=== PATIENT | female | born 1940 | race Caucasian/White ===

== ENCOUNTER 2022-03-30 08:31 | Emergency (ER) | payer MEDICARE, SELFPAY ==
[2022-03-30 08:41] VITALS: BP 170/90; PULSE 96; O2SAT 97
--- NOTE | 2022-03-30 08:46 | ED.GENADULT ---
HPI - General Adult General Chief complaint: Back Pain/Injury Stated complaint: Back Pain Time Seen by Provider: 03/30/22 08:35 Source: patient, family (daughter) and EMS Mode of arrival: EMS Limitations: no limitations History of Present Illness HPI narrative: Patient is an 81 year old female presenting to the emergency department today with generalized body pain. Patient states that she woke up this morning and just hurts everywhere. Patient states that she has a history of back pain and her back is bothering her today but that isn't all that hurts. Patient states that she lives in an assisted living facility. Patient denies any dizziness, lightheadedness, abdominal pain, nausea, vomiting, fever, chills, blurry vision, double vision, loss of vision, chest pain, difficulty breathing, shortness of breath, night sweats, pain with urination, increased urinary frequency, increased urinary urgency, blood in her urine or stool, syncope or a near syncopal episode, recent trauma or falls, bowel incontinence, bladder incontinence, bowel retention, bladder retention, or any other complaints at this time. Onset (ago): hour(s) Severity: mild Severity scale (1-10): 3 Quality: aching and dull Pain Consistency: constant Relieving factors: none Exacerbating factors: none Associated symptoms: denies other symptoms Treatments prior to arrival: none Related Data Home Medications Medication Instructions Recorded Confirmed aspirin 81 mg tablet,delayed 81 mg PO DAILY 05/25/20 09/12/21 release (Adult Aspirin Regimen) lactobacillus combination no.8 3 3,000 mmu cells PO DAILY 05/25/20 09/12/21 billion cell capsule (Adult Probiotic) Previous Rx's Medication Instructions Recorded mirtazapine 15 mg tablet 15 mg PO BEDTIME #90 tabs 02/18/22 oxycodone 5 mg tablet 0.25 mg PO Q4-6H PRN pain #14 tabs 03/30/22 Allergies Allergy/AdvReac Type Severity Reaction Status Date / Time No Known Allergies Allergy Verified 03/06/22 10:46 Review of Systems Constitutional: Constitutional: Reports no additional constitutional complaints, Reports body ache(s), Denies chills, Denies fever(s) and Denies night sweats Eyes: Eyes: Reports no additional eye complaints, Denies blurry vision, Denies change in vision, Denies diplopia, Denies eye discharge, Denies loss of vision and Denies eye pain ENT: Denies dizziness Cardiovascular: Cardiovascular: Reports no additional cardiovascular complaints, Denies chest pain, Denies lightheadedness, Denies Loss of Consciousness and Denies dyspnea Respiratory: Respiratory: Reports no additional respiratory complaints and Denies dyspnea Gastrointestinal: Gastrointestinal: Reports no additional gastrointestinal complaints, Denies abdominal pain, Denies melena, Denies hematochezia, Denies change in bowel habits and Denies change in stool character Genitourinary: Genitourinary: Denies hematuria, Denies urinary frequency, Denies dysuria, Denies urinary incontinence, Denies urinary hesitancy and Denies urinary urgency Musculoskeletal: Musculoskeletal: Reports no additional musculoskeletal complaints, Reports back pain, Reports myalgias, Denies numbness and Denies tingling Neurologic: Denies dizziness, Denies loss of vision, Denies numbness and Denies tingling Psychiatric: Psychiatric: Reports no additional psychiatric complaints Endocrine: Endocrine: Reports no additional endocrine complaints Hematologic/Lymphatic: Hematologic/Lymphatic: Reports no additional hematologic/lymphatic complaints Allergic/Immunologic: Allergic/Immunologic: Reports no additional allergic/immunologic complaints [facility] Past Medical History Attestation statement: The following information was validated with the patient. (patient's information was validated with the patient's daughter) Source: old records reviewed and obtained from family (patient's daughter) Medical History CVA (cerebral vascular accident) Depression GERD (gastroesophageal reflux disease) History of esophageal ulcer Hypercholesterolemia Osteoporosis Peripheral vascular disease Reflux esophagitis Spinal stenosis Thoracic compression fracture Thrombocytopenia Vertebral artery stenosis Surgical History History of appendectomy History of tonsillectomy History of tubal ligation Family History Family History Father No problems noted. Mother No problems noted. Sister Leukemia Social History Social History Alcohol intake: never Patient Tobacco Use Status: Never used Tobacco Tobacco use type: Cigarette Smoked in Last 30 Days: No Use of substances other than those prescribed or required for medical reasons: No Advance Directives: Yes Advance Directives Information Provided: No Advance Directives on File: No Physical Exam ED Vital Signs: Vital Signs - 24 hr 03/30/22 08:50 Temperature 97.9 F Pulse Rate 80 Respiratory Rate 24 H Blood Pressure 170/101 H Pulse Oximetry 96 Oxygen Delivery Method Room Air BMI result Body Mass Index 20.1 Const General: cooperative, no acute distress, alert and awake Nutritional Appearance: well nourished Orientation/consciousness: patient oriented x3 Limitations: no limitations HENMT Head: Yes normal to inspection and Yes atraumatic Ears: hearing grossly normal bilaterally and external ears normal General nose exam: Normal external nose present, no nasal discharge noted and no epistaxis Face and sinus: Yes normal facial exam, No abrasion and No laceration Mouth: Normal oral and palatal mucosa present, no drooling and no muffled voice Eyes General: appearance normal, both eyes and all related structures Periorbital: periorbital findings normal Eyelids: Yes eyelids normal Conjunctivae: conjunctivae normal Pupils: Equal, round and reactive pupils present EOM: EOMs intact bilaterally Neck Neck: Yes normal visual inspection, Yes full ROM and Yes no lymphadenopathy Chest Chest palpation & inspection: normal inspection of the chest Resp Effort & Inspection: normal respiratory effort and able to speak in complete sentences Auscultation: clear to auscultation bilaterally Cardio Rate: regular rate Rhythm: regular rhythm GI Inspection: Yes normal to inspection General: Yes no CVA tenderness Back/Spine/Pelvis Back: no CVA tenderness Cervical Spine: normal cervical lordosis and cervical ROM normal Thoracic/Lumbar Spine: thoracic and lumbar spine normal to inspection and thoraco-lumbar ROM normal Pelvis: no pain with anterior-posterior compression Neuro General: patient oriented x3 and moves all extremities Cranial nerves: Yes Equal, round and reactive pupils present Cognition (Neuro): normal cognition Motor exam (neuro): 5/5 motor strength present throughout Sensory Exam: Normal double simultaneous stimulation for sensation Coordination: [id number] test normal Extrem General: Yes normal to inspection, Yes full ROM and Yes capillary refill normal Psych Appearance: grossly normal Mental Status: mental status grossly normal Affect: normal affect Attitude: cooperative Thought process: Normal thought process present Thought content: Normal thought content present Insight: Good insight present (Psych) Medical Decision Making MDM Narrative Medical decision making narrative: Patient is an 81 year old female presenting to the emergency department today with pain all over. Patient's physical exam was unremarkable. Patient's blood work was unremarkable however, patient refused a repeat troponin be drawn. Patient's EKG was unremarkable. Patient's chest x-ray showed no acute process. Patient adamantly refused a CT scan of her lumbar spine. Patient was ambulated by myself and staff without issue, using her walker. I explained my physical exam findings as well as all test results to the patient and the patient's daughter. I answered all questions asked by the patient and the patient's daughter. Patient received 2.5mg of Oxycodone which she stated helped her pain significantly. I stressed the importance of the patient taking her medication as prescribed. I stressed the importance of the patient following up with her primary care provider and a pain specialist. I stressed the importance of the patient returning to the emergency department immediately if her symptoms were to worsen or if she were to develop any dizziness, shortness of breath, difficulty breathing, chest pain, blurry vision, loss of vision, nausea, vomiting, abdominal pain, fever, chills, or any other complaints. Patient [and the patient's] verbalized agreement and understanding with this treatment plan and discharge. Medical Records Medical records reviewed: Yes I reviewed the patient's medical records. Lab Data Lab results reviewed: Yes I reviewed the patient's lab results. Result diagrams: 03/30/22 09:13 03/30/22 09:13 Labs: Lab Results 03/30/22 03/30/22 03/30/22 Range/Units 09:13 09:13 09:13 WBC 6.8 (4.8-10.8) X10*3/uL RBC 4.24 (4.20-5.50) X10*6/uL Hgb 13.6 (12.0-16.0) g/dl Hct 38.2 (37.0-47.0) % MCV 90.1 (80.0-98.0) fL MCH 32.1 (27.0-33.0) pg MCHC 35.6 H (31.0-35.0) g/dl RDW 12.0 (11.0-16.0) % Plt Count 141 L (160-400) X10*3/uL MPV 9.3 L (9.4-12.3) fL Immature Gran % (Auto) 0.3 (0.0-0.4) % Neut % (Auto) 51.4 (45-73) % Lymph % (Auto) 38.4 (20-40) % [place] % (Auto) 7.7 (2-11) % Eos % (Auto) 0.0 (0-4) % Baso % (Auto) 2.2 H (0-2) % Lymph # (Auto) 2.6 (1.2-4.9) X10*3/uL [place] # (Auto) 0.5 (0.1-1.2) X10*3/uL Eos # (Auto) 0.0 (0.0-0.4) X10*3/uL Baso # (Auto) 0.2 (0.0-0.2) X10*3/uL Abs Immat Gran (auto) 0.02 (0.00-0.03) X10*3/uL Absolute Neuts (auto) 3.5 (2.0-8.3) x10*3/uL Absolute Nucleated RBC 0.000 (0.0-0.012) X10*3/uL Nucleated RBC % (auto) 0.0 (0.0-0.2) /100WBC Sodium 136 (135-145) mmol/L Potassium 3.9 (3.3-5.1) mmol/L Chloride 100 (96-108) mmol/L Carbon Dioxide 26 (22-29) mmol/L Anion Gap 14 (12-20) BUN 8 L (9-16) mg/dL Creatinine 0.64 (0.5-1.4) mg/dL Estim Creat Clear Calc 53.4 Estimated GFR > 60 Random Glucose 119 H (60-115) mg/dL Calcium 9.2 (8.4-10.2) mg/dL Total Bilirubin 0.9 (0.0-1.0) mg/dL AST 17 (5-31) U/L ALT 8 (0-31) U/L Alkaline Phosphatase 79 (39-117) U/L Total Creatine Kinase 75 (26-140) U/L Troponin I High Sens 9.1 (<3.5-17.0) ng/L Total Protein 6.8 (6.5-8.0) g/dL Albumin 4.5 (3.5-5.0) g/dL Influenza Type A (PCR) (Negative) Influenza Type B (PCR) (Negative) RSV RNA Qual (PCR) (Negative) SARS-CoV-2 RNA (RT-PCR) (Negative) 03/30/22 Range/Units 09:13 WBC (4.8-10.8) X10*3/uL RBC (4.20-5.50) X10*6/uL Hgb (12.0-16.0) g/dl Hct (37.0-47.0) % MCV (80.0-98.0) fL MCH (27.0-33.0) pg MCHC (31.0-35.0) g/dl RDW (11.0-16.0) % Plt Count (160-400) X10*3/uL MPV (9.4-12.3) fL Immature Gran % (Auto) (0.0-0.4) % Neut % (Auto) (45-73) % Lymph % (Auto) (20-40) % [place] % (Auto) (2-11) % Eos % (Auto) (0-4) % Baso % (Auto) (0-2) % Lymph # (Auto) (1.2-4.9) X10*3/uL [place] # (Auto) (0.1-1.2) X10*3/uL Eos # (Auto) (0.0-0.4) X10*3/uL Baso # (Auto) (0.0-0.2) X10*3/uL Abs Immat Gran (auto) (0.00-0.03) X10*3/uL Absolute Neuts (auto) (2.0-8.3) x10*3/uL Absolute Nucleated RBC (0.0-0.012) X10*3/uL Nucleated RBC % (auto) (0.0-0.2) /100WBC Sodium (135-145) mmol/L Potassium (3.3-5.1) mmol/L Chloride (96-108) mmol/L Carbon Dioxide (22-29) mmol/L Anion Gap (12-20) BUN (9-16) mg/dL Creatinine (0.5-1.4) mg/dL Estim Creat Clear Calc Estimated GFR Random Glucose (60-115) mg/dL Calcium (8.4-10.2) mg/dL Total Bilirubin (0.0-1.0) mg/dL AST (5-31) U/L ALT (0-31) U/L Alkaline Phosphatase (39-117) U/L Total Creatine Kinase (26-140) U/L Troponin I High Sens (<3.5-17.0) ng/L Total Protein (6.5-8.0) g/dL Albumin (3.5-5.0) g/dL Influenza Type A (PCR) NEGATIVE (Negative) Influenza Type B (PCR) NEGATIVE (Negative) RSV RNA Qual (PCR) NEGATIVE (Negative) SARS-CoV-2 RNA (RT-PCR) NEGATIVE (Negative) Imaging Data Chest x-ray: Attestation: I personally reviewed and interpreted this imaging study as follows: My impression: No acute process. Radiologist's impression: EXAMINATION: XR CHEST CLINICAL INFORMATION: Weakness. COMPARISON: Most recent chest radiograph dated 06/13/2019. TECHNIQUE: 2 views of the chest were obtained. FINDINGS: No focal airspace consolidation. No pleural effusion or pneumothorax. Stable cardiomediastinal silhouette. Redemonstration of multiple kyphoplasty. XR/XR chest 2V IMPRESSION: No acute cardiopulmonary findings. Dictated By: Scott Mart MD Signed By: Electronically signed by Scott Mart MD 03/30/22 0908 ECG Data Attestation: I personally reviewed and interpreted this ECG as follows: Prior ECG tracings: available for review Interpretation: Vent. Rate: 078 BPM ? ? Atrial Rate: 078 BPM P-R Int: 180 ms? QRS Dur: 080 ms QT Int: 384 ms ? ? ? P-R-T Axes: 030 -27 027 degrees QTc Int: 437 ms ? Normal sinus rhythm Low voltage QRS Borderline ECG When compared with ECG of 13-JUN-2019 19:39, No significant change was found DD/ [id number] Discharge Plan Discharge Clinical Impression: Back pain Patient Disposition: Home, Self-Care Instructions: Back Pain (ED) Additional Instructions: Follow up with your primary care provider and a pain specialist. Return to the emergency department immediately if your symptoms worsen or if you develop any dizziness, shortness of breath, difficulty breathing, chest pain, blurry vision, loss of vision, nausea, vomiting, abdominal pain, fever, chills, or any other complaints. Prescriptions: New oxycodone 5 mg tablet 0.25 mg PO Q4-6H PRN (Reason: pain) Qty: 14 0RF Rx Instructions: Partial Fill upon patient request. No Action mirtazapine 15 mg tablet 15 mg PO BEDTIME Qty: 90 1RF aspirin [Adult Aspirin Regimen] 81 mg tablet,delayed release (DR/EC) 81 mg PO DAILY Adult Probiotic 3 billion cell capsule 3,000 mmu cells PO DAILY Rx Instructions: administer with a meal Referrals: Clinton Grullon MD [Physician] - (Call to establish and follow up with a pain specialist. ) Francis,Trish Castro MD [Primary Care Provider] - Interventions: ED Discharge Assessment Last Done: 03/30/22 11:16 Discharge Date/Time: 03/30/22 11:16 Print Language: Togolese
[2022-03-30 08:50] VITALS: BP 170/101; PULSE 80; RESP 24; TEMP 36.6; O2SAT 96; BMI 20.1
--- NOTE | 2022-03-30 08:50 | ECG_ITS ---
Test Reason : KNEE PAIN Blood Pressure : / mmHG Vent. Rate : 078 BPM Atrial Rate : 078 BPM P-R Int : 180 ms QRS Dur : 080 ms QT Int : 384 ms P-R-T Axes : 030 -27 027 degrees QTc Int : 437 ms Normal sinus rhythm Low voltage QRS delay Left axis deviation Borderline ECG When compared with ECG of 13-JUN-2019 19:39, No significant change was found
[2022-03-30 09:17] LABS: MANUAL DIFF FLAG NO
[2022-03-30 09:21] LABS: Basophils Absolute Auto 0.2 X10*3/uL (0.0-0.2); Basophils Percent Auto 2.2 % (0-2); Hematocrit 38.2 % (37.0-47.0); Hemoglobin 13.6 g/dl (12.0-16.0); Imm Gran Abs Auto 0.02 X10*3/uL (0.00-0.03); Imm Gran Pct Auto 0.3 % (0.0-0.4); Lymphocytes Absolute Auto 2.6 X10*3/uL (1.2-4.9); Lymphocytes Percent Auto 38.4 % (20-40); Mean Corpuscular HGB Conc 35.6 g/dl (31.0-35.0); Mean Corpuscular Hemoglobin 32.1 pg (27.0-33.0); Mean Corpuscular Volume 90.1 fL (80.0-98.0); Mean Platelet Volume 9.3 fL (9.4-12.3); Monocytes Absolute Auto 0.5 X10*3/uL (0.1-1.2); Monocytes Percent Auto 7.7 % (2-11); Neutrophils Absolute Auto 3.5 x10*3/uL (2.0-8.3); Neutrophils Percent Auto 51.4 % (45-73); Platelet Count 141 X10*3/uL (160-400); Red Blood Count 4.24 X10*6/uL (4.20-5.50); White Blood Count 6.8 X10*3/uL (4.8-10.8)
[2022-03-30 09:40] LABS: Troponin-I High Sensitivity 9.1 ng/L (<3.5-17.0)
[2022-03-30 09:44] LABS: Alanine Aminotransferase 8 U/L (0-31); Albumin Level 4.5 g/dL (3.5-5.0); Alkaline Phosphatase 79 U/L (39-117); Anion Gap 14 (12-20); Aspartate Amino Transferase 17 U/L (5-31); Bilirubin Total 0.9 mg/dL (0.0-1.0); Blood Urea Nitrogen 8 mg/dL (9-16); Calcium 9.2 mg/dL (8.4-10.2); Carbon Dioxide 26 mmol/L (22-29); Chloride 100 mmol/L (96-108); Creatinine Clr Calc Pharmacy 53.4; Estimated Glomerular Filt Rate > 60; Glucose Random 119 mg/dL (60-115); Potassium 3.9 mmol/L (3.3-5.1); Sodium 136 mmol/L (135-145); Total Protein 6.8 g/dL (6.5-8.0)
[2022-03-30 10:01] LABS: Influenza A PCR NEGATIVE (Negative); Influenza B PCR NEGATIVE (Negative); Resp Syncy Virus RNA Qual PCR NEGATIVE (Negative); SARS COV2 PCR INHOUSE NEGATIVE (Negative)
[2022-03-30] MEDS: oxyCODONE HCl ER 10 MG TAB.ER.12H 2.5 MG PO (11:13)
== END 2022-03-30 11:16 | disposition home or self-care (01) ==
PROVIDERS: Physician Assistant Medical; Emergency Provider Emergency Medicine; PCP Internal Medicine
DX: M54.9 Dorsalgia, unspecified (principal); M79.10 Myalgia, unspecified site; Z20.822 Contact with and (suspected) exposure to COVID-19
CPT/HCPCS: 0241U; 71046; 80053; 82550; 84484; 85025; 93005; 99283; 99284

== ENCOUNTER 2024-05-14 12:01 | Outpatient (REF) | payer MEDICARE, SELFPAY ==
[2024-05-14 12:16] LABS: Appearance Urine Turbid; Color Urine Dark Yellow; Glucose Urine UA Negative (Negative); Leukocyte Esterase Urine Negative (Negative); Nitrite Urine Negative (Negative); PH 5.5 (5.0-9.0); Specific Gravity - Urine >= 1.030 (1.005-1.025); Urine Blood Negative (Negative); Urine Ketones Trace mg/dL (Negative); Urine Protein Trace mg/dL (Neg-Trace)
== END 2024-05-14 12:02 | disposition home or self-care (01) ==
LOC: HO.LNP 12:01
PROVIDERS: Visit Provider Internal Medicine
DX: R30.0 Dysuria (principal)
CPT/HCPCS: 81003

== ENCOUNTER 2024-07-18 10:51 | Emergency (ER) | payer MEDICARE, SELFPAY ==
--- NOTE | ~2024-07-18 | XR_ITS ---
CLINICAL HISTORY: fall, pain bilat hips L>R 5 view, pelvis and bilateral hips Comparison: CR/MI/SR - HIPS BOTH WITH PELVIS [id number] - 11/04/18 17:56 EDT Findings: No acute fracture. No dislocation. There is osteopenia. Mild arthritic change. There are extensive vascular calcifications. IMPRESSION: No acute findings. This document has been electronically signed by: Radha Leon MD on 07/18/2024 13:24:15
--- NOTE | ~2024-07-18 | CT_ITS ---
CLINICAL HISTORY: fall from standing CT cervical spine without contrast Comparison: None Findings: Trace anterolisthesis of C4 on C5 and C7 on T1. Multilevel degenerative disc disease, most pronounced at C5-C6 and C6-C7. No central canal stenosis. There is a mild chronic appearing osteoporotic type fracture of the T3 vertebral body. There is no cervical spine fracture. Visualized intracranial contents are unremarkable. Soft tissues of the neck are normal. There is mild bilateral apical scarring. IMPRESSION: No acute findings. This document has been electronically signed by: Radha Leon MD on 07/18/2024 13:30:43
--- NOTE | ~2024-07-18 | XR_ITS ---
CLINICAL HISTORY: pain, fall, prior fxs 3 views lumbar spine Comparison: CR/SR - LUMBAR SPINE 2TO 3 [id number] - 11/04/18 17:59 EDT Findings: Appropriate alignment. Focal kyphosis at the level of the lower thoracic spine. Mild s shaped curvature of the thoracolumbar spine. Evaluation for vertebral body fracture is limited by osteopenia and technique. No gross evidence of acute lumbar spine fracture. Prior vertebroplasty at T8, T9 and T10. Mild compression fracture at T11, moderate compression fracture at T12 and mild osteoporotic type fractures at L2 and L3 without significant change. Multilevel degenerative disc disease and facet osteoarthritis grossly similar to the prior study. IMPRESSION: Mildly limited evaluation. Multiple chronic fractures. No acute lumbar spine fracture. This document has been electronically signed by: Radha Leon MD on 07/18/2024 13:06:08
--- NOTE | ~2024-07-18 | CT_ITS ---
CLINICAL HISTORY: fall, persistent pain, no FX on XR CT pelvis without contrast Comparison: 07/18/2024 Possible nondisplaced avulsion type fracture of the left greater trochanter. No dislocation. There is osteopenia. No soft tissue hematoma. Mild arthritic changes of the hips. There is [id number] central canal stenosis at L4-L5 secondary to a broad-based disc bulge, ligamentum flavum hypertrophy and facet osteoarthritis. There is colonic diverticulosis without diverticulitis at visualized levels. No hemoperitoneum or extraperitoneal hematoma. Impression: 1. Possible nondisplaced avulsion fracture of the left greater trochanter best visualized on coronal reconstructions. This document has been electronically signed by: Radha Leon MD on 07/18/2024 15:06:37
--- NOTE | ~2024-07-18 | CT_ITS ---
CLINICAL HISTORY: fall from standing CT head without contrast Comparison: MR - MRI BRAIN WITHOUT CONT [id number] - 10/28/19 11:[address]/REG/SR - BRAIN WO IV CONTRAST [id number] - 04/06/19 13:04 EDT Findings: No intra-axial mass, midline shift, hydrocephalus, or acute hemorrhage. Involutional change brain parenchyma, compatible with age. Chronic lacunar infarcts within the bilateral basal ganglia without change. Moderately severe white matter disease without change. There is opacification of a right-sided ethmoid air cells. Paranasal sinuses are otherwise well-aerated. The orbits are within normal limits. No skull fracture. IMPRESSION: 1. No acute intracranial findings. This document has been electronically signed by: Radha Leon MD on 07/18/2024 13:27:58
--- NOTE | 2024-07-18 11:16 | ED.FALL ---
HPI - Fall General Chief Complaint: Fall Stated Complaint: FALL LAST NOC,LLE PAIN,-THINN,-LOC PER EMS Time Seen by Provider: 07/18/24 11:08 Source: patient and EMS Mode of arrival: EMS Limitations: no limitations History of Present Illness ED Provider: clayton garza NP HPI Narrative: Patient is an 83-year-old female who presents emergency department via EMS coming from [facility] in [place]. Daughter is present at bedside at the time of my evaluation. Patient appears somewhat anxious was not able to tell me exactly what happened, she states ?it was a long story?. She states that she was yelling and screaming for 1 hour before anyone came to help her. Daughter states that patient was reportedly found sitting on the ground. Daughter believes that with the way the walker appeared that perhaps when she was walking with a walker bumped into the door frame resulting in her losing her balance and falling. But again the exact etiology is unclear. Upon awakening this morning, she was endorsing pain to the left lower extremity/hip while attempting to ambulate. Denies any headache, neck pain, back pain. Patient denied any loss of consciousness. Is on a low-dose aspirin no additional anticoagulants. Related Data Home Medications ?Medication ?Instructions ?Recorded ?Confirmed aspirin 81 mg tablet,delayed 81 mg PO DAILY 05/25/20 09/12/21 release (Adult Aspirin Regimen) lactobacillus combination no.8 3 3,000 mmu cells PO DAILY 05/25/20 09/12/21 billion cell capsule (Adult Probiotic) Previous Rx's ?Medication ?Instructions ?Recorded mirtazapine 15 mg tablet 15 mg PO BEDTIME #90 tabs 02/01/24 Allergies Allergy/AdvReac Type Severity Reaction Status Date / Time No Known Allergies Allergy Verified 07/18/24 11:29 Review of Systems Review of Systems: Yes all other systems are reviewed and are negative PMFSH Past Medical History Attestation statement: The following information was validated with the patient. Source: old records reviewed Medical History Vertebral artery stenosis GERD (gastroesophageal reflux disease) Hypercholesterolemia CVA (cerebral vascular accident) Thrombocytopenia Peripheral vascular disease History of esophageal ulcer Spinal stenosis Reflux esophagitis Thoracic compression fracture Osteoporosis Depression Surgical History History of tubal ligation History of tonsillectomy History of appendectomy Family History Family History (Updated 12/04/22 @ 09:59 by Lucie Teran [employer]) Father No problems noted. Mother No problems noted. Sister Leukemia Social History Social History Housing: House Alcohol intake: never Patient Tobacco Use Status: Never used Tobacco Tobacco use type: Cigarette Smoked in Last 30 Days: No e-Cigarette/Vaping Use: Never Used Second Hand Smoke Exposure: No Use of substances other than those prescribed or required for medical reasons: No Advance Directives: Yes Advance Directives on File: Yes Advance Directives Date on File: 04/02/22 Do you have a plan to hurt others: No Plan Current occupational status: retired Cognitive needs: Yes Hearing needs: No Vision needs: No Physical Exam Vital Signs: Vital Signs: Last Vital Signs Temp 98.0 F 07/18/24 11:18 Pulse 94 07/18/24 11:18 Resp 18 07/18/24 11:18 BP 184/82 H 07/18/24 11:18 Pulse Ox 95 07/18/24 11:18 O2 Del Method Room Air 07/18/24 11:18 BMI result Body Mass Index 20.2 Appearance: Alert.?Oriented to person, place and time. No acute distress.?Normal affect. Head: Normocephalic, atraumatic Eyes: Pupils equal, round and reactive to light.? EOMI. No palpable periorbital deformities or ecchymosis ENT: Pharynx normal.??TM normal bilaterally. No rhinorrhea. No septal hematoma. TM normal bilaterally Neck: Normal inspection.? Neck supple.??No midline cervical spine tenderness, step-offs, deformities. Back: No midline thoracic or lumbar spine tenderness, step-offs, deformities. CVS: Heart sounds normal. Normal heart rate and rhythm.? Pulses normal.?? Respiratory: No respiratory distress.? Lung sounds clear to auscultation bilaterally?? Abdomen: Soft and non-tender. Normoactive bowel sounds Skin: Skin warm and dry.? Normal skin color.? Extremities: No lower extremity edema.? No calf ttp. Decreased AROM to the left hip without shortening or rotation. 2+ DP/PT pulse, 2+ radial pulse bilaterally. Neuro: Moves all extremities spontaneously. Sensation intact bilaterally. CN II-XII intact. No focal neuro deficits. Course Reevaluation(s) Reevaluation #1: Had an at length discussion with daughter about CT imaging of the hip. She initially had requested CT imaging without XR being obtained. I did discuss with her the XR is the preferred initial imaging modality of choice to evaluate for acute fracture dislocation. CT imaging may be used in circumstances of a negative x-ray if there is continued concern for occult fracture such as in the circumstances where she continues to not be able to move the leg or bear any weight. After receiving a small dose of lorazepam due to her anxiety as well as acetaminophen she is noted to be moving the leg in the bed without difficulty. She was able to get up with staff assistance in a wheeled walker and ambulate in the room. She does have a bit of a shuffling gait noted to her right lower extremity which for daughter is baseline. She denies any pain in that extremity. She does continue to endorse 5/10 L hip pain but is able to weightbear. Daughter feels strongly about CT imaging being obtained I feel is reasonable given her persistent pain in her osteoporosis, she may have subtle fracture not seen on XR Reevaluation #2: CT imaging revealing a possible nondisplaced avulsion fracture of the left greater trochanter, I did visualize imaging results and I do agree does not appear to be through and through intertrochanteric fracture. Discussed these results with mary ann MULLINS who agrees. Recommends nonweightbearing on the left lower extremity and outpatient follow-up. I discussed these findings with patient and daughter. She currently resides in an independent living facility uses a walker at baseline. She will be placed in physician observation at this time so that PT/case management evaluation can ensue for safe disposition planning she will require short-term rehab for the time being Time: 15:15 Medications Administered Discontinued Medications Generic Name Dose Route Start Last Admin Trade Name Freq PRN Reason Stop Dose Admin Acetaminophen 975 mg 07/18/24 11:50 07/18/24 12:11 Acetaminophen 325 Mg Tablet PO 07/18/24 11:51 975 mg ONCE ONE Administration Lorazepam 0.5 mg 07/18/24 12:11 07/18/24 12:41 Lorazepam 0.5 Mg Tablet PO 07/18/24 12:12 0.5 mg ONCE ONE Administration Medical Decision Making Medical Decision Making [facility] Narrative: Patient is an 83-year-old female with past medical history of vertebral artery stenosis, CVA, GERD, PVD, thrombocytopenia, hypercholesterolemia, spinal stenosis, thoracic spine compression fractures T7-T12 with prior kyphoplasties, osteoporosis who presents emergency department via EMS for evaluation after a fall having occurred last night. The exact etiology of the fall is unclear, daughter believes this to have been mechanical in nature, patient is not able to discern specifically whether she was having any preceding symptoms or exactly why she fell. Your primary physical complaint is pain to her left hip/leg that was exacerbated with the attempt to ambulate today. Given the fall was unwitnessed on exact etiology unclear, Will obtain CBC to evaluate for leukocytosis/ anemia, CMP and lipase to evaluate for abnormal electrolytes /abnormal renal function/ abnormal hepatic/biliary function, EKG and troponin to evaluate for ischemia/ACS, and Urinalysis. Given mechanism of injury and age obtain a CT of the head, cervical spine, XR of the hip/pelvis; Differential diagnosis including ICH, SDH, fracture, subluxation, dislocation, sprain, contusion Differential Diagnosis Differential Diagnoses: The differential diagnosis associated with the presentation includes (See narrative above) Admission/Observation Consideration of admission/observation: Escalation of care including admission/observation considered Lab Data MDM Lab Attestation statement: I reviewed the patient's lab results. CBC is without leukocytosis or anemia, has a mild thrombocytopenia. No electrolyte derangement. No MATTHEW. LFTs within normal range. High sensitive troponin within normal range. CK of 54 not consistent with rhabdo. 07/18/24 12:48 07/18/24 12:48 Labs: Lab Results 07/18/24 Range/Units 12:48 WBC 8.6 (4.8-10.8) X10*3/uL RBC 4.20 (4.20-5.50) X10*6/uL Hgb 13.8 (12.0-16.0) g/dl Hct 38.5 (37.0-47.0) % MCV 91.7 (80.0-98.0) fL MCH 32.9 (27.0-33.0) pg MCHC 35.8 H (31.0-35.0) g/dl RDW 12.0 (11.0-16.0) % Plt Count 143 L (160-400) X10*3/uL MPV 9.4 (9.4-12.3) fL Immature Gran % (Auto) 0.5 H (0.0-0.4) % Neut % (Auto) 57.7 (45-73) % Lymph % (Auto) 33.2 (20-40) % Mcpherson % (Auto) 6.6 (2-11) % Eos % (Auto) 0.1 (0-4) % Baso % (Auto) 1.9 (0-2) % Lymph # (Auto) 2.9 (1.2-4.9) X10*3/uL Mcpherson # (Auto) 0.6 (0.1-1.2) X10*3/uL Eos # (Auto) 0.0 (0.0-0.4) X10*3/uL Baso # (Auto) 0.2 (0.0-0.2) X10*3/uL Abs Immat Gran (auto) 0.04 H (0.00-0.03) X10*3/uL Absolute Neuts (auto) 5.0 (2.0-8.3) x10*3/uL Absolute Nucleated RBC 0.000 (0.0-0.012) X10*3/uL Nucleated RBC % (auto) 0.0 (0.0-0.2) /100WBC PT 13.1 H (10.9-12.4) SEC INR 1.1 (0.9-1.1) Sodium 136 (135-145) mmol/L Potassium 4.0 (3.3-5.1) mmol/L Chloride 103 (96-108) mmol/L Carbon Dioxide 23 (22-29) mmol/L Anion Gap 14 (12-20) BUN 9 (9-16) mg/dL Creatinine 0.60 (0.5-1.4) mg/dL Estim Creat Clear Calc 47.6 Estimated GFR > 60 Random Glucose 108 (60-115) mg/dL Calcium 9.3 (8.4-10.2) mg/dL Magnesium 1.8 (1.6-2.6) mg/dL Total Bilirubin 0.9 (0.0-1.0) mg/dL AST 22 (5-31) U/L ALT 8 (0-31) U/L Alkaline Phosphatase 76 (39-117) U/L Total Creatine Kinase 54 (26-140) U/L Troponin I High Sens 10.4 (<3.5-17.0) ng/L Total Protein 7.1 (6.5-8.0) g/dL Albumin 4.0 (3.5-5.0) g/dL Independent Interpretation I performed an independent interpretation of an: EKG (Normal sinus rhythm with ventricular rate of 89, QTC 435, no ST elevation, no ST depression), Plain X-Ray (No acute fracture of the hip/pelvis) and CT Scan (No ICH or skull fracture) Radiology Impression Discussion of test interpretation with radiology: I have reviewed the radiologist's reading. Radiologist Impression: 3 views lumbar spine IMPRESSION: Mildly limited evaluation. Multiple chronic fractures. No acute lumbar spine fracture. 5 view, pelvis and bilateral hips IMPRESSION: No acute findings. CT head without contrast IMPRESSION: 1. No acute intracranial findings. CT cervical spine without contrast IMPRESSION: No acute findings. CT pelvis without contrast Impression: 1. Possible nondisplaced avulsion fracture of the left greater trochanter best visualized on coronal reconstructions. Independent Historian Clinical information obtained from an independent historian. History obtained from or confirmed by: EMS and Other (Daughter) External Record Review External record reviewed: Outpatient record Discharge Plan Discharge Clinical Impression: Closed trochanteric fracture of hip, Fall Patient Disposition: Still a Patient Prescriptions: No Action mirtazapine 15 mg tablet 15 mg PO BEDTIME Qty: 90 2RF aspirin [Adult Aspirin Regimen] 81 mg tablet,delayed release (DR/EC) 81 mg PO DAILY Adult Probiotic 3 billion cell capsule 3,000 mmu cells PO DAILY Rx Instructions: administer with a meal Print Language: Swazi
[2024-07-18 11:18] VITALS: BP 140/90; BP 184/82; PULSE 90; PULSE 94; RESP 18; TEMP 36.7; O2SAT 94; O2SAT 95; BMI 20.2
--- NOTE | 2024-07-18 11:34 | ECG_ITS ---
Test Reason : FALL Blood Pressure : */* mmHG Vent. Rate : 89 BPM Atrial Rate : 89 BPM P-R Int : 190 ms QRS Dur : 76 ms QT Int : 358 ms P-R-T Axes : 57 -29 56 degrees QTcB Int : 435 ms Normal sinus rhythm Normal ECG When compared with ECG of 30-Mar-2022 10:28, No significant change was found Referred By: Loreta Apodaca Electronically Signed By: NAVJOT WILLIAMSON
[2024-07-18] MEDS: Acetaminophen 325 MG TABLET 975 MG PO (12:11)
[2024-07-18] MEDS: LORazepam 0.5 MG TABLET PO (12:41)
[2024-07-18 13:01] LABS: MANUAL DIFF FLAG NO
[2024-07-18 13:13] LABS: Basophils Absolute Auto 0.2 X10*3/uL (0.0-0.2); Basophils Percent Auto 1.9 % (0-2); Eosinophils Percent Auto 0.1 % (0-4); Hematocrit 38.5 % (37.0-47.0); Hemoglobin 13.8 g/dl (12.0-16.0); Imm Gran Abs Auto 0.04 X10*3/uL (0.00-0.03); Imm Gran Pct Auto 0.5 % (0.0-0.4); Lymphocytes Absolute Auto 2.9 X10*3/uL (1.2-4.9); Lymphocytes Percent Auto 33.2 % (20-40); Mean Corpuscular HGB Conc 35.8 g/dl (31.0-35.0); Mean Corpuscular Hemoglobin 32.9 pg (27.0-33.0); Mean Corpuscular Volume 91.7 fL (80.0-98.0); Mean Platelet Volume 9.4 fL (9.4-12.3); Monocytes Absolute Auto 0.6 X10*3/uL (0.1-1.2); Monocytes Percent Auto 6.6 % (2-11); Neutrophils Percent Auto 57.7 % (45-73); Platelet Count 143 X10*3/uL (160-400); White Blood Count 8.6 X10*3/uL (4.8-10.8)
[2024-07-18 13:16] LABS: INTERNATIONAL NORM RATIO 1.1 (0.9-1.1); Prothrombin Time 13.1 SEC (10.9-12.4)
[2024-07-18 13:28] LABS: Alanine Aminotransferase 8 U/L (0-31); Anion Gap 14 (12-20); Aspartate Amino Transferase 22 U/L (5-31); Bilirubin Total 0.9 mg/dL (0.0-1.0); Blood Urea Nitrogen 9 mg/dL (9-16); Calcium 9.3 mg/dL (8.4-10.2); Carbon Dioxide 23 mmol/L (22-29); Chloride 103 mmol/L (96-108); Creatinine Clr Calc Pharmacy 47.6; Estimated Glomerular Filt Rate > 60; Glucose Random 108 mg/dL (60-115); Magnesium 1.8 mg/dL (1.6-2.6); Sodium 136 mmol/L (135-145); Total Protein 7.1 g/dL (6.5-8.0)
[2024-07-18 13:32] LABS: Troponin-I High Sensitivity 10.4 ng/L (<3.5-17.0)
[2024-07-18 13:35] LABS: Alkaline Phosphatase 76 U/L (39-117)
[2024-07-18 16:31] VITALS: BP 166/117; PULSE 99; RESP 16; TEMP 36; O2SAT 97
[2024-07-18 18:20] VITALS: BP 143/87; PULSE 100; RESP 16; TEMP 36.6; O2SAT 94
[2024-07-18 20:01] VITALS: BP 155/91; PULSE 84; RESP 16; TEMP 36.8; O2SAT 93
[2024-07-18 22:10] VITALS: BP 165/90; PULSE 99; RESP 16; TEMP 36.6; O2SAT 94
[2024-07-19 11:14] LABS: COVID-19 Test Negative (Negative); IDNOW Serial# 08D9AD1C
--- NOTE | 2024-07-19 11:24 | MHC.CM.ED ---
Addendum entered by Jojo Myers 07/19/24 12:51: [facility] is able to offer a bed. Patient can leave at 4pm. Annabel GRAY booked. [facility] with chart. Patient, daughter, Tamika, Nichol RN and Chrystal GOEL aware. Original Note: Received case management consult overnight. Patient came to the ER after a fall. Found to have LLE fx and needs to be NWB. Physical therapy eval completed. Rehab is recommended. Attempted to meet with patient in regards to discharge planning. Patient is currently sleeping. Spoke with patient's daughter, Tamika, via telephone at [phone]. Patient has resided at [facility] in [place] for 3 years now. Patient has not been inpatient in any facility in the past 30 days. Tamika agreeable to referral to all 3 acute rehab facilities. Choices: 1) [facility] 2)[facility] 3) [facility]. Continue to monitor for d/c needs.
[2024-07-19 16:17] VITALS: BP 173/107; PULSE 100; RESP 14; TEMP 36.7; O2SAT 92
[2024-07-19] MEDS: Ondansetron ODT 4 MG TAB.RAPDIS TRANSLINGU (16:56)
== END 2024-07-19 17:17 ==
PROVIDERS: Nurse Practitioner Family; Registered Nurse Emergency; Emergency Provider Emergency Medicine; PCP Internal Medicine
DX: S72.002A Fracture of unspecified part of neck of left femur, initial encounter for closed fracture (principal); M54.50 Low back pain, unspecified; F41.9 Anxiety disorder, unspecified; R51.9 Headache, unspecified; M54.2 Cervicalgia; R26.2 Difficulty in walking, not elsewhere classified; R10.2 Pelvic and perineal pain; W18.30XA Fall on same level, unspecified, initial encounter; Y93.9 Activity, unspecified; Y92.9 Unspecified place or not applicable; Y99.8 Other external cause status; Z11.52 Encounter for screening for COVID-19; Z79.899 Other long term (current) drug therapy
CPT/HCPCS: 36415; 70450; 72100; 72125; 72192; 73521; 80053; 82550; 83735; 84484; 85025; 85610; 87635; 93005; 97162; 97163; 99285

== ENCOUNTER → 2024-07-18 11:32 | Outpatient (BNV) | payer MEDICARE, SELFPAY | PROVIDERS: Emergency Provider Emergency Medicine; PCP Internal Medicine; Visit Provider Radiology Diagnostic Radiology | DX: M25.552 Pain in left hip (principal); S09.90XA Unspecified injury of head, initial encounter; M81.0 Age-related osteoporosis without current pathological fracture; W19.XXXA Unspecified fall, initial encounter | CPT/HCPCS: 70450; 72100; 72125; 72192; 73521 ==

== ENCOUNTER → 2024-07-18 11:34 | Outpatient (BNV) | payer MEDICARE, SELFPAY | PROVIDERS: Emergency Provider Emergency Medicine; PCP Internal Medicine; Visit Provider Internal Medicine | DX: Z13.6 Encounter for screening for cardiovascular disorders (principal) | CPT/HCPCS: 93010 ==

== ENCOUNTER 2024-07-27 07:46 | Outpatient (REF) | payer MEDICARE, SELFPAY ==
--- NOTE | ~2024-07-27 | XR_ITS ---
CLINICAL HISTORY: M25.559 - Pain in unspecified hip 3 view, pelvis and left hip Comparison: CT/SR - CT PELVIS WO IV CON - 07/18/24 13:57 EST Findings: No displaced fracture. The fracture of the greater trochanter appreciated on CT is not appreciated radiographically. The pelvic rings appear intact. Bones are osteopenic. Moderate to severe degenerative change. IMPRESSION: The greater trochanter avulsion fracture is not well appreciated radiographically. No displaced fracture. Osteoarthropathy. This document has been electronically signed by: Yeimi Burgos MD on 07/28/2024 06:26:40
--- OUTSIDE RECORDS SUMMARY | 2024-07-27 07:48 | XMS_ITS | Clinical Summary ---
Author Organization [facility] Address [address] [place] [address] Phone Care Team Providers Care Wood Block Artist Name Role Phone Physician, No Pcp Primary Care Provider Unavaila ble Encounters Date Type Department Care Team Description 07/26/2024 Lab Requisition [facility] Lab [address] [place] [phone] Alisha Davison MD Encounter for other general examination 07/23/2024 Lab Requisition [facility] Lab [address] [place] [phone] Alisha Davison MD Encounter for other general examination 07/22/2024 Lab Requisition [facility] Lab [address] [place] [phone] Alisha Davison MD Encounter for other general examination 07/20/2024 Lab Requisition [facility] Lab [address] [place] [phone] Alisha Davison MD Encounter for other general examination from Last 3 Months Social History Tobacco Use Types Packs/Day Years Used Date Smoking Tobacco: Never Assessed Sex and Gender Information Value Date Recorded Sex Assigned at Not on file Gender Identity Not on file Sexual Orientation Not on file Job Start Date Occupation Industry Not on file Not on file Not on file Plan of Treatment Health Maintenance Due Date Last Done Comments DTaP,Tdap,and Td Vaccines (1 - Tdap) 11/25/1958 Zoster Vaccines (1 of 2) 11/25/1989 Pneumococcal Vaccine: 65+ Ye ars (1 of 1 - PCV) 11/25/2004 RSV Immunization Patients 60 + Years Old (1 - 1-dose 75+ series) 11/25/2014 COVID-19 Vaccine ( - 2023-2 5 season) 2024 Influenza Vaccine (#1) 2024 Depression Screening 07/19/2024 Falls Risk Assessment 07/19/2024 Medicare Annual Wellness Visit 07/19/2024 Osteoporosis Screening (Bone Density Screening) 07/19/2024 Social Influencers of Health Screening 07/19/2024 HIB Vaccines Aged Out No longer eligi ble based on patient's age to complete this topic HPV Vaccines Aged Out No longer eligi ble based on patient's age to complete this topic Hepatitis A Vaccines Aged Out No long er eligible based on patient's age to complete this topic Hepatitis B Vaccines Aged Out No long er eligible based on patient's age to complete this topic IPV Vaccines Aged Out No longer eligi ble based on patient's age to complete this topic MMR Vaccines Aged Out No longer eligi ble based on patient's age to complete this topic Meningococcal ACWY Vaccine Aged Out N o longer eligible based on patient's age to complete this topic RSV Immunization Patients Un fabricio 20 months Aged Out No longer eligible b ased on patient's age to complete this topic Varicella Vaccines Aged Out No longer eligible based on patient's age to complete this topic Procedures Procedure Name Priority Date/Time Associated Diagnosis Comments MAGNESIUM Routine 07/26/2024 5:24 AM EST Encounter for other general examination COMPLETE BLOOD COUNT Routine 07/26/2024 5:24 AM EST Encounter for other general examination COMPREHENSIVE METABOLIC PANEL Routine 07/26/2024 5:24 AM EST Encounter for other general examination SODIUM, URINE, RANDOM Routine 07/23/2024 11:30 AM EST Encounter for other general examination OSMOLALITY, URINE Routine 07/23/2024 11: 30 AM EST Encounter for other general examination COMPLETE BLOOD COUNT Routine 07/22/2024 2:25 PM EST Encounter for other general examination COMPREHENSIVE METABOLIC PANEL Routine 07/22/2024 2:25 PM EST Encounter for other general examination MANUAL DIFFERENTIAL - SYSMEX WAM Routine 07/20/2024 5:24 AM EST Encounter for other general examination CBC WITH AUTO DIFFERENTIAL Routine 07/20/2024 5:24 AM EST Encounter for other general examination MAGNESIUM Routine 07/20/2024 5:24 AM EST Encounter for other general examination CBC AND DIFFERENTIAL Routine 07/20/2024 5:24 AM EST Encounter for other general examination COMPREHENSIVE METABOLIC PANEL Routine 07/20/2024 5:24 AM EST Encounter for other general examination from Last 3 Months Results * (ABNORMAL) Complete blood count (07/26/2024 5:24 AM EST) Only the most recent of2 resultswithin the time period is included. WBC 9.4 4.8 - 10.8 K/mcL LAB HEMETOLOGY METHOD 07/26/2024 10:23 AM [facility] RBC 3.70(L) 3.80 - 4.80 M/mcL LAB HEMETOLOGY METHOD 07/26/2024 10:23 AM [facility] LAB Hemoglobin 11.9 11.5 - 16.0 g/dL LAB HEMETOLOGY METHOD 07/26/2024 10:23 AM [facility] LAB Hematocrit 34.1(L) 35.0 - 47.0 % LAB HEMETOLOGY METHOD 07/26/2024 10:23 AM [facility] LAB MCV 93.2 79.0 - 98.0 FL LAB HEMETOLOGY METHOD 07/26/2024 10:23 AM [facility] LAB MCH 32.5(H) 27.0 - 32.0 pcg LAB HEMETOLOGY METHOD 07/26/2024 10:23 AM [facility] LAB MCHC 34.9 32.0 - 37.0 g/dL LAB HEMETOLOGY METHOD 07/26/2024 10:[address] [facility] RDW 12.5 11.0 - 15.0 % LAB HEMETOLOGY METHOD 07/26/2024 10:23 AM [facility] LAB Platelets 194 130 - 400 K/mcL LAB HEMETOLOGY METHOD 07/26/2024 10:[address] [facility] MPV 9.8 7.0 - 11.0 FL LAB HEMETOLOGY METHOD 07/26/2024 10:[address] [facility] NRBC 0.0 <1.0 % LAB HEMETOLOGY METHOD 07/26/2024 10:[address] [facility] NRBC Absolute 0.00 <0.10 K/mcL LAB HEMETOLOGY METHOD 07/26/2024 10:[address] [facility] Blood Venous blood specimen / Unknown Venipuncture / Unknown 07/26/2024 5:24 AM EST 07/26/2024 8:31 AM EST Alisha Davison MD LAB BLOOD ORDERABLES [facility] [address] [place] [address], * Magnesium (07/26/2024 5:24 AM EST) Only the most recent of2 resultswithin the time period is included. Magnesium 1.9 1.9 - 2.6 mg/dL LAB CHEMISTRY METHOD 07/26/2024 10:[address] [facility] Blood Venous blood specimen / Unknown Venipuncture / Unknown 07/26/2024 5:24 AM EST 07/26/2024 8:31 AM EST Alisha Davison MD LAB BLOOD ORDERABLES [facility] [address] [place] [address], * (ABNORMAL) Comprehensive metabolic panel (07/26/2024 5:24 AM EST) Only the most recent of3 resultswithin the time period is included. Sodium 131(L) 133 - 145 mmol/L LAB CHEMISTRY METHOD 07/26/2024 11:22 AM [facility] Potassium 3.9 3.5 - 5.5 mmol/L LAB CHEMISTRY METHOD 07/26/2024 11:22 AM [facility] Chloride 97 96 - 110 mmol/L LAB CHEMISTRY METHOD 07/26/2024 11:22 AM [facility] CO2 30 21 - 32 mmol/L LAB CHEMISTRY METHOD 07/26/2024 11:22 AM [facility] Anion Gap 4 3 - 11 LAB CHEMISTRY METHOD 07/26/2024 11:22 AM [facility] Glucose 96 70 - 100 mg/dL LAB CHEMISTRY METHOD 07/26/2024 11:22 AM [facility] BUN 19 5 - 25 mg/dL LAB CHEMISTRY METHOD 07/26/2024 11:22 AM [facility] Creatinine 0.48(L) 0.50 - 1.10 mg/dL LAB CHEMISTRY METHOD 07/26/2024 11:22 AM [facility] LAB eGFR 94 >=60 mL/min/1. 73m2 LAB CHEMISTRY METHOD 07/26/2024 11:22 AM [facility] LAB Comment:Calculation based on the??Chronic Kidney Disease Epidemiology Collaboration (CKD-EPI) equation refit??without adjustment for race. BUN/Creatinine Ratio 39.6 LAB CHEMISTRY METHOD 07/26/2024 11:22 AM [facility] Calcium 9.1 8.5 - 10.5 mg/dL LAB CHEMISTRY METHOD 07/26/2024 11:22 AM [facility] LAB AST (SGOT) 34 10 - 42 unit/L LAB CHEMISTRY METHOD 07/26/2024 11:22 AM [facility] LAB Comment:Results verified by repeat testing ALT (SGPT) 32 10 - 60 unit/L LAB CHEMISTRY METHOD 07/26/2024 11:22 AM [facility] LAB Comment:Results verified by repeat testing Alkaline Phosphatase 75 42 - 121 unit/L LAB CHEMISTRY METHOD 07/26/2024 11:22 AM [facility] LAB Total Protein 5.8(L) 6.0 - 8.0 g/dL LAB CHEMISTRY METHOD 07/26/2024 11:22 AM [facility] Albumin 3.2 3.2 - 5.0 g/dL LAB CHEMISTRY METHOD 07/26/2024 11:22 AM [facility] Total Bilirubin 0.5 0.0 - 1.4 mg/dL LAB CHEMISTRY METHOD 07/26/2024 11:22 AM [facility] Blood Venous blood specimen / Unknown Venipuncture / Unknown 07/26/2024 5:24 AM EST 07/26/2024 8:31 AM EST Alisha Davison MD LAB BLOOD ORDERABLES [facility] [address] [place] [address], * Sodium, urine, random (07/23/2024 11:30 AM EST) Sodium, Ur 8 mmol/L LAB CHEMISTRY METHOD 07/23/2024 12:[address] [facility] Urine Urine specimen obtained by clean catch procedure / Unknown Non-blood Collection / Unknown 07/23/2024 11:30 AM EST 07/23/2024 12:29 PM EST Alisha Davison MD LAB URINE ORDERABLES [facility] [address] [place] [address], [place] [phone] * Osmolality, urine (07/23/2024 11:30 AM EST) [facility] Osmolality, Urine 579 300 - 1,300 mOsm/kg LAB CHEMISTRY METHOD 07/23/2024 1:45 PM [facility] Urine Urine specimen obtained by clean catch procedure / Unknown Non-blood Collection / Unknown 07/23/2024 11:30 AM EST 07/23/2024 12:29 PM EST Alisha Davison MD LAB URINE ORDERABLES [facility] [address] [place] [address], [place] [phone] * (ABNORMAL) Manual differential (07/20/2024 5:24 AM EST) [facility] Neutrophils % 43.0 % LAB HEMETOLOGY METHOD 07/20/2024 11:53 AM [facility] Lymphocytes % 40.0 % LAB HEMETOLOGY METHOD 07/20/2024 11:53 AM [facility] Reactive Lymphocyte 10.00 % LAB HEMETOLOGY METHOD 07/20/2024 11:53 AM [facility] Monocytes % 7.0 % LAB HEMETOLOGY METHOD 07/20/2024 11:53 AM [facility] Eosinophils % 0.0 % LAB HEMETOLOGY METHOD 07/20/2024 11:53 AM [facility] Basophils % 1.0 % LAB HEMETOLOGY METHOD 07/20/2024 11:53 AM [facility] Neutrophils Absolute Manual 3.61 1.50 - 7.00 K/mcL LAB HEMETOLOGY METHOD 07/20/2024 11:53 AM [facility] Lymphocytes Absolute 3.36 1.00 - 5.00 K/mcL LAB HEMETOLOGY METHOD 07/20/2024 11:[address] [facility] Reactive Lymph Abs Manual 0.84(H) 0.00 - 0.00 lym LAB HEMETOLOGY METHOD 07/20/2024 11:[address] [facility] Monocytes Absolute Manual 0.59 0.20 - 1.00 K/mcL LAB HEMETOLOGY METHOD 07/20/2024 11:53 AM [facility] Eosinophils Absolute Manual 0.00 0.00 - 0.50 K/mcL LAB HEMETOLOGY METHOD 07/20/2024 11:53 AM [facility] Basophils Absolute Manual 0.08 0.00 - 0.20 K/[facility] LAB HEMETOLOGY METHOD 07/20/2024 11:53 AM [facility] Rbc Morphology Consistent with indices Consistent with indices, Normal for Randall LAB HEMETOLOGY METHOD 07/20/2024 11:53 AM [facility] LAB Platelet Morphology - WAM See Note(A) Normal LAB HEMETOLOGY METHOD 07/20/2024 11:53 AM [facility] LAB Comment:PLT: Normal Blood Venous blood specimen / Unknown Venipuncture / Unknown 07/20/2024 5:24 AM EST 07/20/2024 9:35 AM EST Alisha Davison MD LAB BLOOD ORDERABLES [facility] [address] [place] [address], * (ABNORMAL) CBC auto differential (07/20/2024 5:24 AM EST) WBC 8.4 4.8 - 10.8 K/mcL LAB HEMETOLOGY METHOD 07/20/2024 11:53 AM [facility] RBC 3.90 3.80 - 4.80 M/mcL LAB HEMETOLOGY METHOD 07/20/2024 11:[address] [facility] Hemoglobin 12.9 11.5 - 16.0 g/dL LAB HEMETOLOGY METHOD 07/20/2024 11:53 AM [facility] LAB Hematocrit 37.0 35.0 - 47.0 % LAB HEMETOLOGY METHOD 07/20/2024 11:53 AM [facility] LAB MCV 95.1 79.0 - 98.0 FL LAB HEMETOLOGY METHOD 07/20/2024 11:53 AM [facility] LAB MCH 33.2(H) 27.0 - 32.0 pcg LAB HEMETOLOGY METHOD 07/20/2024 11:53 AM [facility] LAB MCHC 34.9 32.0 - 37.0 g/dL LAB HEMETOLOGY METHOD 07/20/2024 11:53 AM [facility] LAB RDW 12.3 11.0 - 15.0 % LAB HEMETOLOGY METHOD 07/20/2024 11:53 AM [facility] LAB Platelets 150 130 - 400 K/mcL LAB HEMETOLOGY METHOD 07/20/2024 11:53 AM [facility] LAB MPV 10.0 7.0 - 11.0 FL LAB HEMETOLOGY METHOD 07/20/2024 11:53 AM [facility] LAB NRBC 0.0 <1.0 % LAB HEMETOLOGY METHOD 07/20/2024 11:53 AM [facility] NRBC Absolute 0.00 <0.10 K/mcL LAB HEMETOLOGY METHOD 07/20/2024 11:53 AM [facility] Blood Venous blood specimen / Unknown Venipuncture / Unknown 07/20/2024 5:24 AM EST 07/20/2024 9:35 AM EST Alisha Davison MD LAB BLOOD ORDERABLES [facility] [address] [place] [address], [place] [phone] from Last 3 Months Advance Directives Documents on File Type Date Recorded Patient Traffic Enumerator Expl anation Health Care Decision (hx) 03/15/2020 AD ALYSSA DIRECTIVE Care Teams Wood Block Artist Relationship Specialty Start Date End Date Physician, No Pcp PCP - General 07/19/24
--- OUTSIDE RECORDS SUMMARY | 2024-07-27 07:48 | XMS_ITS | Encounter Summary ---
Author Organization [facility] Address [address] [place] [address] Care Team Providers Care Master Rigger Name Role Phone Physician, No Pcp Primary Care Provider Unavaila ble Encounter Details Date Type Department Care Team (Late st Contact Info) Description 07/23/2024 Lab Requisition [facility] Lab [address] [facility] [place] [address] Alisha Davison MD [address] [place] [address] Encounter for other general examination Social History Tobacco Use Types Packs/Day Years Used Date Smoking Tobacco: Never Assessed Sex and Gender Information Value Date Recorded Sex Assigned at Not on file Gender Identity Not on file Sexual Orientation Not on file Job Start Date Occupation Industry Not on file Not on file Not on file documented as of this encounter Plan of Treatment Not on file documented as of this encounter Procedures Procedure Name Priority Date/Time Associated Diagnosis Comments SODIUM, URINE, RANDOM Routine 07/23/2024 11:30 AM EST Encounter for other general examination OSMOLALITY, URINE Routine 07/23/2024 11: 30 AM EST Encounter for other general examination documented in this encounter Results * Sodium, urine, random (07/23/2024 11:30 AM EST) Sodium, Ur 8 mmol/L LAB CHEMISTRY METHOD 07/23/2024 12:57 PM EST [facility] Urine Urine specimen obtained by clean catch procedure / Unknown Non-blood Collection / Unknown 07/23/2024 11:30 AM EST 07/23/2024 12:29 PM EST Alisha Davison MD LAB URINE ORDERABLES Performing Organization Address City/[facility]/ZIP Co de Phone Number [facility] [address] [place] [address], [place] [phone] * Osmolality, urine (07/23/2024 11:30 AM EST) Osmolality, Urine 579 300 - 1,300 mOsm/kg LAB CHEMISTRY METHOD 07/23/2024 1:45 PM EST [facility] Urine Urine specimen obtained by clean catch procedure / Unknown Non-blood Collection / Unknown 07/23/2024 11:30 AM EST 07/23/2024 12:29 PM EST Alisha Davison MD LAB URINE ORDERABLES Performing Organization Address City/[facility]/ZIP Co de Phone Number [facility] [address] [place] [address], [place] [phone] documented in this encounter Visit Diagnoses Diagnosis Encounter for other general examination documented in this encounter Care Teams Master Rigger Relationship Specialty Start Date End Date Physician, No Pcp PCP - General 07/19/24 documented as of this encounter
--- OUTSIDE RECORDS SUMMARY | 2024-07-27 07:48 | XMS_ITS | Encounter Summary ---
Author Organization [facility] Address [address] [place] [address] Care Team Providers Care Policy Director Name Role Phone Physician, No Pcp Primary Care Provider Unavaila ble Encounter Details Date Type Department Care Team (Late st Contact Info) Description 07/22/2024 Lab Requisition [facility] Lab [address] [facility] [place] [address] Alisha Davison MD [address] [place] [id number] Encounter for other general examination Social History [...] Procedure Name Priority Date/Time Associated Diagnosis Comments COMPLETE BLOOD COUNT Routine 07/22/2024 2:25 PM EST Encounter for other general examination COMPREHENSIVE METABOLIC PANEL Routine 07/22/2024 2:25 PM EST Encounter for other general examination documented in this encounter Results * (ABNORMAL) Complete blood count (07/22/2024 2:25 PM EST) [facility] Signature WBC 9.0 4.8 - 10.8 K/[facility] LAB HEMETOLOGY METHOD 07/22/2024 4:48 PM EST [facility] RBC 3.80 3.80 - 4.80 /[facility] LAB HEMETOLOGY METHOD 07/22/2024 4:48 PM EST [facility] LAB Hemoglobin 12.4 11.5 - 16.0 g/dL LAB HEMETOLOGY METHOD 07/22/2024 4:48 PM [facility] LAB Hematocrit 34.2(L) 35.0 - 47.0 % LAB HEMETOLOGY METHOD 07/22/2024 4:48 PM [facility] LAB MCV 91.0 79.0 - 98.0 FL LAB HEMETOLOGY METHOD 07/22/2024 4:48 PM [facility] LAB MCH 33.0(H) 27.0 - 32.0 pcg LAB HEMETOLOGY METHOD 07/22/2024 4:48 PM [facility] LAB MCHC 36.3 32.0 - 37.0 g/dL LAB HEMETOLOGY METHOD 07/22/2024 4:48 PM [facility] LAB RDW 12.1 11.0 - 15.0 % LAB HEMETOLOGY METHOD 07/22/2024 4:48 PM [facility] LAB Platelets 163 130 - 400 K/mcL LAB HEMETOLOGY METHOD 07/22/2024 4:48 PM [facility] LAB MPV 9.9 7.0 - 11.0 FL LAB HEMETOLOGY METHOD 07/22/2024 4:48 PM [facility] LAB NRBC 0.0 <1.0 % LAB HEMETOLOGY METHOD 07/22/2024 4:48 PM [facility] LAB NRBC Absolute 0.00 <0.10 K/mcL LAB HEMETOLOGY METHOD 07/22/2024 4:48 PM [facility] Blood Venous blood specimen / Unknown Venipuncture / Unknown 07/22/2024 2:25 PM EST 07/22/2024 2:51 PM EST Alisha Davison MD LAB BLOOD ORDERABLES [facility] [address] [place] [address], * (ABNORMAL) Comprehensive metabolic panel (07/22/2024 2:25 PM EST) Sodium 130(L) 133 - 145 mmol/L LAB CHEMISTRY METHOD 07/22/2024 4:09 PM EST [facility] Potassium 4.0 3.5 - 5.5 mmol/L LAB CHEMISTRY METHOD 07/22/2024 4:09 PM [facility] Chloride 96 96 - 110 mmol/L LAB CHEMISTRY METHOD 07/22/2024 4:09 PM [facility] CO2 27 21 - 32 mmol/L LAB CHEMISTRY METHOD 07/22/2024 4:09 PM [facility] Anion Gap 7 3 - 11 LAB CHEMISTRY METHOD 07/22/2024 4:09 PM [facility] Glucose 108(H) 70 - 100 mg/dL LAB CHEMISTRY METHOD 07/22/2024 4:09 PM [facility] BUN 21 5 - 25 mg/dL LAB CHEMISTRY METHOD 07/22/2024 4:09 PM [facility] LAB Creatinine 0.51 0.50 - 1.10 mg/dL LAB CHEMISTRY METHOD 07/22/2024 4:09 PM [facility] LAB eGFR 92 >=60 mL/min/1. 73m2 LAB CHEMISTRY METHOD 07/22/2024 4:09 PM [facility] LAB Comment:Calculation based on the??Chronic Kidney Disease Epidemiology Collaboration (CKD-EPI) equation refit??without adjustment for race. BUN/Creatinine Ratio 41.2 LAB CHEMISTRY METHOD 07/22/2024 4:09 PM [facility] Calcium 8.8 8.5 - 10.5 mg/dL LAB CHEMISTRY METHOD 07/22/2024 4:09 PM [facility] AST (SGOT) 19 10 - 42 unit/L LAB CHEMISTRY METHOD 07/22/2024 4:09 PM [facility] ALT (SGPT) 13 10 - 60 unit/L LAB CHEMISTRY METHOD 07/22/2024 4:09 PM [facility] Alkaline Phosphatase 67 42 - 121 unit/L LAB CHEMISTRY METHOD 07/22/2024 4:09 PM [facility] Total Protein 6.0 6.0 - 8.0 g/dL LAB CHEMISTRY METHOD 07/22/2024 4:09 PM [facility] Albumin 3.3 3.2 - 5.0 g/dL LAB CHEMISTRY METHOD 07/22/2024 4:09 PM [facility] Total Bilirubin 0.5 0.0 - 1.4 mg/dL LAB CHEMISTRY METHOD 07/22/2024 4:09 PM [facility] Blood Venous blood specimen / Unknown Venipuncture / Unknown 07/22/2024 2:25 PM EST 07/22/2024 2:51 PM EST Alisha Davison MD LAB BLOOD ORDERABLES [facility] [address] [place] [address], documented in this encounter Visit Diagnoses Diagnosis Encounter for other general examination documented in this encounter Care Teams Policy Director Relationship Specialty Start Date End Date Physician, No Pcp PCP - General 07/19/24 documented as of this encounter
--- OUTSIDE RECORDS SUMMARY | 2024-07-27 07:48 | XMS_ITS | Encounter Summary ---
Author Organization [facility] Address [address] [place] [address] Care Team Providers Care Cad Design Engineer Name Role Phone Physician, No Pcp Primary Care Provider Unavaila ble Encounter Details Date Type Department Care Team (Late st Contact Info) Description 07/20/[address] [facility] - Main Lab [address] [facility] [place] [address] Alisha Davison MD [address] [place] [id number] Encounter for other general examination Social History [...] Procedure Name Priority Date/Time Associated Diagnosis Comments MANUAL DIFFERENTIAL - SYSMEX WAM Routine 07/20/2024 [...] documented in this encounter Results * (ABNORMAL) Manual differential (07/20/2024 5:24 AM EST) Neutrophils % 43.0 % LAB HEMETOLOGY METHOD 07/20/2024 11:53 AM [facility] Lymphocytes % 40.0 % LAB HEMETOLOGY METHOD 07/20/2024 11:53 AM [facility] Reactive Lymphocyte 10.00 % LAB HEMETOLOGY METHOD 07/20/2024 11:53 AM [facility] Monocytes % 7.0 % LAB HEMETOLOGY METHOD 07/20/2024 11:53 AM [facility] Eosinophils % 0.0 % LAB HEMETOLOGY METHOD 07/20/2024 11:53 AM [facility] Basophils % 1.0 % LAB HEMETOLOGY METHOD 07/20/2024 11:53 AM [facility] Neutrophils Absolute Manual 3.61 1.50 - 7.00 K/mcL LAB HEMETOLOGY METHOD 07/20/2024 11:53 AM [facility] Lymphocytes Absolute 3.36 1.00 - 5.00 K/mcL LAB HEMETOLOGY METHOD 07/20/2024 11:53 AM [facility] Reactive Lymph Abs Manual 0.84(H) 0.00 - 0.00 lym LAB HEMETOLOGY METHOD 07/20/2024 11:53 AM [facility] Monocytes Absolute Manual 0.59 0.20 - 1.00 K/mcL LAB HEMETOLOGY METHOD 07/20/2024 11:53 AM [facility] Eosinophils Absolute Manual 0.00 0.00 - 0.50 K/mcL LAB HEMETOLOGY METHOD 07/20/2024 11:53 AM [facility] Basophils Absolute Manual 0.08 0.00 - 0.20 K/mcL LAB HEMETOLOGY METHOD 07/20/2024 11:53 AM [facility] Rbc Morphology Consistent with indices Consistent with indices, Normal for [place] LAB HEMETOLOGY METHOD 07/20/2024 11:53 AM [facility] Platelet Morphology - WAM See Note(A) Normal LAB HEMETOLOGY METHOD 07/20/2024 11:53 AM EST [facility] LAB Comment:PLT: Normal Blood Venous blood specimen / Unknown Venipuncture / Unknown 07/20/2024 5:24 AM EST 07/20/2024 9:35 AM EST Alisha Davison MD LAB BLOOD ORDERABLES [facility] [address] [place] [address], * (ABNORMAL) CBC auto differential (07/20/2024 5:24 AM EST) WBC 8.4 4.8 - 10.8 K/mcL LAB HEMETOLOGY METHOD 07/20/2024 11:53 AM [facility] RBC 3.90 3.80 - 4.80 M/[facility] LAB HEMETOLOGY METHOD 07/20/2024 11:53 AM [facility] Hemoglobin 12.9 11.5 - 16.0 g/dL LAB HEMETOLOGY METHOD 07/20/2024 11:53 AM [facility] Hematocrit 37.0 35.0 - 47.0 % LAB HEMETOLOGY METHOD 07/20/2024 11:53 AM [facility] MCV 95.1 79.0 - 98.0 FL LAB HEMETOLOGY METHOD 07/20/2024 11:53 AM [facility] MCH 33.2(H) 27.0 - 32.0 pcg LAB HEMETOLOGY METHOD 07/20/2024 11:53 AM [facility] MCHC 34.9 32.0 - 37.0 g/dL LAB HEMETOLOGY METHOD 07/20/2024 11:53 AM EST [facility] RDW 12.3 11.0 - 15.0 % LAB HEMETOLOGY METHOD 07/20/2024 11:53 AM [facility] Platelets 150 130 - 400 K/mcL LAB HEMETOLOGY METHOD 07/20/2024 11:53 AM [facility] MPV 10.0 7.0 - 11.0 FL LAB HEMETOLOGY METHOD 07/20/2024 11:53 AM EST [facility] NRBC 0.0 <1.0 % LAB HEMETOLOGY METHOD 07/20/2024 11:53 AM [facility] NRBC Absolute 0.00 <0.10 K/mcL LAB HEMETOLOGY METHOD 07/20/2024 11:53 AM [facility] Blood Venous blood specimen / Unknown Venipuncture / Unknown 07/20/2024 5:24 AM EST 07/20/2024 9:35 AM EST Alisha Davison MD LAB BLOOD ORDERABLES [facility] [address] [place] [address], [place] [phone] * (ABNORMAL) Magnesium (07/20/2024 5:24 AM EST) Magnesium 1.8(L) 1.9 - 2.6 mg/dL LAB CHEMISTRY METHOD 07/20/2024 11:00 AM EST [facility] Blood Venous blood specimen / Unknown Venipuncture / Unknown 07/20/2024 5:24 AM EST 07/20/2024 9:35 AM EST Alisha Davison MD LAB BLOOD ORDERABLES [facility] [address] [place] [address], [place] [phone] * (ABNORMAL) Comprehensive metabolic panel (07/20/2024 5:24 AM EST) Sodium 132(L) 133 - 145 mmol/L LAB CHEMISTRY METHOD 07/20/2024 11:00 AM [facility] Potassium 3.6 3.5 - 5.5 mmol/L LAB CHEMISTRY METHOD 07/20/2024 11:00 AM [facility] Chloride 98 96 - 110 mmol/L LAB CHEMISTRY METHOD 07/20/2024 11:00 AM [facility] CO2 27 21 - 32 mmol/L LAB CHEMISTRY METHOD 07/20/2024 11:00 AM [facility] Anion Gap 7 3 - 11 LAB CHEMISTRY METHOD 07/20/2024 11:00 AM [facility] Glucose 96 70 - 100 mg/dL LAB CHEMISTRY METHOD 07/20/2024 11:00 AM [facility] BUN 14 5 - 25 mg/dL LAB CHEMISTRY METHOD 07/20/2024 11:00 AM [facility] Creatinine 0.48(L) 0.50 - 1.10 mg/dL LAB CHEMISTRY METHOD 07/20/2024 11:00 AM [facility] eGFR 94 >=60 mL/min/1. 73m2 LAB CHEMISTRY METHOD 07/20/2024 11:00 AM [facility] Comment:Calculation based on the??Chronic Kidney Disease Epidemiology Collaboration (CKD-EPI) equation refit??without adjustment for race. BUN/Creatinine Ratio 29.2 LAB CHEMISTRY METHOD 07/20/2024 11:00 AM [facility] Calcium 8.8 8.5 - 10.5 mg/dL LAB CHEMISTRY METHOD 07/20/2024 11:00 AM [facility] AST (SGOT) 15 10 - 42 unit/L LAB CHEMISTRY METHOD 07/20/2024 11:00 AM [facility] ALT (SGPT) 13 10 - 60 unit/L LAB CHEMISTRY METHOD 07/20/2024 11:00 AM EST [facility] Alkaline Phosphatase 72 42 - 121 unit/L LAB CHEMISTRY METHOD 07/20/2024 11:00 AM EST [facility] Total Protein 5.9(L) 6.0 - 8.0 g/dL LAB CHEMISTRY METHOD 07/20/2024 11:00 AM EST [facility] Albumin 3.3 3.2 - 5.0 g/dL LAB CHEMISTRY METHOD 07/20/2024 11:00 AM [facility] Total Bilirubin 0.9 0.0 - 1.4 mg/dL LAB CHEMISTRY METHOD 07/20/2024 11:00 AM [facility] Blood Venous blood specimen / Unknown Venipuncture / Unknown 07/20/2024 5:24 AM EST 07/20/2024 9:35 AM EST Alisha Davison MD LAB BLOOD ORDERABLES [facility] [address] [place] [address], documented in this encounter Visit Diagnoses Diagnosis Encounter for other general examination documented in this encounter Care Teams Cad Design Engineer Relationship Specialty Start Date End Date Physician, No Pcp PCP - General 07/19/24 documented as of this encounter
--- OUTSIDE RECORDS SUMMARY | 2024-07-27 07:48 | XMS_ITS | Encounter Summary ---
Author Organization [facility] Address [address] [place] [address] Care Team Providers Care Life Science Technical Officer Name Role Phone Physician, No Pcp Primary Care Provider Unavaila ble Encounter Details Date Type Department Care Team (Late st Contact Info) Description 07/26/2024 Lab Requisition [facility] - Main Lab [address] [facility] [place] [address] Alisha Davison MD [address] [place] [id number] Encounter for other general examination Social History [...] Associated Diagnosis Comments COMPLETE BLOOD COUNT Routine 07/26/2024 5:24 AM EST Encounter for other general examination MAGNESIUM Routine 07/26/2024 5:24 AM EST Encounter for other general examination COMPREHENSIVE METABOLIC PANEL Routine 07/26/2024 5:24 AM EST Encounter for other general examination documented in this encounter Results * Magnesium (07/26/2024 5:24 AM EST) Magnesium 1.9 1.9 - 2.6 mg/dL LAB CHEMISTRY METHOD 07/26/2024 10:44 AM EST [facility] Blood Venous blood specimen / Unknown Venipuncture / Unknown 07/26/2024 5:24 AM EST 07/26/2024 8:31 AM EST Alisha Davison MD LAB BLOOD ORDERABLES [facility] [address] [place] [address], * (ABNORMAL) Complete blood count (07/26/2024 5:24 AM EST) [facility] WBC 9.4 4.8 - 10.8 K/mcL LAB HEMETOLOGY METHOD 07/26/2024 10:23 AM [facility] RBC 3.70(L) 3.80 - 4.80 M/mcL LAB HEMETOLOGY METHOD 07/26/2024 10:23 AM [facility] Hemoglobin 11.9 11.5 - 16.0 g/dL LAB HEMETOLOGY METHOD 07/26/2024 10:23 AM [facility] Hematocrit 34.1(L) 35.0 - 47.0 % LAB HEMETOLOGY METHOD 07/26/2024 10:23 AM [facility] MCV 93.2 79.0 - 98.0 FL LAB HEMETOLOGY METHOD 07/26/2024 10:23 AM [facility] MCH 32.5(H) 27.0 - 32.0 pcg LAB HEMETOLOGY METHOD 07/26/2024 10:23 AM [facility] MCHC 34.9 32.0 - 37.0 g/dL LAB HEMETOLOGY METHOD 07/26/2024 10:23 AM [facility] RDW 12.5 11.0 - 15.0 % LAB HEMETOLOGY METHOD 07/26/2024 10:23 AM [facility] Platelets 194 130 - 400 K/mcL LAB HEMETOLOGY METHOD 07/26/2024 10:23 AM EST [facility] MPV 9.8 7.0 - 11.0 FL LAB HEMETOLOGY METHOD 07/26/2024 10:23 AM EST [facility] NRBC 0.0 <1.0 % LAB HEMETOLOGY METHOD 07/26/2024 10:23 AM [facility] NRBC Absolute 0.00 <0.10 K/mcL LAB HEMETOLOGY METHOD 07/26/2024 10:23 AM [facility] Blood Venous blood specimen / Unknown Venipuncture / Unknown 07/26/2024 5:24 AM EST 07/26/2024 8:31 AM EST Alisha Davison MD LAB BLOOD ORDERABLES [facility] [address] [place] [address], * (ABNORMAL) Comprehensive metabolic panel (07/26/2024 5:24 AM EST) Sodium 131(L) 133 - 145 mmol/L LAB CHEMISTRY METHOD 07/26/2024 11:22 AM [facility] Potassium 3.9 3.5 - 5.5 mmol/L LAB CHEMISTRY METHOD 07/26/2024 11:22 AM [facility] Chloride 97 96 - 110 mmol/L LAB CHEMISTRY METHOD 07/26/2024 11:22 AM [facility] CO2 30 21 - 32 mmol/L LAB CHEMISTRY METHOD 07/26/2024 11:22 AM [facility] Anion Gap 4 3 - 11 LAB CHEMISTRY METHOD 07/26/2024 11:22 AM [facility] Glucose 96 70 - 100 mg/dL LAB CHEMISTRY METHOD 07/26/2024 11:22 AM [facility] BUN 19 5 - 25 mg/dL LAB CHEMISTRY METHOD 07/26/2024 11:22 AM [facility] Creatinine 0.48(L) 0.50 - 1.10 mg/dL LAB CHEMISTRY METHOD 07/26/2024 11:22 AM [facility] eGFR 94 >=60 mL/min/1. 73m2 LAB CHEMISTRY METHOD 07/26/2024 11:22 AM [facility] Comment:Calculation based on the??Chronic Kidney Disease Epidemiology Collaboration (CKD-EPI) equation refit??without adjustment for race. BUN/Creatinine Ratio 39.6 LAB CHEMISTRY METHOD 07/26/2024 11:22 AM [facility] Calcium 9.1 8.5 - 10.5 mg/dL LAB CHEMISTRY METHOD 07/26/2024 11:22 AM [facility] AST (SGOT) 34 10 - 42 unit/L LAB CHEMISTRY METHOD 07/26/2024 11:22 AM [facility] Comment:Results verified by repeat testing ALT (SGPT) 32 10 - 60 unit/L LAB CHEMISTRY METHOD 07/26/2024 11:22 AM [facility] Comment:Results verified by repeat testing Alkaline Phosphatase 75 42 - 121 unit/L LAB CHEMISTRY METHOD 07/26/2024 11:22 AM [facility] Total Protein 5.8(L) 6.0 - 8.0 g/dL LAB CHEMISTRY METHOD 07/26/2024 11:22 AM [facility] Albumin 3.2 3.2 - 5.0 g/dL LAB CHEMISTRY METHOD 07/26/2024 11:22 AM [facility] Total Bilirubin 0.5 0.0 - 1.4 mg/dL LAB CHEMISTRY METHOD 07/26/2024 11:22 AM [facility] Blood Venous blood specimen / Unknown Venipuncture / Unknown 07/26/2024 5:24 AM EST 07/26/2024 8:31 AM EST Alisha Davison MD LAB BLOOD ORDERABLES [facility] [address] [place] [address], documented in this encounter Visit Diagnoses Diagnosis Encounter for other general examination documented in this encounter Care Teams Life Science Technical Officer Relationship Specialty Start Date End Date Physician, No Pcp PCP - General 07/19/24 documented as of this encounter
== END 2024-07-27 07:47 | disposition home or self-care (01) ==
LOC: HO.HOSX 07:46
PROVIDERS: Visit Provider Physician Assistant
DX: S72.102A Unspecified trochanteric fracture of left femur, initial encounter for closed fracture (principal)
CPT/HCPCS: 73502; 99202

== ENCOUNTER 2024-07-27 10:48 | Outpatient (AMB) | payer MEDICARE, SELFPAY ==
--- NOTE | 2024-07-27 10:51 | MHC.OFFVIS ---
Intake Visit Reasons: FC- left hip fx, DOI 07/18/24 Intake Note: Annmarie is a 83 year old female who presents today with her daughter and son for a evaluation of her left hip injury, DOI 07/17/24. Patient's daughter stated that the patient lost her balance when she hit the door frame and she feel on her buttock. She states that she is in a lot of pain. Allergies No Known Allergies Allergy (Verified 07/27/24 11:26) HPI HPI FC- left hip fx, DOI 07/18/24: Details: Patient presents to the office today accompanied by her daughter and son for evaluation of a left hip intertrochanteric avulsion fracture. Patient is lying on the stretcher used to transport her for the appointment. She is nonverbal during this appointment. Her daughter reports that prior to this recent injury she was walking with the use of a walker. While in the office today x-rays of the left hip were obtained and the patient was alerting to excruciating pain. According to the daughter, her pain control has been poorly managed by the rehab facility. She reports that the patient was initially receiving tramadol which was not helping with her pain and therefore the rehab had bumped her to 2.5 mg p.o. oxycodone. There is no medications scheduled, only p.r.n. [facility] Medical History Vertebral artery stenosis GERD (gastroesophageal reflux disease) Hypercholesterolemia CVA (cerebral vascular accident) Thrombocytopenia Peripheral vascular disease History of esophageal ulcer Spinal stenosis Reflux esophagitis Thoracic compression fracture Osteoporosis Depression Surgical History History of tubal ligation History of tonsillectomy History of appendectomy Family History (Updated 12/04/22 @ 09:59 by Lucie Teran CMA) Father No problems noted. Mother No problems noted. Sister Leukemia Social History Housing: House Alcohol intake: never Patient Tobacco Use Status: Never used Tobacco Tobacco use type: Cigarette e-Cigarette/Vaping Use: Never Used Second Hand Smoke Exposure: No Advance Directives Date on File: 04/02/22 Current occupational status: retired Cognitive needs: Yes Hearing needs: No Vision needs: No Review of Systems Const All systems reviewed & are unremarkable except as noted in HPI and below Physical Exam Const General: no acute distress, lethargic and tired appearing Nutritional Appearance: cachectic Orientation/consciousness: lethargic Resp Effort & Inspection: normal respiratory effort Cardio Rate: regular rate Peripheral pulses: Peripheral pulses 2+ throughout GI Palpation (GI): Soft to palpation Extrem Other: Patient unable to follow commands for physical exam. With any attempt of motion patient cries out in pain. Assessment & Plan Assessment & Plan (1) Closed trochanteric fracture of hip: Code(s): S72.109A - Unspecified trochanteric fracture of unspecified femur, initial encounter for closed fracture Category: Medical Qualifiers: Encounter type: initial encounter Laterality: left Qualified Code(s): S72.102A - Unspecified trochanteric fracture of left femur, initial encounter for closed fracture Plan Patient presents to the office today accompanied by her daughter and son for evaluation of a left hip intertrochanteric avulsion fracture. Patient is lying on the stretcher used to transport her for the appointment. She is nonverbal during this appointment. Her daughter reports that prior to this recent injury she was walking with the use of a walker. While in the office today x-rays of the left hip were obtained and the patient was alerting to excruciating pain. According to the daughter, her pain control has been poorly managed by the rehab facility. She reports that the patient was initially receiving tramadol which was not helping with her pain and therefore the rehab had bumped her to 2.5 mg p.o. oxycodone. There is no medications scheduled, only p.r.n. While in the office today I discussed with the family that the patient may weightbear as tolerated but should avoid abduction. She should ambulate with the use of a walker. I have made this recommendation for physical therapy at her facility. I have also recommended that adequate pain control must be obtained prior to working with physical therapy. My recommendations would be 5 mg of oxycodone p.o. q.4-6 hours as well as Tylenol 650 mg p.o. q.6 hours. I would like for her to follow up with me in 6 weeks with repeat x-rays, sooner if needed. X-rays of the left hip which were obtained while in the office today and were reviewed by me, Tequila Hi PA-C, revealed routine healing avulsion fracture off the tip of the greater trochanter. Orders: Orders XR hip LT min 2V Today M25.559 - Pain in unspecified hip Coding Level of Care Code New Pt Level 4 (87676) Diagnoses Closed trochanteric fracture of hip S72.102A Encounter type: initial encounter Laterality: left
--- OUTSIDE RECORDS SUMMARY | 2024-07-27 11:43 | XMS_ITS | Encounter Summary ---
Author Organization [facility] Address [address] [place] [address] Care Team Providers Care Machine Spring Former Name Role Phone Physician, No Pcp Primary Care Provider Unavaila ble Encounter Details Date Type Department Care Team (Late st Contact Info) Description 07/23/[address] [facility] - Main Lab [address] [facility] [address] Alisha Davison MD [address] [place] [id number] Encounter for other general examination Social History [...] LAB CHEMISTRY METHOD 07/23/2024 12:[address] [facility] Urine Urine specimen obtained by clean catch procedure / Unknown Non-blood Collection / Unknown 07/23/2024 11:30 AM EST 07/23/2024 12:29 PM EST Alisha Davison MD LAB URINE ORDERABLES Performing Organization Address City/[facility]/ZIP Co de Phone Number [facility] [address] [place] [address], [place] [phone] * Osmolality, urine (07/23/2024 11:30 AM EST) Osmolality, Urine 579 300 - 1,300 mOsm/kg LAB CHEMISTRY METHOD 07/23/2024 1:45 PM EST [facility] Urine Urine specimen obtained by clean catch procedure / Unknown Non-blood Collection / Unknown 07/23/2024 11:30 AM EST 07/23/2024 12:29 PM EST Alisha Davison MD LAB URINE ORDERABLES Performing Organization Address City/[facility]/ZIP Co de Phone Number [facility] [address] [place] [address], [place] [phone] documented in this encounter Visit Diagnoses Diagnosis Encounter for other general examination documented in this encounter Care Teams Machine Spring Former Relationship Specialty Start Date End Date Physician, No Pcp PCP - General 07/19/24 documented as of this encounter
--- OUTSIDE RECORDS SUMMARY | 2024-07-27 11:43 | XMS_ITS | Encounter Summary ---
Author Organization [facility] Address [address] [place] [address] Care Team Providers Care Sheet Rock Taper Helper Name Role Phone Physician, No Pcp Primary Care Provider Unavaila ble Encounter Details Date Type Department Care Team (Late st Contact Info) Description 07/26/2024 Lab Requisition [facility] - Main Lab [address] [facility] [place] [address] Alisha Davison MD [address] [place] [id number] Encounter for other general examination Social History [...] LAB CHEMISTRY METHOD 07/26/2024 10:44 AM EST [facility] Blood Venous blood specimen / Unknown Venipuncture / Unknown 07/26/2024 5:24 AM EST 07/26/2024 8:31 AM EST Alisha Davison MD LAB BLOOD ORDERABLES [facility] [address] [place] [address], * (ABNORMAL) Complete blood count (07/26/2024 5:24 AM EST) [facility] WBC 9.4 4.8 - 10.8 K/mcL LAB HEMETOLOGY METHOD 07/26/2024 10:23 AM [facility] LAB RBC 3.70(L) 3.80 - 4.80 M/mcL LAB HEMETOLOGY METHOD 07/26/2024 10:23 AM [facility] Hemoglobin 11.9 11.5 - 16.0 g/dL LAB HEMETOLOGY METHOD 07/26/2024 10:23 AM [facility] LAB Hematocrit 34.1(L) 35.0 - 47.0 % LAB HEMETOLOGY METHOD 07/26/2024 10:23 AM [facility] LAB MCV 93.2 79.0 - 98.0 FL LAB HEMETOLOGY METHOD 07/26/2024 10:23 AM [facility] LAB MCH 32.5(H) 27.0 - 32.0 pcg LAB HEMETOLOGY METHOD 07/26/2024 10:23 AM [facility] MCHC 34.9 32.0 - 37.0 g/dL LAB HEMETOLOGY METHOD 07/26/2024 10:23 AM [facility] RDW 12.5 11.0 - 15.0 % LAB HEMETOLOGY METHOD 07/26/2024 10:23 AM [facility] LAB Platelets 194 130 - 400 K/mcL LAB HEMETOLOGY METHOD 07/26/2024 10:23 AM EST [facility] MPV 9.8 7.0 - 11.0 FL LAB HEMETOLOGY METHOD 07/26/2024 10:23 AM EST [facility] NRBC 0.0 <1.0 % LAB HEMETOLOGY METHOD 07/26/2024 10:23 AM [facility] NRBC Absolute 0.00 <0.10 K/mcL LAB HEMETOLOGY METHOD 07/26/2024 10:23 AM [facility] Blood Venous blood specimen / Unknown Venipuncture / Unknown 07/26/2024 5:24 AM EST 07/26/2024 8:31 AM EST Alisha Davison MD LAB BLOOD ORDERABLES [facility] [address] [place] [address], * (ABNORMAL) Comprehensive metabolic panel (07/26/2024 5:24 AM EST) Sodium 131(L) 133 - 145 mmol/L LAB CHEMISTRY METHOD 07/26/2024 11:22 AM [facility] Potassium 3.9 3.5 - 5.5 mmol/L LAB CHEMISTRY METHOD 07/26/2024 11:22 AM [facility] Chloride 97 96 - 110 mmol/L LAB CHEMISTRY METHOD 07/26/2024 11:22 AM [facility] CO2 30 21 - 32 mmol/L LAB CHEMISTRY METHOD 07/26/2024 11:22 AM [facility] Anion Gap 4 3 - 11 LAB CHEMISTRY METHOD 07/26/2024 11:22 AM [facility] Glucose 96 70 - 100 mg/dL LAB CHEMISTRY METHOD 07/26/2024 11:22 AM [facility] BUN 19 5 - 25 mg/dL LAB CHEMISTRY METHOD 07/26/2024 11:22 AM [facility] Creatinine 0.48(L) 0.50 - 1.10 mg/dL LAB CHEMISTRY METHOD 07/26/2024 11:22 AM [facility] LAB eGFR 94 >=60 mL/min/1. 73m2 LAB CHEMISTRY METHOD 07/26/2024 11:22 AM [facility] LAB Comment:Calculation based on the??Chronic Kidney Disease Epidemiology Collaboration (CKD-EPI) equation refit??without adjustment for race. BUN/Creatinine Ratio 39.6 LAB CHEMISTRY METHOD 07/26/2024 11:22 AM [facility] Calcium 9.1 8.5 - 10.5 mg/dL LAB CHEMISTRY METHOD 07/26/2024 11:22 AM [facility] AST (SGOT) 34 10 - 42 unit/L LAB CHEMISTRY METHOD 07/26/2024 11:22 AM [facility] LAB Comment:Results verified by repeat testing ALT (SGPT) 32 10 - 60 unit/L LAB CHEMISTRY METHOD 07/26/2024 11:22 AM [facility] LAB Comment:Results verified by repeat testing Alkaline Phosphatase 75 42 - 121 unit/L LAB CHEMISTRY METHOD 07/26/2024 11:22 AM [facility] Total Protein 5.8(L) 6.0 - 8.0 g/dL LAB CHEMISTRY METHOD 07/26/2024 11:22 AM [facility] Albumin 3.2 3.2 - 5.0 g/dL LAB CHEMISTRY METHOD 07/26/2024 11:22 AM [facility] Total Bilirubin 0.5 0.0 - 1.4 mg/dL LAB CHEMISTRY METHOD 07/26/2024 11:22 AM [facility] Blood Venous blood specimen / Unknown Venipuncture / Unknown 07/26/2024 5:24 AM EST 07/26/2024 8:31 AM EST Alisha Davison MD LAB BLOOD ORDERABLES [facility] [address] [place] [address], documented in this encounter Visit Diagnoses Diagnosis Encounter for other general examination documented in this encounter Care Teams Sheet Rock Taper Helper Relationship Specialty Start Date End Date Physician, No Pcp PCP - General 07/19/24 documented as of this encounter
--- OUTSIDE RECORDS SUMMARY | 2024-07-27 11:43 | XMS_ITS | Encounter Summary ---
Author Organization [facility] Address [address] [place] [address] Care Team Providers Care Graphics Edit Technician Name Role Phone Physician, No Pcp Primary Care Provider Unavaila ble Encounter Details Date Type Department Care Team (Late st Contact Info) Description 07/20/2024 Lab Requisition [facility] - Main Lab [address] [facility] [place] [address] Alisha Davison MD [address] [place] [address] Encounter for other general examination Social History [...] % LAB HEMETOLOGY METHOD 07/20/2024 11:53 AM [facility] Lymphocytes % 40.0 % LAB HEMETOLOGY METHOD 07/20/2024 11:53 AM [facility] Reactive Lymphocyte 10.00 % LAB HEMETOLOGY METHOD 07/20/2024 11:53 AM [facility] Monocytes % 7.0 % LAB HEMETOLOGY METHOD 07/20/2024 11:53 AM [facility] Eosinophils % 0.0 % LAB HEMETOLOGY METHOD 07/20/2024 11:53 AM [facility] Basophils % 1.0 % LAB HEMETOLOGY METHOD 07/20/2024 11:53 AM [facility] Neutrophils Absolute Manual 3.61 1.50 - 7.00 K/mcL LAB HEMETOLOGY METHOD 07/20/2024 11:53 AM [facility] Lymphocytes Absolute 3.36 1.00 - 5.00 K/mcL LAB HEMETOLOGY METHOD 07/20/2024 11:53 AM [facility] LAB Reactive Lymph Abs Manual 0.84(H) 0.00 - 0.00 lym LAB HEMETOLOGY METHOD 07/20/2024 11:53 AM [facility] Monocytes Absolute Manual 0.59 0.20 - 1.00 K/mcL LAB HEMETOLOGY METHOD 07/20/2024 11:53 AM [facility] Eosinophils Absolute Manual 0.00 0.00 - 0.50 K/mcL LAB HEMETOLOGY METHOD 07/20/2024 11:53 AM [facility] Basophils Absolute Manual 0.08 0.00 - 0.20 K/mcL LAB HEMETOLOGY METHOD 07/20/2024 11:53 AM [facility] Rbc Morphology Consistent with indices Consistent with indices, Normal for [place] LAB HEMETOLOGY METHOD 07/20/2024 11:53 AM [facility] LAB Platelet Morphology - WAM See Note(A) Normal LAB HEMETOLOGY METHOD 07/20/2024 11:53 AM EST [facility] LAB Comment:PLT: Normal Blood Venous blood specimen / Unknown Venipuncture / Unknown 07/20/2024 5:24 AM EST 07/20/2024 9:35 AM EST Alisha Davison MD LAB BLOOD ORDERABLES [facility] [address] [place] [address], * (ABNORMAL) CBC auto differential (07/20/2024 5:24 AM EST) WBC 8.4 4.8 - 10.8 K/mcL LAB HEMETOLOGY METHOD 07/20/2024 11:53 AM [facility] RBC 3.90 3.80 - 4.80 M/[facility] LAB HEMETOLOGY METHOD 07/20/2024 11:53 AM [facility] Hemoglobin 12.9 11.5 - 16.0 g/dL LAB HEMETOLOGY METHOD 07/20/2024 11:53 AM [facility] Hematocrit 37.0 35.0 - 47.0 % LAB HEMETOLOGY METHOD 07/20/2024 11:53 AM [facility] MCV 95.1 79.0 - 98.0 FL LAB HEMETOLOGY METHOD 07/20/2024 11:53 AM [facility] MCH 33.2(H) 27.0 - 32.0 pcg LAB HEMETOLOGY METHOD 07/20/2024 11:53 AM [facility] MCHC 34.9 32.0 - 37.0 g/dL LAB HEMETOLOGY METHOD 07/20/2024 11:53 AM EST [facility] RDW 12.3 11.0 - 15.0 % LAB HEMETOLOGY METHOD 07/20/2024 11:53 AM [facility] Platelets 150 130 - 400 K/mcL LAB HEMETOLOGY METHOD 07/20/2024 11:53 AM [facility] MPV 10.0 7.0 - 11.0 FL LAB HEMETOLOGY METHOD 07/20/2024 11:53 AM EST [facility] NRBC 0.0 <1.0 % LAB HEMETOLOGY METHOD 07/20/2024 11:53 AM [facility] NRBC Absolute 0.00 <0.10 K/mcL LAB HEMETOLOGY METHOD 07/20/2024 11:53 AM [facility] Blood Venous blood specimen / Unknown Venipuncture / Unknown 07/20/2024 5:24 AM EST 07/20/2024 9:35 AM EST Alsiha Davison MD LAB BLOOD ORDERABLES [facility] [address] [place] [address], [place] [phone] * (ABNORMAL) Magnesium (07/20/2024 5:24 AM EST) Magnesium 1.8(L) 1.9 - 2.6 mg/dL LAB CHEMISTRY METHOD 07/20/2024 11:00 AM EST [facility] Blood Venous blood specimen / Unknown Venipuncture / Unknown 07/20/2024 5:24 AM EST 07/20/2024 9:35 AM EST Alisha Davison MD LAB BLOOD ORDERABLES [facility] [address] [place] [address], [place] [phone] * (ABNORMAL) Comprehensive metabolic panel (07/20/2024 5:24 AM EST) Sodium 132(L) 133 - 145 mmol/L LAB CHEMISTRY METHOD 07/20/2024 11:00 AM [facility] Potassium 3.6 3.5 - 5.5 mmol/L LAB CHEMISTRY METHOD 07/20/2024 11:00 AM [facility] Chloride 98 96 - 110 mmol/L LAB CHEMISTRY METHOD 07/20/2024 11:00 AM [facility] CO2 27 21 - 32 mmol/L LAB CHEMISTRY METHOD 07/20/2024 11:00 AM [facility] Anion Gap 7 3 - 11 LAB CHEMISTRY METHOD 07/20/2024 11:00 AM [facility] Glucose 96 70 - 100 mg/dL LAB CHEMISTRY METHOD 07/20/2024 11:00 AM [facility] BUN 14 5 - 25 mg/dL LAB CHEMISTRY METHOD 07/20/2024 11:00 AM [facility] Creatinine 0.48(L) 0.50 - 1.10 mg/dL LAB CHEMISTRY METHOD 07/20/2024 11:00 AM [facility] eGFR 94 >=60 mL/min/1. 73m2 LAB CHEMISTRY METHOD 07/20/2024 11:00 AM [facility] Comment:Calculation based on the??Chronic Kidney Disease Epidemiology Collaboration (CKD-EPI) equation refit??without adjustment for race. BUN/Creatinine Ratio 29.2 LAB CHEMISTRY METHOD 07/20/2024 11:00 AM [facility] Calcium 8.8 8.5 - 10.5 mg/dL LAB CHEMISTRY METHOD 07/20/2024 11:00 AM [facility] AST (SGOT) 15 10 - 42 unit/L LAB CHEMISTRY METHOD 07/20/2024 11:00 AM [facility] ALT (SGPT) 13 10 - 60 unit/L LAB CHEMISTRY METHOD 07/20/2024 11:00 AM EST [facility] Alkaline Phosphatase 72 42 - 121 unit/L LAB CHEMISTRY METHOD 07/20/2024 11:00 AM EST [facility] Total Protein 5.9(L) 6.0 - 8.0 g/dL LAB CHEMISTRY METHOD 07/20/2024 11:00 AM EST [facility] Albumin 3.3 3.2 - 5.0 g/dL LAB CHEMISTRY METHOD 07/20/2024 11:00 AM [facility] Total Bilirubin 0.9 0.0 - 1.4 mg/dL LAB CHEMISTRY METHOD 07/20/2024 11:00 AM [facility] Blood Venous blood specimen / Unknown Venipuncture / Unknown 07/20/2024 5:24 AM EST 07/20/2024 9:35 AM EST Alsiha Davison MD LAB BLOOD ORDERABLES [facility] [address] [place] [address], documented in this encounter Visit Diagnoses Diagnosis Encounter for other general examination documented in this encounter Care Teams Graphics Edit Technician Relationship Specialty Start Date End Date Physician, No Pcp PCP - General 07/19/24 documented as of this encounter
--- OUTSIDE RECORDS SUMMARY | 2024-07-27 11:43 | XMS_ITS | Encounter Summary ---
[facility] Organization [facility] Address [address] [place] [address] Care Team Providers Care Regulatory Technician Name Role Phone Physician, No Pcp Primary Care Provider Unavaila ble Encounter Details Date Type Department Care Team (Late st Contact Info) Description 07/22/2024 Lab Requisition [facility] - Main Lab [address] [facility] [place] [address] Alisha Davison MD [address] [place] [address] Encounter for other general examination Social History [...] Complete blood count (07/22/2024 2:25 PM EST) [facility] Signature WBC 9.0 4.8 - 10.8 K/[facility] LAB HEMETOLOGY METHOD 07/22/2024 4:48 PM EST [facility] RBC 3.80 3.80 - 4.80 /[facility] LAB HEMETOLOGY METHOD 07/22/2024 4:48 PM EST [facility] Hemoglobin 12.4 11.5 - 16.0 g/dL LAB HEMETOLOGY METHOD 07/22/2024 4:[address] [facility] Hematocrit 34.2(L) 35.0 - 47.0 % LAB HEMETOLOGY METHOD 07/22/2024 4:[address] [facility] MCV 91.0 79.0 - 98.0 FL LAB HEMETOLOGY METHOD 07/22/2024 4:[address] [facility] MCH 33.0(H) 27.0 - 32.0 pcg LAB HEMETOLOGY METHOD 07/22/2024 4:[address] [facility] MCHC 36.3 32.0 - 37.0 g/dL LAB HEMETOLOGY METHOD 07/22/2024 4:[address] [facility] RDW 12.1 11.0 - 15.0 % LAB HEMETOLOGY METHOD 07/22/2024 4:[address] [facility] Platelets 163 130 - 400 K/mcL LAB HEMETOLOGY METHOD 07/22/2024 4:[address] [facility] MPV 9.9 7.0 - 11.0 FL LAB HEMETOLOGY METHOD 07/22/2024 4:[address] [facility] NRBC 0.0 <1.0 % LAB HEMETOLOGY METHOD 07/22/2024 4:[address] [facility] NRBC Absolute 0.00 <0.10 K/mcL LAB HEMETOLOGY METHOD 07/22/2024 4:[address] [facility] Blood Venous blood specimen / Unknown Venipuncture / Unknown 07/22/2024 2:25 PM EST 07/22/2024 2:51 PM EST Alisha Davison MD LAB BLOOD ORDERABLES [facility] [address] [place] [address], * (ABNORMAL) Comprehensive metabolic panel (07/22/2024 2:25 PM EST) Sodium 130(L) 133 - 145 mmol/L LAB CHEMISTRY METHOD 07/22/2024 4:09 PM EST [facility] Potassium 4.0 3.5 - 5.5 mmol/L LAB CHEMISTRY METHOD 07/22/2024 4:[address] [facility] Chloride 96 96 - 110 mmol/L LAB CHEMISTRY METHOD 07/22/2024 4:[address] [facility] CO2 27 21 - 32 mmol/L LAB CHEMISTRY METHOD 07/22/2024 4:[address] [facility] Anion Gap 7 3 - 11 LAB CHEMISTRY METHOD 07/22/2024 4:[address] [facility] Glucose 108(H) 70 - 100 mg/dL LAB CHEMISTRY METHOD 07/22/2024 4:[address] [facility] BUN 21 5 - 25 mg/dL LAB CHEMISTRY METHOD 07/22/2024 4:[address] [facility] Creatinine 0.51 0.50 - 1.10 mg/dL LAB CHEMISTRY METHOD 07/22/2024 4:[address] [facility] eGFR 92 >=60 mL/min/1. 73m2 LAB CHEMISTRY METHOD 07/22/2024 4:[address] [facility] Comment:Calculation based on the??Chronic Kidney Disease Epidemiology Collaboration (CKD-EPI) equation refit??without adjustment for race. BUN/Creatinine Ratio 41.2 LAB CHEMISTRY METHOD 07/22/2024 4:[address] [facility] Calcium 8.8 8.5 - 10.5 mg/dL LAB CHEMISTRY METHOD 07/22/2024 4:[address] [facility] AST (SGOT) 19 10 - 42 unit/L LAB CHEMISTRY METHOD 07/22/2024 4:[address] [facility] ALT (SGPT) 13 10 - 60 unit/L LAB CHEMISTRY METHOD 07/22/2024 4:[address] [facility] Alkaline Phosphatase 67 42 - 121 unit/L LAB CHEMISTRY METHOD 07/22/2024 4:[address] [facility] Total Protein 6.0 6.0 - 8.0 g/dL LAB CHEMISTRY METHOD 07/22/2024 4:[address] [facility] Albumin 3.3 3.2 - 5.0 g/dL LAB CHEMISTRY METHOD 07/22/2024 4:[address] [facility] Total Bilirubin 0.5 0.0 - 1.4 mg/dL LAB CHEMISTRY METHOD 07/22/2024 4:[address] [facility] Blood Venous blood specimen / Unknown Venipuncture / Unknown 07/22/2024 2:25 PM EST 07/22/2024 2:51 PM EST Alisha Davison MD LAB BLOOD ORDERABLES [facility] [address] [place] [address], documented in this encounter Visit Diagnoses Diagnosis Encounter for other general examination documented in this encounter Care Teams Regulatory Technician Relationship Specialty Start Date End Date Physician, No Pcp PCP - General 07/19/24 documented as of this encounter
--- OUTSIDE RECORDS SUMMARY | 2024-07-27 11:43 | XMS_ITS | Clinical Summary ---
Author Organization [facility] Address [address] [place] [address] Phone Care Team Providers Care Transfer Driver Name Role Phone Physician, No Pcp Primary Care Provider Unavaila ble Encounters Date Type Department Care Team Description 07/26/2024 Lab Requisition [facility] Lab [address] [place] [phone] Alisha Davison MD Encounter for other general examination 07/23/2024 Lab Requisition [facility] Lab [address] [place] [phone] Alisha Davison MD Encounter for other general examination 07/22/2024 Lab Requisition [facility] Lab [address] [place] [phone] Alisha Davison MD Encounter for other general examination 07/20/2024 Lab Requisition [facility] Lab [address] [place] [phone] Alisha Davison MD Encounter for other general [...] LAB HEMETOLOGY METHOD 07/26/2024 10:23 AM EST [facility] LAB RDW 12.5 11.0 - 15.0 % LAB HEMETOLOGY METHOD 07/26/2024 10:23 AM [facility] LAB Platelets 194 130 - 400 K/mcL LAB HEMETOLOGY METHOD 07/26/2024 10:23 AM EST [facility] LAB MPV 9.8 7.0 - 11.0 FL LAB HEMETOLOGY METHOD 07/26/2024 10:23 AM EST [facility] NRBC 0.0 <1.0 % LAB HEMETOLOGY METHOD 07/26/2024 10:23 AM EST [facility] NRBC Absolute 0.00 <0.10 K/mcL LAB HEMETOLOGY METHOD 07/26/2024 10:23 AM EST [facility] Blood Venous blood specimen / Unknown Venipuncture / Unknown 07/26/2024 5:24 AM EST 07/26/2024 8:31 AM EST Alisha Davison MD LAB BLOOD ORDERABLES [facility] [address] [place] [address], * Magnesium (07/26/2024 5:24 AM EST) Only the most recent of2 resultswithin the time period is included. Magnesium 1.9 1.9 - 2.6 mg/dL LAB CHEMISTRY METHOD 07/26/2024 10:44 AM EST [facility] Blood Venous blood specimen / Unknown Venipuncture / Unknown 07/26/2024 5:24 AM EST 07/26/2024 8:31 AM EST Alisha Davison MD LAB BLOOD ORDERABLES [facility] [address] [place] [address], * (ABNORMAL) Comprehensive metabolic panel (07/26/2024 5:24 [...] EST Alisha Davison MD LAB BLOOD ORDERABLES [facility] [address] [place] [address], * Sodium, urine, random (07/23/2024 11:30 AM EST) Sodium, Ur 8 mmol/L LAB CHEMISTRY METHOD 07/23/2024 12:57 PM EST [facility] Urine Urine specimen obtained by clean catch procedure / Unknown Non-blood Collection / Unknown 07/23/2024 11:30 AM EST 07/23/2024 12:29 PM EST Alisha Davison MD LAB URINE ORDERABLES [facility] [address] [place] [address], [place] [phone] * Osmolality, urine (07/23/2024 11:30 AM EST) [facility] Osmolality, Urine 579 300 - 1,300 mOsm/kg LAB CHEMISTRY METHOD 07/23/2024 1:45 PM [facility] Urine Urine specimen obtained by clean catch procedure / Unknown Non-blood Collection / Unknown 07/23/2024 11:30 AM EST 07/23/2024 12:29 PM EST Alisha Davison MD LAB URINE ORDERABLES [facility] [address] [place] [address], [place] [phone] * (ABNORMAL) Manual differential (07/20/2024 5:24 AM EST) [facility] Neutrophils % 43.0 % LAB HEMETOLOGY METHOD 07/20/2024 11:53 AM [facility] Lymphocytes % 40.0 % LAB HEMETOLOGY METHOD 07/20/2024 11:53 AM [facility] Reactive Lymphocyte 10.00 % LAB HEMETOLOGY METHOD 07/20/2024 11:53 AM [facility] Monocytes % 7.0 % LAB HEMETOLOGY METHOD 07/20/2024 11:53 AM [facility] Eosinophils % 0.0 % LAB HEMETOLOGY METHOD 07/20/2024 11:53 AM [facility] Basophils % 1.0 % LAB HEMETOLOGY METHOD 07/20/2024 11:53 AM [facility] Neutrophils Absolute Manual 3.61 1.50 - 7.00 K/mcL LAB HEMETOLOGY METHOD 07/20/2024 11:53 AM [facility] Lymphocytes Absolute 3.36 1.00 - 5.00 K/mcL LAB HEMETOLOGY METHOD 07/20/2024 11:53 AM EST [facility] Reactive Lymph Abs Manual 0.84(H) 0.00 - 0.00 lym LAB HEMETOLOGY METHOD 07/20/2024 11:53 AM EST [facility] Monocytes Absolute Manual 0.59 0.20 - 1.00 K/mcL LAB HEMETOLOGY METHOD 07/20/2024 11:53 AM [facility] Eosinophils Absolute Manual 0.00 0.00 - 0.50 K/mcL LAB HEMETOLOGY METHOD 07/20/2024 11:53 AM [facility] Basophils Absolute Manual 0.08 0.00 - 0.20 K/[facility] LAB HEMETOLOGY METHOD 07/20/2024 11:53 AM [facility] Rbc Morphology Consistent with indices Consistent with indices, Normal for [place] LAB HEMETOLOGY METHOD 07/20/2024 11:53 AM [facility] Platelet Morphology - WAM See Note(A) Normal LAB HEMETOLOGY METHOD 07/20/2024 11:53 AM [facility] Comment:PLT: Normal Blood Venous blood specimen / Unknown Venipuncture / Unknown 07/20/2024 5:24 AM EST 07/20/2024 9:35 AM EST Alisha Davsion MD LAB BLOOD ORDERABLES [facility] [address] [place] [address], * (ABNORMAL) CBC auto differential (07/20/2024 5:24 AM EST) WBC 8.4 4.8 - 10.8 K/mcL LAB HEMETOLOGY METHOD 07/20/2024 11:53 AM [facility] RBC 3.90 3.80 - 4.80 M/mcL LAB HEMETOLOGY METHOD 07/20/2024 11:53 AM EST [facility] Hemoglobin 12.9 11.5 - 16.0 g/dL LAB HEMETOLOGY METHOD 07/20/2024 11:53 AM [facility] Hematocrit 37.0 35.0 - 47.0 % LAB HEMETOLOGY METHOD 07/20/2024 11:53 AM [facility] MCV 95.1 79.0 - 98.0 FL LAB HEMETOLOGY METHOD 07/20/2024 11:53 AM [facility] MCH 33.2(H) 27.0 - 32.0 pcg LAB HEMETOLOGY METHOD 07/20/2024 11:53 AM [facility] MCHC 34.9 32.0 - 37.0 g/dL LAB HEMETOLOGY METHOD 07/20/2024 11:53 AM [facility] RDW 12.3 11.0 - 15.0 % LAB HEMETOLOGY METHOD 07/20/2024 11:53 AM [facility] Platelets 150 130 - 400 K/mcL LAB HEMETOLOGY METHOD 07/20/2024 11:53 AM [facility] MPV 10.0 7.0 - 11.0 FL LAB HEMETOLOGY METHOD 07/20/2024 11:53 AM [facility] NRBC 0.0 <1.0 % LAB HEMETOLOGY METHOD 07/20/2024 11:53 AM [facility] NRBC Absolute 0.00 <0.10 K/mcL LAB HEMETOLOGY METHOD 07/20/2024 11:53 AM [facility] Blood Venous blood specimen / Unknown Venipuncture / Unknown 07/20/2024 5:24 AM EST 07/20/2024 9:35 AM EST Alisha Davison MD LAB BLOOD ORDERABLES [facility] [place] [facility] [address] [place] [address], [place] [phone] from Last 3 Months Advance Directives Documents on File Type Date Recorded Patient Client Care Specialist Expl anation Health Care Decision (hx) 03/15/2020 AD ALYSSA DIRECTIVE Care Teams Transfer Driver Relationship Specialty Start Date End Date Physician, No Pcp PCP - General 07/19/24
== END 2024-07-27 11:46 | disposition home or self-care (01) ==
PROVIDERS: PCP Internal Medicine; Visit Provider Physician Assistant
DX: S72.102A Unspecified trochanteric fracture of left femur, initial encounter for closed fracture (principal)
CPT/HCPCS: 99204

== ENCOUNTER → 2024-07-27 10:52 | Outpatient (BNV) | payer MEDICARE, SELFPAY | PROVIDERS: Visit Provider Radiology Diagnostic Radiology | DX: M25.552 Pain in left hip (principal) | CPT/HCPCS: 73502 ==

== ENCOUNTER 2024-08-13 14:16 | Outpatient (AMB) | payer MEDICARE, SELFPAY ==
--- OUTSIDE RECORDS SUMMARY | 2024-08-13 14:36 | XMS_ITS ---
Author Organization [facility] Address [address] [place] [phone] Care Team Providers Care Aircraft Stress Analyst Name Role Phone Trish Blanco Primary Care Provider Unavailabl e Black, Kinza Unavailable [phone] Donna Tanner Unavailable [phone] REASON FOR VISIT SD cx 05/04 Encounters Encounter Location Date Provider Diagnosis [address] [phone] 05/04/2024 Donna Tanner Plan Of Treatment Next Appt Details Provider Name:Donna glasgow, 10/01/2024 10:00:00 AM, [address] [place] [address], [phone], Progress Notes * ROLYXuanAnnmarie FDOB:[birth year] (83 yo F)Acc No.[id number]:05/04/2024 Patient:?Annmarie ESCALERA :1940???Age:83 Y???Sex:Female Address:[address] [place] [address], [address] * true * Date:? Generated for Howardi raffaele/Barb/eTransmitting on:?08/13/2024 02:36 PM EST
--- OUTSIDE RECORDS SUMMARY | 2024-08-13 14:36 | XMS_ITS | Encounter Summary ---
Author Organization [facility] Address [address] [place] [address] Care Team Providers Care Correctional Counselor/Case Manager Name Role Phone Physician, No Pcp Primary Care Provider Unavaila ble Encounter Details Date Type Department Care Team (Late st Contact Info) Description 07/30/2024 Lab Requisition [facility] - Main Lab 299 [facility] [place] [address] Alisha Davison MD [address] [place] [id number] Encounter for other general examination Social History Tobacco Use Types Packs/Day Years Used Date Smoking Tobacco: Never Assessed Comments Unknown Sex and Gender Information Value Date Recorded Sex Assigned at Not on file Legal Sex Female 7:01 PM EST Gender Identity Not on file Sexual Orientation Not on file documented as of this encounter Plan of Treatment Not on file documented as of this encounter Procedures Procedure Name Priority Date/Time Associated Diagnosis Comments COMPLETE BLOOD COUNT Routine 07/30/2024 5:06 AM EST Encounter for other general examination COMPREHENSIVE METABOLIC PANEL Routine 07/30/2024 5:06 AM EST Encounter for other general examination documented in this encounter Results * (ABNORMAL) Complete blood count (07/30/2024 5:06 AM EST) WBC 6.7 4.8 - 10.8 [facility] LAB HEMETOLOGY METHOD 07/30/2024 11:28 AM EST [facility] LAB RBC 3.70(L) 3.80 - 4.80 M/[facility] LAB HEMETOLOGY METHOD 07/30/2024 11:28 AM [facility] LAB Hemoglobin 12.2 11.5 - 16.0 g/dL LAB HEMETOLOGY METHOD 07/30/2024 11:28 AM [facility] LAB Hematocrit 35.5 35.0 - 47.0 % LAB HEMETOLOGY METHOD 07/30/2024 11:28 AM [facility] LAB MCV 94.9 79.0 - 98.0 FL LAB HEMETOLOGY METHOD 07/30/2024 11:28 AM [facility] LAB MCH 32.6(H) 27.0 - 32.0 pcg LAB HEMETOLOGY METHOD 07/30/2024 11:28 AM [facility] LAB MCHC 34.4 32.0 - 37.0 g/dL LAB HEMETOLOGY METHOD 07/30/2024 11:28 AM [facility] LAB RDW 12.6 11.0 - 15.0 % LAB HEMETOLOGY METHOD 07/30/2024 11:28 AM [facility] LAB Platelets 218 130 - 400 K/mcL LAB HEMETOLOGY METHOD 07/30/2024 11:28 AM [facility] LAB MPV 9.5 7.0 - 11.0 FL LAB HEMETOLOGY METHOD 07/30/2024 11:28 AM [facility] LAB NRBC 0.0 <1.0 % LAB HEMETOLOGY METHOD 07/30/2024 11:28 AM [facility] LAB NRBC Absolute 0.00 <0.10 K/mcL LAB HEMETOLOGY METHOD 07/30/2024 11:28 AM [facility] LAB Blood Venous blood specimen / Unknown Venipuncture / Unknown 07/30/2024 5:06 AM EST 07/30/2024 10:42 AM EST us Alisha Davison MD LAB BLOOD ORDERABLES Final Res ult [facility] LAB [address] [place] [address], * (ABNORMAL) Comprehensive metabolic panel (07/30/2024 5:06 AM EST) Sodium 134 133 - 145 mmol/L LAB CHEMISTRY METHOD 07/30/2024 11:55 AM [facility] LAB Potassium 3.6 3.5 - 5.5 mmol/L LAB CHEMISTRY METHOD 07/30/2024 11:55 AM [facility] LAB Chloride 97 96 - 110 mmol/L LAB CHEMISTRY METHOD 07/30/2024 11:55 AM [facility] LAB CO2 30 21 - 32 mmol/L LAB CHEMISTRY METHOD 07/30/2024 11:55 AM [facility] LAB Anion Gap 7 3 - 11 LAB CHEMISTRY METHOD 07/30/2024 11:55 AM [facility] LAB Glucose 89 70 - 100 mg/dL LAB CHEMISTRY METHOD 07/30/2024 11:55 AM [facility] LAB BUN 12 5 - 25 mg/dL LAB CHEMISTRY METHOD 07/30/2024 11:55 AM [facility] LAB Creatinine 0.50 0.50 - 1.10 mg/dL LAB CHEMISTRY METHOD 07/30/2024 11:55 AM [facility] LAB eGFR 93 >=60 mL/min/1. 73m2 LAB CHEMISTRY METHOD 07/30/2024 11:55 AM [facility] LAB Comment:Calculation based on the??Chronic Kidney Disease Epidemiology Collaboration (CKD-EPI) equation refit??without adjustment for race. BUN/Creatinine Ratio 24.0 LAB CHEMISTRY METHOD 07/30/2024 11:55 AM [facility] LAB Calcium 9.0 8.5 - 10.5 mg/dL LAB CHEMISTRY METHOD 07/30/2024 11:55 AM [facility] LAB AST (SGOT) 46(H) 10 - 42 unit/L LAB CHEMISTRY METHOD 07/30/2024 11:55 AM [facility] LAB ALT (SGPT) 39 10 - 60 unit/L LAB CHEMISTRY METHOD 07/30/2024 11:55 AM [facility] LAB Alkaline Phosphatase 114 42 - 121 unit/L LAB CHEMISTRY METHOD 07/30/2024 11:55 AM [facility] LAB Total Protein 6.0 6.0 - 8.0 g/dL LAB CHEMISTRY METHOD 07/30/2024 11:55 AM EST [facility] LAB Albumin 3.3 3.2 - 5.0 g/dL LAB CHEMISTRY METHOD 07/30/2024 11:55 AM [facility] LAB Total Bilirubin 0.5 0.0 - 1.4 mg/dL LAB CHEMISTRY METHOD 07/30/2024 11:55 AM [facility] LAB Blood Venous blood specimen / Unknown Venipuncture / Unknown 07/30/2024 5:06 AM EST 07/30/2024 10:42 AM EST us Alisha Davison MD LAB BLOOD ORDERABLES Final Res ult [facility] [address] [place] [address], documented in this encounter Visit Diagnoses Diagnosis Encounter for other general examination documented in this encounter Care Teams Correctional Counselor/Case Manager Relationship Specialty Start Date End Date Physician, No Pcp PCP - General 07/19/24 documented as of this encounter
--- OUTSIDE RECORDS SUMMARY | 2024-08-13 14:36 | XMS_ITS | Encounter Summary ---
Author Organization [facility] Address [address] [place] [address] Care Team Providers Care Trim Machine Operator Name Role Phone Physician, No Pcp Primary Care Provider Unavaila ble Encounter Details Date Type Department Care Team (Late st Contact Info) Description 07/26/2024 Lab Requisition [facility] - Main Lab 299 [facility] [place] [address] Alisha Davison MD [address] [place] [address] Encounter for other general examination Social History [...] LAB CHEMISTRY METHOD 07/26/2024 10:44 AM EST [facility] Blood Venous blood specimen / Unknown Venipuncture / Unknown 07/26/2024 5:24 AM EST 07/26/2024 8:31 AM EST us Alisha Davison MD LAB BLOOD ORDERABLES Final Res ult [facility] LAB [address] [place] [address], * (ABNORMAL) Complete blood count (07/26/2024 5:24 AM EST) WBC 9.4 4.8 - 10.8 K/mcL LAB HEMETOLOGY METHOD 07/26/2024 10:23 AM [facility] LAB RBC 3.70(L) 3.80 - 4.80 M/mcL LAB HEMETOLOGY METHOD 07/26/2024 10:23 AM [facility] LAB Hemoglobin 11.9 11.5 - 16.0 g/dL LAB HEMETOLOGY METHOD 07/26/2024 10:23 AM [facility] LAB Hematocrit 34.1(L) 35.0 - 47.0 % LAB HEMETOLOGY METHOD 07/26/2024 10:23 AM [facility] LAB MCV 93.2 79.0 - 98.0 FL LAB HEMETOLOGY METHOD 07/26/2024 10:23 AM [facility] LAB MCH 32.5(H) 27.0 - 32.0 pcg LAB HEMETOLOGY METHOD 07/26/2024 10:23 AM [facility] LAB MCHC 34.9 32.0 - 37.0 g/dL LAB HEMETOLOGY METHOD 07/26/2024 10:23 AM [facility] LAB RDW 12.5 11.0 - 15.0 % LAB HEMETOLOGY METHOD 07/26/2024 10:23 AM [facility] LAB Platelets 194 130 - 400 K/mcL LAB HEMETOLOGY METHOD 07/26/2024 10:23 AM EST [facility] LAB MPV 9.8 7.0 - 11.0 FL LAB HEMETOLOGY METHOD 07/26/2024 10:23 AM EST [facility] LAB NRBC 0.0 <1.0 % LAB HEMETOLOGY METHOD 07/26/2024 10:23 AM EST [facility] LAB NRBC Absolute 0.00 <0.10 K/mcL LAB HEMETOLOGY METHOD 07/26/2024 10:23 AM EST [facility] LAB Blood Venous blood specimen / Unknown Venipuncture / Unknown 07/26/2024 5:24 AM EST 07/26/2024 8:31 AM EST us Alisha Davison MD LAB BLOOD ORDERABLES Final Res ult [facility] LAB [address] [place] [address], * (ABNORMAL) Comprehensive metabolic panel (07/26/2024 5:24 AM EST) Sodium 131(L) 133 - 145 mmol/L LAB CHEMISTRY METHOD 07/26/2024 11:22 AM [facility] LAB Potassium 3.9 3.5 - 5.5 mmol/L LAB CHEMISTRY METHOD 07/26/2024 11:22 AM [facility] LAB Chloride 97 96 - 110 mmol/L LAB CHEMISTRY METHOD 07/26/2024 11:22 AM [facility] LAB CO2 30 21 - 32 mmol/L LAB CHEMISTRY METHOD 07/26/2024 11:22 AM [facility] LAB Anion Gap 4 3 - 11 LAB CHEMISTRY METHOD 07/26/2024 11:22 AM [facility] LAB Glucose 96 70 - 100 mg/dL LAB CHEMISTRY METHOD 07/26/2024 11:22 AM [facility] LAB BUN 19 5 - 25 mg/dL LAB CHEMISTRY METHOD 07/26/2024 11:22 AM [facility] LAB Creatinine 0.48(L) 0.50 - 1.10 mg/dL LAB CHEMISTRY METHOD 07/26/2024 11:22 AM [facility] LAB eGFR 94 >=60 mL/min/1. 73m2 LAB CHEMISTRY METHOD 07/26/2024 11:22 AM [facility] LAB Comment:Calculation based on the??Chronic Kidney Disease Epidemiology Collaboration (CKD-EPI) equation refit??without adjustment for race. BUN/Creatinine Ratio 39.6 LAB CHEMISTRY METHOD 07/26/2024 11:22 AM [facility] LAB Calcium 9.1 8.5 - 10.5 mg/dL LAB CHEMISTRY METHOD 07/26/2024 11:22 AM [facility] LAB AST (SGOT) 34 10 - 42 unit/L LAB CHEMISTRY METHOD 07/26/2024 11:22 AM [facility] LAB Comment:Results verified by repeat testing ALT (SGPT) 32 10 - 60 unit/L LAB CHEMISTRY METHOD 07/26/2024 11:22 AM [facility] LAB Comment:Results verified by repeat testing Alkaline Phosphatase 75 42 - 121 unit/L LAB CHEMISTRY METHOD 07/26/2024 11:22 AM [facility] LAB Total Protein 5.8(L) 6.0 - 8.0 g/dL LAB CHEMISTRY METHOD 07/26/2024 11:22 AM [facility] LAB Albumin 3.2 3.2 - 5.0 g/dL LAB CHEMISTRY METHOD 07/26/2024 11:22 AM [facility] LAB Total Bilirubin 0.5 0.0 - 1.4 mg/dL LAB CHEMISTRY METHOD 07/26/2024 11:22 AM [facility] LAB Blood Venous blood specimen / Unknown Venipuncture / Unknown 07/26/2024 5:24 AM EST 07/26/2024 8:31 AM EST us Alisha Davison MD LAB BLOOD ORDERABLES Final Res ult [facility] [address] [place] [address], documented in this encounter Visit Diagnoses Diagnosis Encounter for other general examination documented in this encounter Care Teams Trim Machine Operator Relationship Specialty Start Date End Date Physician, No Pcp PCP - General 07/19/24 documented as of this encounter
--- OUTSIDE RECORDS SUMMARY | 2024-08-13 14:36 | XMS_ITS | Patient Health Record ---
Author Organization [facility] Address [address] [place] [address] Care Team Providers Care Form Grader Name Role Phone Trish Blanco Primary Care Provider Unavailbriseida coffey Kinza Dodson Unavailable [phone] RachelDonna glasgow Unavailable [phone] Allergies No Known Allergies Reason For Referral No Information Medications Medication SIG (Take, Route, Frequency, Duration) Notes Start Date End Date Status Aspirin Adult Low Dose 81 MG Orally Active Mirtazapine 15 MG TAKE 1 TABLET BY HILDA TH AT BEDTIME Oral for 90 Days Active Ciclopirox Olamine 0.77 % 1 application Externally Twice a day to skin of feet including between the toes for 30 days Active Remeron 50 mg Not-Ta cedrick Probiotic as directed Orally N ot-Taking Kerasal 5-10 % 1 application Telephone Assembler ally Once a day 10/23/2022 Not-Taking Compression Stockings 20-30mm Hg as directed 11/14/2016 Not-Taking Immunizations Vaccine Route Administration Date Status Comme nts Influenza Unknown 04/20/2018 Refused Social History Tobacco Use: Social History Observation Description Date Details (start date - stop date) Never Smoker NA - NA Alcohol Screen Question Answer Notes Did you have a drink containing alcohol in the p ast year? No Points 0 Interpretation Negative Tobacco use other than smoking: Question Answer Notes Are you an other tobacco user? 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 Vital Signs Blood pressure diastolic 80 mm Hg 07/02/2024 Height 5 ft in 07/02/2024 Blood pressure systolic 134 mm Hg 07/02/2024 Weight 98 lbs 07/02/2024 BMI 19.14 kg/m2 07/02/2024 Encounters Encounter Location Date Provider Diagnosis [address] [address] 11/05/2023 Donna Tanner Unspecified atherosclerosis of [place] arteries of extremities, bilateral legs I70.203 ; Tinea unguium B35.1 ; Pain in right toe(s) M79.674 ; Pain in left toe(s) M79.675 ; Other viral warts B07.8 and Pain in left foot M79.[address] [address] 02/03/2024 Donna Tanner Unspecified atherosclerosis of [place] arteries of extremities, bilateral legs I70.203 ; Tinea unguium B35.1 ; Pain in right toe(s) M79.674 ; Pain in left toe(s) M79.675 ; Other viral warts B07.8 and Pain in left foot M79.[address] [address] 07/02/2024 Donna Tanner Unspecified atherosclerosis of [place] arteries of extremities, bilateral legs I70.203 ; Tinea pedis of both feet B35.3 ; Tinea unguium B35.1 ; Pain in right toe(s) M79.674 ; Pain in left toe(s) M79.675 ; Other viral warts B07.8 and Pain in left foot M79.[address] [address] 09/18/2023 [facility] [address] [address] 05/04/2024 Donna Tanner Assessments Encounter Date Diagnosis (ICD Code) Assessment Notes Treatment Notes Treatment Clinical Notes Section Notes 11/05/2023 Tinea unguium (ICD-10 - B35.1) 11/05/2023 Unspecified atherosclerosis of [place] arteries of extremities, bilateral legs (ICD-10 - I70.203) 02/03/2024 Unspecified atherosclerosis of [place] arteries of extremities, bilateral legs (ICD-10 - I70.203) 07/02/2024 Unspecified atherosclerosis of [place] arteries of extremities, bilateral legs (ICD-10 - I70.203) 07/02/2024 Tinea pedis of both feet (ICD-10 - B35.3) 02/03/2024 Tinea unguium (ICD-10 - B35.1) 07/02/2024 Tinea unguium (ICD-10 - B35.1) 11/05/2023 Pain in right toe(s) (ICD-10 - M79.674) 11/05/2023 Pain in left toe(s) (ICD-10 - M79.675) 07/02/2024 Pain in right toe(s) (ICD-10 - M79.674) 02/03/2024 Pain in right toe(s) (ICD-10 - M79.674) 02/03/2024 Pain in left toe(s) (ICD-10 - M79.675) 07/02/2024 Pain in left toe(s) (ICD-10 - M79.675) 11/05/2023 Other viral warts (ICD-10 - B07.8) 02/03/2024 Other viral warts (ICD-10 - B07.8) 11/05/2023 Pain in left foot (ICD-10 - M79.672) 07/02/2024 Other viral warts (ICD-10 - B07.8) 07/02/2024 Pain in left foot (ICD-10 - M79.672) 02/03/2024 Pain in left foot (ICD-10 - M79.672) Plan Of Treatment Pending Test Test Name Order Date 12541-DAUMPFL NAIL, 6 OR MORE 11/30/2012 27838-YDTSGPS NAIL, 6 OR MORE 03/25/2013 37463-MSUDJLD NAIL, 6 OR MORE 07/22/2013 18579-ZZXRNLO NAIL, 6 OR MORE 01/03/2014 68838-RIBUTUK NAIL, 6 OR MORE 05/09/2014 36445-ZJBQBUJ NAIL, 6 OR MORE 09/05/2014 43603-UXDDVYE NAIL, 6 OR MORE 01/18/2015 35060-TUUOSPU NAIL, 6 OR MORE 04/24/2015 28620-KVGODGI NAIL, 6 OR MORE 08/21/2015 10700-VFEBPML NAIL, 6 OR MORE 11/27/2015 46366-QLYREVI NAIL, 6 OR MORE 08/08/2016 53199-UXLWWDG NAIL, 6 OR MORE 05/21/2016 24965-YTWLUEN NAIL, 6 OR MORE 11/14/2016 45322-EECAIYZ NAIL, 6 OR MORE 01/27/2017 70326-TIIOJCE NAIL, 6 OR MORE 05/19/2017 31809-DNXGWRR NAIL, 6 OR MORE 02/09/2018 55794-BHWHKCG NAIL, 6 OR MORE 04/20/2018 41169-ZQBMXVS NAIL, 6 OR MORE 07/20/2018 20745-KASYVGC NAIL, 6 OR MORE 11/09/2018 19407-DJQIEDG NAIL, 6 OR MORE 01/25/2019 29809-NCESPNA NAIL, 6 OR MORE 07/14/2019 63610-IDZZMNT NAIL, 6 OR MORE 11/19/2019 61337-UJADGAY NAIL, 6 OR MORE 02/09/2020 07603-EIESFVW NAIL, 6 OR MORE 04/19/2020 94458-PUJLJOS NAIL, 6 OR MORE 07/04/2020 70151-JRHIECS NAIL, 6 OR MORE 10/26/2020 94871-WPYSDJB NAIL, 6 OR MORE 01/08/2021 77823-GSCXCTI NAIL, 6 OR MORE 04/16/2021 18525-TOAREHP NAIL, 6 OR MORE 09/03/2021 80158-HGKMXFV NAIL, 6 OR MORE 04/22/2022 51943-UJYNRVL NAIL, 6 OR MORE 07/25/2022 26241-PLUVUXX NAIL, 6 OR MORE 10/23/2022 88044-MPOGFME NAIL, 6 OR MORE 02/13/2023 13220-Nnvo Destruction, 1-14 10/23/2022 75585-Fmql Destruction, -14 02/13/2023 29415-Vpzm Destruction, 1-14 01/27/2017 09427-Tfdz Destruction, 1-14 05/19/2017 07669-Hnlt Destruction, -14 05/21/2016 22880-Uplw Destruction, -14 11/14/2016 07660-Qqge Destruction, 1-14 08/08/2016 96700-Mchu Destruction, 1-14 11/27/2015 95825-Uwaf Destruction, 1-14 08/21/2015 15783-Wmbj Destruction, 1-14 04/24/2015 13290-Lune Destruction, 1-14 01/18/2015 70993-Wshxvpbk Plate 01/27/2017 72093-Wuottbeu Plate 04/20/2018 73042-Dfesjcve Plate 01/08/2021 68479-Rjznkwij Plate 07/04/2020 87098-Paonmohb Plate 02/09/2018 24391-Atokhdnl Plate 11/19/2019 11301-Jcwtzjex Plate 04/16/2021 98432-Tiwchswp Plate 09/03/2021 27753-Hoztpdoe Plate Each Additional 48847- Debride <25 sq cm 01/25/2019 82128- Debride <25 sq cm 07/14/2019 39740- Debride <25 sq cm 11/09/2018 51379- Debride <25 sq cm 09/05/2014 70726 I&D ABSCESS- SIMPLE,SINGLE 017 87325-TVLR SKIN LESIONS, OVER 4 04/19/20 20 87111-ZDND SKIN LESIONS, OVER 4 10/27/19 21 85108-PCPC SKIN LESIONS, OVER 4 07/04/19 21 21163-KBNL SKIN LESIONS, OVER 4 01/09/20 21 07312-UUFT SKIN LESIONS, OVER 4 04/16/20 21 35879-ATJF SKIN LESIONS, OVER 4 09/04/19 22 59763-MRUO SKIN LESIONS, OVER 4 07/25/19 23 83010-ATRG SKIN LESIONS, OVER 4 04/22/20 22 06742-BIVQ SKIN LESIONS, OVER 4 02/14/20 23 72825-MXBN SKIN LESIONS, OVER 4 10/24/19 52535-ELJD SKIN LESIONS, 2 TO 4 02/09/20 81000-SDAV SKIN LESIONS, 2 TO 4 11/19/19 60619-MOOU SKIN LESIONS, 2 TO 4 01/26/20 93640-LCJA SKIN LESIONS, 2 TO 4 11/10/19 23025-NGHO SKIN LESIONS, 2 TO 4 07/14/19 43671-YCEO SKIN LESIONS, 2 TO 4 01/28/20 19 01489-KFUB SKIN LESIONS, 2 TO 4 04/20/20 18 34683-FZRW SKIN LESIONS, 2 TO 4 02/10/20 18 96192-VZSD SKIN LESIONS, 2 TO 4 05/19/20 17 03267-WPSL SKIN LESIONS, 2 TO 4 08/08/19 17 83157-KFDJ SKIN LESIONS, 2 TO 4 11/15/19 17 Next Appt Details Provider Name:Donna glasgow, 10/01/2024 10:00:00 AM, [address] [place], [address], Insurance Providers Payer Name Payer Address Payer Phone Subscriber Number Group Number Insured Name Patient Relationship to Insured Coverage Start Date Coverage End Date Medicare National Govt [employer] [address] [place] [address] [id number] Annmarie Escalera Self - patient is the insured 5 [employer] [address] [place] [address] [phone] [id number] Annmarie Escalera Self - patient is the insured Medical (General) History Medical History History ICD Code back, hip, knee pain broken bones reflux chicken pox Stroke Surgical History Surgery Date(Month/Year) tonsillectomy appendectomy vein surgery teeth extraction 05/2015 kyphoplasty 03/2016 Hospitalization History Reason Date(Month/Year) [facility] [place] 02/2020 [facility] [place] [place] - pt fell 11/04/2018 [facility] [place] [place] Dept visit- Loss Appetite, Nausea 11/2017 [facility] - Kyphoplasty 03/2016 [facility] for 4 day stay compression fracture. 01/2015 [facility] for 4 day stay for C-Diff 01/2013
--- OUTSIDE RECORDS SUMMARY | 2024-08-13 14:36 | XMS_ITS ---
Author Organization [facility] Address [address] [place] [address] Care Team Providers Care State Archivist Name Role Phone Trish Blanco Primary Care Provider Unavailabl e [place], [place] Unavailable [phone] RachelDonna glasgow Unavailable [phone] Allergies No Known Allergies REASON FOR VISIT At Risk Footcare, Painful Nail(s) aggrevated by shoes and causing difficulty standing/walking., Wart(s), Skin Problem Medications Medication SIG (Take, Route, Frequency, Duration) Notes Start Date End Date Status Ciclopirox Olamine 0.77 % 1 application Externally Twice a day to skin of feet including between the toes for 30 days Active Remeron 50 mg Not-Ta cedrick Probiotic as directed Orally N ot-Taking Kerasal 5-10 % 1 application Section [employer] W[employer] ally Once a day 10/23/2022 Not-Taking Compression Stockings 20-30mm Hg as directed 11/14/2016 Not-Taking Aspirin Adult Low Dose 81 MG Orally Active Mirtazapine 15 MG TAKE 1 TABLET BY HILDA TH AT BEDTIME Oral for 90 Days Active Social History Tobacco Use: Social History Observation Description Date Details (start date - stop date) Never Smoker NA - NA Tobacco use other than smoking: Question Answer Notes Are you an other tobacco user? No Tobacco Control (Standard) Question Answer Notes Tobacco use: Nonsmoker Vital Signs Height 5 ft in 07/02/2024 Weight 98 lbs 07/02/2024 BMI 19.14 kg/m2 07/02/2024 Blood pressure systolic 134 mm Hg 07/02/19 25 Blood pressure diastolic 80 mm Hg 025 Encounters Encounter Location Date Provider Diagnosis [facility] [address] [place] [address] 07/02/2024 Donna Tanner Unspecified atherosclerosis of [place] arteries of extremities, bilateral legs I70.203 ; Tinea pedis of both feet B35.3 ; Tinea unguium B35.1 ; Pain in right toe(s) M79.674 ; Pain in left toe(s) M79.675 ; Other viral warts B07.8 and Pain in left foot M79.672 Assessments Encounter Date Diagnosis (ICD Code) Assessment Notes Treatment Notes Treatment Clinical Notes Section Notes 07/02/2024 Unspecified atherosclerosis of [place] arteries of extremities, bilateral legs (ICD-10 - I70.203) 07/02/2024 Tinea pedis of both feet (ICD-10 - B35.3) 07/02/2024 Tinea unguium (ICD-10 - B35.1) 07/02/2024 Pain in right toe(s) (ICD-10 - M79.674) 07/02/2024 Pain in left toe(s) (ICD-10 - M79.675) 07/02/2024 Other viral warts (ICD-10 - B07.8) 07/02/2024 Pain in left foot (ICD-10 - M79.672) Plan Of Treatment Medication Medication Name Sig Start Date Stop Date Notes Ciclopirox Olamine 0.77 % 1 application Externally Twice a day to skin of feet including between the toes for 30 days Next Appt Details Follow Up: 3 Months, Reason: Provider Name:Donna glasgow, 10/01/2024 10:00:00 AM, [address] [place] [address], [id number], Procedure Notes * Category Sub-Category Detail Notes Wart Treatment Procedure Verrucae(s) were debrided to pin-point bleeding margins with sterile surgical blade, silver nitrate chemocautery applied, recomm. immune-boosting meds such as zinc, recomm. follow up with topical chemosurgical agents, Pt defers any other forms of tx (16527) Debride Nail 6-10 Nail debridement Due to the cl inical pathology outlined in the exam findings, performance of this nail treatment is medically necessary as its management by an unskilled/untrained nonprofessional would put this patients foot and overall health at risk. Therefore, debridement to affected nail(s), as described in exam (TA, T1, T2, T3, T4, T5, T6, T7, T8, T9, ), was performed exclusively by the physician of record to reduce/remove overall nail length, girth, thickness, subungual debris, and necrotic tissue, by manual and/or electrical means through the use of a nail nipper and/or dremel-type mash grinder, to a more viable healthy nail plate or bed tissue 6-10 nails in total. Silver nitrate was used for any petechial bleeding as necessary. Definitive antifungal treatment options, both pharmaceutical and surgical, have been reviewed and discussed with the patient. The patient solely prefers the use of intermittent/as needed professional debridement services for their nail condition and understands the need for additional periodic treatments to maintain effectiveness in symptomatic relief - 70775 Keratoma Treatment Parring or Cutting o f Benign Hyperkeratotic Lesion(s) (-57) More than 4 Lesions - Due to the at risk nature of the patients medical condition as documented in the exam findings, performance of this keratoderma treatment is medically necessary as its management by an unskilled/untrained nonprofessional would put this patients foot and overall health at risk. Therefore, the benign hyperkeratotic lesions, ( 6 ) in total, locations as stated and described in the exam ( SUB MTH (s), 2,B/L, Medial plantar, TA, T5, B/L , Heel(s) ,B/L, ), were pared, and/or cut utilizing a sterile 15 blade, tissue nippers, and/or power dremel instrumentation by the physician of record - 34570 Progress Notes * Vivienne ESCALERAyn FDOB:[birth year] (83 yo F)Acc No.[id number]:07/02/2024 Progress Note Patient:?Annmarie ESCALERA Provider:?Donna Tanner DPM :1940???Age:83 Y???Sex:Female D ate:07/02/2024 Address:[address] [place], [place] [id number] Pcp:Trish Blanco Subjective: * Chief Complaints: * ???At Risk FootcarePainful N ail(s) aggrevated by shoes and causing difficulty standing/walking.Wart(s)Skin Problem * HPI: ???At Risk footcare:?Pt States Last PCP Visit:?Date?12/05/2023 ???Wart:?Pt States Last PCP Visit:?Date:?12/05/2023 ???Skin problems:?Nature:?scaling , redness.?Location:?B/L .?Duration:?several days.?Course:?worse.? * ROS:?General/Constitutional:?Nausea?denies, denies, denies.?Vomiting?denies, denies, denies.?Hunger Thirst?denies, denies, denies.?Loss appetite?denies, denies, denies.?Chills?denies, denies, denies.?Fatigue?denies, denies, denies.?Fever?denies, denies, denies.?Night Sweats?denies, denies, denies.?Unexplained weight loss?denies, denies, denies.?Unexplained weight gain?denies, denies, denies.?HEENTM:?Dentures?denies, denies, denies.?Dizziness?denies, denies, denies.?Glasses/contacts?denies, denies, denies.?Retinopathy?denies, denies, denies.?Blurred/double vision?denies, denies, denies.?TMJ?denies, denies, denies.?Discharge/drainage?denies, denies, denies.?Implants?denies, denies, denies.?Sore throat?denies, denies, denies.?Dental implants?denies, denies, denies.?Hard of hearing ?denies, denies, denies.?Difficulty chewing/swallowing/speaking denies, denies, denies.?Nose bleeds?denies, denies, denies.?Sore mouth?denies, denies, denies.?Respiratory:?On Oxygen?denies, denies, denies.?Pneumonia/pleurisy?denies, denies, denies.?Bronchitis?denies, denies, denies.?Emphysema?denies, denies, denies.?Coughing?denies, denies, denies.?Cough blood?denies, denies, denies.?Shortness of breath?denies, denies, denies.?Wheezing?denies, denies, denies.?Cardiovascular:?Pacemaker?denies, denies, denies.?MVP?denies, denies, denies.?WPW?denies, denies, denies.?CHF?denies, denies, denies.?Heart attack?denies, denies, denies.?Septal defect?denies, denies, denies.?Rapid beat denies, denies, denies.?Chest pain ?denies, denies, denies.?Atrial Fib.?denies, denies, denies.?Murmur/Palpitations?denies, denies, denies.?Gastrointestinal:?Hemorrhoids?denies, denies, denies.?Stomach/Abdominal pain?denies, denies, denies.?Dark blood stool?denies, denies, denies.?Irritable bowel ?denies, denies, denies.?Constipation?denies, denies, denies.?Diarrhea?denies, denies, denies.?Hematology:?Swelling?denies, denies, denies.?Clots?denies, denies, denies.?Varicose Veins?denies, denies, denies.?Bruising?denies, denies, denies.?Bleeding problem?denies, denies, denies.?Genitourinary:?Blood urine?denies, denies, denies.?Frequent/Painfu/urination/bladder control?denies, denies, denies.?Kidney stones?denies, denies, denies.?Infection (UTI)?denies, denies, denies.?Nephropathy?denies, denies, denies. sex trans dis (STD)?denies, denies, denies.?Prostate?denies, denies, denies.?Musculoskeletal:?Hammertoes?denies, denies, denies.?Bunions?denies, denies, denies.?Back Pain?denies, denies, denies.?Muscle Cramps/ Resting?denies, denies, denies.?Muscle cramps / walking?denies, denies, denies.?Generalized aches and pains?denies, denies, denies.?Weakness?denies, denies, denies.?Integ.:?Branch?denies, denies, denies.?Scars?denies, denies, denies.?Corns/calluses?admits, admits, admits.?Ingrown nails?denies, denies, denies.?Painful nails?denies, denies, denies.?Open Sores?denies, denies, denies.?Rashes?denies, denies, denies.?Neurologic:?Difficulty sleeping?denies, denies, denies.?Brain disorder?denies, denies, denies.?Numbness?denies, denies, denies.?Balance trouble?denies, denies, denies.?Confusion?denies, denies, denies.?Fainting/blackouts?denies, denies, denies.?Tingling?denies, denies, denies.?Tremors?denies, denies, denies.? * Medical History:? * Surgical History:?tonsillect krystle appendectomy vein surgery teeth extraction 05/2015kyphoplasty 03/2016 * Hospitalization/Major Diagno stic Procedure:[facility]2016[facility] Dept visit- Loss Appetite, Nausea 11/2017[facility] - pt fell 11/04/2018[facility] observation 02/2020 * Family History:?Mother: dece ased.?Father: .?Daughter(s): alive.?Son(s): alive.?Spouse: alive.?3 son(s) , 1 daughter(s) . .? denies family Hx. * Social History:?Tobacco Use:?Tobacco use other than smoking?Are you an other tobacco user??No ?Tobacco Control (Standard)?Tobacco use:?Nonsmoker ???Miscellaneous:?Caffeine: yes, frequency:, 1-2 cups per day. ?Children: yes, 4. ?Exercise: yes, walking. ?Marital status: . 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 * Medications:?TakingAspirin A dult Low Dose 81 MG Tablet Delayed Release Orally Mirtazapine 15 MG Tablet TAKE 1 TABLET BY MOUTH AT BEDTIME Oral Taking Aspirin Adult Low Dose 81 MG Tablet Delayed Release Orally Taking Mirtazapine 15 MG Tablet TAKE 1 TABLET BY MOUTH AT BEDTIME Oral Not-Taking/PRNRemeron 50 mg Probiotic Capsule as directed Orally Kerasal 5-10 % Ointment 1 application Externally Once a day Compression Stockings 20-30mm Hg closed toe- knee high as directed Medication List reviewed and reconciled with the patientNot-Taking/PRN Remeron 50 mg Not- Taking/PRN Probiotic Capsule as directed Orally Not-Taking/PRN Kerasal 5-10 % Ointment 1 application Externally Once a day Not-Taking/PRN Compression Stockings 20-30mm Hg closed toe- knee high as directed Medication List reviewed and reconciled with the patient * Allergies:?N.K.D.A.yes[Aller gies Verified] Objective: * Vitals:?Ht: 5 ft, Wt: 98, BM I: 19.14, Shoe size: 7.5-8, BP: 134/80 mm Hg, Ht-cm: 152.4 cm, Wt-k.45 kg. * Examination: ???Neurological: ?SENSORY:?Neurological exam reveals intact sensorium, pain sensation normal, vibration sensation intact, pinprick sensation is normal in the lower extremities, , Pt relates, anesthesia.?Vascular: ?DP PULSES (B):?0/4, B/L.?PT PULSES (B):?1/4, B/L.?CAPILLARY FILL TIME:? delayed, all digits, B/L.?TROPHIC CONDITION-TEXTURE/ELASTICITY/TURGOR/HAIR GROWTH (B):? decreased, B/L.?TEMPERTURE GRADIENT (C):?cool to cold, B/L.?PIGMENTATION:?pale, B/L.?EDEMA (C):?absent, B/L.?Dermatologic: ?SKIN FINDINGS:?Skin exam reveals keratotic lesion(s) located at, SUB MTH (s), 2,B/L, Medial plantar, TA, T5, ?Heel(s) ,B/L, , Skin shows sign(s) of, erythema, scaling, in a moccasin fashion, no fissure(s) present, B/L.?VERRUCA:?single , round, raised, flat-topped, petechial bleeding papulae(s), with cauliflower appearance and interrruption of skin lines, with pain to both direct and lateral compression, and size estimated at 4mm , LEFT.?Nails: ?NAILS are:?Elongated, overgrown, dystrophic, lytic, greater than 3mm thick, discolored and friable with crumbly malodorous subungual debris, with pain on palpation, TA, T1, T2, T3, T4, T5, T6, T7, T8, T9.?General Examination: ?GENERAL APPEARANCE:?Reveals a pleasant, alert, well nourished, well- developed, well hydrated individual, who demonstrates proper attention to hygiene/body habitus, and is in no acute distress, Pt serves as own historian for office visit today.?ORIENTED:?person, place, and time.?FOOT EXAM:?Footwear Evaluation?Orthopedic: ?MUSCLE STRENGTH:?5/5 all groups in a symmetrical fashion, B/L.?DIGITAL DEFORMITIES:?Digital contracture, PIPJ, 2-5 B/L, incompl-reducible with WB, or to push-up test, no over, nor underlapping.?FOOTWEAR:?fair condition.? Assessment: * Assessment: 1.?Unspecified atheroscleros is of [place] arteries of extremities, bilateral legs - I70.203???2.?Tinea pedis of both feet - B35.3 (Primary)???Specify :Acute problem, Uncomplicated (3),Rx drug management (4)???3.?Tinea unguium - B35.1???4.?Pain in right toe(s) - M79.674???5.?Pain in left toe(s) - M79.675???6.?Other viral warts - B07.8???7.?Pain in left foot - M79.672??? Plan: * Treatment: * Procedures:?Debride Nail 6-10:?Nail debridement?Due to the clinical pathology outlined in the exam findings, performance of this nail treatment is medically necessary as its management by an unskilled/untrained nonprofessional would put this patients foot and overall health at risk. Therefore, debridement to affected nail(s), as described in exam (TA, T1, T2, T3, T4, T5, T6, T7, T8, T9, ), was performed exclusively by the physician of record to reduce/remove overall nail length, girth, thickness, subungual debris, and necrotic tissue, by manual and/or electrical means through the use of a nail nipper and/or dremel-type mash grinder, to a more viable healthy nail plate or bed tissue 6- 10 nails in total. Silver nitrate was used for any petechial bleeding as necessary. Definitive antifungal treatment options, both pharmaceutical and surgical, have been reviewed and discussed with the patient. The patient solely prefers the use of intermittent/as needed professional debridement services for their nail condition and understands the need for additional periodic treatments to maintain effectiveness in symptomatic relief - 95015.?Keratoma Treatment:?Parring or Cutting of Benign Hyperkeratotic Lesion(s)?(-57) More than 4 Lesions - Due to the at risk nature of the patients medical condition as documented in the exam findings, performance of this keratoderma treatment is medically necessary as its management by an unskilled/untrained nonprofessional would put this patients foot and overall health at risk. Therefore, the benign hyperkeratotic lesions, ( 6 ) in total, locations as stated and described in the exam (?SUB MTH (s),?2,B/L,?Medial plantar,?TA,?T5,?B/L?,?Heel(s)?,B/L,?), were pared, and/or cut utilizing a sterile 15 blade, tissue nippers, and/or power dremel instrumentation by the physician of record - 01078.?Wart Treatment:?Procedure?Verrucae(s) were debrided to pin-point bleeding margins with sterile surgical blade, silver nitrate chemocautery applied, recomm. immune-boosting meds such as zinc, recomm. follow up with topical chemosurgical agents, Pt defers any other forms of tx (64500).? * Procedure Codes:?85739 DEBRI DE NAIL, 6 OR MORE, Modifiers: XS 29302 Wart Destruction, 1-14, Modifiers: XS 45469 TRIM SKIN LESIONS, OVER 4, Modifiers: XS , Q8 * Preventive Medicine:? ??Counseling:?Discussion:?-13: Office or other outpatient visit for the evaluation and management of an established patient, which required a medically appropriate history and/or examination and LOW level of DECISION MAKING for: 1 STABLE ACUTE UNCOMPLICATED PROBLEM, 2 OR MORE MINOR PROBLEMS, OR 1 STABLE CHRONIC PROBLEM, THAT POSE(S) A LOW RISK FOR MORBIDITY/MORTALITY. The visit on the day of the encounter encompassed interpreting the data and educating the patient as to the nature of their condition, treatment options available according to their individual PMH, meds, allergies, and overall health/living conditions, as well as any potential risks or complications that may occur from a failure to adhere to, and participate in, the recommended course of therapy. The discussion included a complete verbal, and/or written explanation of the examination results, any x-rays taken, the proposed diagnosis, and outline of the treatment plan. A schedule for future care needs was also explained. The patient verbalized an understanding of the instructions at this time and agreed to be an active participant in their treatment. If the patient should think of any questions or concerns after the visit, I have encouraged the patient to call the office.?Tinea Pedis:?The patient was counseled on the diagnosis, potential etiologies, and treatment options for their skin condition. We discussed the risks and benefits of each option from performing no treatment, to utilizing OTC topical skin creams, prescription topical creams, customized compounded topical medications, and, if necessary, to utilize oral antifungal therapy. We discussed the advantages and disadvantages of each possible treatment and importance for adherence to all the recommended therapies for optimum success and avoid potential complications such as open sore/infection/possible hospitalization. We discussed the potential effectiveness of each topical preparation as well as each ones possible side effects and/or patient medication interactions if oral therapy is selected. Patient questions re: the advantages and disadvantages of each treatment choice, medication use/dosage, successful outcomes, and application consistency were reviewed and the patient verbalized that all answers were clearly understood. The patient was told they can help alleviate symptoms by utilizing moisture absorbant innersoles with activated charcoal and baking soda, applying antifungal sprays daily, aerating toe web spaces at night by putting cotton or lambs wool between the toes, alternating shoe gear daily if possible so they can dry out, changing socks at least once during the day, wearing well-ventilated shoes or sandals. The patient has decided to apply antifungal skin creams to their feet as directed. Rx was sent to their pharmacy at the time of visit.? ??Screening/Special Tests:?Fall Risk?Assessment:?Performed ?Screening:?No falls in the past year ?FALLS: Screening for Future Fall Risk?Have you had two or more falls in the past year??No ?Have you had any falls with injury in the past year??No * Follow Up:?3 Months * Images: * Sign off status: Completed true * Provider:?Donna Tanner DPM Date:?03/2025 Generated for Oren castorena/Barb/Danielle on:?08/13/2024 02:36 PM EST History and Physical Notes * HPI (History of Present Illness) Category Sub-Category Detail Notes Category Not es Wart Pt States Last PCP Visit: Date:: 12/05/2023 Skin problems Nature: scaling , redness Location: B/L Duration: several days Course: worse At Risk footcare Pt States Last PCP Visit: Date: Examination Category Sub-Category Detail Notes Category Not es Neurological SENSORY: Neurological exa m reveals intact sensorium, pain sensation normal, vibration sensation intact, pinprick sensation is normal in the lower extremities, , Pt relates, anesthesia Dermatologic SKIN FINDINGS: Skin exam reveal s keratotic lesion(s) located at, SUB MTH (s), 2,B/L, Medial plantar, TA, T5, Heel(s) ,B/L, , Skin shows sign(s) of, erythema, scaling, in a moccasin fashion, no fissure(s) present, B/L VERRUCA: single , round, rais ed, flat-topped, petechial bleeding papulae(s), with cauliflower appearance and interrruption of skin lines, with pain to both direct and lateral compression, and size estimated at 4mm , LEFT Orthopedic FOOTWEAR: fair condition DIGITAL DEFORMITIES: Digital contracture , PIPJ, 2-5 B/L, incompl-reducible with WB, or to push-up test, no over, nor underlapping MUSCLE STRENGTH: 5/5 all groups in a symmetrical fashion, B/L General Examination GENERAL APPEARANCE: Reveals a pleasant, alert, well nourished, well-developed, well hydrated individual, who demonstrates proper attention to hygiene/body habitus, and is in no acute distress, Pt serves as own historian for office visit today FOOT EXAM: Lower Extremity Neurological Exa m performed:: Yes Visual exam of foot performed:: Yes Date: 07/02/2024 ORIENTED: person, place, and t diane Footwear Evaluation Footwear Evaluation performe d:: Yes Vascular DP PULSES (B): 0/4, B/L PT PULSES (B): 1/4, B/L CAPILLARY FILL TIME: delayed, all digits , B/L TEMPERTURE GRADIENT (C): cool to cold, B /L TROPHIC CONDITION-TEXTURE/ELASTICITY/TUR GOR/HAIR GROWTH (B): decreased, B/L EDEMA (C): absent, B/L PIGMENTATION: pale, B/L Nails NAILS are: Elongated, overg rown, dystrophic, lytic, greater than 3mm thick, discolored and friable with crumbly malodorous subungual debris, with pain on palpation, TA, T1, T2, T3, T4, T5, T6, T7, T8, T9
--- OUTSIDE RECORDS SUMMARY | 2024-08-13 14:37 | XMS_ITS | Encounter Summary ---
[facility] [address] Address [address] [place] [address] Care Team Providers Care Director Of Software Engineering Name Role Phone Physician, No Pcp Primary Care Provider Unavaila ble Encounter Details Date Type Department Care Team (Late st Contact Info) Description 07/23/2024 Lab Requisition [facility] [address] [facility] Physician [place] [employer] [place] [address] Alisha Davison MD [address] [place] [id number] Encounter for other general examination Social History [...] LAB CHEMISTRY METHOD 07/23/2024 12:57 PM EST [facility] Urine Urine specimen obtained by clean catch procedure / Unknown Non-blood Collection / Unknown 07/23/2024 11:30 AM EST 07/23/2024 12:29 PM EST us Alisha Davison MD LAB URINE ORDERABLES Final Res ult Performing Organization Address [facility] Co de Phone Number [facility] [address] [place] [address], [place] [phone] * Osmolality, urine (07/23/2024 11:30 AM EST) Osmolality, Urine 579 300 - 1,300 mOsm/kg LAB CHEMISTRY METHOD 07/23/2024 1:45 PM EST [facility] Urine Urine specimen obtained by clean catch procedure / Unknown Non-blood Collection / Unknown 07/23/2024 11:30 AM EST 07/23/2024 12:29 PM EST Alisha Davison MD LAB URINE ORDERABLES Final Res ult Performing Organization Address [facility] Co de Phone Number [facility] [address] [place] [address], [place] [phone] documented in this encounter Visit Diagnoses Diagnosis Encounter for other general examination documented in this encounter Care Teams Director Of Software Engineering Relationship Specialty Start Date End Date Physician, No Pcp PCP - General 07/19/24 documented as of this encounter
--- OUTSIDE RECORDS SUMMARY | 2024-08-13 14:37 | XMS_ITS | Encounter Summary ---
Author Organization [facility] Address [address] [place] [address] Care Team Providers Care Coating Line Worker Name Role Phone Physician, No Pcp Primary Care Provider Unavaila ble Encounter Details Date Type Department Care Team (Late st Contact Info) Description 08/03/2024 Lab Requisition [facility] - Main Lab [address] [facility] [address] [place] [address] Alisha Davison MD [address] [place] [id number] Encounter for other general examination Social History [...] Procedure Name Priority Date/Time Associated Diagnosis Comments URINALYSIS WITH REFLEX MICROSCOPIC AND CULTURE Routine 08/03/2024 4:30 AM EST Encounter for other general examination RAO URINE CULTURE TUBE Routine 08/03/2024 4:30 AM EST Encounter for other general examination URINALYSIS WITH REFLEX MICROSCOPIC AND CULTURE Routine 08/03/2024 4:30 AM EST Encounter for other general examination CULTURE URINE Routine 08/03/2024 4:30 AM EST Encounter for other general examination documented in this encounter Results * (ABNORMAL) Culture urine (08/03/2024 4:30 AM EST) Culture, Urine >100,000 CFU/mL Escherichia coli(A) MIRELLA 08/07/2024 11:16 AM EST [facility] Comment: This is an edited result. Previous organism was Gram negative bacilli on 08/04/2024 at 0853 EST. Culture, Urine <10,000 CFU/mL Proteus mirabilis(A) MIRELLA 08/07/2024 11:16 AM EST [facility] Comment: Edited result: Previously reported as Proteus species on 08/06/2024 at 1407 EST. Culture, Urine 10,000-49,000 CFU/mL Pseudomonas aeruginosa(A) MIRELLA 08/07/2024 11:16 AM EST [facility] Comment: The organism value for this result has been updated. These results have been appended to the previously preliminary verified report. This is an edited result. Previous organism was Gram negative bacilli on 08/05/2024 at 1410 EST. Urine Urinary bladder structure / Unknown 08/03/2024 4:30 AM EST 08/03/2024 9:42 AM EST Narrative Organism Antibiotic Method Susceptibility Escherichia coli Amoxicillin/Clavulanate MIRLELA <=2 ug/ml: Susceptible Escherichia coli Ampicillin/Sulbactam MIRELLA <=2 ug/ml: Susceptible Escherichia coli Piperacillin/Tazobactam MIRELLA <=4 ug/ml: Susceptible Escherichia coli Cefazolin (Urine) MIRELLA <=1 ug/ml: Susceptible Escherichia coli Cefoxitin MIRELLA <=4 ug/ml: Susceptible Escherichia coli Ceftazidime MIRELLA <=0.5 ug/ml: Susceptible Escherichia coli Ceftriaxone MIRELLA <=0.25 ug/ml: Susceptible Escherichia coli Cefepime MIRELLA <=0.12 ug/ml: Susceptible Escherichia coli Meropenem MIRELLA <=0.25 ug/ml: Susceptible Escherichia coli Amikacin MIRELLA 2 ug/ml: Susceptible Escherichia coli Gentamicin MIRELLA <=1 ug/ml: Susceptible Escherichia coli Ciprofloxacin MIRELLA <=0.06 ug/ml: Susceptible Escherichia coli Levofloxacin MIRELLA <=0.12 ug/ml: Susceptible Escherichia coli Trimethoprim/Sulfame thoxazol e MIRELLA <=20 ug/ml: Susceptible Proteus mirabilis Amoxicillin/Clavulanate MIRELLA 4 ug/ml: Susceptible Proteus mirabilis Ampicillin/Sulbactam MIRELLA <=2 ug/ml: Susceptible Proteus mirabilis Piperacillin/Tazobactam MIRELLA <=4 ug/ml: Susceptible Proteus mirabilis Cefazolin (Urine) MIRELLA 4 ug/ml: Susceptible Proteus mirabilis Cefoxitin MIRELLA 8 ug/ml: Susceptible Proteus mirabilis Ceftazidime MIRELLA <=0.5 ug/ml: Susceptible Proteus mirabilis Ceftriaxone MIRELLA <=0.25 ug/ml: Susceptible Proteus mirabilis Cefepime MIRELLA <=0.12 ug/ml: Susceptible Proteus mirabilis Meropenem MIRELLA 1 ug/ml: Susceptible Proteus mirabilis Amikacin MIRELLA 4 ug/ml: Susceptible Proteus mirabilis Gentamicin MIRELLA <=1 ug/ml: Susceptible Proteus mirabilis Ciprofloxacin MIRELLA <=0.06 ug/ml: Susceptible Proteus mirabilis Levofloxacin MIRELLA <=0.12 ug/ml: Susceptible Proteus mirabilis Nitrofurantoin MIRELLA 128 ug/ml: Resistant Proteus mirabilis Trimethoprim/Sulfame thoxazol e MIRELLA <=20 ug/ml: Susceptible Pseudomonas aeruginosa Piperacillin/Tazobactam MIRELLA <=4 ug/ml: Susceptible Pseudomonas aeruginosa Ceftazidime MIRELLA 2 ug/ml: Susceptible Pseudomonas aeruginosa Cefepime MIRELLA 2 ug/ml: Susceptible Pseudomonas aeruginosa Meropenem MIRELLA <=0.25 ug/ml: Susceptible Pseudomonas aeruginosa Amikacin MIRELLA <=1 ug/ml: Susceptible Pseudomonas aeruginosa Ciprofloxacin MIRELLA 0.12 ug/ml: Susceptible Pseudomonas aeruginosa Levofloxacin MIRELLA 0.25 ug/ml: Susceptible us Alisha Davison MD LAB MICROBIOLOGY - GENERAL ORD ERABLES Final Result [facility] [address] [place] [address], * (ABNORMAL) Urinalysis with reflex microscopic and culture (08/03/2024 4:30 AM EST) Specific [place] Urine 1.023 1.003 - 1.030 LAB URINALYSIS - AUTOMATED METHOD 08/03/2024 9:42 AM EST [facility] pH, Urine 5.5 5.0 - 8.0 pH LAB URINALYSIS - AUTOMATED METHOD 08/03/2024 9:42 AM [facility] Leukocytes, Urine Moderate(A) Negative LAB URINALYSIS - AUTOMATED METHOD 08/03/2024 9:42 AM [facility] Nitrite, Urine Negative Negative LAB URINALYSIS - AUTOMATED METHOD 08/03/2024 9:42 AM [facility] Protein, Urine Trace <=Trace mg/dL LAB URINALYSIS - AUTOMATED METHOD 08/03/2024 9:42 AM [facility] Glucose, Urine Negative Negative mg/dL LAB URINALYSIS - AUTOMATED METHOD 08/03/2024 9:42 AM [facility] Ketones, Urine Negative Negative mg/dL LAB URINALYSIS - AUTOMATED METHOD 08/03/2024 9:42 AM [facility] Urobilinogen , Urine 0.2 0.2 - 1.0 mg/dL LAB URINALYSIS - AUTOMATED METHOD 08/03/2024 9:42 AM [facility] Bilirubin, Urine Negative Negative LAB URINALYSIS - AUTOMATED METHOD 08/03/2024 9:42 AM [facility] Blood, Urine Trace(A) Negative LAB URINALYSIS - AUTOMATED METHOD 08/03/2024 9:42 AM [facility] RBC, Urine 2.5 0 - 4 /HPF LAB URINALYSIS - AUTOMATED METHOD 08/03/2024 9:42 AM [facility] WBC, Urine 147.7(H) 0 - 4 /HPF LAB URINALYSIS - AUTOMATED METHOD 08/03/2024 9:42 AM [facility] Squamous Epithelial, Urine 9 0 - 60 /LPF LAB URINALYSIS - AUTOMATED METHOD 08/03/2024 9:42 AM [facility] Bacteria, Urine Many(A) Negative /HPF LAB URINALYSIS - AUTOMATED METHOD 08/03/2024 9:42 AM EST [facility] Hyaline Casts, Urine 13.9(H) 0 - 3 /LPF LAB URINALYSIS - AUTOMATED METHOD 08/03/2024 9:42 AM EST [facility] Urine Urinary bladder structure / Unknown 08/03/2024 4:30 AM EST 08/03/2024 9:04 AM EST us Alisha Davison MD LAB URINE ORDERABLES Final Res ult Performing Organization Address City/[facility]/ZIP Co de Phone Number [facility] [address] [place] [address], [place] [phone] * Rao urine culture tube (08/03/2024 4:30 AM EST) Extra Tube Hold for add-ons. 08/03/2024 11:01 AM [facility] Comment:Auto resulted. Urine Urinary bladder structure / Unknown 08/03/2024 4:30 AM EST 08/03/2024 9:04 AM EST us Alisha Davison MD LAB URINE ORDERABLES Final Res ult [facility] [address] [place] [address], [place] [phone] documented in this encounter Visit Diagnoses Diagnosis Encounter for other general examination documented in this encounter Care Teams Coating Line Worker Relationship Specialty Start Date End Date Physician, No Pcp PCP - General 07/19/24 documented as of this encounter
--- OUTSIDE RECORDS SUMMARY | 2024-08-13 14:37 | XMS_ITS | Encounter Summary ---
Author Organization [facility] Address [address] [place] [address] Care Team Providers Care Terminal Make Up Operator Name Role Phone Physician, No Pcp Primary Care Provider Unavaila ble Encounter Details Date Type Department Care Team (Late st Contact Info) Description 07/20/2024 Lab Requisition [facility] - Main Lab [address] [facility] [place] [address] Alisha Davison MD [address] [place] [phone] Encounter for other general examination Social History [...] with indices Consistent with indices, Normal for LAB HEMETOLOGY METHOD 07/20/2024 11:53 AM [facility] Platelet Morphology - WAM See Note(A) Normal LAB HEMETOLOGY METHOD 07/20/2024 11:53 AM [facility] Comment:PLT: Normal Blood Venous blood specimen / Unknown Venipuncture / Unknown 07/20/2024 5:24 AM EST 07/20/2024 9:35 AM EST us Alisha Davison MD LAB BLOOD ORDERABLES Final Res ult [facility] [address] [place] [address], [place] [phone] * (ABNORMAL) CBC auto differential (07/20/2024 5:24 AM EST) WBC 8.4 4.8 - 10.8 K/mcL LAB HEMETOLOGY METHOD 07/20/2024 11:53 AM [facility] RBC 3.90 3.80 - 4.80 M/mcL LAB HEMETOLOGY METHOD 07/20/2024 11:53 AM [facility] [...] LAB HEMETOLOGY METHOD 07/20/2024 11:53 AM EST [facility] RDW 12.3 11.0 - 15.0 % LAB HEMETOLOGY METHOD 07/20/2024 11:53 AM [facility] Platelets 150 130 - 400 K/mcL LAB HEMETOLOGY METHOD 07/20/2024 11:53 AM EST [facility] MPV 10.0 7.0 - 11.0 FL LAB HEMETOLOGY METHOD 07/20/2024 11:53 AM EST [facility] NRBC 0.0 <1.0 % LAB HEMETOLOGY METHOD 07/20/2024 11:53 AM [facility] NRBC Absolute 0.00 <0.10 K/mcL LAB HEMETOLOGY METHOD 07/20/2024 11:53 AM EST [facility] Blood Venous blood specimen / Unknown Venipuncture / Unknown 07/20/2024 5:24 AM EST 07/20/2024 9:35 AM EST us Alisha Davison MD LAB BLOOD ORDERABLES Final Res ult [facility] [address] [place] [address], * (ABNORMAL) Magnesium (07/20/2024 5:24 AM EST) Magnesium 1.8(L) 1.9 - 2.6 mg/dL LAB CHEMISTRY METHOD 07/20/2024 11:00 AM EST [facility] Blood Venous blood specimen / Unknown Venipuncture / Unknown 07/20/2024 5:24 AM EST 07/20/2024 9:35 AM EST us Alisha Davison MD LAB BLOOD ORDERABLES Final Res ult [facility] [address] [place] [address], [place] [phone] * (ABNORMAL) Comprehensive metabolic panel (07/20/2024 5:24 [...] 07/20/2024 11:00 AM [facility] Alkaline Phosphatase 72 42 - 121 unit/L LAB CHEMISTRY METHOD 07/20/2024 11:00 AM [facility] Total Protein 5.9(L) 6.0 - 8.0 g/dL LAB CHEMISTRY METHOD 07/20/2024 11:00 AM [facility] Albumin 3.3 3.2 - 5.0 g/dL LAB CHEMISTRY METHOD 07/20/2024 11:00 AM [facility] Total Bilirubin 0.9 0.0 - 1.4 mg/dL LAB CHEMISTRY METHOD 07/20/2024 11:00 AM [facility] Blood Venous blood specimen / Unknown Venipuncture / Unknown 07/20/2024 5:24 AM EST 07/20/2024 9:35 AM EST us Alisha Davison MD LAB BLOOD ORDERABLES Final Res ult [facility] [address] [place] [address], documented in this encounter Visit Diagnoses Diagnosis Encounter for other general examination documented in this encounter Care Teams Terminal Make Up Operator Relationship Specialty Start Date End Date Physician, No Pcp PCP - General 07/19/24 documented as of this encounter
--- OUTSIDE RECORDS SUMMARY | 2024-08-13 14:37 | XMS_ITS | Encounter Summary ---
Author Organization [facility] Address [address] [place] [address] Care Team Providers Care Plastic Fixture Builder Name Role Phone Physician, No Pcp Primary Care Provider Unavaila ble Encounter Details Date Type Department Care Team (Late st Contact Info) Description 08/03/2024 Lab Requisition [facility] - Main Lab 299 [facility] [place] [address] Alisha Davison MD [address] [place] [phone] Encounter for other general examination Social History [...] Procedure Name Priority Date/Time Associated Diagnosis Comments CBC WITH AUTO DIFFERENTIAL Routine 08/03/2024 6:30 AM EST Encounter for other general examination CBC AND DIFFERENTIAL Routine 08/03/2024 6:30 AM EST Encounter for other general examination BASIC METABOLIC PANEL Routine 08/03/2024 6:30 AM EST Encounter for other general examination documented in this encounter Results * (ABNORMAL) CBC auto differential (08/03/2024 6:30 AM EST) WBC 7.4 4.8 - 10.8 K/[facility] LAB HEMETOLOGY METHOD 08/03/2024 9:24 AM [facility] RBC 3.20(L) 3.80 - 4.80 M/mcL LAB HEMETOLOGY METHOD 08/03/2024 9:24 AM [facility] Hemoglobin 10.7(L) 11.5 - 16.0 g/dL LAB HEMETOLOGY METHOD 08/03/2024 9:24 AM [facility] Hematocrit 31.7(L) 35.0 - 47.0 % LAB HEMETOLOGY METHOD 08/03/2024 9:24 AM [facility] MCV 98.1(H) 79.0 - 98.0 FL LAB HEMETOLOGY METHOD 08/03/2024 9:24 AM [facility] MCH 33.1(H) 27.0 - 32.0 pcg LAB HEMETOLOGY METHOD 08/03/2024 9:24 AM [facility] MCHC 33.8 32.0 - 37.0 g/dL LAB HEMETOLOGY METHOD 08/03/2024 9:24 AM [facility] RDW 12.6 11.0 - 15.0 % LAB HEMETOLOGY METHOD 08/03/2024 9:24 AM [facility] Platelets 211 130 - 400 K/mcL LAB HEMETOLOGY METHOD 08/03/2024 9:24 AM [facility] MPV 9.5 7.0 - 11.0 FL LAB HEMETOLOGY METHOD 08/03/2024 9:24 AM [facility] NRBC 0.0 <1.0 % LAB HEMETOLOGY METHOD 08/03/2024 9:24 AM [facility] NRBC Absolute 0.00 <0.10 K/mcL LAB HEMETOLOGY METHOD 08/03/2024 9:24 AM [facility] Blood Venous blood specimen / Unknown Venipuncture / Unknown 08/03/2024 6:30 AM EST 08/03/2024 8:31 AM EST us Alisha Davison MD LAB BLOOD ORDERABLES Final Res ult [facility] [address] [place] [address], [place] [phone] * Basic metabolic panel (08/03/2024 6:30 AM EST) Sodium 138 133 - 145 mmol/L LAB CHEMISTRY METHOD 08/03/2024 9:57 AM [facility] Potassium 3.8 3.5 - 5.5 mmol/L LAB CHEMISTRY METHOD 08/03/2024 9:57 AM [facility] Chloride 102 96 - 110 mmol/L LAB CHEMISTRY METHOD 08/03/2024 9:57 AM [facility] CO2 30 21 - 32 mmol/L LAB CHEMISTRY METHOD 08/03/2024 9:57 AM [facility] Anion Gap 6 3 - 11 LAB CHEMISTRY METHOD 08/03/2024 9:57 AM [facility] Glucose 92 70 - 100 mg/dL LAB CHEMISTRY METHOD 08/03/2024 9:57 AM [facility] BUN 19 5 - 25 mg/dL LAB CHEMISTRY METHOD 08/03/2024 9:57 AM [facility] Creatinine 0.52 0.50 - 1.10 mg/dL LAB CHEMISTRY METHOD 08/03/2024 9:57 AM [facility] eGFR 92 >=60 mL/min/1. 73m2 LAB CHEMISTRY METHOD 08/03/2024 9:57 AM [facility] Comment:Calculation based on the??Chronic Kidney Disease Epidemiology Collaboration (CKD-EPI) equation refit??without adjustment for race. BUN/Creatinine Ratio 36.5 LAB CHEMISTRY METHOD 08/03/2024 9:57 AM [facility] Calcium 8.8 8.5 - 10.5 mg/dL LAB CHEMISTRY METHOD 08/03/2024 9:57 AM EST [facility] Blood Venous blood specimen / Unknown Venipuncture / Unknown 08/03/2024 6:30 AM EST 08/03/2024 8:31 AM EST us Alisha Davison MD LAB BLOOD ORDERABLES Final Res ult [facility] [address] [place] [address], documented in this encounter Visit Diagnoses Diagnosis Encounter for other general examination documented in this encounter Care Teams Plastic Fixture Builder Relationship Specialty Start Date End Date Physician, No Pcp PCP - General 07/19/24 documented as of this encounter
--- OUTSIDE RECORDS SUMMARY | 2024-08-13 14:37 | XMS_ITS ---
Author Organization [facility] Address [address] [place] [phone] Care Team Providers Care Chief Order Dispatcher Name Role Phone Trish Blanco Primary Care Provider Unavailbriseida e Kingsley Dodsonmie Unavailable [phone] Donna Tanner Unavailable [phone] Medications Medication SIG (Take, Route, Frequency, Duration) Notes Start Date End Date Status Compression Stockings 20-30mm Hg as directed 11/14/2016 Not-Taking Kerasal 5-10 % 1 application Optometrist/Practice Owner ally Once a day 10/23/2022 Not-Taking Aspirin Adult Low Dose 81 MG Orally Active Probiotic as directed Orally N ot-Taking Remeron 50 mg Active Encounters Encounter Location Date Provider Diagnosis [address] [address] 05/04/2024 Donna Tanner Plan Of Treatment Next Appt Details Provider Name:Donna glasgow, 10/01/2024 10:00:00 AM, [address] [place], [address], Progress Notes * Annmarie ESCALERA FDOB:[birth year] (83 yo F)Acc No.[id number]:05/04/2024 Progress Note Patient:?Annmarie ESCALERA Provider:?Donna Tanner DPM :1940???Age:83 Y???Sex:Female D ate:05/04/2024 Address:[address] [place] [address], [place] Pcp:Trish Blnaco Subjective: * Chief Complaints: * ??? * HPI: ???At Risk footcare:?Pt States Last PCP Visit:?Date?12/05/2023 * Medical History:? * Medications:?Taking Aspirin Adult Low Dose 81 MG Tablet Delayed Release Orally , Taking Remeron 50 mg , Not-Taking/PRN Probiotic Capsule as directed Orally , Not-Taking/PRN Kerasal 5-10 % Ointment 1 application Externally Once a day , Not-Taking/PRN Compression Stockings 20-30mm Hg closed toe- knee high as directed Objective: * Vitals:? Assessment: Plan: * Treatment: * Images: * The named appointment provid er may or may not be the originator of this progress note, and it is not deemed complete until electronically signed by the appointment provider. Sign off status: Pending * Provider:?Donna Tanner DPM Date:?05/2024 Generated for Oren castorena/Barb/Danielle on:?08/13/2024 02:37 PM EST History and Physical Notes * HPI (History of Present Illness) Category Sub-Category Detail Notes Category Not es At Risk footcare Pt States Last PCP Visit: Date: 4
--- OUTSIDE RECORDS SUMMARY | 2024-08-13 14:37 | XMS_ITS | Encounter Summary ---
Author Organization [facility] Address [address] [place] [address] Care Team Providers Care Research Staff Member Name Role Phone Physician, No Pcp Primary Care Provider Unavaila ble Encounter Details Date Type Department Care Team (Late st Contact Info) Description 07/22/2024 Lab Requisition [facility] - Main Lab 299 [facility] [place] [address] Alisha Davison MD [address] [place] [address] Encounter for other general examination Social History [...] Complete blood count (07/22/2024 2:25 PM EST) WBC 9.0 4.8 - 10.8 K/[facility] LAB HEMETOLOGY METHOD 07/22/2024 4:48 PM EST [facility] RBC 3.80 3.80 - 4.80 M/[facility] LAB HEMETOLOGY METHOD 07/22/2024 4:48 PM [facility] Hemoglobin 12.4 11.5 - 16.0 g/dL LAB HEMETOLOGY METHOD 07/22/2024 4:48 PM [facility] Hematocrit 34.2(L) 35.0 - 47.0 % LAB HEMETOLOGY METHOD 07/22/2024 4:48 PM [facility] MCV 91.0 79.0 - 98.0 FL LAB HEMETOLOGY METHOD 07/22/2024 4:48 PM [facility] MCH 33.0(H) 27.0 - 32.0 pcg LAB HEMETOLOGY METHOD 07/22/2024 4:48 PM [facility] MCHC 36.3 32.0 - 37.0 g/dL LAB HEMETOLOGY METHOD 07/22/2024 4:48 PM [facility] RDW 12.1 11.0 - 15.0 % LAB HEMETOLOGY METHOD 07/22/2024 4:48 PM [facility] Platelets 163 130 - 400 K/mcL LAB HEMETOLOGY METHOD 07/22/2024 4:48 PM [facility] MPV 9.9 7.0 - 11.0 FL LAB HEMETOLOGY METHOD 07/22/2024 4:48 PM [facility] NRBC 0.0 <1.0 % LAB HEMETOLOGY METHOD 07/22/2024 4:48 PM [facility] NRBC Absolute 0.00 <0.10 K/mcL LAB HEMETOLOGY METHOD 07/22/2024 4:48 PM [facility] Blood Venous blood specimen / Unknown Venipuncture / Unknown 07/22/2024 2:25 PM EST 07/22/2024 2:51 PM EST us Alisha Davison MD LAB BLOOD ORDERABLES Final Res ult [facility] [address] [place] [address], [place] [phone] * (ABNORMAL) Comprehensive metabolic panel (07/22/2024 2:25 PM EST) Sodium 130(L) 133 - 145 mmol/L LAB CHEMISTRY METHOD 07/22/2024 4:09 PM [facility] Potassium 4.0 3.5 - 5.5 mmol/L LAB CHEMISTRY METHOD 07/22/2024 4:09 PM [facility] Chloride 96 96 - 110 mmol/L LAB CHEMISTRY METHOD 07/22/2024 4:09 PM [facility] CO2 27 21 - 32 mmol/L LAB CHEMISTRY METHOD 07/22/2024 4:09 PM [facility] Anion Gap 7 3 - 11 LAB CHEMISTRY METHOD 07/22/2024 4:09 PM [facility] Glucose 108(H) 70 - 100 mg/dL LAB CHEMISTRY METHOD 07/22/2024 4:09 PM [facility] BUN 21 5 - 25 mg/dL LAB CHEMISTRY METHOD 07/22/2024 4:09 PM [facility] Creatinine 0.51 0.50 - 1.10 mg/dL LAB CHEMISTRY METHOD 07/22/2024 4:09 PM [facility] eGFR 92 >=60 mL/min/1. 73m2 LAB CHEMISTRY METHOD 07/22/2024 4:09 PM [facility] Comment:Calculation based on the??Chronic Kidney Disease Epidemiology Collaboration (CKD-EPI) equation refit??without adjustment for race. BUN/Creatinine Ratio 41.2 LAB CHEMISTRY METHOD 07/22/2024 4:09 PM [facility] Calcium 8.8 8.5 - 10.5 mg/dL LAB CHEMISTRY METHOD 07/22/2024 4:09 PM [facility] AST (SGOT) 19 10 - 42 unit/L LAB CHEMISTRY METHOD 07/22/2024 4:09 PM [facility] ALT (SGPT) 13 10 - 60 unit/L LAB CHEMISTRY METHOD 07/22/2024 4:09 PM [facility] Alkaline Phosphatase 67 42 - 121 unit/L LAB CHEMISTRY METHOD 07/22/2024 4:09 PM [facility] Total Protein 6.0 6.0 - 8.0 g/dL LAB CHEMISTRY METHOD 07/22/2024 4:09 PM [facility] Albumin 3.3 3.2 - 5.0 g/dL LAB CHEMISTRY METHOD 07/22/2024 4:09 PM [facility] Total Bilirubin 0.5 0.0 - 1.4 mg/dL LAB CHEMISTRY METHOD 07/22/2024 4:09 PM [facility] Blood Venous blood specimen / Unknown Venipuncture / Unknown 07/22/2024 2:25 PM EST 07/22/2024 2:51 PM EST us Alisha Davison MD LAB BLOOD ORDERABLES Final Res ult [facility] [address] [place] [address], documented in this encounter Visit Diagnoses Diagnosis Encounter for other general examination documented in this encounter Care Teams Research Staff Member Relationship Specialty Start Date End Date Physician, No Pcp PCP - General 07/19/24 documented as of this encounter
--- OUTSIDE RECORDS SUMMARY | 2024-08-13 14:37 | XMS_ITS | Clinical Summary ---
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 [address] [place] [address] Alisha Davison MD Encounter for other general examination 08/03/[address] [facility] [address] [place] [address] Alisha Davison MD Encounter for other general examination 07/30/[address] [facility] [address] [place] [address] Alisha Davison MD Encounter for other general examination 07/26/[address] [facility] [address] [place] [address] Alisha Davison MD Encounter for other general examination 07/23/[address] [facility] [address] [place] [address] Alisha Davison MD Encounter for other general examination 07/22/[address] [facility] [address] [place] [address] Alisha Davison MD Encounter for other general examination 07/20/[address] [facility] [address] [facility] [employer] [place] [address] Alisha Davison MD Encounter for other general examination from Last 3 Months Social History Tobacco Use Types Packs/Day Years Used Date Smoking Tobacco: Never Assessed Comments Unknown Sex and Gender Information Value Date Recorded Sex Assigned at Not on file Legal Sex Female 7:01 PM EST Gender Identity Not on file Sexual Orientation Not on file Plan of Treatment Health Maintenance Due Date Last Done Comments DTaP,Tdap,and Td Vaccines (1 - Tdap) 11/25/1958 Pneumococcal Vaccine: 50+ Ye ars (1 of 1 - PCV) 11/25/1989 Zoster Vaccines (1 of 2) 11/25/1989 RSV Immunization Patients 60 + Years Old [...] patient's age to complete this topic Meningococcal B Vacine Aged Out No lo nger eligible based on patient's age to complete [...] other general examination COMPLETE BLOOD COUNT Routine 07/30/2024 5:06 AM [...] from Last 3 Months Results * (ABNORMAL) CBC auto differential (08/03/2024 6:30 AM EST) Only the most recent of2 resultswithin the time period is included. WBC 7.4 4.8 - 10.8 K/mcL LAB HEMETOLOGY METHOD 08/03/2024 9:24 AM [facility] RBC 3.20(L) 3.80 - 4.80 M/mcL LAB HEMETOLOGY METHOD 08/03/2024 9:24 AM [facility] Hemoglobin 10.7(L) 11.5 - 16.0 g/dL LAB HEMETOLOGY METHOD 08/03/2024 9:24 AM [facility] Hematocrit 31.7(L) 35.0 - 47.0 % LAB HEMETOLOGY METHOD 08/03/2024 9:24 AM [facility] MCV 98.1(H) 79.0 - 98.0 FL LAB HEMETOLOGY METHOD 08/03/2024 9:24 AM [facility] MCH 33.1(H) 27.0 - 32.0 pcg LAB HEMETOLOGY METHOD 08/03/2024 9:24 AM [facility] MCHC 33.8 32.0 - 37.0 g/dL LAB HEMETOLOGY METHOD 08/03/2024 9:24 AM EST [facility] RDW 12.6 11.0 - 15.0 % LAB HEMETOLOGY METHOD 08/03/2024 9:24 AM EST [facility] Platelets 211 130 - 400 K/mcL LAB HEMETOLOGY METHOD 08/03/2024 9:24 AM EST [facility] MPV 9.5 7.0 - 11.0 FL LAB HEMETOLOGY METHOD 08/03/2024 9:24 AM EST [facility] NRBC 0.0 <1.0 % LAB HEMETOLOGY METHOD 08/03/2024 9:24 AM EST [facility] NRBC Absolute 0.00 <0.10 K/mcL LAB HEMETOLOGY METHOD 08/03/2024 9:24 AM [facility] Blood Venous blood specimen / Unknown Venipuncture / Unknown 08/03/2024 6:30 AM EST 08/03/2024 8:31 AM EST us Alisha Davison MD LAB BLOOD ORDERABLES Final Res ult [facility] [address] [place] [address], * Basic metabolic panel (08/03/2024 6:30 AM EST) Sodium 138 133 - 145 mmol/L LAB CHEMISTRY METHOD 08/03/2024 9:57 AM EST [facility] Potassium 3.8 3.5 - 5.5 mmol/L LAB CHEMISTRY METHOD 08/03/2024 9:57 AM EST [facility] Chloride 102 96 - 110 mmol/L LAB CHEMISTRY METHOD 08/03/2024 9:57 AM EST [facility] CO2 30 21 - 32 mmol/L LAB CHEMISTRY METHOD 08/03/2024 9:57 AM EST [facility] Anion Gap 6 3 - 11 LAB CHEMISTRY METHOD 08/03/2024 9:57 AM [facility] Glucose 92 70 - 100 mg/dL LAB CHEMISTRY METHOD 08/03/2024 9:57 AM [facility] BUN 19 5 - 25 mg/dL LAB CHEMISTRY METHOD 08/03/2024 9:57 AM [facility] Creatinine 0.52 0.50 - 1.10 mg/dL LAB CHEMISTRY METHOD 08/03/2024 9:57 AM [facility] eGFR 92 >=60 mL/min/1. 73m2 LAB CHEMISTRY METHOD 08/03/2024 9:57 AM [facility] Comment:Calculation based on the??Chronic Kidney Disease Epidemiology Collaboration (CKD-EPI) equation refit??without adjustment for race. BUN/Creatinine Ratio 36.5 LAB CHEMISTRY METHOD 08/03/2024 9:57 AM [facility] Calcium 8.8 8.5 - 10.5 mg/dL LAB CHEMISTRY METHOD 08/03/2024 9:57 AM [facility] Blood Venous blood specimen / Unknown Venipuncture / Unknown 08/03/2024 6:30 AM EST 08/03/2024 8:31 AM EST us Alisha Davison MD LAB BLOOD ORDERABLES Final Res ult [facility] [address] [place] [address], * (ABNORMAL) Urinalysis with reflex microscopic and culture (08/03/2024 4:30 AM EST) Specific Pope Urine 1.023 1.003 - 1.030 LAB URINALYSIS - AUTOMATED METHOD 08/03/2024 9:42 AM [facility] pH, Urine 5.5 5.0 - 8.0 pH LAB URINALYSIS - AUTOMATED METHOD 08/03/2024 9:42 AM [facility] Leukocytes, Urine Moderate(A) Negative LAB URINALYSIS - AUTOMATED METHOD 08/03/2024 9:42 AM [facility] Nitrite, Urine Negative Negative LAB URINALYSIS - AUTOMATED METHOD 08/03/2024 9:42 AM [facility] Protein, Urine Trace <=Trace mg/dL LAB URINALYSIS - AUTOMATED METHOD 08/03/2024 9:42 AM [facility] Glucose, Urine Negative Negative mg/dL LAB URINALYSIS - AUTOMATED METHOD 08/03/2024 9:42 AM [facility] Ketones, Urine Negative Negative mg/dL LAB URINALYSIS - AUTOMATED METHOD 08/03/2024 9:42 AM [facility] Urobilinogen , Urine 0.2 0.2 - 1.0 mg/dL LAB URINALYSIS - AUTOMATED METHOD 08/03/2024 9:42 AM [facility] Bilirubin, Urine Negative Negative LAB URINALYSIS - AUTOMATED METHOD 08/03/2024 9:42 AM [facility] Blood, Urine Trace(A) Negative LAB URINALYSIS - AUTOMATED METHOD 08/03/2024 9:42 AM [facility] RBC, Urine 2.5 0 - 4 /HPF LAB URINALYSIS - AUTOMATED METHOD 08/03/2024 9:42 AM [facility] WBC, Urine 147.7(H) 0 - 4 /HPF LAB URINALYSIS - AUTOMATED METHOD 08/03/2024 9:42 AM [facility] Squamous Epithelial, Urine 9 0 - 60 /LPF LAB URINALYSIS - AUTOMATED METHOD 08/03/2024 9:42 AM [facility] Bacteria, Urine Many(A) Negative /HPF LAB URINALYSIS - AUTOMATED METHOD 08/03/2024 9:42 AM [facility] Hyaline Casts, Urine 13.9(H) 0 - 3 /LPF LAB URINALYSIS - AUTOMATED METHOD 08/03/2024 9:42 AM EST [facility] Urine Urinary bladder structure / Unknown 08/03/2024 4:30 AM EST 08/03/2024 9:04 AM EST us Alisha Davison MD LAB URINE ORDERABLES Final Res ult Performing Organization Address City/[facility]/ZIP Co de Phone Number [facility] [address] [place] [address], [place] [phone] * Rao urine culture tube (08/03/2024 4:30 AM EST) Extra Tube Hold for add-ons. 08/03/2024 11:01 AM EST [facility] Comment:Auto resulted. Urine Urinary bladder structure / Unknown 08/03/2024 4:30 AM EST 08/03/2024 9:04 AM EST us Alisha Davison MD LAB URINE ORDERABLES Final Res ult Performing Organization Address City/[facility]/ZIP Co de Phone Number [facility] [address] [place] [address], [place] [phone] * (ABNORMAL) Culture urine (08/03/2024 4:30 AM EST) Culture, Urine >100,000 CFU/mL Escherichia coli(A) MIRELLA 08/07/2024 11:16 AM EST [facility] Comment: This is an edited result. Previous organism was Gram negative bacilli on 08/04/2024 at 0853 EST. Culture, Urine <10,000 CFU/mL Proteus mirabilis(A) MIRELLA 08/07/2024 11:16 AM EST [facility] Comment: Edited result: Previously reported as Proteus species on 08/06/2024 at 1407 EST. Culture, Urine 10,000-49,000 CFU/mL Pseudomonas aeruginosa(A) MIRELLA 08/07/2024 11:16 AM EST [facility] Comment: The organism value for this result has been updated. These results have been appended to the previously preliminary verified report. This is an edited result. Previous organism was Gram negative bacilli on 08/05/2024 at 1410 EST. Urine Urinary bladder structure / Unknown 08/03/2024 4:30 AM EST 08/03/2024 9:42 AM EST Narrative Organism Antibiotic Method Susceptibility Escherichia coli Amoxicillin/Clavulanate MIRELLA <=2 ug/ml: Susceptible Escherichia coli Ampicillin/Sulbactam MIRELLA [...] Pseudomonas aeruginosa Levofloxacin MIRELLA 0.25 ug/ml: Susceptible Alisha Davison MD LAB MICROBIOLOGY - GENERAL ORD ERABLES Final Result [facility] [address] [place] [address], [place] [phone] * (ABNORMAL) Complete blood count (07/30/2024 5:06 AM EST) Only the most recent of3 resultswithin the time period is included. WBC 6.7 4.8 - 10.8 K/mcL LAB HEMETOLOGY METHOD 07/30/2024 11:28 AM EST [facility] RBC 3.70(L) 3.80 - 4.80 M/mcL LAB HEMETOLOGY METHOD 07/30/2024 11:28 AM EST [facility] Hemoglobin 12.2 11.5 - 16.0 g/dL LAB HEMETOLOGY METHOD 07/30/2024 11:28 AM EST [facility] Hematocrit 35.5 35.0 - 47.0 % LAB HEMETOLOGY METHOD 07/30/2024 11:28 AM EST [facility] MCV 94.9 79.0 - 98.0 FL LAB HEMETOLOGY METHOD 07/30/2024 11:28 AM EST [facility] MCH 32.6(H) 27.0 - 32.0 pcg LAB HEMETOLOGY METHOD 07/30/2024 11:28 AM EST [facility] MCHC 34.4 32.0 - 37.0 g/dL LAB HEMETOLOGY METHOD 07/30/2024 11:28 AM EST [facility] RDW 12.6 11.0 - 15.0 % LAB HEMETOLOGY METHOD 07/30/2024 11:28 AM [facility] Platelets 218 130 - 400 K/mcL LAB HEMETOLOGY METHOD 07/30/2024 11:28 AM [facility] MPV 9.5 7.0 - 11.0 FL LAB HEMETOLOGY METHOD 07/30/2024 11:28 AM [facility] NRBC 0.0 <1.0 % LAB HEMETOLOGY METHOD 07/30/2024 11:28 AM EST [facility] NRBC Absolute 0.00 <0.10 K/mcL LAB HEMETOLOGY METHOD 07/30/2024 11:28 AM [facility] Blood Venous blood specimen / Unknown Venipuncture / Unknown 07/30/2024 5:06 AM EST 07/30/2024 10:42 AM EST us Alisha Davison MD LAB BLOOD ORDERABLES Final Res ult [facility] [address] [place] [address], * (ABNORMAL) Comprehensive metabolic panel (07/30/2024 5:06 AM EST) Only the most recent of4 resultswithin the time period is included. Sodium 134 133 - 145 mmol/L LAB CHEMISTRY METHOD 07/30/2024 11:55 AM EST [facility] Potassium 3.6 3.5 - 5.5 mmol/L LAB CHEMISTRY METHOD 07/30/2024 11:55 AM [facility] Chloride 97 96 - 110 mmol/L LAB CHEMISTRY METHOD 07/30/2024 11:55 AM [facility] CO2 30 21 - 32 mmol/L LAB CHEMISTRY METHOD 07/30/2024 11:55 AM [facility] Anion Gap 7 3 - 11 LAB CHEMISTRY METHOD 07/30/2024 11:55 AM [facility] Glucose 89 70 - 100 mg/dL LAB CHEMISTRY METHOD 07/30/2024 11:55 AM [facility] BUN 12 5 - 25 mg/dL LAB CHEMISTRY METHOD 07/30/2024 11:55 AM [facility] Creatinine 0.50 0.50 - 1.10 mg/dL LAB CHEMISTRY METHOD 07/30/2024 11:55 AM [facility] eGFR 93 >=60 mL/min/1. 73m2 LAB CHEMISTRY METHOD 07/30/2024 11:55 AM [facility] Comment:Calculation based on the??Chronic Kidney Disease Epidemiology Collaboration (CKD-EPI) equation refit??without adjustment for race. BUN/Creatinine Ratio 24.0 LAB CHEMISTRY METHOD 07/30/2024 11:55 AM [facility] Calcium 9.0 8.5 - 10.5 mg/dL LAB CHEMISTRY METHOD 07/30/2024 11:55 AM [facility] AST (SGOT) 46(H) 10 - 42 unit/L LAB CHEMISTRY METHOD 07/30/2024 11:55 AM [facility] ALT (SGPT) 39 10 - 60 unit/L LAB CHEMISTRY METHOD 07/30/2024 11:55 AM [facility] Alkaline Phosphatase 114 42 - 121 unit/L LAB CHEMISTRY METHOD 07/30/2024 11:55 AM [facility] Total Protein 6.0 6.0 - 8.0 g/dL LAB CHEMISTRY METHOD 07/30/2024 11:55 AM EST [facility] Albumin 3.3 3.2 - 5.0 g/dL LAB CHEMISTRY METHOD 07/30/2024 11:55 AM EST [facility] Total Bilirubin 0.5 0.0 - 1.4 mg/dL LAB CHEMISTRY METHOD 07/30/2024 11:55 AM EST [facility] Blood Venous blood specimen / Unknown Venipuncture / Unknown 07/30/2024 5:06 AM EST 07/30/2024 10:42 AM EST us Alisha Davison MD LAB BLOOD ORDERABLES Final Res ult Performing Organization Address [facility]/ZIP Co de Phone Number [facility] [address] [place] [address], [place] [phone] * Magnesium (07/26/2024 5:24 AM EST) Only the most recent of2 resultswithin the time period is included. Magnesium 1.9 1.9 - 2.6 mg/dL LAB CHEMISTRY METHOD 07/26/2024 10:44 AM EST [facility] Blood Venous blood specimen / Unknown Venipuncture / Unknown 07/26/2024 5:24 AM EST 07/26/2024 8:31 AM EST us Alisha Davison MD LAB BLOOD ORDERABLES Final Res ult [facility] [address] [place] [address], [place] [phone] * Sodium, urine, random (07/23/2024 11:30 AM EST) Sodium, Ur 8 mmol/L LAB CHEMISTRY METHOD 07/23/2024 12:57 PM EST [facility] Urine Urine specimen obtained by clean catch procedure / Unknown Non-blood Collection / Unknown 07/23/2024 11:30 AM EST 07/23/2024 12:29 PM EST Alisha Davison MD LAB URINE ORDERABLES Final Res ult Performing Organization Address [facility]/ZIP Co de Phone Number [facility] [address] [place] [address], [place] [phone] * Osmolality, urine (07/23/2024 11:30 AM EST) [facility] Osmolality, Urine 579 300 - 1,300 mOsm/kg LAB CHEMISTRY METHOD 07/23/2024 1:45 PM [facility] Urine Urine specimen obtained by clean catch procedure / Unknown Non-blood Collection / Unknown 07/23/2024 11:30 AM EST 07/23/2024 12:29 PM EST Alisha Davison MD LAB URINE ORDERABLES Final Res ult Performing Organization Address City/[facility]/ZIP Co de Phone Number [facility] [address] [place] [address], [place] [phone] * (ABNORMAL) Manual differential (07/20/2024 5:24 AM EST) [facility] Neutrophils % 43.0 % LAB HEMETOLOGY METHOD 07/20/2024 11:53 AM [facility] Lymphocytes % 40.0 % LAB HEMETOLOGY METHOD 07/20/2024 11:53 AM [facility] Reactive Lymphocyte 10.00 % LAB HEMETOLOGY METHOD 07/20/2024 11:53 AM [facility] Monocytes % 7.0 % LAB HEMETOLOGY METHOD 07/20/2024 11:53 AM [facility] Eosinophils % 0.0 % LAB HEMETOLOGY METHOD 07/20/2024 11:53 AM [facility] Basophils % 1.0 % LAB HEMETOLOGY METHOD 07/20/2024 11:53 AM [facility] Neutrophils Absolute Manual 3.61 1.50 - 7.00 K/mcL LAB HEMETOLOGY METHOD 07/20/2024 11:53 AM [facility] Lymphocytes Absolute 3.36 1.00 - 5.00 K/mcL LAB HEMETOLOGY METHOD 07/20/2024 11:53 AM [facility] Reactive Lymph Abs Manual 0.84(H) 0.00 - 0.00 lym LAB HEMETOLOGY METHOD 07/20/2024 11:53 AM [facility] Monocytes Absolute Manual 0.59 0.20 - 1.00 K/mcL LAB HEMETOLOGY METHOD 07/20/2024 11:53 AM [facility] Eosinophils Absolute Manual 0.00 0.00 - 0.50 K/mcL LAB HEMETOLOGY METHOD 07/20/2024 11:53 AM [facility] Basophils Absolute Manual 0.08 0.00 - 0.20 K/mcL LAB HEMETOLOGY METHOD 07/20/2024 11:53 AM [facility] Rbc Morphology Consistent with indices Consistent with indices, Normal for LAB HEMETOLOGY METHOD 07/20/2024 11:53 AM [facility] Platelet Morphology - WAM See Note(A) Normal LAB HEMETOLOGY METHOD 07/20/2024 11:53 AM EST [facility] Comment:PLT: Normal Blood Venous blood specimen / Unknown Venipuncture / Unknown 07/20/2024 5:24 AM EST 07/20/2024 9:35 AM EST us Alisha Davison MD LAB BLOOD ORDERABLES Final Res ult [facility]) [facility] [address] [place] [address], [place] [phone] from Last 3 Months Insurance MEDICARE [facility] Advance Directives Documents on File Type Date 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
--- NOTE | 2024-08-13 14:41 | MHC.PC.OV ---
Vital Signs 08/13/24 14:44 Height 4 ft 11 in Weight 93 lb BMI 18.8 BP 110/60 Blood Pressure Location Rt brachial Position Sitting Pulse 92 Pulse Source Pulse Oximeter Temp 98 F Temp Source Temporal Artery Scan Pulse Oximetry (%) 94 Oxygen Delivery Method Room Air Intake Visit Reasons: [facility] 08/05 Intake Note: Patient is here for hospital discharge follow up. Patient was discharged from [facility] on 08/05/24. Training Generalist Required: No Pitch Gatherer: Present Accompanied by: Daughter Allergies No Known Allergies Allergy (Verified 08/13/24 14:43) Tobacco use date assessed: 08/13/24 Fall risk assessment: 2 + Falls in past year Last assessed Fall Risk: 08/13/24 Dental Screening Dental Screen Date: 08/13/24 Did you have a dental visit in the last 12 months?: No Did you have a dental problem in the last 6 months where you did not have access to dental care?: No Was dental information given to patient?: No HPI [facility] 08/05 HPI Details 83-year-old female with past medical history of GERD, depression, hypercholesterolemia last seen 11/2022 coming in for hospital discharge follow up.? In review of the notes, patient was seen in [facility] after a fall with CT showing nondisplaced avulsion fracture of greater trochanter.?Ortho was consulted who recommended nonweightbearing to the left lower extremity and outpatient follow up and discharge to [facility].?Patient was discharge to 08/09/2024 from [facility] on antibiotics to treat urinary tract infection. They recommended avoiding tramadol as the family is against this medication advised to follow up with PT/OT and orthopedics. Presenting with a follow-up for a left femur fracture.The fracture resulted from a fall in June; orthopedic management recommended avoiding weight bearing along with rehabilitation. The patient currently undergoes home-based PT and OT services through [facility] for mobility improvement. She discontinued the use of analgesics prior to her discharge from [facility], indicating adequate pain control without medication. Mobility is supported with a walker, influenced by vision impairment which previously led to her fall. [facility] Medical History Vertebral artery stenosis GERD (gastroesophageal reflux disease) Hypercholesterolemia CVA (cerebral vascular accident) Thrombocytopenia Peripheral vascular disease History of esophageal ulcer Spinal stenosis Reflux esophagitis Thoracic compression fracture Osteoporosis Depression Surgical History History of tubal ligation History of tonsillectomy History of appendectomy Family History Father No problems noted. Mother No problems noted. Sister Leukemia Social History Housing: House Alcohol intake: never Patient Tobacco Use Status: Never used Tobacco Tobacco use type: Cigarette e-Cigarette/Vaping Use: Never Used Second Hand Smoke Exposure: No Advance Directives Date on File: 04/02/22 service: No Current occupational status: retired Cognitive needs: Yes (wheelchair) Hearing needs: No Vision needs: No Questionnaire PHQ-9 Over the last 2 weeks, how often have you been bothered by any of the following problems? 1. Little interest or pleasure in doing things: not at all 2. Feeling down, depressed, or hopeless: not at all 3. Trouble falling or staying asleep, or sleeping too much: not at all 4. Feeling tired or having little energy: not at all 5. Poor appetite or overeating: not at all 6. Feeling bad about yourself - or that you are a failure or have let yourself or your family down: not at all 7. Trouble concentrating on things, such as reading the newspaper or watching television: not at all 8. Moving or speaking so slowly that other people could have noticed. Or the opposite - being so fidgety or restless that you have been moving around a lot more than usual: not at all 9. Thoughts that you would be better off or of hurting yourself in some way: not at all Total score: 0 Depression Screening Interpretation: Negative Depression Screening Done: Yes Source: Developed by Drs. Bong Bird, Tammie Mijares, Yonathan Copeland and colleagues, with an educational fish from [employer]. Thrive Questionnaire Date Thrive assessed: 08/13/24 I am a: Patient What is your living situation today?: I have a steady place to live Within the past 12 months, did the food you bought not last and you didn't have the money to get more?: Never true Within the past 12 months, did you worry whether your food would run out before you got money to buy more?: Never true Do you have trouble paying for medicines?: No Do you have trouble getting transportation to medical appointments?: No Do you have trouble paying your heating and electricity bill?: No Do you have trouble taking care of your child, family member or friend?: No Do you have trouble with day-to-day activities such as bathing, preparing meals, shopping, managing finances, etc.?: No Are you currently unemployed and looking for a job?: No Are you interested in more education?: No Please select the resources that you would like help with: None Currently or been in a relationship where the following occur: No concerns reported THRIVE Score: 0 AUDIT C Alcohol Use Questionnaire (AUDIT-C) 1. How often do you have a drink containing alcohol?: Never 2. How many drinks containing alcohol do you have on a typical day when you are drinking?: 1 or 2 3. How often do you have six or more drinks on one occasion?: Never Total Score: 0 ASHLEY-7 AMB Questionnaire ASHLEY-7 Date ASHLEY - 7 assessed: 08/13/24 Feeling nervous, anxious, or on edge: 0 = Not at all Not being able to stop or control worryin = Not at all Worrying too much about different things: 0 = Not at all Trouble relaxin = Not at all Being so restless that it is hard to sit still: 0 = Not at all Becoming easily annoyed or irritable: 0 = Not at all Feeling afraid as if something awful might happen: 0 = Not at all Total ASHLEY-7 score (0-4 normal; 5-9 mild; 10-14 moderate; 15-21 severe): 0 Source: Developed by Drs. Bong Bird, Tammie Mijares, Yonathan Copeland and colleagues, with an educational fish from [employer]. Review of Systems Const Denies body aches, Denies chills, Denies fever(s), Denies headache(s) and Denies poor appetite Eyes Reports no additional complaints ENT Denies dizziness and Denies headache(s) Card Denies chest pain, Denies lightheadedness and Denies dyspnea Resp Denies cough and Denies dyspnea GI Denies abdominal pain, Denies constipation, Reports diarrhea (episode last week), Denies nausea and Denies vomiting Details: no pain with urination and no blood in the urine Musc Reports no additional complaints and Denies abnormal gait Skin/Breast Reports system reviewed and no additional complaints, except as documented Neuro Denies abnormal gait, Denies dizziness and Denies headache(s) Psych Reports no additional complaints Physical exam (Primary Care) Vital Signs: Last Vital Signs Temp 98 F 08/13/24 14:44 Pulse 92 08/13/24 14:44 BP 110/60 08/13/24 14:44 Pulse Ox 94 08/13/24 14:44 Oxygen Delivery Method Room Air 08/13/24 14:44 BMI result Body Mass Index 18.8 Tobacco/Smoking Status: Tobacco use Status Tobacco use date assessed 08/13/24 08/13/24 14:53 Patient Tobacco Use Status Never used Tobacco 08/13/24 14:53 Tobacco use type Cigarette 08/13/24 14:53 e-Cigarette/Vaping Use Never Used 08/13/24 14:53 PHQ-9: PHQ-9 Score PHQ-9: Total score 0 08/13/24 14:53 Depression Screening Interpretation: Negative Thrive Assessment: Date of Thrive Assessment Date Thrive assessed 08/13/24 08/13/24 14:53 Currently or been in a relationship where the following occur: No concerns reported Const General: cooperative, healthy appearing, comfortable and no acute distress Orientation/consciousness: patient oriented x3 HENMT Head: Yes normocephalic Ears: hearing grossly normal bilaterally General nose exam: Normal external nose present Eyes General: appearance normal, both eyes and all related structures Conjunctivae: conjunctivae normal Neck Neck: Yes full ROM and Yes no lymphadenopathy Resp Effort & Inspection: normal respiratory effort Auscultation: clear to auscultation bilaterally, no crackles, no rales, no rhonchi and no wheezes Cardio Rate: regular rate Rhythm: regular rhythm Skin General skin exam: no rashes or lesions noted Neuro General: patient oriented x3 Gait exam (Neuro): Normal gait present Extrem General: Yes normal to inspection, Yes full ROM and No edema Psych Affect: normal affect Attitude: cooperative Insight: Good insight present (Psych) Judgement: Good judgement present (Psych) Coding Level of Care Code Est Pt Level 3 (54289) Diagnoses Gastroesophageal reflux disease without esophagitis K21.9 Esophagitis presence: without esophagitis Weakness R53.1 Closed trochanteric fracture of hip S72.102A Encounter type: initial encounter Laterality: left Urinary tract infection N39.0 Assessment & Plan Assessment & Plan (1) GERD (gastroesophageal reflux disease): Code(s): K21.9 - Gastro-esophageal reflux disease without esophagitis Category: Medical Qualifiers: Esophagitis presence: without esophagitis Qualified Code(s): K21.9 - Gastro-esophageal reflux disease without esophagitis Plan: Avoid trigger foods such as citrus, tomato products, soda, caffeine, spicy foods and other foods that may be irritating to your stomach. Avoid laying flat 3-4 hours after eating and elevate the head of the bed 30 degrees to prevent acid from moving into the esophagus. (2) Weakness: Code(s): R53.1 - Weakness Category: Medical Plan: Currently working with PT/OT the [facility]. Ambulating with a walker at this time (3) Closed trochanteric fracture of hip: Code(s): S72.109A - Unspecified trochanteric fracture of unspecified femur, initial encounter for closed fracture Category: Medical Qualifiers: Encounter type: initial encounter Laterality: left Qualified Code(s): S72.102A - Unspecified trochanteric fracture of left femur, initial encounter for closed fracture Plan: Management includes continuation of PT and OT at home under [facility] care. Patient to maintain non-weight bearing status as directed by orthopedics, with follow-up in August. (4) Urinary tract infection: Code(s): N39.0 - Urinary tract infection, site not specified Category: Medical Plan: Patient being treated for urinary tract infection by [facility]. Discussed importance of hygiene and regular change things of under pads to avoid further infections. Plan Patient was informed and verbally consented to the use of an ambient scribe for clinic note documentation during this visit. This note was constructed using voice recognition software. While every effort has been made to ensure accuracy and sole polisher, still areas may have been included sometimes these areas may affect the content or meeting of the given symptoms. Total time spent caring for the patient today was 30 minutes. This includes time spent before the visit reviewing the chart, time spent during the visit, and time spent after the visit and documentation.
[2024-08-13 14:44] VITALS: BP 110/60; PULSE 92; TEMP 36.6; O2SAT 94; BMI 18.8
== END 2024-08-13 15:28 | disposition home or self-care (01) ==
DX: K21.9 Gastro-esophageal reflux disease without esophagitis (principal); R53.1 Weakness; S72.102A Unspecified trochanteric fracture of left femur, initial encounter for closed fracture; N39.0 Urinary tract infection, site not specified

== ENCOUNTER → 2024-08-13 14:16 | Outpatient (BNVA) | payer MEDICARE, SELFPAY | DX: K21.9 Gastro-esophageal reflux disease without esophagitis (principal); R53.1 Weakness; N39.0 Urinary tract infection, site not specified; S72.102D Unspecified trochanteric fracture of left femur, subsequent encounter for closed fracture with routine healing | CPT/HCPCS: 99212 ==

== ENCOUNTER 2024-08-27 08:10 | Outpatient (REF) | payer MEDICARE, SELFPAY ==
--- OUTSIDE RECORDS SUMMARY | 2024-08-27 08:54 | XMS_ITS ---
Author Organization [facility] Address [address] [place] [id number] Care Team Providers Care Mold Presser Name Role Phone Trish Blanco Primary Care Provider Unavailabl e Black, Kinza Unavailable [phone] Donna Tanner Unavailable [phone] REASON FOR VISIT SD cx 05/04 Encounters Encounter Location Date Provider Diagnosis [address] [address] 05/04/2024 Donna Tanner Plan Of Treatment Next Appt Details Provider Name:Donna glasgow, 10/01/2024 10:00:00 AM, [address] [place] [address], [phone], Provider Name:Donna glasgow, 10/27/2024 10:00:00 AM, [address] [place] [address], [phone], Progress Notes * ROLYXuan HEBERThryn FDOB:[birth year] (83 yo F)Acc No.[id number]:05/04/2024 Patient:?Annmarie ESCALERA :1940???Age:83 Y???Sex:Female Address:[address] [place] [address], [id number] * true * Date:? Generated for Printi ng/Fajoleeng/eTransmitting on:?08/27/2024 08:54 AM EST
--- OUTSIDE RECORDS SUMMARY | 2024-08-27 08:55 | XMS_ITS ---
Author Organization [facility] Address [address] [place] [address] Care Team Providers Care Rubber Stamp Assembler Name Role Phone Trish Blanco Primary Care Provider Unavailabl e West, Kinza Unavailable [phone] RachelDonna glasgow Unavailable [phone] Allergies No Known Allergies REASON FOR VISIT [...] N ot-Taking Kerasal 5-10 % 1 application Brokerage Branch Manager ally Once a day 10/23/2022 Not-Taking Compression [...] 025 Encounters Encounter Location Date Provider Diagnosis [facility] [address] [address] 07/02/2024 Donna Tanner Unspecified atherosclerosis of [place] arteries of extremities, bilateral legs I70.203 ; Tinea pedis of both feet B35.3 ; Tinea unguium B35.1 ; Pain in right toe(s) M79.674 ; Pain in left toe(s) M79.675 ; Other viral warts B07.8 and Pain in left foot M79.672 Assessments Encounter Date Diagnosis (ICD Code) Assessment Notes Treatment Notes Treatment Clinical Notes Section Notes 07/02/2024 Unspecified atherosclerosis of [place] arteries of extremities, bilateral legs (ICD-10 - [...] Reason: Provider Name:Donna glasgow, 10/01/2024 10:00:00 AM, [address] [place] [address], [phone], Provider Name:Donna glasgow, 10/27/2024 10:00:00 AM, [address] [place] [address], [phone], Procedure Notes * Category Sub-Category Detail Notes Wart Treatment Procedure Verrucae(s) were debrided to pin-point bleeding margins with sterile surgical blade, silver nitrate chemocautery applied, recomm. immune-boosting meds such as zinc, recomm. follow up with topical chemosurgical agents, Pt defers any other forms of tx (16724) Debride Nail 6-10 Nail debridement Due to [...] use of a nail nipper and/or dremel-type plate glass grinder, to a more viable healthy nail [...] to maintain effectiveness in symptomatic relief - 03316 Keratoma Treatment Parring or Cutting o f [...] instrumentation by the physician of record - 05078 Progress Notes * ROLYAnnmarie FDOB:[birth year] (83 yo F)Acc No.[id number]:07/02/2024 Progress Note Patient:?Annmarie ESCALERA Provider:?Donna Tanner DPM :1940???Age:83 Y???Sex:Female D ate:07/02/2024 Address:[address], [place], [place] Pcp:Trish Blanco Subjective: * Chief Complaints: * [...] extraction 05/2015kyphoplasty 03/2016 * Hospitalization/Major Diagno stic Procedure:?[facility] day [facility]2015[facility] - Kyphoplasty 03/2016[facility]- Loss Appetite, Nausea 11/2017[facility] - pt fell 11/04/2018[facility] 02/2020 * Family History:?Mother: dece ased.?Father: [...] and reconciled with the patient * Allergies:?N.K.D.A.yes[Aller gireyna Verified] Objective: * Vitals:?Ht: 5 ft, Wt: [...] for office visit today.?ORIENTED:?person, place, and time.?FOOT EXAM:?Lower Extremity Neurological Exam performed:?Yes ?Visual exam of foot performed:?Yes ?Date?07/02/2024 ?Footwear Evaluation?Footwear Evaluation performed:?Yes?Orthopedic: ?MUSCLE STRENGTH:?5/5 all groups in a symmetrical fashion, B/L.?DIGITAL DEFORMITIES:?Digital contracture, PIPJ, 2-5 B/L, incompl-reducible with WB, or to push-up test, no over, nor underlapping.?FOOTWEAR:?fair condition.? Assessment: * Assessment: 1.?Unspecified atheroscleros is of [place] arteries of extremities, bilateral legs - I70.203???2.?Tinea [...] use of a nail nipper and/or dremel-type plate glass grinder, to a more viable healthy nail [...] to maintain effectiveness in symptomatic relief - 18390.?Keratoma Treatment:?Parring or Cutting of Benign Hyperkeratotic Lesion(s)?(-57) [...] instrumentation by the physician of record - 25319.?Wart Treatment:?Procedure?Verrucae(s) were debrided to pin-point bleeding margins with sterile surgical blade, silver nitrate chemocautery applied, recomm. immune-boosting meds such as zinc, recomm. follow up with topical chemosurgical agents, Pt defers any other forms of tx (29826).? * Procedure Codes:?63497 DEBRI DE NAIL, 6 OR MORE, Modifiers: XS 19750 Wart Destruction, 1-14, Modifiers: XS 30822 TRIM SKIN LESIONS, OVER 4, Modifiers: XS [...] Provider:?Donna Tanner DPM Date:?03/2025 Generated for Oren castornea/Barb/Danielle on:?08/27/2024 08:55 AM EST History and Physical Notes * HPI [...]
--- OUTSIDE RECORDS SUMMARY | 2024-08-27 08:55 | XMS_ITS | Clinical Summary ---
Author Organization Unknown Care Team Providers Care Beating Machine Operator Name Role Phone ARABELLA CANTRELL, ISABELLA Unavailable Unavailable ANÍBAL RUSH, JUICE Unavailable Unavailbriesida CÁRDENAS RN, BRODY Unavailable Unavailable YANI PT, NIYA Unavailable Unavailable SHAHLA COOK LPN, GARO Unavailable Yogeshi labasia Payers Payer Name Policy Type Policy Number Effective Date Expira tion Date MEDICARE - NGS OR/ME - PD [id number] [facility] ADV [id number] Problems Condition Name Condition Details Condition Category Status Onset Date Resolution Date Last Treatment Date Treating Clinician Comments NONDISP FX OF GREATER TROCHANTER OF LEFT FEMUR, INIT Active 2-17 00:00: 00 URINARY TRACT INFECTION, SITE NOT SPECIFIED Active 06-23 00:00: 00 PERIPHERAL VASCULAR DISEASE, UNSPECIFIED Active 06-23 00:00: 00 ANXIETY DISORDER, UNSPECIFIED Active 06-23 00:00: 00 DEPRESSION, UNSPECIFIED Active 06-23 00:00: 00 AGE-REL OSTEOPOR W CRNT PATH FX, L FEMR, 7THD Active 06-23 00:00: 00 SPINAL STENOSIS, SITE UNSPECIFIED Active 06-23 00:00: 00 HYPERLIPIDEM IA, UNSPECIFIED Active 06-23 00:00: 00 CONSTIPATION , UNSPECIFIED Active 06-23 00:00: 00 HYPO-OSMOLAL ITY AND HYPONATREMIA Active 06-23 00:00: 00 HYPOMAGNESEM IA Active 06-23 00:00: 00 UNSP OPEN WOUND OF LEFT CHEEK AND TMJ AREA, SUBS Active 06-23 00:00: 00 PRSNL HX OF TIA (TIA), AND CEREB INFRC W/O RESID DEFICITS Active 06-23 00:00: 00 HISTORY OF FALLING Active 06-23 00:00: 00 ALF (CURRENT) USE OF ASPIRIN Active 1- 00:00: 00 Allergies, Adverse Reactions, Alerts Allergy Name Allergy Type Status Severity Reaction(s) Onset Date Inactive Date Treating Clinician Comments NKA Propensity to adverse reactions Active 2024-07 09:48:0 0 Medications Ordered Medication Name Filled Medication Name Start Date Stop Date Current Medication? Ordering Clinician Indication Dosage Frequency Signature (SIG) Comments Components mirtazapine 15 mg tablet 2-06 00:00: 00 Yes [id number] 1 tablet BEDTIME 1 tablet BEDTIME (route: oral) Med Classific ation: Central Nervous System Agents Aspirin Childrens 81 mg chewable tablet - 00:00: 00 Yes [id number] 1 tablet DAILY 1 tablet DAILY (route: oral) Med Classific ation: Hematolog ical Agents Flomax 0.4 mg capsule - 00:00: 00 Yes [id number] 1 capsule BEDTIME 1 capsule BEDTIME (route: oral) Med Classific ation: Genitouri nary Therapy hydroxyzine HCl 10 mg tablet 08-06 00:00: 00 Yes [id number] 1 tablet NEEDED 1 tablet NEEDED (route: oral) Med Classific ation: Central Nervous System Agents Multivitami n 50 Plus tablet 08-06 00:00: 00 Yes [id number] 1 tablet DAILY 1 tablet DAILY (route: oral) Med Classific ation: Electroly te Balance-N utritiona l Products nitrofurant oin 100 mg tablet - 00:00: 00 Yes [id number] 100 mg 2 TIMES DAILY 100 mg 2 TIMES DAILY (route: oral) Med Classific ation: Genitouri nary Therapy oxycodone 5 mg capsule -14 00:00: 00 Yes [id number] 1 capsule NEEDED 1 capsule NEEDED (route: oral) Med Classific ation: Analgesic , Anti-infl ammatory or Antipyret ic polyethylen e glycol 3350 17 gram oral powder packet 2-14 00:00: 00 Yes [id number] 1 packet NEEDED 1 packet NEEDED (route: oral) Med Classific ation: Gastroint estinal Therapy Agents Senna Lax 8.6 mg tablet 08-06 00:00: 00 Yes [id number] 1 tablet 2 TIMES DAILY 1 tablet 2 TIMES DAILY (route: oral) Med Classific ation: Gastroint estinal Therapy Agents Tylenol 325 mg tablet 08-06 00:00: 00 Yes [id number] 2 tablet NEEDED 2 tablet NEEDED (route: oral) Med Classific ation: Analgesic , Anti-infl ammatory or Antipyret ic Immunizations Ordered Immunization Name Filled Immunization Name Date Status Comments Refusal Reason COVID-19, COVID-19 2024-08-06 00:00:00 Vital Signs Vital Name Observation Time Observation Value Commen ts Temperature 2024-08-26 09:36:00.000 97 [degF] Temperature 2024-08-18 09:43:00.000 97.2 [degF] Temperature 2024-08-17 11:00:00.000 97 [degF] Temperature 2024-08-12 13:15:00.000 97.3 [degF] Temperature 2024-08-11 12:03:00.000 97.6 [degF] Temperature 2024-08-06 09:35:00.000 97.8 [degF] BMI (%) 2024-08-06 09:35:00.000 18 kg/m2 Height 2024-08-06 09:35:00.000 64 [in_us] Pulse 2024-08-26 09:36:00.000 78 /min Pulse 2024-08-23 10:31:00.000 78 /min Pulse 2024-08-18 09:43:00.000 82 /min Pulse 2024-08-17 11:00:00.000 86 /min Pulse 2024-08-16 10:32:00.000 78 /min Pulse 2024-08-12 13:15:00.000 95 /min Pulse 2024-08-11 12:03:00.000 90 /min Pulse 2024-08-09 10:31:00.000 96 /min Pulse 2024-08-06 09:35:00.000 88 /min O2 Saturation (%) 2024-08-26 09:36:00.000 100 % O2 Saturation (%) 2024-08-23 10:31:00.000 99 % O2 Saturation (%) 2024-08-18 09:43:00.000 97 % O2 Saturation (%) 2024-08-17 11:00:00.000 97 % O2 Saturation (%) 2024-08-16 10:32:00.000 97 % O2 Saturation (%) 2024-08-12 13:15:00.000 97 % O2 Saturation (%) 2024-08-11 12:03:00.000 97 % O2 Saturation (%) 2024-08-09 10:31:00.000 97 % O2 Saturation (%) 2024-08-06 09:35:00.000 95 % Respirations 2024-08-26 09:36:00.000 20 /min Respirations 2024-08-18 09:43:00.000 18 /min Respirations 2024-08-17 11:00:00.000 18 /min Respirations 2024-08-12 13:15:00.000 18 /min Respirations 2024-08-11 12:03:00.000 18 /min Respirations 2024-08-06 09:35:00.000 18 /min Weight (lbs) 2024-08-06 09:35:00.000 110 [lb_av] Systolic Blood Pressure 2024-08-26 09:36:00.000 128 mm [Hg] Systolic Blood Pressure 2024-08-23 10:31:00.000 122 mm [Hg] Systolic Blood Pressure 2024-08-18 09:43:00.000 110 mm [Hg] Systolic Blood Pressure 2024-08-17 11:00:00.000 122 mm [Hg] Systolic Blood Pressure 2024-08-16 10:33:00.000 112 mm [Hg] Systolic Blood Pressure 2024-08-12 13:15:00.000 112 mm [Hg] Systolic Blood Pressure 2024-08-11 12:03:00.000 100 mm [Hg] Systolic Blood Pressure 2024-08-09 10:31:00.000 112 mm [Hg] Systolic Blood Pressure 2024-08-06 09:35:00.000 118 mm [Hg] Diastolic Blood Pressure 2024-08-26 09:36:00.000 74 mm [Hg] Diastolic Blood Pressure 2024-08-23 10:31:00.000 76 mm [Hg] Diastolic Blood Pressure 2024-08-18 09:43:00.000 62 mm [Hg] Diastolic Blood Pressure 2024-08-17 11:00:00.000 76 mm [Hg] Diastolic Blood Pressure 2024-08-16 10:33:00.000 72 mm [Hg] Diastolic Blood Pressure 2024-08-12 13:15:00.000 70 mm [Hg] Diastolic Blood Pressure 2024-08-11 12:03:00.000 62 mm [Hg] Diastolic Blood Pressure 2024-08-09 10:31:00.000 72 mm [Hg] Diastolic Blood Pressure 2024-08-06 09:35:00.000 68 mm [Hg] Plan of Treatment Planned Activity Planned Date Details Comments Future Scheduled Test SKILLED NU RSE TO EVALUATE PATIENT, IDENTIFY PRIMARY AND CO-MORBID CONDITIONS CODED PER CODING GUIDELINES, AND DEVELOP PATIENT SPECIFIC PLAN OF CARE THAT INCLUDES PATIENT GOAL FOR HOME HEALTH. [code = SKILLED NURSE TO EVALUATE PATIENT, IDENTIFY PRIMARY AND CO-MORBID CONDITIONS CODED PER CODING GUIDELINES, AND DEVELOP PATIENT SPECIFIC PLAN OF CARE THAT INCLUDES PATIENT GOAL FOR HOME HEALTH.] Future Scheduled Test SKILLED NU RSE TO REVIEW PATIENT MEDICATIONS. INSTRUCT PATIENT/CAREGIVER ON MONITORING OF EFFECTIVENESS, ADVERSE DRUG REACTIONS, SIDE EFFECTS OF ALL MEDICATIONS (PRESCRIPTION/-OTC), AND HOW AND WHEN TO REPORT PROBLEMS. [code = SKILLED NURSE TO REVIEW PATIENT MEDICATIONS. INSTRUCT PATIENT/CAREGIVER ON MONITORING OF EFFECTIVENESS, ADVERSE DRUG REACTIONS, SIDE EFFECTS OF ALL MEDICATIONS (PRESCRIPTION/-OTC), AND HOW AND WHEN TO REPORT PROBLEMS.] Future Scheduled Test SKILLED NU RSE TO ASSESS ANXIETY AND PROVIDE ASSISTANCE TO PATIENT FOR UNDERSTANDING AND MANAGEMENT OF FEELINGS. [code = SKILLED NURSE TO ASSESS ANXIETY AND PROVIDE ASSISTANCE TO PATIENT FOR UNDERSTANDING AND MANAGEMENT OF FEELINGS.] Future Scheduled Test SKILLED NU RSE MAY COLLECT URINE SAMPLE FOR URINE REAGENT STRIP TESTING AND/OR URINALYSIS WITH CS 1-3 PRN IF INDICATED FOR SIGNS AND SYMPTOMS OF UTI. IF REAGENT STRIP TEST IS POSITIVE FOR UTI, SKILLED NURSE TO TAKE URINE SAMPLE TO LAB FOR URINE CS AND REPORT RESULTS TO PHYSICIAN. [code = SKILLED NURSE MAY COLLECT URINE SAMPLE FOR URINE REAGENT STRIP TESTING AND/OR URINALYSIS WITH CS 1-3 PRN IF INDICATED FOR SIGNS AND SYMPTOMS OF UTI. IF REAGENT STRIP TEST IS POSITIVE FOR UTI, SKILLED NURSE TO TAKE URINE SAMPLE TO LAB FOR URINE CS AND REPORT RESULTS TO PHYSICIAN.] Future Scheduled Test SKILLED NU RSE FOR INSTRUCTION/ REINFORCEMENT OF NEEDS RELATED TO NUTRITION/HYDRATION. [code = SKILLED NURSE FOR INSTRUCTION/ REINFORCEMENT OF NEEDS RELATED TO NUTRITION/HYDRATION. ] Future Scheduled Test SKILLED NU RSE FOR O/A, TEACHING, AND MANAGEMENT OF HLD, ARTERY STENOSIS. [code = SKILLED NURSE FOR O/A, TEACHING, AND MANAGEMENT OF HLD, ARTERY STENOSIS.] Future Scheduled Test SKILLED NU RSE FOR O/A, TEACHING RELATED TO GERD, ESOPHAGEAL ULCER FOR EARLY IDENTIFICATION OF EXACERBATION OF DISEASE PROCESS. [code = SKILLED NURSE FOR O/A, TEACHING RELATED TO GERD, ESOPHAGEAL ULCER FOR EARLY IDENTIFICATION OF EXACERBATION OF DISEASE PROCESS.] Future Scheduled Test SKILLED NU RSE FOR O/A, TEACHING AND MANAGEMENT OF UTI FOR EARLY IDENTIFICATION OF EXACERBATION OF DISEASE PROCESS [code = SKILLED NURSE FOR O/A, TEACHING AND MANAGEMENT OF UTI FOR EARLY IDENTIFICATION OF EXACERBATION OF DISEASE PROCESS] Future Scheduled Test OCCUPATION AL THERAPIST TO EVALUATE PATIENT FOR SAFETY [code = OCCUPATIONAL THERAPIST TO EVALUATE PATIENT FOR SAFETY] Future Scheduled Test NEED FOR S KILLED TEACHING AND INTERVENTION RELATED L CHEEK, CL WITH NS, APPLY ALGINATE COVERED BY DRY DRESSING. CHG 2 X WK. COMPLICATIONS. SKILLED NURSE TO OBTAIN WOUND CULTURE PRN S/S OF INFECTION. WOUND CARE WILL BE PERFORMED BY TRAINED CAREGIVER ON DAYS WHEN SKILLED NURSE IS NOT SCHEDULED FOR A VISIT. DISCONTINUE WOUND CARE/SUPPLIES ONCE WOUND IS HEALED. [code = NEED FOR SKILLED TEACHING AND INTERVENTION RELATED L CHEEK, CL WITH NS, APPLY ALGINATE COVERED BY DRY DRESSING. CHG 2 X WK. COMPLICATIONS. SKILLED NURSE TO OBTAIN WOUND CULTURE PRN S/S OF INFECTION. WOUND CARE WILL BE PERFORMED BY TRAINED CAREGIVER ON DAYS WHEN SKILLED NURSE IS NOT SCHEDULED FOR A VISIT. DISCONTINUE WOUND CARE/SUPPLIES ONCE WOUND IS HEALED.] Future Scheduled Test SKILLED NU RSE FOR O/A AND SKILLED TEACHING IN MANAGEMENT OF PVD DISEASE. [code = SKILLED NURSE FOR O/A AND SKILLED TEACHING IN MANAGEMENT OF PVD DISEASE.] Future Scheduled Test PHYSICAL T HERAPIST TO EVALUATE PATIENT FOR EXERCISE [code = PHYSICAL THERAPIST TO EVALUATE PATIENT FOR EXERCISE] Future Scheduled Test SKILLED NU RSE FOR O/A AND SKILLED TEACHING RELATED TO ALTERED SKIN INTEGRITY [code = SKILLED NURSE FOR O/A AND SKILLED TEACHING RELATED TO ALTERED SKIN INTEGRITY ] Future Scheduled Test SKILLED NU RSE TO INSTRUCT PATIENT/CAREGIVER ON WARNING SIGNS OF CVA, RISK FACTORS, AND METHODS TO MANAGE TRENCH DIGGING MACHINE OPERATOR EFFECTS OF CVA. [code = SKILLED NURSE TO INSTRUCT PATIENT/CAREGIVER ON WARNING SIGNS OF CVA, RISK FACTORS, AND METHODS TO MANAGE TRENCH DIGGING MACHINE OPERATOR EFFECTS OF CVA.] Future Scheduled Test SKILLED NU RSE FOR O/A AND SKILLED TEACHING RELATED TO SIGNS AND SYMPTOMS AND MANAGEMENT OF OSTEOPOROSI, SPINAL STENOSIS, THORACIC COMPRESSION FX. [code = SKILLED NURSE FOR O/A AND SKILLED TEACHING RELATED TO SIGNS AND SYMPTOMS AND MANAGEMENT OF OSTEOPOROSI, SPINAL STENOSIS, THORACIC COMPRESSION FX.] Future Scheduled Test PATIENT ALLISON S A RISK OF HOSPITALIZATION AND ED USE. SKILLED NURSE TO ESTABLISH SUPPORT MEASURES TO MINIMIZE RISK OF HOSPITALIZATION AND ED USE, AND INSTRUCT PATIENT/CAREGIVER ON METHODS TO REDUCE AVOIDABLE HOSPITALIZATION AND ED USE. [code = PATIENT HAS A RISK OF HOSPITALIZATION AND ED USE. SKILLED NURSE TO ESTABLISH SUPPORT MEASURES TO MINIMIZE RISK OF HOSPITALIZATION AND ED USE, AND INSTRUCT PATIENT/CAREGIVER ON METHODS TO REDUCE AVOIDABLE HOSPITALIZATION AND ED USE.] Future Scheduled Test SKILLED NU RSE TO PROVIDE INSTRUCTION TO PATIENT/CAREGIVER RELATED TO DISCHARGE PLANNING. [code = SKILLED NURSE TO PROVIDE INSTRUCTION TO PATIENT/CAREGIVER RELATED TO DISCHARGE PLANNING.] Future Scheduled Test SKILLED NU RSE TO PERFORM ENVIRONMENTAL SAFETY RISK ASSESSMENT AND FALL RISK ASSESSMENT AND PROVIDE INSTRUCTION TO IMPLEMENT ENVIRONMENTAL SAFETY AND FALL PREVENTION STRATEGIES THROUGHOUT THE CERTIFICATION PERIOD. SKILLED NURSE WILL MAINTAIN SITUATIONAL AWARENESS AND WILL NOTIFY CLINICAL CONTRACT ASSOCIATE AND PHYSICIAN/PROVIDER WITH ANY CHANGE IN CONDITION. [code = SKILLED NURSE TO PERFORM ENVIRONMENTAL SAFETY RISK ASSESSMENT AND FALL RISK ASSESSMENT AND PROVIDE INSTRUCTION TO IMPLEMENT ENVIRONMENTAL SAFETY AND FALL PREVENTION STRATEGIES THROUGHOUT THE CERTIFICATION PERIOD. SKILLED NURSE WILL MAINTAIN SITUATIONAL AWARENESS AND WILL NOTIFY CLINICAL CONTRACT ASSOCIATE AND PHYSICIAN/PROVIDER WITH ANY CHANGE IN CONDITION.] Future Scheduled Test SKILLED NU RSE FOR OBSERVATION AND ASSESSMENT OF PATIENTS PAIN LEVEL AND EFFECTIVENESS OF PAIN MANAGEMENT REGIMEN. SKILLED NURSE TO INSTRUCT PATIENT/CAREGIVER REGARDING PHARMACOLOGIC AND NON-PHARMACOLOGIC PAIN CONTROL MEASURES. SKILLED NURSE TO REPORT TO PHYSICIAN IF PAIN IS UNCONTROLLED WITH CURRENT PAIN MANAGEMENT REGIMEN. [code = SKILLED NURSE FOR OBSERVATION AND ASSESSMENT OF PATIENTS PAIN LEVEL AND EFFECTIVENESS OF PAIN MANAGEMENT REGIMEN. SKILLED NURSE TO INSTRUCT PATIENT/CAREGIVER REGARDING PHARMACOLOGIC AND NON-PHARMACOLOGIC PAIN CONTROL MEASURES. SKILLED NURSE TO REPORT TO PHYSICIAN IF PAIN IS UNCONTROLLED WITH CURRENT PAIN MANAGEMENT REGIMEN.] Future Scheduled Test SKILLED NU RSE TO ASSESS PATIENT'S SKIN INTEGRITY AND INSTRUCT PATIENT/CAREGIVER ON MEASURES TO PREVENT PRESSURE ULCERS. [code = SKILLED NURSE TO ASSESS PATIENT'S SKIN INTEGRITY AND INSTRUCT PATIENT/CAREGIVER ON MEASURES TO PREVENT PRESSURE ULCERS.] Future Scheduled Test SKILLED NU RSE TO PROVIDE ASSESSMENT AND TEACHING/REINFORCEMENT OF MANAGEMENT OF DEPRESSION INCLUDING DISEASE PROCESS, MEDICATION MANAGEMENT, COPING SKILLS AND IDENTIFY CHANGES ASSOCIATED WITH DEPRESSIVE DISORDERS FOR EARLY INTERVENTION. [code = SKILLED NURSE TO PROVIDE ASSESSMENT AND TEACHING/REINFORCEMENT OF MANAGEMENT OF DEPRESSION INCLUDING DISEASE PROCESS, MEDICATION MANAGEMENT, COPING SKILLS AND IDENTIFY CHANGES ASSOCIATED WITH DEPRESSIVE DISORDERS FOR EARLY INTERVENTION. ] Future Scheduled Test OCCUPATION AL THERAPIST TO EVALUATE PATIENT SECONDARY TO FUNCTIONAL DEFICITS/SAFETY CONCERNS IDENTIFIED DURING EVALUATION OCCUPATIONAL THERAPY TO ESTABLISH /UPGRADE/DOWNGRADE THERAPEUTIC EXERCISE PROGRAM AND INSTRUCT PATIENT/CAREGIVER ON EXERCISE PRECAUTIONS WITH WRITTEN HOME PROGRAM. MAY INCLUDE PROM, AAROM, AROM, RROM APPROPRIATE TO IMPROVE FUNCTIONAL STRENGTH AND/OR RANGE OF MOTION. OCCUPATIONAL THERAPY TO INSTRUCT PATIENT/CAREGIVER ON SAFE TRANSFER TECHNIQUES USING PROPER BODY MECHANICS AND EQUIPMENT TO ENHANCE PARTICIPATION IN ADLS. OCCUPATIONAL THERAPY TO ASSESS AND RECOMMEND HOME SAFETY ADAPTATIONS AND EDUCATE PATIENT /CAREGIVER ON FALL PREVENTION STRATEGIES TO ENHANCE PARTICIPATION IN ADLS. SUMMARY OF THERAPY EVAL/ASSESSMENT FINDINGS AND REASON(S) SKILLS OF A THERAPIST ARE INDICATED: OT EVALUATION (08/09/24) PATIENT IS A 83-YEAR-OLD FEMALE REFERRED TO OCCUPATIONAL THERAPY SERVICES AFTER RECENT FALL IN HER APARTMENT AT [facility] ON 07/17/24, RESULTING IN A NONDISPLACED TROCHANTERIC FRACTURE NOT REQUIRING SURGICAL INTERVENTION. PATIENT WAS STABILIZED TRANSFERRED TO [facility] BEFORE DISCHARGING BACK TO HER [facility]. PAST MEDICAL HISTORY SIGNIFICANT FOR: VERTEBRAL ARTERY STENOSIS, GERD, CVA, PVD, SPINAL STENOSIS, ANXIETY. PRIOR LEVEL OF FUNCTION: PATIENT LIV[facility] ON FIRST 4 HOURS SHE AMBULATES WITH USE OF ROLLING WALKER. SHE REQUIRED SETUP FOR DRESSING AND SPONGE BATHING. SHE WAS INDEPENDENT WITH DRESSING FUNCTIONAL TRANSFERS. SHE RECEIVES MEALS IN HER ROOM SHE DID NOT LIKE TO GO OUT AND INTERACT WITH OTHER RESIDENTS. SHE ALSO DOES NOT LIKE TO TAKE SHOWERS/BATHS. HAS VERY SUPPORTIVE AND INVOLVED FAMILY. CURRENT LEVEL OF FUNCTION: PATIENT SEEN IN PRESENCE OF DAUGHTER FOR OT EVALUATION. PATIENT SITTING IN SOFA CHAIR UPON THERAPIST ARRIVAL. SHE WAS ABLE TO DEMONSTRATE TRANSFER OUT OF CHAIR AND AMBULATE WITH USE OF ROLLING WALKER TO THE BATHROOM CONTACT GUARD ASSIST. PATIENT WAS ABLE TO PERFORM TOILET TRANSFER WITH STANDBY ASSIST IN TOILETING TASK WITH SUPERVISION. PATIENT NOTED TO HAVE VISUAL IMPAIRMENTS AMBULATING THROUGH DOORWAYS AND SETTING HERSELF UP IN FRONT OF THE TOILET OR SOFA CHAIR UPON HER RETURN. PATIENT DOES HAVE A HISTORY OF CVA WHICH SHE IS DEMONSTRATING A NOTABLE NEGLECT TYPE BEHAVIOR. HER FALL HAPPENED DUE TO HER WALKING INTO THE DOOR JAMB IN GETTING KICKED BACK BECAUSE OF IT. SHE DEMONSTRATES ABILITY TO DON AND DOFF SOCKS TODAY WITHOUT DIFFICULTY OR PAIN IN HER HIP WITH BENDING. SHE CURRENTLY IS ONLY SPONGE BATHING WITH DAUGHTER'S ASSISTANCE AT TIMES. PATIENT ABSOLUTELY REFUSES SHOWER IT HAS FOR YEARS. SHE HAS MEALS BROUGHT TO HER FROM THE FACILITY AND DOES NOT ATTEND TO ANY ACTIVITIES THAT SHE LIKES TO STAY TO HERSELF. DAUGHTER ASSISTS WITH LAUNDRY AND SHOPPING WELL TRANSPORTATION TO DOCTOR'S APPOINTMENTS. FACILITY ASSIST WITH MEDICATION ADMINISTRATION. PATIENT DOES HAVE ROLLING WALKER TRANSPORT CHAIR WHEELCHAIR GRAB BARS OFF THE TOILET AND IN HER SHOWER STALL SHE HAS A SHOWER CHAIR WELL AND HANDHELD SHOWERHEAD. ASSESSMENT/POC: OCCUPATIONAL THERAPY EVALUATION COMPLETED WITH RECOMMENDATION FOR SKILLED OT 1 TIMES A WEEK X4 TO MEET GOALS. PATIENT WOULD BENEFIT FROM SAFETY EDUCATION TRANSFER TRAINING AND VISUAL ADAPTATIONS DUE TO PATIENT'S DECREASED VISION IMPACTING HER MOBILITY INCREASING HER FALL RISK. PATIENT AND DAUGHTER IN AGREEMENT WITH PLAN OF CARE. MD NOTIFIED OF OT PLAN OF CARE. PATIENT HAS FOLLOW UP APPOINTMENTS: EYES 08/11, DR PO 08/13, ORTHO 09/10 [code = OCCUPATIONAL THERAPIST TO EVALUATE PATIENT SECONDARY TO FUNCTIONAL DEFICITS/SAFETY CONCERNS IDENTIFIED DURING EVALUATION OCCUPATIONAL THERAPY TO ESTABLISH /UPGRADE/DOWNGRADE THERAPEUTIC EXERCISE PROGRAM AND INSTRUCT PATIENT/CAREGIVER ON EXERCISE PRECAUTIONS WITH WRITTEN HOME PROGRAM. MAY INCLUDE PROM, AAROM, AROM, RROM APPROPRIATE TO IMPROVE FUNCTIONAL STRENGTH AND/OR RANGE OF MOTION. OCCUPATIONAL THERAPY TO INSTRUCT PATIENT/CAREGIVER ON SAFE TRANSFER TECHNIQUES USING PROPER BODY MECHANICS AND EQUIPMENT TO ENHANCE PARTICIPATION IN ADLS. OCCUPATIONAL THERAPY TO ASSESS AND RECOMMEND HOME SAFETY ADAPTATIONS AND EDUCATE PATIENT /CAREGIVER ON FALL PREVENTION STRATEGIES TO ENHANCE PARTICIPATION IN ADLS. SUMMARY OF THERAPY EVAL/ASSESSMENT FINDINGS AND REASON(S) SKILLS OF A THERAPIST ARE INDICATED: OT EVALUATION (08/09/24) PATIENT IS A 83-YEAR-OLD FEMALE REFERRED TO OCCUPATIONAL THERAPY SERVICES AFTER RECENT FALL [facility], RESULTING IN A NONDISPLACED TROCHANTERIC FRACTURE NOT REQUIRING SURGICAL INTERVENTION. PATIENT WAS STABILIZED TRANSFERRED TO [facility] BEFORE DISCHARGING BACK TO HER ASSISTED LIVING FACILITY. PAST MEDICAL HISTORY SIGNIFICANT FOR: VERTEBRAL ARTERY STENOSIS, GERD, CVA, PVD, SPINAL STENOSIS, ANXIETY. PRIOR LEVEL OF FUNCTION: PATIENT LIVES IN [facility]ED [facility]IV[facility] FACILITY ON FIRST 4 HOURS SHE AMBULATES WITH USE OF ROLLING WALKER. SHE REQUIRED SETUP FOR DRESSING AND SPONGE BATHING. SHE WAS INDEPENDENT WITH DRESSING FUNCTIONAL TRANSFERS. SHE RECEIVES MEALS IN HER ROOM SHE DID NOT LIKE TO GO OUT AND INTERACT WITH OTHER RESIDENTS. SHE ALSO DOES NOT LIKE TO TAKE SHOWERS/BATHS. HAS VERY SUPPORTIVE AND INVOLVED FAMILY. CURRENT LEVEL OF FUNCTION: PATIENT SEEN IN PRESENCE OF DAUGHTER FOR OT EVALUATION. PATIENT SITTING IN SOFA CHAIR UPON THERAPIST ARRIVAL. SHE WAS ABLE TO DEMONSTRATE TRANSFER OUT OF CHAIR AND AMBULATE WITH USE OF ROLLING WALKER TO THE BATHROOM CONTACT GUARD ASSIST. PATIENT WAS ABLE TO PERFORM TOILET TRANSFER WITH STANDBY ASSIST IN TOILETING TASK WITH SUPERVISION. PATIENT NOTED TO HAVE VISUAL IMPAIRMENTS AMBULATING THROUGH DOORWAYS AND SETTING HERSELF UP IN FRONT OF THE TOILET OR SOFA CHAIR UPON HER RETURN. PATIENT DOES HAVE A HISTORY OF CVA WHICH SHE IS DEMONSTRATING A NOTABLE NEGLECT TYPE BEHAVIOR. HER FALL HAPPENED DUE TO HER WALKING INTO THE DOOR JAMB IN GETTING KICKED BACK BECAUSE OF IT. SHE DEMONSTRATES ABILITY TO DON AND DOFF SOCKS TODAY WITHOUT DIFFICULTY OR PAIN IN HER HIP WITH BENDING. SHE CURRENTLY IS ONLY SPONGE BATHING WITH DAUGHTER'S ASSISTANCE AT TIMES. PATIENT ABSOLUTELY REFUSES SHOWER IT HAS FOR YEARS. SHE HAS MEALS BROUGHT TO HER FROM THE FACILITY AND DOES NOT ATTEND TO ANY ACTIVITIES THAT SHE LIKES TO STAY TO HERSELF. DAUGHTER ASSISTS WITH LAUNDRY AND SHOPPING WELL TRANSPORTATION TO DOCTOR'S APPOINTMENTS. FACILITY ASSIST WITH MEDICATION ADMINISTRATION. PATIENT DOES HAVE ROLLING WALKER TRANSPORT CHAIR WHEELCHAIR GRAB BARS OFF THE TOILET AND IN HER SHOWER STALL SHE HAS A SHOWER CHAIR WELL AND HANDHELD SHOWERHEAD. ASSESSMENT/POC: OCCUPATIONAL THERAPY EVALUATION COMPLETED WITH RECOMMENDATION FOR SKILLED OT 1 TIMES A WEEK X4 TO MEET GOALS. PATIENT WOULD BENEFIT FROM SAFETY EDUCATION TRANSFER TRAINING AND VISUAL ADAPTATIONS DUE TO PATIENT'S DECREASED VISION IMPACTING HER MOBILITY INCREASING HER FALL RISK. PATIENT AND DAUGHTER IN AGREEMENT WITH PLAN OF CARE. MD NOTIFIED OF OT PLAN OF CARE. PATIENT HAS FOLLOW UP APPOINTMENTS: EYES 08/11, DR BELL 08/13, ORTHO 09/10] Future Scheduled Test PHYSICAL T HERAPIST TO EVALUATE PATIENT SECONDARY TO FUNCTIONAL DEFICITS/SAFETY CONCERNS. PHYSICAL THERAPIST TO ASSESS BEST PRACTICE INTERVENTIONS TO ASSIST PATIENTS TO IMPROVE OR STABILIZE MEDICAL STATUS AND PREVENT RE-HOSPITALIZATION. MEASURES INCLUDING REVIEW AND IDENTIFICATION OF CONCERNS FOR THE FOLLOWING AREAS: DEPRESSION, DRUG REGIMEN, ENVIRONMENTAL SAFETY ISSUES AND FALLS, PRESSURE ULCERS, PAIN, AND DISEASE MANAGEMENT. PHYSICAL THERAPY TO ESTABLISH /UPGRADE/DOWNGRADE THERAPEUTIC EXERCISE PROGRAM AND INSTRUCT PATIENT/CAREGIVER ON EXERCISE PRECAUTIONS WITH WRITTEN HOME PROGRAM. MAY INCLUDE PROM, AAROM, AROM, RROM APPROPRIATE TO IMPROVE FUNCTIONAL STRENGTH AND RANGE OF MOTION. PHYSICAL THERAPY TO INSTRUCT PATIENT/CAREGIVER ON SAFE TRANSFER TECHNIQUES USING PROPER BODY MECHANICS AND EQUIPMENT. PHYSICAL THERAPY TO INSTRUCT PATIENT/CAREGIVER ON GAIT TRAINING TECHNIQUES USING APPROPRIATE ASSISTIVE DEVICE, PROPER BODY MECHANICS TO IMPROVE MOBILITY, AND PREVENT INJURY OF PATIENT AND/OR CAREGIVER. PHYSICAL THERAPY TO ASSESS AND RECOMMEND HOME SAFETY ADAPTATIONS AND EDUCATE PATIENT /CAREGIVER ON FALL PREVENTION STRATEGIES. PHYSICAL THERAPY FOR OBSERVATION AND ASSESSMENT OF PAIN, EFFECTIVENESS OF PAIN MANAGEMENT REGIMEN AND SKILLED TEACHING RELATED TO PAIN MANAGEMENT. THERAPIST TO REPORT INCREASED PAIN LEVEL TO PHYSICIAN FOR PROMPT INTERVENTION. PHYSICAL THERAPY TO INSTRUCT PATIENT/CAREGIVER ON BALANCE AND BALANCE STRATEGIES TO IMPROVE SAFE MOBILITY AND REDUCE RISK FOR FALL AND INJURY INCLUDING PARTICIPATION IN [facility] BALANCE SPECIALTY PROGRAM SUMMARY OF THERAPY EVAL/ASSESSMENT FINDINGS AND REASON(S) SKILLS OF A THERAPIST ARE INDICATED: PHYSICAL THERAPY EVALUATION (08/12/24) PATIENT IS A [employer] 83 YO FEMALE WITH PHYSICAL THERAPY REFFERAL AFTER RECENT FALL ON 06/24/24 IN HER [facility] APARTMENT, RESULTING IN HOSPITALIZATION ([facility] 07/18-07/19/24), SNF STAY ([facility] 07/19-08/05/24), MD DX: LEFT LE NON- DISPLACED TROCHANTERIC FRACTURE NOT REQUIRING SURGICAL INTERVENTION, UTI. PATIENT WAS ORIGINALLY NWB LEFT LE, RECENT ORTHO MD VISIT ORDERED WBAT LEFT LE. PAST MEDICAL HISTORY SIGNIFICANT FOR: CVA, VERTEBRAL ARTERY STENOSIS, CHRONIC LUMBAR AND THORACIC COMPRESSION FX, OP, GERD, CVA, PVD, SPINAL STENOSIS, ANXIETY, DEPRESSION. 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 PATIENT HAS ORTHO MD FOLLOWUP: 09/10 SUSANNA ANAND WITH [facility]. PATIENT MISSED EYE MD APPT DUE TO ILLNESS, TO BE RESCHEDULED. FALL HISTORY: LAST FALL ON 07/17/24 DUE TO PATIENT WALKING INTO THE DOORFRAME AND IMPACTING, FALLING BACKWARDS. PLOF: SINCE LIVING IN [facility] FOR YEARS, PATIENT HAS BEEN RECEIVING MEALS IN HER ROOM, DID NOT LIKE TO GO OUT AND INTERACT WITH OTHER RESIDENTS. [facility] ASSISTS, DAUGHTER AND SON ASSIST WITH [facility]Y AND SHOPPING WELL TRANSPORTATION TO DOCTOR'S APPOINTMENTS. PATIENT ABLE TO TRANSFER AND AMB MOD I WITH FWW IN APARTMENT. CLOF: DME: FWW, TRANSPORT WHEELCHAIR, MANUAL WHEELCHAIR, GRAB BARS, SHOWER CHAIR, HANDHELD SHOWERHEAD. BILAT LE STRENGTH WFL, BILAT LE STRENGTH R: 4 TO 4+/5, L: 3+ TO 4-/5 TO INCREASE BILAT LE STRENGTH, PATIENT COMPLETED BILAT LE SUPINE THER EXER WITH VERBAL CUES AND TACTILE CUES FOR FORM: PLANTAR/DORSIFLEX, HEELSLIDE, HIP ADD, SLR. DISPENSED HEP SHEETS. PATIENT IN BED AT START OF VISIT. PATIENT ABLE TO COMPLETE SUPINE-->SIT INDEP. RECOMMENDED BED RAIL ACQUISITION TO MAX PATIENT SAFETY. PATIENT COMPLETED SIT --> STAND FROM EDGE OF BED WITH FWW AND CGA, VERBAL CUES FOR HAND PLACEMENT AND TO INCREASE COM OVER LALITHA. PATIENT ABLE TO TRANSFER ON AND OFF TOILET WITH FWW AND GRAB BAR WITH CGA. PATIENT AMB 20', 30' WITH CGA, DEMO FORWARD FLEXED POSTURE, DIMINISHED BILATERAL LE STEP LENGTHS WITH RIGHT MORE DIMINISHED THAN LEFT, BILAT ADEQUATE FEET CLEARANCE, REQUIRED VERBAL CUES TO SAFELY NEGOTIATE HALLWAY DEMO LEFT SIDED VISUAL DEFICIT AND VEERED TOWARDS LEFT SIDE OF DOORFRAME. TINETTI = 06/19, FALL RISK. PATIENT PRESENTS WITH THE FOLLOWING DEFICITS: BILAT LE WEAKNESS, ENDURANCE, RESULTING IN DIFFICULTY WITH TRANSFERS AND AMB. SKILLED [facility] FREQ 1X4WKS TO ADDRESS DEFICITS, MAX SAFETY AND FUNCTIONAL LEVEL IN HOME ENVIRONMENT WITH THER EXER, ESTABLISH HEP, TRANSFER AND GAIT TRAINING, BALANCE ACTIVITY. PATIENT AND CG INFORMED ABOUT PHYSICAL THERAPY POC INCLUDING FREQ, VERBALIZED ACCEPTANCE. MD NOTIFIED ABOUT PATINET STATUS AND POC. IF REQUIRED CONTINUE GOALS FROM CURRENT POC WITH EXPECTED DATE OF COMPLETION SPECIFIED ON ORDER FREQUENCY AND DURATION. [code = PHYSICAL THERAPIST TO EVALUATE PATIENT SECONDARY TO FUNCTIONAL DEFICITS/SAFETY CONCERNS. PHYSICAL THERAPIST TO ASSESS BEST PRACTICE INTERVENTIONS TO ASSIST PATIENTS TO IMPROVE OR STABILIZE MEDICAL STATUS AND PREVENT RE-HOSPITALIZATION. MEASURES INCLUDING REVIEW AND IDENTIFICATION OF CONCERNS FOR THE FOLLOWING AREAS: DEPRESSION, DRUG REGIMEN, ENVIRONMENTAL SAFETY ISSUES AND FALLS, PRESSURE ULCERS, PAIN, AND DISEASE MANAGEMENT. PHYSICAL THERAPY TO ESTABLISH /UPGRADE/DOWNGRADE THERAPEUTIC EXERCISE PROGRAM AND INSTRUCT PATIENT/CAREGIVER ON EXERCISE PRECAUTIONS WITH WRITTEN HOME PROGRAM. MAY INCLUDE PROM, AAROM, AROM, RROM APPROPRIATE TO IMPROVE FUNCTIONAL STRENGTH AND RANGE OF MOTION. PHYSICAL THERAPY TO INSTRUCT PATIENT/CAREGIVER ON SAFE TRANSFER TECHNIQUES USING PROPER BODY MECHANICS AND EQUIPMENT. PHYSICAL THERAPY TO INSTRUCT PATIENT/CAREGIVER ON GAIT TRAINING TECHNIQUES USING APPROPRIATE ASSISTIVE DEVICE, PROPER BODY MECHANICS TO IMPROVE MOBILITY, AND PREVENT INJURY OF PATIENT AND/OR CAREGIVER. PHYSICAL THERAPY TO ASSESS AND RECOMMEND HOME SAFETY ADAPTATIONS AND EDUCATE PATIENT /CAREGIVER ON FALL PREVENTION STRATEGIES. PHYSICAL THERAPY FOR OBSERVATION AND ASSESSMENT OF PAIN, EFFECTIVENESS OF PAIN MANAGEMENT REGIMEN AND SKILLED TEACHING RELATED TO PAIN MANAGEMENT. THERAPIST TO REPORT INCREASED PAIN LEVEL TO PHYSICIAN FOR PROMPT INTERVENTION. PHYSICAL THERAPY TO INSTRUCT PATIENT/CAREGIVER ON BALANCE AND BALANCE STRATEGIES TO IMPROVE SAFE MOBILITY AND REDUCE RISK FOR FALL AND INJURY INCLUDING PARTICIPATION IN [facility] BALANCE SPECIALTY PROGRAM SUMMARY OF THERAPY EVAL/ASSESSMENT FINDINGS AND REASON(S) SKILLS OF A THERAPIST ARE INDICATED: PHYSICAL THERAPY EVALUATION (08/12/24) PATIENT IS A KYPHOTIC 83 YO FEMALE WITH PHYSICAL THERAPY REFFERAL AFTER RECENT FALL ON 06/24/24 IN HER [facility] APARTMENT, RESULTING IN HOSPITALIZATION ([facility] 07/18-07/19/24), SNF STAY ([facility] 07/19-08/05/24), MD DX: LEFT LE NON- DISPLACED TROCHANTERIC FRACTURE NOT REQUIRING SURGICAL INTERVENTION, UTI. PATIENT WAS ORIGINALLY NWB LEFT LE, RECENT ORTHO MD VISIT ORDERED WBAT LEFT LE. PAST MEDICAL HISTORY SIGNIFICANT FOR: CVA, VERTEBRAL ARTERY STENOSIS, CHRONIC LUMBAR AND THORACIC COMPRESSION FX, OP, GERD, CVA, PVD, SPINAL STENOSIS, ANXIETY, DEPRESSION. 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 PATIENT HAS ORTHO MD FOLLOWUP: 09/10 SUSANNA ANAND WITH [facility]. PATIENT MISSED EYE MD APPT DUE TO ILLNESS, TO BE RESCHEDULED. FALL HISTORY: LAST FALL ON 07/17/24 DUE TO PATIENT WALKING INTO THE DOORFRAME AND IMPACTING, FALLING BACKWARDS. PLOF: SINCE LIVING IN [facility] FOR YEARS, PATIENT HAS BEEN RECEIVING MEALS IN HER ROOM, DID NOT LIKE TO GO OUT AND INTERACT WITH OTHER RESIDENTS. [facility] ASSISTS, DAUGHTER AND SON ASSIST WITH LAUNDRY AND SHOPPING WELL TRANSPORTATION TO DOCTOR'S APPOINTMENTS. PATIENT ABLE TO TRANSFER AND AMB MOD I WITH FWW IN APARTMENT. CLOF: DME: FWW, TRANSPORT WHEELCHAIR, MANUAL WHEELCHAIR, GRAB BARS, SHOWER CHAIR, HANDHELD SHOWERHEAD. BILAT LE STRENGTH WFL, BILAT LE STRENGTH R: 4 TO 4+/5, L: 3+ TO 4-/5 TO INCREASE BILAT LE STRENGTH, PATIENT COMPLETED BILAT LE SUPINE THER EXER WITH VERBAL CUES AND TACTILE CUES FOR FORM: PLANTAR/DORSIFLEX, HEELSLIDE, HIP ADD, SLR. DISPENSED HEP SHEETS. PATIENT IN BED AT START OF VISIT. PATIENT ABLE TO COMPLETE SUPINE-->SIT INDEP. RECOMMENDED BED RAIL ACQUISITION TO MAX PATIENT SAFETY. PATIENT COMPLETED SIT --> STAND FROM EDGE OF BED WITH FWW AND CGA, VERBAL CUES FOR HAND PLACEMENT AND TO INCREASE COM OVER LALITHA. PATIENT ABLE TO TRANSFER ON AND OFF TOILET WITH FWW AND GRAB BAR WITH CGA. PATIENT AMB 20', 30' WITH CGA, DEMO FORWARD FLEXED POSTURE, DIMINISHED BILATERAL LE STEP LENGTHS WITH RIGHT MORE DIMINISHED THAN LEFT, BILAT ADEQUATE FEET CLEARANCE, REQUIRED VERBAL CUES TO SAFELY NEGOTIATE HALLWAY DEMO LEFT SIDED VISUAL DEFICIT AND VEERED TOWARDS LEFT SIDE OF DOORFRAME. TINETTI = 06/19, FALL RISK. PATIENT PRESENTS WITH THE FOLLOWING DEFICITS: BILAT LE WEAKNESS, ENDURANCE, RESULTING IN DIFFICULTY WITH TRANSFERS AND AMB. SKILLED [facility] FREQ 1X4WKS TO ADDRESS DEFICITS, MAX SAFETY AND FUNCTIONAL LEVEL IN HOME ENVIRONMENT WITH THER EXER, ESTABLISH HEP, TRANSFER AND GAIT TRAINING, BALANCE ACTIVITY. PATIENT AND CG INFORMED ABOUT PHYSICAL THERAPY POC INCLUDING FREQ, VERBALIZED ACCEPTANCE. MD NOTIFIED ABOUT PATINET STATUS AND POC. IF REQUIRED CONTINUE GOALS FROM CURRENT POC WITH EXPECTED DATE OF COMPLETION SPECIFIED ON ORDER FREQUENCY AND DURATION.] Goal Patient Goal - T O STAY OUT OF THE HOSPITAL Goal Provider Goal - A PLAN OF CARE WILL BE ESTABLISHED THAT MEETS PATIENT'S LONGTERM NEEDS AND INCLUDES PATIENT GOAL FOR HOME HEALTH. Goal Provider Goal - PATIENT/CAREGIVER WILL VERBALIZE UNDERSTANDING OF EDUCATION PROVIDED ON MEDICATIONS BY THE END OF THE CERTIFICATION PERIOD. Goal Provider Goal - SYMPTOMS OF ANXIETY ARE IDENTIFIED AND INTERVENTIONS INITIATED TO ENABLE PATIENT TO UNDERSTAND AND MANAGE FEELINGS THROUGHOUT EPISODE. Goal Provider Goal - URINE SPECIMEN WILL BE OBTAINED PRN FOR SIGNS AND SYMPTOMS OF UTI AND RESULTS WILL BE REPORTED TO PHYSICIAN THROUGHOUT THE CERTIFICATION PERIOD. Goal Provider Goal - PATIENT/CAREGIVER WILL DEMONSTRATE ABILITY TO SELF MANAGE NEEDS RELATED TO NUTRITION/HYDRATION THROUGHOUT THE EPISODE. Goal Provider Goal - PATIENT/CAREGIVER WILL VERBALIZE/DEMONSTRATE MANAGEMENT OF CARDIAC DISEASE PROCESS AND EXACERBATIONS WILL BE IDENTIFIED AND PROMPTLY REPORTED THROUGHOUT THE CERTIFICATION PERIOD. Goal Provider Goal - EXACERBATIONS OF GASTROINTESTINAL DISEASE WILL BE PROMPTLY IDENTIFIED AND INTERVENTIONS IMPLEMENTED TO MINIMIZE RISKS TO PATIENT BY END OF EPISODE. Goal Provider Goal - PATIENT/CAREGIVER WILL VERBALIZE UNDERSTANDING OF GENITOURINARY DISEASE PROCESS, AND EXACERBATIONS OF GENITOURINARY DISEASE WILL BE PROMPTLY IDENTIFIED FOR EARLY INTERVENTION THROUGHOUT THE CERTIFICATION PERIOD. Goal Provider Goal - OCCUPATIONAL THERAPY EVALUATION TO BE COMPLETED WITH RECOMMENDATIONS AND WRITTEN PLAN OF TREATMENT ESTABLISHED FOR THE PHYSICIANS SIGNATURE. Goal Provider Goal - WOUND CARE WILL BE COMPLETED AND PATIENT WILL HAVE IMPROVED WOUND STATUS EVIDENCED BY NO SIGNS AND SYMPTOMS OF INFECTION, DECREASED WOUND SIZE, AND/OR NO COMPLICATIONS BY THE END OF THE CERTIFICATION PERIOD. Goal Provider Goal - PATIENT/CAREGIVER WILL VERBALIZE/DEMONSTRATE THE ABILITY TO MANAGE CIRCULATORY DISEASE PROCESS AND EXACERBATIONS WILL BE IDENTIFIED FOR EARLY INTERVENTION THROUGHOUT THE CERTIFICATION PERIOD. Goal Provider Goal - A PHYSICAL THERAPY EVALUATION TO BE COMPLETED WITH RECOMMENDATIONS AND/OR WRITTEN PLAN OF TREATMENT ESTABLISHED FOR PHYSICIANS SIGNATURE. Goal Provider Goal - PATIENT/CAREGIVER WILL VERBALIZE/DEMONSTRATE UNDERSTANDING OF TEACHING RELATED TO ALTERED SKIN INTEGRITY BY END OF CERTIFICATION PERIOD. Goal Provider Goal - PATIENT/CAREGIVER WILL DEMONSTRATE COMPLIANCE WITH TREATMENT REGIME AND VERBALIZE SIGNS AND SYMPTOMS TO REPORT WELL POSSIBLE COMPLICATIONS OF CVA BY END OF EPISODE. Goal Provider Goal - PATIENT/CAREGIVER WILL VERBALIZE UNDERSTANDING OF MUSCULOSKELETAL DISEASE INCLUDING SIGNS AND SYMPTOMS, MANAGEMENT, AND PRESCRIBED TREATMENT REGIMEN BY END OF EPISODE. Goal Provider Goal - PATIENT WILL HAVE SUPPORT MEASURES ESTABLISHED TO PREVENT HOSPITALIZATION AND ED USE AND PATIENT/CAREGIVER WILL VERBALIZE/DEMONSTRATE METHODS TO REDUCE AVOIDABLE HOSPITALIZATION AND ED USE BY END OF EPISODE. Goal Provider Goal - PATIENT/CAREGIVER WILL VERBALIZE UNDERSTANDING OF DISCHARGE PLANNING INSTRUCTIONS BY DATE OF DISCHARGE. Goal Provider Goal - PATIENT/CAREGIVER WILL VERBALIZE/DEMONSTRATE EFFECTIVE ENVIRONMENTAL SAFETY AND FALL PREVENTION STRATEGIES, WILL REMAIN SAFE IN THE COMMUNITY, AND WILL BE FREE OF DANGER TO SELF AND OTHERS THROUGHOUT THE CERTIFICATION PERIOD. Goal Provider Goal - PATIENT/CAREGIVER WILL DEMONSTRATE UNDERSTANDING OF PHARMACOLOGIC AND NONPHARMACOLOGIC PAIN CONTROL MEASURES AND PATIENT WILL HAVE IMPROVEMENT IN PAIN INTERFERING WITH ACTIVITY EVIDENCED BY PAIN CONTROLLED AT LEVEL OF 7 OR LESS BY END OF CERTIFICATION PERIOD. Goal Provider Goal - PATIENT/CAREGIVER WILL VERBALIZE UNDERSTANDING OF PRESSURE ULCER PREVENTION BY END OF THE EPISODE. Goal Provider Goal - PATIENT/CAREGIVER WILL VERBALIZE/DEMONSTRATE UNDERSTANDING OF THE MANAGEMENT OF DEPRESSION THROUGHOUT THE CERTIFICATION PERIOD AND SYMPTOMS ARE IDENTIFIED AND MANAGED TO MAINTAIN PATIENT SAFETY IN THE HOME. Goal Provider Goal - OCCUPATIONAL THERAPIST TO EVALUATE PATIENT SECONDARY TO FUNCTIONAL DEFICITS/SAFETY CONCERNS IDENTIFIED DURING EVALUATION. PATIENT/CAREGIVER WILL PERFORM THERAPEUTIC EXERCISE/S AND DEMONSTRATE PARTICIPATION IN A HOME PROGRAM. PATIENT/CAREGIVER WILL DEMONSTRATE SAFE TRANSFERS USING APPROPRIATE ASSISTIVE DEVICE, BODY MECHANICS AND EQUIPMENT. CAREGIVER/PATIENT WILL DEMONSTRATE/VERBALIZE UNDERSTANDING OF RECOMMENDATIONS TO INCREASE SAFETY IN THE HOME AND FALL PREVENTION. Goal Provider Goal - PHYSICAL THERAPY EVALUATION TO BE COMPLETED WITH RECOMMENDATIONS AND/OR WRITTEN TREATMENT PLAN OF CARE ESTABLISHED FOR THE PHYSICIANS SIGNATURE PATIENT/CAREGIVER VERBALIZES UNDERSTANDING OF THE INITIAL BEST PRACTICE RECOMMENDATIONS. PHYSICIAN TO BE NOTIFIED APPROPRIATE FOR ANY CHANGES OR COMPLICATIONS THROUGHOUT THE CERTIFICATION PERIOD. PATIENT/CAREGIVER WILL PERFORM THERAPEUTIC EXERCISE/S AND DEMONSTRATE PARTICIPATION IN A HOME PROGRAM. PATIENT/CAREGIVER WILL DEMONSTRATE SAFE TRANSFERS USING APPROPRIATE ASSISTIVE DEVICE, BODY MECHANICS AND EQUIPMENT. PATIENT/CAREGIVER WILL DEMONSTRATE IMPROVED GAIT TECHNIQUES TO MINIMIZE RISK OF INJURY. PATIENT/CAREGIVER WILL DEMONSTRATE/VERBALIZE UNDERSTANDING OF RECOMMENDATIONS TO INCREASE SAFETY IN THE HOME AND FALL PREVENTION. INCREASED PAIN OR INEFFECTIVE PAIN CONTROL MEASURES WILL BE IDENTIFIED AND PROMPTLY REPORTED TO THE PHYSICIAN. PATIENT/CAREGIVER WILL DEMONSTRATE EFFECTIVE PAIN MANAGEMENT. PATIENT/CAREGIVER WILL DEMONSTRATE IMPROVED BALANCE AND REDUCE THE RISK OF FALLS AND INJURY. PHYSICAL THERAPY REASSESSMENT WILL BE COMPLETED WITH ESTABLISHMENT OF CONTINUED POC. Progress Notes Progress Notes <paragraph>[Visit Date: 2024 by BRODY CÁRDENAS RN]:</paragraph><paragraph>SNV ABNORMAL VITALS: WNL FALLS:N PHYSICAL ASSESSMENT FINDINGS: PT AWAKE AND ALERT VSS AFEBRILE LUNGS CLEAR SPEAKING IN FULL SENTENCES. ORDER FROMO DR PO FOR [facility] ROLL MECHANIC. UNFORTUNATELY PT USED THE BR JUST BEFORE SNV PT DRANK JUICE COFFEE DURING VIST 20MIN PT ATTEMPTED UNABLE TO PRODUCES SAMPLE. PLAN FOR PRN VISIT TOMORROW FOR URINE. HAT WIPES LEFT FOR PT. WILL COLLECT IN THE AM REVIEW SAFETY FALL PREVENTION USE OF WALKER MEDICATION CHANGES: NONE HANDS ON CARE: ASSESSMENT TEACHING HOME SAFETY FALL PREVENTION TEACHING PROVIDED: INFECTION CONTROL PATIENT/CAREGIVER TEACH BACK:VERBALIZED UNDERSTANDING NEXT APPOINTMENT: UPCOMING NEW ORDERS: UA INSTRUCTED PATIENT AND CAREGIVER TO CALL [facility] WITH ANY QUESTIONS OR CHANGES IN CONDITION</paragraph> Encounters Start Date/Time End Date/Time Encounter Type Admission Type Attending Clinicians Care Facility Care Department Encounter ID Discharge Date Discharge Status Discharge Condition Discharge Reason Percent Goals Met 2024-08-06 00:00:00 2024-10-04 00:00:00 Outpatient NEW ADMISSION BRODY CÁRDENAS [facility] [id number] 30.77
--- OUTSIDE RECORDS SUMMARY | 2024-08-27 08:55 | XMS_ITS | Encounter Summary ---
Author Organization [facility] Address [address] [place] [address] Care Team Providers Care Air Conditioning Insulation Installer Name Role Phone Physician, No Pcp Primary Care Provider Unavaila ble Encounter Details Date Type Department Care Team (Late st Contact Info) Description 07/23/2024 Lab Requisition [facility] - Main Lab [address] [address] Alisha Davison MD [address] [place] [phone] Encounter for other general examination Social History [...] LAB CHEMISTRY METHOD 07/23/2024 12:57 PM EST [facility] Urine Urine specimen obtained by clean catch procedure / Unknown Non-blood Collection / Unknown 07/23/2024 11:30 AM EST 07/23/2024 12:29 PM EST us Alisha Davison MD LAB URINE ORDERABLES Final Res ult Performing Organization Address [facility] Co de Phone Number [facility] [address] [place] [address], [place] [phone] * Osmolality, urine (07/23/2024 11:30 AM EST) Osmolality, Urine 579 300 - 1,300 mOsm/kg LAB CHEMISTRY METHOD 07/23/2024 1:[address] [facility] Urine Urine specimen obtained by clean catch procedure / Unknown Non-blood Collection / Unknown 07/23/2024 11:30 AM EST 07/23/2024 12:29 PM EST Alisha Davison MD LAB URINE ORDERABLES Final Res ult Performing Organization Address [facility] Co de Phone Number [facility] [address] [place] [address], [place] [phone] documented in this encounter Visit Diagnoses Diagnosis Encounter for other general examination documented in this encounter Care Teams Air Conditioning Insulation Installer Relationship Specialty Start Date End Date Physician, No Pcp PCP - General 07/19/24 documented as of this encounter
--- OUTSIDE RECORDS SUMMARY | 2024-08-27 08:55 | XMS_ITS | Clinical Summary ---
Author Organization Unknown Care Team Providers Care Retail Tire Sales Manager Name Role Phone ARABELLA CANTRELL, ISABELLA Unavailable Unavailable ANÍBAL RUSH, JUICE Unavailable Unavailbriseida CÁRDENAS RN, BRODY Unavailable Unavailable YANI PT, NIYA Unavailable Unavailable SHAHLA COOK LPN, GARO Unavailable [facility] Payers Payer Name Policy Type Policy Number Effective Date Expira tion Date [place] [id number] [facility] ADV [id number] Problems Condition Name Condition Details Condition Category [...] HISTORY OF FALLING Active 06-23 00:00: 00 [facility] (CURRENT) USE OF ASPIRIN Active 1- 00:00: [...] 15 mg tablet 2-06 00:00: 00 Yes [id number] 1 tablet BEDTIME 1 tablet BEDTIME (route: oral) Med Classific ation: Central Nervous System Agents Aspirin Childrens 81 mg chewable tablet - 00:00: 00 Yes [id number] 1 tablet DAILY 1 tablet DAILY (route: oral) Med Classific ation: Hematolog ical Agents Flomax 0.4 mg capsule - 00:00: 00 Yes [id number] 1 capsule BEDTIME 1 capsule BEDTIME (route: oral) Med Classific ation: Genitouri nary Therapy hydroxyzine HCl 10 mg tablet 08-06 00:00: 00 Yes [id number] 1 tablet NEEDED 1 tablet NEEDED (route: oral) Med Classific ation: Central Nervous System Agents Multivitami n 50 Plus tablet 08-06 00:00: 00 Yes [id number] 1 tablet DAILY 1 tablet DAILY (route: oral) Med Classific ation: Electroly te Balance-N utritiona l Products nitrofurant oin 100 mg tablet - 00:00: 00 Yes [id number] 100 mg 2 TIMES DAILY 100 mg 2 TIMES DAILY (route: oral) Med Classific ation: Genitouri nary Therapy oxycodone 5 mg capsule -14 00:00: 00 Yes [id number] 1 capsule NEEDED 1 capsule NEEDED (route: oral) Med Classific ation: Analgesic , Anti-infl ammatory or Antipyret ic polyethylen e glycol 3350 17 gram oral powder packet 2-14 00:00: 00 Yes [id number] 1 packet NEEDED 1 packet NEEDED (route: oral) Med Classific ation: Gastroint estinal Therapy Agents Senna Lax 8.6 mg tablet 08-06 00:00: 00 Yes [id number] 1 tablet 2 TIMES DAILY 1 tablet 2 TIMES DAILY (route: oral) Med Classific ation: Gastroint estinal Therapy Agents Tylenol 325 mg tablet 08-06 00:00: 00 Yes [id number] 2 tablet NEEDED 2 tablet NEEDED (route: [...] CVA, RISK FACTORS, AND METHODS TO MANAGE AGRICULTURAL RESEARCH DIRECTOR EFFECTS OF CVA. [code = SKILLED NURSE TO INSTRUCT PATIENT/CAREGIVER ON WARNING SIGNS OF CVA, RISK FACTORS, AND METHODS TO MANAGE AGRICULTURAL RESEARCH DIRECTOR EFFECTS OF CVA.] Future Scheduled Test SKILLED [...] MAINTAIN SITUATIONAL AWARENESS AND WILL NOTIFY CLINICAL GLASS CUTTING MACHINE OPERATOR AND PHYSICIAN/PROVIDER WITH ANY CHANGE IN CONDITION. [code = SKILLED NURSE TO PERFORM ENVIRONMENTAL SAFETY RISK ASSESSMENT AND FALL RISK ASSESSMENT AND PROVIDE INSTRUCTION TO IMPLEMENT ENVIRONMENTAL SAFETY AND FALL PREVENTION STRATEGIES THROUGHOUT THE CERTIFICATION PERIOD. SKILLED NURSE WILL MAINTAIN SITUATIONAL AWARENESS AND WILL NOTIFY CLINICAL GLASS CUTTING MACHINE OPERATOR AND PHYSICIAN/PROVIDER WITH ANY CHANGE IN CONDITION.] [...] AFTER RECENT FALL IN HER APARTMENT AT [facility] ON 07/17/24, RESULTING IN A NONDISPLACED TROCHANTERIC FRACTURE NOT REQUIRING SURGICAL INTERVENTION. PATIENT WAS STABILIZED TRANSFERRED TO [facility] BEFORE DISCHARGING BACK TO HER [...] SURGICAL INTERVENTION. PATIENT WAS STABILIZED TRANSFERRED TO [facility] BEFORE DISCHARGING BACK TO HER [...] FOR FALL AND INJURY INCLUDING PARTICIPATION IN [facility] BALANCE SPECIALTY PROGRAM SUMMARY OF THERAPY EVAL/ASSESSMENT FINDINGS AND REASON(S) SKILLS OF A THERAPIST ARE INDICATED: PHYSICAL THERAPY EVALUATION (08/12/24) PATIENT IS A KYPHOTIC 83 YO FEMALE WITH PHYSICAL THERAPY REFFERAL AFTER RECENT FALL ON 06/24/24 IN HER [facility] APARTMENT, RESULTING IN HOSPITALIZATION ([facility] 07/18-07/19/24), SNF STAY ([facility] 07/19-08/05/24), MD DX: LEFT LE NON- [...] PATIENT HAS ORTHO MD FOLLOWUP: 09/10 SUSANNA ANNAD WITH [facility]. PATIENT MISSED EYE MD APPT DUE TO ILLNESS, TO BE RESCHEDULED. FALL HISTORY: LAST FALL ON 07/17/24 DUE TO PATIENT WALKING INTO THE DOORFRAME AND IMPACTING, FALLING BACKWARDS. PLOF: SINCE LIVING IN [facility] FOR YEARS, PATIENT HAS BEEN RECEIVING MEALS IN HER ROOM, DID NOT LIKE TO GO OUT AND INTERACT WITH OTHER RESIDENTS. [facility] ASSISTS, DAUGHTER AND SON ASSIST WITH [...] FOR FALL AND INJURY INCLUDING PARTICIPATION IN [facility] BALANCE SPECIALTY PROGRAM SUMMARY OF THERAPY EVAL/ASSESSMENT FINDINGS AND REASON(S) SKILLS OF A THERAPIST ARE INDICATED: PHYSICAL THERAPY EVALUATION (08/12/24) PATIENT IS A KYPHOTIC 83 YO FEMALE WITH PHYSICAL THERAPY REFFERAL AFTER RECENT FALL ON 06/24/24 IN HER [facility] APARTMENT, RESULTING IN HOSPITALIZATION ([facility] 07/18-07/19/24), SNF STAY ([facility] 07/19-08/05/24), MD DX: LEFT LE NON- [...] ORTHO MD FOLLOWUP: 09/10 SUSANNA ANAND WITH [facility]. PATIENT MISSED EYE MD APPT DUE TO ILLNESS, TO BE RESCHEDULED. FALL HISTORY: LAST FALL ON 07/17/24 DUE TO PATIENT WALKING INTO THE DOORFRAME AND IMPACTING, FALLING BACKWARDS. PLOF: SINCE LIVING IN [facility] FOR YEARS, PATIENT HAS BEEN RECEIVING MEALS IN HER ROOM, DID NOT LIKE TO GO OUT AND INTERACT WITH OTHER RESIDENTS. [facility] ASSISTS, DAUGHTER AND SON ASSIST WITH [...] CARE WILL BE ESTABLISHED THAT MEETS PATIENT'S LONG TERM NEEDS AND INCLUDES PATIENT GOAL FOR HOME [...] SENTENCES. ORDER FROMO DR PO FOR [facility] NATIONAL COVERAGE SPECIALIST. UNFORTUNATELY PT USED THE BR JUST BEFORE [...] 2024-10-04 00:00:00 Outpatient NEW ADMISSION BRODY CÁRDENAS [facility] [id number] 30.77
--- OUTSIDE RECORDS SUMMARY | 2024-08-27 08:55 | XMS_ITS ---
Author Organization [facility] Address [address] [place] [phone] Care Team Providers Care Child Life Specialist Name Role Phone Trish Blanco Primary Care Provider UnavailKingsley Cohenmie Unavailable [phone] Donna Tanner Unavailable [phone] Medications Medication SIG (Take, Route, Frequency, Duration) Notes Start Date End Date Status Compression Stockings 20-30mm Hg as directed 11/14/2016 Not-Taking Kerasal 5-10 % 1 application Meter Calibrator ally Once a day 10/23/2022 Not-Taking Aspirin Adult Low Dose 81 MG Orally Active Probiotic as directed Orally N ot-Taking Remeron 50 mg Active Encounters Encounter Location Date Provider Diagnosis [address] [phone] 05/04/2024 Donna Tanner Plan Of Treatment Next Appt Details Provider Name:Donna glasgow, 10/01/2024 10:00:00 AM, [address] [place] [address], [phone], Provider Name:Donna glasgow, 10/27/2024 10:00:00 AM, [address] [place] [address], [phone], Progress Notes * ROLYAnnmarie HEBERT FDOB:[birth year] (83 yo F)Acc No.[id number]:05/04/2024 Progress Note Patient:?Annmarie ESCALERA Provider:?Donna Tanner DPM :1940???Age:83 Y???Sex:Female D ate:05/04/2024 Address:[address] [place] [address] [id number] Pcp:Trish Blanco Subjective: * Chief Complaints: * ??? * [...] Tanner DPM Date:?05/2024 Generated for Oren castorena/Barb/Danielle on:?08/27/2024 08:55 AM EST History and Physical Notes * HPI (History of Present Illness) Category Sub-Category Detail Notes Category Not es At Risk footcare Pt States Last PCP Visit: Date: 4
--- OUTSIDE RECORDS SUMMARY | 2024-08-27 08:55 | XMS_ITS | Encounter Summary ---
Author Organization [facility] Address [address] [place] [address] Care Team Providers Care Collection Support Specialist Name Role Phone Physician, No Pcp Primary Care Provider Unavaila ble Encounter Details Date Type Department Care Team (Late st Contact Info) Description 07/20/2024 Lab Requisition [facility] - Main Lab [address] [facility] [employer] [address] Alisha Davison MD [address] [place] [address] Encounter for other general examination Social History [...] % LAB HEMETOLOGY METHOD 07/20/2024 11:53 AM [facility] Lymphocytes % 40.0 % LAB HEMETOLOGY METHOD 07/20/2024 11:53 AM [facility] Reactive Lymphocyte 10.00 % LAB HEMETOLOGY METHOD 07/20/2024 11:53 AM [facility] Monocytes % 7.0 % LAB HEMETOLOGY METHOD 07/20/2024 11:53 AM [facility] Eosinophils % 0.0 % LAB HEMETOLOGY METHOD 07/20/2024 11:53 AM [facility] Basophils % 1.0 % LAB HEMETOLOGY METHOD 07/20/2024 11:53 AM [facility] Neutrophils Absolute Manual 3.61 1.50 - 7.00 K/mcL LAB HEMETOLOGY METHOD 07/20/2024 11:53 AM [facility] Lymphocytes Absolute 3.36 1.00 - 5.00 K/mcL LAB HEMETOLOGY METHOD 07/20/2024 11:53 AM [facility] Reactive Lymph Abs Manual 0.84(H) 0.00 - 0.00 lym LAB HEMETOLOGY METHOD 07/20/2024 11:53 AM [facility] Monocytes Absolute Manual 0.59 0.20 - 1.00 K/mcL LAB HEMETOLOGY METHOD 07/20/2024 11:53 AM [facility] Eosinophils Absolute Manual 0.00 0.00 - 0.50 K/mcL LAB HEMETOLOGY METHOD 07/20/2024 11:53 AM [facility] Basophils Absolute Manual 0.08 0.00 - 0.20 K/mcL LAB HEMETOLOGY METHOD 07/20/2024 11:53 AM [facility] Rbc Morphology Consistent with indices Consistent with indices, Normal for LAB HEMETOLOGY METHOD 07/20/2024 11:53 AM [facility] Platelet Morphology - WAM See Note(A) Normal LAB HEMETOLOGY METHOD 07/20/2024 11:53 AM [facility] Comment:PLT: Normal Blood Venous blood specimen / Unknown Venipuncture / Unknown 07/20/2024 5:24 AM EST 07/20/2024 9:35 AM EST us Alisha Davison MD LAB BLOOD ORDERABLES Final Res ult [facility] [address] [place] [address], [place] [phone] * (ABNORMAL) CBC auto differential (07/20/2024 5:24 AM EST) WBC 8.4 4.8 - 10.8 K/mcL LAB HEMETOLOGY METHOD 07/20/2024 11:53 AM [facility] RBC 3.90 3.80 - 4.80 M/mcL LAB HEMETOLOGY METHOD 07/20/2024 11:53 AM [facility] Hemoglobin 12.9 11.5 - 16.0 g/dL LAB HEMETOLOGY METHOD 07/20/2024 11:53 AM [facility] Hematocrit 37.0 35.0 - 47.0 % LAB HEMETOLOGY METHOD 07/20/2024 11:53 AM [facility] MCV 95.1 79.0 - 98.0 FL LAB HEMETOLOGY METHOD 07/20/2024 11:53 AM [facility] MCH 33.2(H) 27.0 - 32.0 pcg LAB HEMETOLOGY METHOD 07/20/2024 11:53 AM [facility] MCHC 34.9 32.0 - 37.0 g/dL LAB HEMETOLOGY METHOD 07/20/2024 11:53 AM EST [facility] RDW 12.3 11.0 - 15.0 % LAB HEMETOLOGY METHOD 07/20/2024 11:53 AM [facility] Platelets 150 130 - 400 K/mcL LAB HEMETOLOGY METHOD 07/20/2024 11:53 AM EST [facility] MPV 10.0 7.0 - 11.0 FL LAB HEMETOLOGY METHOD 07/20/2024 11:53 AM EST [facility] NRBC 0.0 <1.0 % LAB HEMETOLOGY METHOD 07/20/2024 11:53 AM [facility] NRBC Absolute 0.00 <0.10 K/mcL LAB HEMETOLOGY METHOD 07/20/2024 11:53 AM EST [facility] Blood Venous blood specimen / Unknown Venipuncture / Unknown 07/20/2024 5:24 AM EST 07/20/2024 9:35 AM EST us Alisha Davison MD LAB BLOOD ORDERABLES Final Res ult [facility] [address] [place] [address], * (ABNORMAL) Magnesium (07/20/2024 5:24 AM EST) Magnesium 1.8(L) 1.9 - 2.6 mg/dL LAB CHEMISTRY METHOD 07/20/2024 11:00 AM EST [facility] Blood Venous blood specimen / Unknown Venipuncture / Unknown 07/20/2024 5:24 AM EST 07/20/2024 9:35 AM EST us Alisha Davison MD LAB BLOOD ORDERABLES Final Res ult [facility] [address] [place] [address], [place] [phone] * (ABNORMAL) Comprehensive metabolic panel (07/20/2024 5:24 AM EST) Sodium 132(L) 133 - 145 mmol/L LAB CHEMISTRY METHOD 07/20/2024 11:00 AM [facility] Potassium 3.6 3.5 - 5.5 mmol/L LAB CHEMISTRY METHOD 07/20/2024 11:00 AM [facility] Chloride 98 96 - 110 mmol/L LAB CHEMISTRY METHOD 07/20/2024 11:00 AM [facility] CO2 27 21 - 32 mmol/L LAB CHEMISTRY METHOD 07/20/2024 11:00 AM [facility] Anion Gap 7 3 - 11 LAB CHEMISTRY METHOD 07/20/2024 11:00 AM [facility] Glucose 96 70 - 100 mg/dL LAB CHEMISTRY METHOD 07/20/2024 11:00 AM [facility] BUN 14 5 - 25 mg/dL LAB CHEMISTRY METHOD 07/20/2024 11:00 AM [facility] Creatinine 0.48(L) 0.50 - 1.10 mg/dL LAB CHEMISTRY METHOD 07/20/2024 11:00 AM [facility] eGFR 94 >=60 mL/min/1. 73m2 LAB CHEMISTRY METHOD 07/20/2024 11:00 AM [facility] Comment:Calculation based on the??Chronic Kidney Disease Epidemiology Collaboration (CKD-EPI) equation refit??without adjustment for race. BUN/Creatinine Ratio 29.2 LAB CHEMISTRY METHOD 07/20/2024 11:00 AM [facility] Calcium 8.8 8.5 - 10.5 mg/dL LAB CHEMISTRY METHOD 07/20/2024 11:00 AM [facility] AST (SGOT) 15 10 - 42 unit/L LAB CHEMISTRY METHOD 07/20/2024 11:00 AM [facility] ALT (SGPT) 13 10 - 60 unit/L LAB CHEMISTRY METHOD 07/20/2024 11:00 AM [facility] Alkaline Phosphatase 72 42 - 121 unit/L LAB CHEMISTRY METHOD 07/20/2024 11:00 AM [facility] Total Protein 5.9(L) 6.0 - 8.0 g/dL LAB CHEMISTRY METHOD 07/20/2024 11:00 AM [facility] Albumin 3.3 3.2 - 5.0 g/dL LAB CHEMISTRY METHOD 07/20/2024 11:00 AM [facility] Total Bilirubin 0.9 0.0 - 1.4 mg/dL LAB CHEMISTRY METHOD 07/20/2024 11:00 AM [facility] Blood Venous blood specimen / Unknown Venipuncture / Unknown 07/20/2024 5:24 AM EST 07/20/2024 9:35 AM EST us Alisha Davison MD LAB BLOOD ORDERABLES Final Res ult [facility] [address] [place] [address], documented in this encounter Visit Diagnoses Diagnosis Encounter for other general examination documented in this encounter Care Teams Collection Support Specialist Relationship Specialty Start Date End Date Physician, No Pcp PCP - General 07/19/24 documented as of this encounter
--- OUTSIDE RECORDS SUMMARY | 2024-08-27 08:55 | XMS_ITS | Encounter Summary ---
Author Organization [facility] Address [address] [place] [address] Care Team Providers Care Chemotherapist Name Role Phone Physician, No Pcp Primary Care Provider Unavaila ble Encounter Details Date Type Department Care Team (Late st Contact Info) Description 07/26/2024 Lab Requisition [facility] - Main Lab [address] [facility] [email or web address] [address] Alisha Davison MD [address] [place] [address] Encounter for other general examination Social History [...] LAB CHEMISTRY METHOD 07/26/2024 10:44 AM EST [facility] Blood Venous blood specimen / Unknown Venipuncture / Unknown 07/26/2024 5:24 AM EST 07/26/2024 8:31 AM EST us Alisha Davison MD LAB BLOOD ORDERABLES Final Res ult [facility] [address] [place] [address], * (ABNORMAL) Complete blood count (07/26/2024 5:24 AM EST) WBC 9.4 4.8 - 10.8 K/mcL LAB HEMETOLOGY METHOD 07/26/2024 10:23 AM [facility] RBC 3.70(L) 3.80 - 4.80 M/mcL LAB HEMETOLOGY METHOD 07/26/2024 10:23 AM [facility] Hemoglobin 11.9 11.5 - 16.0 g/dL LAB HEMETOLOGY METHOD 07/26/2024 10:23 AM [facility] Hematocrit 34.1(L) 35.0 - 47.0 % LAB HEMETOLOGY METHOD 07/26/2024 10:23 AM [facility] MCV 93.2 79.0 - 98.0 FL LAB HEMETOLOGY METHOD 07/26/2024 10:23 AM [facility] MCH 32.5(H) 27.0 - 32.0 pcg LAB HEMETOLOGY METHOD 07/26/2024 10:23 AM [facility] MCHC 34.9 32.0 - 37.0 g/dL LAB HEMETOLOGY METHOD 07/26/2024 10:23 AM [facility] RDW 12.5 11.0 - 15.0 % LAB HEMETOLOGY METHOD 07/26/2024 10:23 AM [facility] Platelets 194 130 - 400 K/mcL LAB HEMETOLOGY METHOD 07/26/2024 10:23 AM EST [facility] MPV 9.8 7.0 - 11.0 FL LAB HEMETOLOGY METHOD 07/26/2024 10:23 AM EST [facility] NRBC 0.0 <1.0 % LAB HEMETOLOGY METHOD 07/26/2024 10:23 AM EST [facility] NRBC Absolute 0.00 <0.10 K/mcL LAB HEMETOLOGY METHOD 07/26/2024 10:23 AM EST [facility] Blood Venous blood specimen / Unknown Venipuncture / Unknown 07/26/2024 5:24 AM EST 07/26/2024 8:31 AM EST us Alisha Davison MD LAB BLOOD ORDERABLES Final Res ult [facility] [address] [place] [address], * (ABNORMAL) Comprehensive metabolic panel (07/26/2024 5:24 AM EST) Sodium 131(L) 133 - 145 mmol/L LAB CHEMISTRY METHOD 07/26/2024 11:22 AM [facility] Potassium 3.9 3.5 - 5.5 mmol/L LAB CHEMISTRY METHOD 07/26/2024 11:22 AM [facility] Chloride 97 96 - 110 mmol/L LAB CHEMISTRY METHOD 07/26/2024 11:22 AM [facility] CO2 30 21 - 32 mmol/L LAB CHEMISTRY METHOD 07/26/2024 11:22 AM [facility] Anion Gap 4 3 - 11 LAB CHEMISTRY METHOD 07/26/2024 11:22 AM [facility] Glucose 96 70 - 100 mg/dL LAB CHEMISTRY METHOD 07/26/2024 11:22 AM [facility] BUN 19 5 - 25 mg/dL LAB CHEMISTRY METHOD 07/26/2024 11:22 AM [facility] Creatinine 0.48(L) 0.50 - 1.10 mg/dL LAB CHEMISTRY METHOD 07/26/2024 11:22 AM [facility] eGFR 94 >=60 mL/min/1. 73m2 LAB CHEMISTRY METHOD 07/26/2024 11:22 AM [facility] Comment:Calculation based on the??Chronic Kidney Disease Epidemiology Collaboration (CKD-EPI) equation refit??without adjustment for race. BUN/Creatinine Ratio 39.6 LAB CHEMISTRY METHOD 07/26/2024 11:22 AM [facility] Calcium 9.1 8.5 - 10.5 mg/dL LAB CHEMISTRY METHOD 07/26/2024 11:22 AM [facility] AST (SGOT) 34 10 - 42 unit/L LAB CHEMISTRY METHOD 07/26/2024 11:22 AM [facility] Comment:Results verified by repeat testing ALT (SGPT) 32 10 - 60 unit/L LAB CHEMISTRY METHOD 07/26/2024 11:22 AM [facility] Comment:Results verified by repeat testing Alkaline Phosphatase 75 42 - 121 unit/L LAB CHEMISTRY METHOD 07/26/2024 11:22 AM [facility] Total Protein 5.8(L) 6.0 - 8.0 g/dL LAB CHEMISTRY METHOD 07/26/2024 11:22 AM [facility] Albumin 3.2 3.2 - 5.0 g/dL LAB CHEMISTRY METHOD 07/26/2024 11:22 AM [facility] Total Bilirubin 0.5 0.0 - 1.4 mg/dL LAB CHEMISTRY METHOD 07/26/2024 11:22 AM [facility] Blood Venous blood specimen / Unknown Venipuncture / Unknown 07/26/2024 5:24 AM EST 07/26/2024 8:31 AM EST us Alisha Davison MD LAB BLOOD ORDERABLES Final Res ult [facility] [address] [place] [address], documented in this encounter Visit Diagnoses Diagnosis Encounter for other general examination documented in this encounter Care Teams Chemotherapist Relationship Specialty Start Date End Date Physician, No Pcp PCP - General 07/19/24 documented as of this encounter
--- OUTSIDE RECORDS SUMMARY | 2024-08-27 08:55 | XMS_ITS | Patient Health Record ---
Author Organization [facility] Address [address] [place] [address] Care Team Providers Care Industrial Mechanic Name Role Phone Trish Blanco Primary Care Provider Unavailbriseida coffey Kinza Dodson Unavailable [phone] RachelDonna glasgow Unavailable [phone] Allergies No Known Allergies Reason For Referral [...] N ot-Taking Kerasal 5-10 % 1 application Lead Neurodiagnostic Technologist ally Once a day 10/23/2022 Not-Taking Compression [...] W/U Status Risk Notes Problem Atherosclerosis of northway arteries of the extremities ([id number]) 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, 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 Vital Signs Blood pressure diastolic 80 mm Hg 07/02/2024 Height 5 ft in 07/02/2024 Blood pressure systolic 134 mm Hg 07/02/2024 Weight 98 lbs 07/02/2024 BMI 19.14 kg/m2 07/02/2024 Encounters Encounter Location Date Provider Diagnosis [address] [address] 11/05/2023 Donna Tanner 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, bilateral legs I70.203 ; Tinea unguium B35.1 ; Pain in right toe(s) M79.674 ; Pain in left toe(s) M79.675 ; Other viral warts B07.8 and Pain in left foot M79.[address] [address] 02/03/2024 Donna Tanner 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, bilateral legs I70.203 ; Tinea unguium B35.1 ; Pain in right toe(s) M79.674 ; Pain in left toe(s) M79.675 ; Other viral warts B07.8 and Pain in left foot M79.[address] [address] 07/02/2024 Donna Tanner 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, bilateral legs I70.203 ; Tinea pedis of both feet B35.3 ; Tinea unguium B35.1 ; Pain in right toe(s) M79.674 ; Pain in left toe(s) M79.675 ; Other viral warts B07.8 and Pain in left foot M79.[address] [address] 09/18/2023 [facility] [place] [address] [address] 05/04/2024 Donna Tanner Assessments Encounter Date Diagnosis (ICD Code) Assessment Notes Treatment Notes Treatment Clinical Notes Section Notes 11/05/2023 Tinea unguium (ICD-10 - B35.1) 11/05/2023 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, bilateral legs (ICD-10 - I70.203) 02/03/2024 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, bilateral legs (ICD-10 - I70.203) 07/02/2024 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, bilateral legs (ICD-10 - [...] Treatment Pending Test Test Name Order Date 62408-[id number] NAIL, 6 OR MORE 11/30/2012 16740-QVTEECX NAIL, 6 OR MORE 03/25/2013 57514-KQVXHEY NAIL, 6 OR MORE 07/22/2013 96871-FRCLQLX NAIL, 6 OR MORE 01/03/2014 65411-OWMENES NAIL, 6 OR MORE 05/09/2014 30393-SUGHSRI NAIL, 6 OR MORE 09/05/2014 16467-AUMFFHK NAIL, 6 OR MORE 01/18/2015 59167-BFCIAIU NAIL, 6 OR MORE 04/24/2015 82478-IEAOSQK NAIL, 6 OR MORE 08/21/2015 64197-PIGIFKD NAIL, 6 OR MORE 11/27/2015 32517-PJBKDRW NAIL, 6 OR MORE 08/08/2016 59751-TUNRSQP NAIL, 6 OR MORE 05/21/2016 27732-VLZWHQN NAIL, 6 OR MORE 11/14/2016 70472-IOCPJSF NAIL, 6 OR MORE 01/27/2017 31577-TYOJGGG NAIL, 6 OR MORE 05/19/2017 81568-ZHBJROR NAIL, 6 OR MORE 02/09/2018 68997-XXBPQPI NAIL, 6 OR MORE 04/20/2018 97767-BQIVBBP NAIL, 6 OR MORE 07/20/2018 40118-EERQCTR NAIL, 6 OR MORE 11/09/2018 09197-UDRYQLC NAIL, 6 OR MORE 01/25/2019 41372-ISHTSXU NAIL, 6 OR MORE 07/14/2019 34581-TYEVFCS NAIL, 6 OR MORE 11/19/2019 47968-IVLAKTC NAIL, 6 OR MORE 02/09/2020 03586-RGVFAKU NAIL, 6 OR MORE 04/19/2020 65251-IZOGKLW NAIL, 6 OR MORE 07/04/2020 21808-HMBIVNU NAIL, 6 OR MORE 10/26/2020 03046-AJJEWOG NAIL, 6 OR MORE 01/08/2021 77794-YUGBJCT NAIL, 6 OR MORE 04/16/2021 31383-GZGSPLA NAIL, 6 OR MORE 09/03/2021 72841-SPSTRPE NAIL, 6 OR MORE 04/22/2022 81805-ETYYVKI NAIL, 6 OR MORE 07/25/2022 61343-TXJAOWT NAIL, 6 OR MORE 10/23/2022 09357-ABPCJQB NAIL, 6 OR MORE 02/13/2023 46459-Pvsb Destruction, 1-14 10/23/2022 68740-Rkxz Destruction, -14 02/13/2023 27084-Okah Destruction, 1-14 01/27/2017 92691-Tpeg Destruction, 1-14 05/19/2017 54815-Mbbv Destruction, -14 05/21/2016 90833-Vumm Destruction, -14 11/14/2016 89280-Bpwn Destruction, 1-14 08/08/2016 21066-Dlzi Destruction, 1-14 11/27/2015 96012-Zysx Destruction, 1-14 08/21/2015 16508-Gmew Destruction, 1-14 04/24/2015 48104-Wejh Destruction, 1-14 01/18/2015 87193-Vriiicxa Plate 01/27/2017 85384-Vupybipu Plate 04/20/2018 36288-Fbownodi Plate 01/08/2021 24585-Gpleszgw Plate 07/04/2020 39578-Ewxmetfc Plate 02/09/2018 91081-Obxvpohg Plate 11/19/2019 47296-Fehcxesx Plate 04/16/2021 56316-Bggznaxj Plate 09/03/2021 50901-Pkuzxhhl Plate Each Additional 63956- Debride <25 sq cm 01/25/2019 41114- Debride <25 sq cm 07/14/2019 61190- Debride <25 sq cm 11/09/2018 62631- Debride <25 sq cm 09/05/2014 42236 I&D ABSCESS- SIMPLE,SINGLE 017 23995-YALH SKIN LESIONS, OVER 4 04/19/20 20 15650-JCIY SKIN LESIONS, OVER 4 10/27/19 21 25758-HPCY SKIN LESIONS, OVER 4 07/04/19 21 97311-DUVK SKIN LESIONS, OVER 4 01/09/20 21 63296-OQBE SKIN LESIONS, OVER 4 04/16/20 21 06808-FVJS SKIN LESIONS, OVER 4 09/04/19 22 73582-BNIV SKIN LESIONS, OVER 4 07/25/19 23 64551-KGYN SKIN LESIONS, OVER 4 04/22/20 22 25149-XKQD SKIN LESIONS, OVER 4 02/14/20 23 84455-FZUN SKIN LESIONS, OVER 4 10/24/19 86027-MPOX SKIN LESIONS, 2 TO 4 02/09/20 41109-FQFT SKIN LESIONS, 2 TO 4 11/19/19 28595-YOEU SKIN LESIONS, 2 TO 4 01/26/20 79515-JZKV SKIN LESIONS, 2 TO 4 11/10/19 10433-ZCHE SKIN LESIONS, 2 TO 4 07/14/19 88773-CPYJ SKIN LESIONS, 2 TO 4 01/28/20 19 97265-SSUR SKIN LESIONS, 2 TO 4 04/20/20 18 20753-DOCB SKIN LESIONS, 2 TO 4 02/10/20 18 65379-USRL SKIN LESIONS, 2 TO 4 05/19/20 17 21208-BIYY SKIN LESIONS, 2 TO 4 08/08/19 17 96054-OZDK SKIN LESIONS, 2 TO 4 11/15/19 17 Next Appt Details Provider Name:Donna Glasgow Rachel glasgow, 10/01/2024 10:00:00 AM, [address] [place] [address], [phone], Provider Name:Donna Glasgow Rachel glasgow, 10/27/2024 10:00:00 AM, [address] [place] [address], [phone], Insurance Providers Payer Name Payer Address Payer Phone Subscriber Number Group Number Insured Name Patient Relationship to Insured Coverage Start Date Coverage End Date Medicare National [employer] [address] [place] [address] [id number] Annmarie Escalera Self - patient is the insured 5 [employer] [facility] [address] [place] [address] [id number] Annmarie Escalera Self - patient is the insured Medical (General) History Medical History History ICD Code back, hip, knee pain broken bones reflux chicken pox Stroke Surgical History Surgery Date(Month/Year) tonsillectomy appendectomy vein surgery teeth extraction 05/2015 kyphoplasty 03/2016 Hospitalization History Reason Date(Month/[place] [facility] [place] [facility] [place] 11/04/2018 [facility] [place] Dept [place]- Loss Appetite, Nausea 11/2017 [facility] - Kyphoplasty 03/2016 [facility] for [facility] day stay compression fracture. 01/2015 [facility] day stay for C-Diff 01/2013
--- OUTSIDE RECORDS SUMMARY | 2024-08-27 08:55 | XMS_ITS | Encounter Summary ---
Author Organization [facility] Address [address] [place] [address] Care Team Providers Care Grid Inspector Name Role Phone Physician, No Pcp Primary Care Provider Unavaila ble Encounter Details Date Type Department Care Team (Late st Contact Info) Description 08/03/2024 Lab Requisition [facility] - Main Lab [address] [facility] [place] [address] Alisah Davison MD [address] [place] [id number] Encounter for other general examination Social History [...] Escherichia coli(A) MIRELLA 08/07/2024 11:16 AM EST [facility] Comment: This is an edited result. Previous organism was Gram negative bacilli on 08/04/2024 at 0853 EST. Culture, Urine <10,000 CFU/mL Proteus mirabilis(A) MIRELLA 08/07/2024 11:16 AM EST [facility] Comment: Edited result: Previously reported as Proteus species on 08/06/2024 at 1407 EST. Culture, Urine 10,000-49,000 CFU/mL Pseudomonas aeruginosa(A) MIRELLA 08/07/2024 11:16 AM EST [facility] Comment: The organism value for this [...] MIRELLA <=0.25 ug/ml: Susceptible Pseudomonas aeruginosa Amikacin IMRELLA <=1 ug/ml: Susceptible Pseudomonas aeruginosa Ciprofloxacin MIRELLA 0.12 ug/ml: Susceptible Pseudomonas aeruginosa Levofloxacin MIRELLA 0.25 ug/ml: Susceptible us Alisha Davison MD LAB MICROBIOLOGY - GENERAL ORD ERABLES Final Result [facility] [address] [place] [address], * (ABNORMAL) Urinalysis with reflex microscopic and culture (08/03/2024 4:30 AM EST) Specific [place] Urine 1.023 1.003 - 1.030 LAB URINALYSIS - AUTOMATED METHOD 08/03/2024 9:42 AM EST [facility] pH, Urine 5.5 5.0 - 8.0 pH LAB URINALYSIS - AUTOMATED METHOD 08/03/2024 9:42 AM [facility] Leukocytes, Urine Moderate(A) Negative LAB URINALYSIS - AUTOMATED METHOD 08/03/2024 9:42 AM [facility] Nitrite, Urine Negative Negative LAB URINALYSIS - AUTOMATED METHOD 08/03/2024 9:42 AM [facility] Protein, Urine Trace <=Trace mg/dL LAB URINALYSIS - AUTOMATED METHOD 08/03/2024 9:42 AM [facility] Glucose, Urine Negative Negative mg/dL LAB URINALYSIS - AUTOMATED METHOD 08/03/2024 9:42 AM [facility] Ketones, Urine Negative Negative mg/dL LAB URINALYSIS - AUTOMATED METHOD 08/03/2024 9:42 AM [facility] Urobilinogen , Urine 0.2 0.2 - 1.0 mg/dL LAB URINALYSIS - AUTOMATED METHOD 08/03/2024 9:42 AM [facility] Bilirubin, Urine Negative Negative LAB URINALYSIS - AUTOMATED METHOD 08/03/2024 9:42 AM [facility] Blood, Urine Trace(A) Negative LAB URINALYSIS - AUTOMATED METHOD 08/03/2024 9:42 AM [facility] RBC, Urine 2.5 0 - 4 /HPF LAB URINALYSIS - AUTOMATED METHOD 08/03/2024 9:42 AM [facility] WBC, Urine 147.7(H) 0 - 4 /HPF LAB URINALYSIS - AUTOMATED METHOD 08/03/2024 9:42 AM [facility] Squamous Epithelial, Urine 9 0 - 60 /LPF LAB URINALYSIS - AUTOMATED METHOD 08/03/2024 9:42 AM [facility] Bacteria, Urine Many(A) Negative /HPF LAB URINALYSIS - AUTOMATED METHOD 08/03/2024 9:42 AM EST [facility] Hyaline Casts, Urine 13.9(H) 0 - 3 /LPF LAB URINALYSIS - AUTOMATED METHOD 08/03/2024 9:42 AM EST [facility] Urine Urinary bladder structure / Unknown 08/03/2024 4:30 AM EST 08/03/2024 9:04 AM EST us Alisha Davison MD LAB URINE ORDERABLES Final Res ult Performing Organization Address City/[facility]/ZIP Co de Phone Number [facility] [address] [place] [address], [place] [phone] * Rao urine culture tube (08/03/2024 4:30 AM EST) Extra Tube Hold for add-ons. 08/03/2024 11:01 AM [facility] Comment:Auto resulted. Urine Urinary bladder structure / Unknown 08/03/2024 4:30 AM EST 08/03/2024 9:04 AM EST us Alisha Davison MD LAB URINE ORDERABLES Final Res ult [facility] [address] [place] [address], [place] [phone] documented in this encounter Visit Diagnoses Diagnosis Encounter for other general examination documented in this encounter Care Teams Grid Inspector Relationship Specialty Start Date End Date Physician, No Pcp PCP - General 07/19/24 documented as of this encounter
--- OUTSIDE RECORDS SUMMARY | 2024-08-27 08:55 | XMS_ITS | Encounter Summary ---
Author Organization [facility] Address [address] [place] [address] Care Team Providers Care Rail Specialist Name Role Phone Physician, No Pcp Primary Care Provider Unavaila ble Encounter Details Date Type Department Care Team (Late st Contact Info) Description 08/03/2024 Lab Requisition [facility] - Main Lab [address] [facility] [address] Alisha Davison MD [address] [place] [id number] Encounter for other general examination Social History [...] AM EST) WBC 7.4 4.8 - 10.8 [facility] LAB HEMETOLOGY METHOD 08/03/2024 9:24 AM [facility] RBC 3.20(L) 3.80 - 4.80 M/mcL LAB HEMETOLOGY METHOD 08/03/2024 9:24 AM [facility] Hemoglobin 10.7(L) 11.5 - 16.0 g/dL LAB HEMETOLOGY METHOD 08/03/2024 9:24 AM [facility] Hematocrit 31.7(L) 35.0 - 47.0 % LAB HEMETOLOGY METHOD 08/03/2024 9:24 AM [facility] MCV 98.1(H) 79.0 - 98.0 FL LAB HEMETOLOGY METHOD 08/03/2024 9:24 AM [facility] MCH 33.1(H) 27.0 - 32.0 pcg LAB HEMETOLOGY METHOD 08/03/2024 9:24 AM [facility] MCHC 33.8 32.0 - 37.0 g/dL LAB HEMETOLOGY METHOD 08/03/2024 9:24 AM [facility] RDW 12.6 11.0 - 15.0 % LAB HEMETOLOGY METHOD 08/03/2024 9:24 AM [facility] Platelets 211 130 - 400 K/mcL LAB HEMETOLOGY METHOD 08/03/2024 9:24 AM [facility] MPV 9.5 7.0 - 11.0 FL LAB HEMETOLOGY METHOD 08/03/2024 9:24 AM [facility] NRBC 0.0 <1.0 % LAB HEMETOLOGY METHOD 08/03/2024 9:24 AM [facility] NRBC Absolute 0.00 <0.10 K/mcL LAB HEMETOLOGY METHOD 08/03/2024 9:24 AM [facility] Blood Venous blood specimen / Unknown Venipuncture / Unknown 08/03/2024 6:30 AM EST 08/03/2024 8:31 AM EST us Alisha Davison MD LAB BLOOD ORDERABLES Final Res ult [facility] [address] [place] [address], [place] [phone] * Basic metabolic panel (08/03/2024 6:30 AM EST) Sodium 138 133 - 145 mmol/L LAB CHEMISTRY METHOD 08/03/2024 9:57 AM [facility] Potassium 3.8 3.5 - 5.5 mmol/L LAB CHEMISTRY METHOD 08/03/2024 9:57 AM [facility] Chloride 102 96 - 110 mmol/L LAB CHEMISTRY METHOD 08/03/2024 9:57 AM [facility] CO2 30 21 - 32 mmol/L LAB CHEMISTRY METHOD 08/03/2024 9:57 AM [facility] Anion Gap 6 3 - 11 LAB CHEMISTRY METHOD 08/03/2024 9:57 AM [facility] Glucose 92 70 - 100 mg/dL LAB CHEMISTRY METHOD 08/03/2024 9:57 AM [facility] BUN 19 5 - 25 mg/dL LAB CHEMISTRY METHOD 08/03/2024 9:57 AM [facility] Creatinine 0.52 0.50 - 1.10 mg/dL LAB CHEMISTRY METHOD 08/03/2024 9:57 AM [facility] eGFR 92 >=60 mL/min/1. 73m2 LAB CHEMISTRY METHOD 08/03/2024 9:57 AM [facility] Comment:Calculation based on the??Chronic Kidney Disease Epidemiology Collaboration (CKD-EPI) equation refit??without adjustment for race. BUN/Creatinine Ratio 36.5 LAB CHEMISTRY METHOD 08/03/2024 9:57 AM [facility] Calcium 8.8 8.5 - 10.5 mg/dL LAB CHEMISTRY METHOD 08/03/2024 9:57 AM EST [facility] Blood Venous blood specimen / Unknown Venipuncture / Unknown 08/03/2024 6:30 AM EST 08/03/2024 8:31 AM EST us Alisha Davison MD LAB BLOOD ORDERABLES Final Res ult [facility] [address] [place] [address], documented in this encounter Visit Diagnoses Diagnosis Encounter for other general examination documented in this encounter Care Teams Rail Specialist Relationship Specialty Start Date End Date Physician, No Pcp PCP - General 07/19/24 documented as of this encounter
--- OUTSIDE RECORDS SUMMARY | 2024-08-27 08:55 | XMS_ITS | Clinical Summary ---
Author Organization [facility] Address [address] [place] [address] Phone Care Team Providers Care Campground Hand Name Role Phone Physician, No Pcp Primary Care Provider Unavaila ble Encounters Date Type Department Care Team Description 08/03/2024 Lab Requisition [facility] [address] [place] [address] Alisha Davison MD Encounter for other general examination 08/03/2024 Lab Requisition [facility] [address] [place] [address] Alisha Davison MD Encounter for other general examination 07/30/2024 Lab Requisition [facility] [address] [place] [address] Alisha Davison MD Encounter for other general examination 07/26/2024 Lab Requisition [facility] [address] [place] [address] Alisha Davison MD Encounter for other general examination 07/23/2024 Lab Requisition [facility] [address] [place] [address] Alisha Davison MD Encounter for other general examination 07/22/2024 Lab Requisition [facility] [address] [place] [address] Alisha Davison MD Encounter for other general examination 07/20/2024 Lab Requisition [facility] [address] [facility] [place] [place] [address] Alisha Davison MD Encounter for [...] LAB HEMETOLOGY METHOD 08/03/2024 9:24 AM EST [facility] RDW 12.6 11.0 - 15.0 % LAB HEMETOLOGY METHOD 08/03/2024 9:24 AM EST [facility] Platelets 211 130 - 400 K/mcL LAB HEMETOLOGY METHOD 08/03/2024 9:24 AM EST [facility] MPV 9.5 7.0 - 11.0 FL LAB HEMETOLOGY METHOD 08/03/2024 9:24 AM EST [facility] NRBC 0.0 <1.0 % LAB HEMETOLOGY METHOD 08/03/2024 9:24 AM EST [facility] NRBC Absolute 0.00 <0.10 K/mcL LAB HEMETOLOGY METHOD 08/03/2024 9:24 AM [facility] Blood Venous blood specimen / Unknown Venipuncture / Unknown 08/03/2024 6:30 AM EST 08/03/2024 8:31 AM EST us Alisha Davison MD LAB BLOOD ORDERABLES Final Res ult [facility] [address] [place] [address], * Basic metabolic panel (08/03/2024 6:30 AM EST) Sodium 138 133 - 145 mmol/L LAB CHEMISTRY METHOD 08/03/2024 9:57 AM EST [facility] Potassium 3.8 3.5 - 5.5 mmol/L LAB CHEMISTRY METHOD 08/03/2024 9:57 AM EST [facility] Chloride 102 96 - 110 mmol/L LAB CHEMISTRY METHOD 08/03/2024 9:57 AM EST [facility] CO2 30 21 - 32 mmol/L LAB CHEMISTRY METHOD 08/03/2024 9:57 AM EST [facility] Anion Gap 6 3 - [...] 08/03/2024 9:57 AM [facility] Blood Venous blood specimen / Unknown Venipuncture / Unknown 08/03/2024 6:30 AM EST 08/03/2024 8:31 AM EST us Alisha Davison MD LAB BLOOD ORDERABLES Final Res ult [facility] [address] [place] [address], * (ABNORMAL) Urinalysis with reflex microscopic and culture (08/03/2024 4:30 AM EST) Specific [place] Urine 1.023 1.003 - 1.030 LAB URINALYSIS - AUTOMATED METHOD 08/03/2024 9:42 AM [facility] pH, Urine 5.5 5.0 - 8.0 pH LAB URINALYSIS - AUTOMATED METHOD 08/03/2024 9:42 AM [facility] Leukocytes, Urine Moderate(A) Negative LAB URINALYSIS - AUTOMATED METHOD 08/03/2024 9:42 AM [facility] Nitrite, Urine Negative Negative LAB URINALYSIS - AUTOMATED METHOD 08/03/2024 9:42 AM [facility] Protein, Urine Trace <=Trace mg/dL LAB URINALYSIS - AUTOMATED METHOD 08/03/2024 9:42 AM [facility] Glucose, Urine Negative Negative mg/dL LAB URINALYSIS - AUTOMATED METHOD 08/03/2024 9:42 AM [facility] Ketones, Urine Negative Negative mg/dL LAB URINALYSIS - AUTOMATED METHOD 08/03/2024 9:42 AM [facility] Urobilinogen , Urine 0.2 0.2 - 1.0 mg/dL LAB URINALYSIS - AUTOMATED METHOD 08/03/2024 9:42 AM [facility] Bilirubin, Urine Negative Negative LAB URINALYSIS - AUTOMATED METHOD 08/03/2024 9:42 AM [facility] Blood, Urine Trace(A) Negative LAB URINALYSIS - AUTOMATED METHOD 08/03/2024 9:42 AM [facility] RBC, Urine 2.5 0 - 4 /HPF LAB URINALYSIS - AUTOMATED METHOD 08/03/2024 9:42 AM [facility] WBC, Urine 147.7(H) 0 - 4 /HPF LAB URINALYSIS - AUTOMATED METHOD 08/03/2024 9:42 AM [facility] Squamous Epithelial, Urine 9 0 - 60 /LPF LAB URINALYSIS - AUTOMATED METHOD 08/03/2024 9:42 AM [facility] Bacteria, Urine Many(A) Negative /HPF LAB URINALYSIS - AUTOMATED METHOD 08/03/2024 9:42 AM [facility] Hyaline Casts, Urine 13.9(H) 0 - 3 /LPF LAB URINALYSIS - AUTOMATED METHOD 08/03/2024 9:42 AM EST [facility] Urine Urinary bladder structure / Unknown 08/03/2024 4:30 AM EST 08/03/2024 9:04 AM EST us Alisha Davison MD LAB URINE ORDERABLES Final Res ult Performing Organization Address City/[facility]/ZIP Co de Phone Number [facility] [address] [place] [address], [place] [phone] * Rao urine culture tube (08/03/2024 4:30 AM EST) Extra Tube Hold for add-ons. 08/03/2024 11:01 AM EST [facility] Comment:Auto resulted. Urine Urinary bladder structure / Unknown 08/03/2024 4:30 AM EST 08/03/2024 9:04 AM EST us Alisha Davison MD LAB URINE ORDERABLES Final Res ult Performing Organization Address City/[facility]/ZIP Co de Phone Number [facility] [address] [place] [address], [place] [phone] * (ABNORMAL) Culture urine (08/03/2024 4:30 AM EST) Culture, Urine >100,000 CFU/mL Escherichia coli(A) MIRELLA 08/07/2024 11:16 AM EST [facility] Comment: This is an edited result. Previous organism was Gram negative bacilli on 08/04/2024 at 0853 EST. Culture, Urine <10,000 CFU/mL Proteus mirabilis(A) MIRELLA 08/07/2024 11:16 AM EST [facility] Comment: Edited result: Previously reported as Proteus species on 08/06/2024 at 1407 EST. Culture, Urine 10,000-49,000 CFU/mL Pseudomonas aeruginosa(A) MIRELLA 08/07/2024 11:16 AM EST [email or web address] Comment: The organism value [...] MICROBIOLOGY - GENERAL ORD ERABLES Final Result [facility] [address] [place] [address], [place] [phone] * (ABNORMAL) Complete blood count (07/30/2024 5:06 AM EST) Only the most recent of3 resultswithin the time period is included. WBC 6.7 4.8 - 10.8 K/mcL LAB HEMETOLOGY METHOD 07/30/2024 11:28 AM EST [facility] RBC 3.70(L) 3.80 - 4.80 M/mcL LAB HEMETOLOGY METHOD 07/30/2024 11:28 AM EST [facility] Hemoglobin 12.2 11.5 - 16.0 g/dL LAB HEMETOLOGY METHOD 07/30/2024 11:28 AM EST [facility] Hematocrit 35.5 35.0 - 47.0 % LAB HEMETOLOGY METHOD 07/30/2024 11:28 AM EST [facility] MCV 94.9 79.0 - 98.0 FL LAB HEMETOLOGY METHOD 07/30/2024 11:28 AM EST [facility] MCH 32.6(H) 27.0 - 32.0 pcg LAB HEMETOLOGY METHOD 07/30/2024 11:28 AM EST [facility] MCHC 34.4 32.0 - 37.0 g/dL LAB HEMETOLOGY METHOD 07/30/2024 11:28 AM EST [facility] RDW 12.6 11.0 - 15.0 % LAB HEMETOLOGY METHOD 07/30/2024 11:28 AM [facility] Platelets 218 130 - 400 K/mcL LAB HEMETOLOGY METHOD 07/30/2024 11:28 AM [facility] MPV 9.5 7.0 - 11.0 FL LAB HEMETOLOGY METHOD 07/30/2024 11:28 AM [facility] NRBC 0.0 <1.0 % LAB HEMETOLOGY METHOD 07/30/2024 11:28 AM EST [facility] NRBC Absolute 0.00 <0.10 K/mcL LAB HEMETOLOGY METHOD 07/30/2024 11:28 AM [facility] Blood Venous blood specimen / Unknown Venipuncture / Unknown 07/30/2024 5:06 AM EST 07/30/2024 10:42 AM EST us Alisha Davison MD LAB BLOOD ORDERABLES Final Res ult [facility] [address] [place] [address], * (ABNORMAL) Comprehensive metabolic panel (07/30/2024 5:06 AM EST) Only the most recent of4 resultswithin the time period is included. Sodium 134 133 - 145 mmol/L LAB CHEMISTRY METHOD 07/30/2024 11:55 AM EST [facility] Potassium 3.6 3.5 - 5.5 mmol/L LAB CHEMISTRY METHOD 07/30/2024 11:55 AM [facility] Chloride 97 96 - 110 mmol/L LAB CHEMISTRY METHOD 07/30/2024 11:55 AM [facility] CO2 30 21 - 32 mmol/L LAB CHEMISTRY METHOD 07/30/2024 11:55 AM [facility] Anion Gap 7 3 - 11 LAB CHEMISTRY METHOD 07/30/2024 11:55 AM [facility] Glucose 89 70 - 100 mg/dL LAB CHEMISTRY METHOD 07/30/2024 11:55 AM [facility] BUN 12 5 - 25 mg/dL LAB CHEMISTRY METHOD 07/30/2024 11:55 AM [facility] Creatinine 0.50 0.50 - 1.10 mg/dL LAB CHEMISTRY METHOD 07/30/2024 11:55 AM [facility] eGFR 93 >=60 mL/min/1. 73m2 LAB CHEMISTRY METHOD 07/30/2024 11:55 AM [facility] Comment:Calculation based on the??Chronic Kidney Disease Epidemiology Collaboration (CKD-EPI) equation refit??without adjustment for race. BUN/Creatinine Ratio 24.0 LAB CHEMISTRY METHOD 07/30/2024 11:55 AM [facility] Calcium 9.0 8.5 - 10.5 mg/dL LAB CHEMISTRY METHOD 07/30/2024 11:55 AM [facility] AST (SGOT) 46(H) 10 - 42 unit/L LAB CHEMISTRY METHOD 07/30/2024 11:55 AM [facility] ALT (SGPT) 39 10 - 60 unit/L LAB CHEMISTRY METHOD 07/30/2024 11:55 AM [facility] Alkaline Phosphatase 114 42 - 121 unit/L LAB CHEMISTRY METHOD 07/30/2024 11:55 AM [facility] Total Protein 6.0 6.0 - 8.0 g/dL LAB CHEMISTRY METHOD 07/30/2024 11:55 AM EST [facility] Albumin 3.3 3.2 - 5.0 g/dL LAB CHEMISTRY METHOD 07/30/2024 11:55 AM EST [facility] Total Bilirubin 0.5 0.0 - 1.4 mg/dL LAB CHEMISTRY METHOD 07/30/2024 11:55 AM EST [facility] Blood Venous blood specimen / Unknown Venipuncture / Unknown 07/30/2024 5:06 AM EST 07/30/2024 10:42 AM EST us Alisha Davison MD LAB BLOOD ORDERABLES Final Res ult Performing Organization Address [facility]/ZIP Co de Phone Number [facility] [address] [place] [address], [place] [phone] * Magnesium (07/26/2024 5:24 AM EST) Only the most recent of2 resultswithin the time period is included. Magnesium 1.9 1.9 - 2.6 mg/dL LAB CHEMISTRY METHOD 07/26/2024 10:44 AM EST [facility] Blood Venous blood specimen / Unknown Venipuncture / Unknown 07/26/2024 5:24 AM EST 07/26/2024 8:31 AM EST us Alisha Davison MD LAB BLOOD ORDERABLES Final Res ult [facility] [address] [place] [address], [place] [phone] * Sodium, urine, random (07/23/2024 11:30 AM EST) Sodium, Ur 8 mmol/L LAB CHEMISTRY METHOD 07/23/2024 12:57 PM EST [facility] Urine Urine specimen obtained by clean catch procedure / Unknown Non-blood Collection / Unknown 07/23/2024 11:30 AM EST 07/23/2024 12:29 PM EST Alisha Davison MD LAB URINE ORDERABLES Final Res ult Performing Organization Address [facility]/ZIP Co de Phone Number [facility] [address] [place] [address], [place] [phone] * Osmolality, urine (07/23/2024 11:30 AM EST) [facility] Osmolality, Urine 579 300 - 1,300 mOsm/kg LAB CHEMISTRY METHOD 07/23/2024 1:45 PM [facility] Urine Urine specimen obtained by clean catch procedure / Unknown Non-blood Collection / Unknown 07/23/2024 11:30 AM EST 07/23/2024 12:29 PM EST Alisha Davison MD LAB URINE ORDERABLES Final Res ult Performing Organization Address City/[facility]/ZIP Co de Phone Number [facility] [address] [place] [address], [place] [phone] * (ABNORMAL) Manual differential (07/20/2024 5:24 AM EST) [facility] Neutrophils % 43.0 % LAB HEMETOLOGY METHOD 07/20/2024 11:53 AM [facility] Lymphocytes % 40.0 % LAB HEMETOLOGY METHOD 07/20/2024 11:53 AM [facility] Reactive Lymphocyte 10.00 % LAB HEMETOLOGY METHOD 07/20/2024 11:53 AM [facility] Monocytes % 7.0 % LAB HEMETOLOGY METHOD 07/20/2024 11:53 AM [facility] Eosinophils % 0.0 % LAB HEMETOLOGY METHOD 07/20/2024 11:53 AM [facility] Basophils % 1.0 % LAB HEMETOLOGY METHOD 07/20/2024 11:53 AM [facility] Neutrophils Absolute Manual 3.61 1.50 - 7.00 K/mcL LAB HEMETOLOGY METHOD 07/20/2024 11:53 AM [facility] Lymphocytes Absolute 3.36 1.00 - 5.00 K/mcL LAB HEMETOLOGY METHOD 07/20/2024 11:53 AM [facility] Reactive Lymph Abs Manual 0.84(H) 0.00 - 0.00 lym LAB HEMETOLOGY METHOD 07/20/2024 11:53 AM [facility] Monocytes Absolute Manual 0.59 0.20 - 1.00 K/mcL LAB HEMETOLOGY METHOD 07/20/2024 11:53 AM [facility] Eosinophils Absolute Manual 0.00 0.00 - 0.50 K/mcL LAB HEMETOLOGY METHOD 07/20/2024 11:53 AM [facility] Basophils Absolute Manual 0.08 0.00 - 0.20 K/mcL LAB HEMETOLOGY METHOD 07/20/2024 11:53 AM [facility] Rbc Morphology Consistent with indices Consistent with indices, Normal for [place] LAB HEMETOLOGY METHOD 07/20/2024 11:53 AM [facility] Platelet Morphology - WAM See Note(A) Normal LAB HEMETOLOGY METHOD 07/20/2024 11:53 AM EST [facility] Comment:PLT: Normal Blood Venous blood specimen / Unknown Venipuncture / Unknown 07/20/2024 5:24 AM EST 07/20/2024 9:35 AM EST us Alisha Davison MD LAB BLOOD ORDERABLES Final Res ult [facility]) [facility] [address] [place] [address], [place] [phone] from Last 3 Months Insurance MEDICARE [facility] Advance Directives Documents on File Type Date 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
--- OUTSIDE RECORDS SUMMARY | 2024-08-27 08:55 | XMS_ITS | Encounter Summary ---
Author Organization [facility] Address [address] [place] [address] Care Team Providers Care Driver Education Instructor Name Role Phone Physician, No Pcp Primary Care Provider Unavaila ble Encounter Details Date Type Department Care Team (Late st Contact Info) Description 07/30/[address] [facility] - Main Lab [address] [facility] [employer] [address] Alisha Davison MD [address] [place] [id number] Encounter for other general examination Social History [...] AM EST) WBC 6.7 4.8 - 10.8 K/[facility] LAB HEMETOLOGY METHOD 07/30/2024 11:28 AM EST [facility] LAB RBC 3.70(L) 3.80 - 4.80 M/[facility] LAB HEMETOLOGY METHOD 07/30/2024 11:28 AM [facility] LAB Hemoglobin 12.2 11.5 - 16.0 g/dL LAB HEMETOLOGY METHOD 07/30/2024 11:28 AM [facility] LAB Hematocrit 35.5 35.0 - 47.0 % LAB HEMETOLOGY METHOD 07/30/2024 11:28 AM [facility] LAB MCV 94.9 79.0 - 98.0 FL LAB HEMETOLOGY METHOD 07/30/2024 11:28 AM [facility] LAB MCH 32.6(H) 27.0 - 32.0 pcg LAB HEMETOLOGY METHOD 07/30/2024 11:28 AM [facility] LAB MCHC 34.4 32.0 - 37.0 g/dL LAB HEMETOLOGY METHOD 07/30/2024 11:28 AM [facility] LAB RDW 12.6 11.0 - 15.0 % LAB HEMETOLOGY METHOD 07/30/2024 11:28 AM [facility] LAB Platelets 218 130 - 400 K/mcL LAB HEMETOLOGY METHOD 07/30/2024 11:28 AM [facility] LAB MPV 9.5 7.0 - 11.0 FL LAB HEMETOLOGY METHOD 07/30/2024 11:28 AM [facility] LAB NRBC 0.0 <1.0 % LAB HEMETOLOGY METHOD 07/30/2024 11:28 AM [facility] LAB NRBC Absolute 0.00 <0.10 K/mcL LAB HEMETOLOGY METHOD 07/30/2024 11:28 AM [facility] LAB Blood Venous blood specimen / Unknown Venipuncture / Unknown 07/30/2024 5:06 AM EST 07/30/2024 10:42 AM EST us Alisha Davison MD LAB BLOOD ORDERABLES Final Res ult [facility] LAB [address] [place] [address], * (ABNORMAL) Comprehensive metabolic panel (07/30/2024 5:06 AM EST) Sodium 134 133 - 145 mmol/L LAB CHEMISTRY METHOD 07/30/2024 11:55 AM [facility] LAB Potassium 3.6 3.5 - 5.5 mmol/L LAB CHEMISTRY METHOD 07/30/2024 11:55 AM [facility] LAB Chloride 97 96 - 110 mmol/L LAB CHEMISTRY METHOD 07/30/2024 11:55 AM [facility] LAB CO2 30 21 - 32 mmol/L LAB CHEMISTRY METHOD 07/30/2024 11:55 AM [facility] LAB Anion Gap 7 3 - 11 LAB CHEMISTRY METHOD 07/30/2024 11:55 AM [facility] LAB Glucose 89 70 - 100 mg/dL LAB CHEMISTRY METHOD 07/30/2024 11:55 AM [facility] LAB BUN 12 5 - 25 mg/dL LAB CHEMISTRY METHOD 07/30/2024 11:55 AM [facility] LAB Creatinine 0.50 0.50 - 1.10 mg/dL LAB CHEMISTRY METHOD 07/30/2024 11:55 AM [facility] LAB eGFR 93 >=60 mL/min/1. 73m2 LAB CHEMISTRY METHOD 07/30/2024 11:55 AM [facility] LAB Comment:Calculation based on the??Chronic Kidney Disease Epidemiology Collaboration (CKD-EPI) equation refit??without adjustment for race. BUN/Creatinine Ratio 24.0 LAB CHEMISTRY METHOD 07/30/2024 11:55 AM [facility] LAB Calcium 9.0 8.5 - 10.5 mg/dL LAB CHEMISTRY METHOD 07/30/2024 11:55 AM [facility] LAB AST (SGOT) 46(H) 10 - 42 unit/L LAB CHEMISTRY METHOD 07/30/2024 11:55 AM [facility] LAB ALT (SGPT) 39 10 - 60 unit/L LAB CHEMISTRY METHOD 07/30/2024 11:55 AM [facility] LAB Alkaline Phosphatase 114 42 - 121 unit/L LAB CHEMISTRY METHOD 07/30/2024 11:55 AM [facility] LAB Total Protein 6.0 6.0 - 8.0 g/dL LAB CHEMISTRY METHOD 07/30/2024 11:55 AM EST [facility] LAB Albumin 3.3 3.2 - 5.0 g/dL LAB CHEMISTRY METHOD 07/30/2024 11:55 AM [facility] LAB Total Bilirubin 0.5 0.0 - 1.4 mg/dL LAB CHEMISTRY METHOD 07/30/2024 11:55 AM [facility] LAB Blood Venous blood specimen / Unknown Venipuncture / Unknown 07/30/2024 5:06 AM EST 07/30/2024 10:42 AM EST us Alisha Davison MD LAB BLOOD ORDERABLES Final Res ult [facility] LAB [address] [place] [address], documented in this encounter Visit Diagnoses Diagnosis Encounter for other general examination documented in this encounter Care Teams Driver Education Instructor Relationship Specialty Start Date End Date Physician, No Pcp PCP - General 07/19/24 documented as of this encounter
--- OUTSIDE RECORDS SUMMARY | 2024-08-27 08:55 | XMS_ITS | Encounter Summary ---
Author Organization [facility] Address [address] [place] [address] Care Team Providers Care Road Machinery Inspector Name Role Phone Physician, No Pcp Primary Care Provider Unavaila ble Encounter Details Date Type Department Care Team (Late st Contact Info) Description 07/22/2024 Lab Requisition [facility] - Main Lab [address] [facility] [place] [address] Alisha Davison MD [address] [place] [phone] Encounter for other general examination Social History [...] PM EST) WBC 9.0 4.8 - 10.8 K/[facility] LAB HEMETOLOGY METHOD 07/22/2024 4:48 PM EST [facility] LAB RBC 3.80 3.80 - 4.80 M/[facility] LAB HEMETOLOGY METHOD 07/22/2024 4:48 PM [facility] LAB Hemoglobin 12.4 11.5 - 16.0 g/dL LAB HEMETOLOGY METHOD 07/22/2024 4:48 PM [facility] LAB Hematocrit 34.2(L) 35.0 - 47.0 % LAB HEMETOLOGY METHOD 07/22/2024 4:48 PM [facility] LAB MCV 91.0 79.0 - 98.0 FL LAB HEMETOLOGY METHOD 07/22/2024 4:48 PM [facility] LAB MCH 33.0(H) 27.0 - 32.0 pcg LAB HEMETOLOGY METHOD 07/22/2024 4:48 PM [facility] LAB MCHC 36.3 32.0 - 37.0 g/dL LAB HEMETOLOGY METHOD 07/22/2024 4:48 PM [facility] LAB RDW 12.1 11.0 - 15.0 % LAB HEMETOLOGY METHOD 07/22/2024 4:48 PM [facility] LAB Platelets 163 130 - 400 K/mcL LAB HEMETOLOGY METHOD 07/22/2024 4:48 PM [facility] LAB MPV 9.9 7.0 - 11.0 FL LAB HEMETOLOGY METHOD 07/22/2024 4:48 PM [facility] LAB NRBC 0.0 <1.0 % LAB HEMETOLOGY METHOD 07/22/2024 4:48 PM [facility] LAB NRBC Absolute 0.00 <0.10 K/mcL LAB HEMETOLOGY METHOD 07/22/2024 4:48 PM [facility] LAB Blood Venous blood specimen / Unknown Venipuncture / Unknown 07/22/2024 2:25 PM EST 07/22/2024 2:51 PM EST us Alisha Davison MD LAB BLOOD ORDERABLES Final Res ult [facility] LAB [address] [place] [address], [place] [phone] * (ABNORMAL) Comprehensive metabolic panel (07/22/2024 2:25 PM EST) Sodium 130(L) 133 - 145 mmol/L LAB CHEMISTRY METHOD 07/22/2024 4:09 PM [facility] LAB Potassium 4.0 3.5 - 5.5 mmol/L LAB CHEMISTRY METHOD 07/22/2024 4:09 PM [facility] LAB Chloride 96 96 - 110 mmol/L LAB CHEMISTRY METHOD 07/22/2024 4:09 PM [facility] LAB CO2 27 21 - 32 mmol/L LAB CHEMISTRY METHOD 07/22/2024 4:09 PM [facility] LAB Anion Gap 7 3 - 11 LAB CHEMISTRY METHOD 07/22/2024 4:09 PM [facility] LAB Glucose 108(H) 70 - 100 mg/dL LAB CHEMISTRY METHOD 07/22/2024 4:09 PM [facility] LAB BUN 21 5 - 25 mg/dL LAB CHEMISTRY METHOD 07/22/2024 4:09 PM [facility] LAB Creatinine 0.51 0.50 - 1.10 mg/dL LAB CHEMISTRY METHOD 07/22/2024 4:09 PM [facility] LAB eGFR 92 >=60 mL/min/1. 73m2 LAB CHEMISTRY METHOD 07/22/2024 4:09 PM [facility] LAB Comment:Calculation based on the??Chronic Kidney Disease Epidemiology Collaboration (CKD-EPI) equation refit??without adjustment for race. BUN/Creatinine Ratio 41.2 LAB CHEMISTRY METHOD 07/22/2024 4:09 PM [facility] LAB Calcium 8.8 8.5 - 10.5 mg/dL LAB CHEMISTRY METHOD 07/22/2024 4:09 PM [facility] LAB AST (SGOT) 19 10 - 42 unit/L LAB CHEMISTRY METHOD 07/22/2024 4:09 PM [facility] LAB ALT (SGPT) 13 10 - 60 unit/L LAB CHEMISTRY METHOD 07/22/2024 4:09 PM [facility] LAB Alkaline Phosphatase 67 42 - 121 unit/L LAB CHEMISTRY METHOD 07/22/2024 4:09 PM [facility] LAB Total Protein 6.0 6.0 - 8.0 g/dL LAB CHEMISTRY METHOD 07/22/2024 4:09 PM [facility] LAB Albumin 3.3 3.2 - 5.0 g/dL LAB CHEMISTRY METHOD 07/22/2024 4:09 PM [facility] LAB Total Bilirubin 0.5 0.0 - 1.4 mg/dL LAB CHEMISTRY METHOD 07/22/2024 4:09 PM [facility] LAB Blood Venous blood specimen / Unknown Venipuncture / Unknown 07/22/2024 2:25 PM EST 07/22/2024 2:51 PM EST us Alisha Davison MD LAB BLOOD ORDERABLES Final Res ult [facility] LAB [address] [place] [address], documented in this encounter Visit Diagnoses Diagnosis Encounter for other general examination documented in this encounter Care Teams Road Machinery Inspector Relationship Specialty Start Date End Date Physician, No Pcp PCP - General 07/19/24 documented as of this encounter
[2024-08-27 10:06] LABS: Appearance Urine Turbid; Color Urine Dark Yellow; Glucose Urine UA Negative (Negative); Leukocyte Esterase Urine Large (3+) (Negative); Nitrite Urine Negative (Negative); Specific Gravity - Urine 1.015 (1.005-1.025); UMIC TRIGGER UACC YES; Urine Blood Small (1+) (Negative); Urine Ketones Negative (Negative); Urine Protein Trace mg/dL (Neg-Trace)
[2024-08-27 10:24] LABS: Bacteria Urine 4+ (None Seen); Hyaline Casts Urine 0-2 /LPF (0-2); Squamous Epithelial Cell Urine 0-2 /HPF (0-2); UACC Culture Trigger YES
== END 2024-08-27 08:11 | disposition home or self-care (01) ==
LOC: HO.HVNA 08:10
PROVIDERS: PCP Internal Medicine; Visit Provider Internal Medicine
DX: N39.0 Urinary tract infection, site not specified (principal)
CPT/HCPCS: 81001; 81003; 87086

== ENCOUNTER 2024-09-10 08:33 | Outpatient (REF) | payer MEDICARE, SELFPAY | END 2024-09-10 08:34 | disposition home or self-care (01) | LOC: HO.HOSX 08:33 | PROVIDERS: Visit Provider Physician Assistant | DX: Z13.89 Encounter for screening for other disorder (principal) ==

== ENCOUNTER 2025-01-06 08:47 | Outpatient (AMB) | payer MEDICARE, SELFPAY ==
--- NOTE | 2025-01-06 08:47 | A.OFFPC_ITS ---
Intake Visit Reasons: Fatigue Allergies No Known Allergies Allergy (Verified 01/06/25 08:47) Tobacco use date assessed: 08/13/24 Fall risk assessment: 1 Fall in past year Last assessed Fall Risk: 01/06/25 Dental Screening Dental Screen Date: 08/13/24 Did you have a dental visit in the last 12 months?: No Did you have a dental problem in the last 6 months where you did not have access to dental care?: No Was dental information given to patient?: Patient declined HPI Fatigue HPI Details 84-year-old female with GERD hypercholes terolemia major depressive disorder calling in for an acute problem through Telehealth last seen in July 2024 having a closed hip fracture UTI and GERD. Review of the notes. family states usually feeling tired - wants to sleep- 2-3 months, no n no fevers, no cough, no no b /b sx PFSH Medical History Vertebral artery stenosis GERD (gastroesophageal reflux disease) Hypercholesterolemia CVA (cerebral vascular accident) Thrombocytopenia Peripheral vascular disease History of esophageal ulcer Spinal stenosis Reflux esophagitis Thoracic compression fracture Osteoporosis Depression Surgical History History of tubal ligation History of tonsillectomy History of appendectomy Family History Father No problems noted. Mother No problems noted. Sister Leukemia Social History Housing: House Alcohol intake: never Patient Tobacco Use Status: Never used Tobacco Tobacco use type: Cigarette e-Cigarette/Vaping Use: Never Used Second Hand Smoke Exposure: No Advance Directives Date on File: 04/02/22 service: No Current occupational status: retired Cognitive needs: Yes (wheelchair) Hearing needs: No Vision needs: No Questionnaire PHQ-9 Over the last 2 weeks, how often have you been bothered by any of the following problems? 1. Little interest or pleasure in doing things: not at all 2. Feeling down, depressed, or hopeless: not at all 3. Trouble falling or staying asleep, or sleeping too much: not at all 4. Feeling tired or having little energy: not at all 5. Poor appetite or overeating: not at all 6. Feeling bad about yourself - or that you are a failure or have let yourself or your family down: not at all 7. Trouble concentrating on things, such as reading the newspaper or watching television: not at all 8. Moving or speaking so slowly that other people could have noticed. Or the opposite - being so fidgety or restless that you have been moving around a lot more than usual: not at all 9. Thoughts that you would be better off or of hurting yourself in some way: not at all Total score: 0 Depression Screening Interpretation: Negative Depression Screening Done: Yes Source: Developed by Drs. Bong Bird, Tammie Mijares, Yonathan Copeland and colleagues, with an educational fish from [employer]. Thrive Questionnaire Date Thrive assessed: 08/13/24 I am a: Patient What is your living situation today?: I have a steady place to live Within the past 12 months, did the food you bought not last and you didn't have the money to get more?: Never true Within the past 12 months, did you worry whether your food would run out before you got money to buy more?: Never true Do you have trouble paying for medicines?: No Do you have trouble getting transportation to medical appointments?: No Do you have trouble paying your heating and electricity bill?: No Do you have trouble taking care of your child, family member or friend?: No Do you have trouble with day-to-day activities such as bathing, preparing meals, shopping, managing finances, etc.?: No Are you currently unemployed and looking for a job?: No Are you interested in more education?: No Please select the resources that you would like help with: None Currently or been in a relationship where the following occur: No concerns reported THRIVE Score: 0 AUDIT C Alcohol Use Questionnaire (AUDIT-C) 1. How often do you have a drink containing alcohol?: Never 3. How often do you have six or more drinks on one occasion?: Never Total Score: 0 ASHLEY-7 AMB Questionnaire ASHLEY-7 Date ASHLEY - 7 assessed: 08/13/24 Feeling nervous, anxious, or on edge: 0 = Not at all Not being able to stop or control worryin = Not at all Worrying too much about different things: 0 = Not at all Trouble relaxin = Not at all Being so restless that it is hard to sit still: 0 = Not at all Becoming easily annoyed or irritable: 0 = Not at all Feeling afraid as if something awful might happen: 0 = Not at all Total ASHLEY-7 score (0-4 normal; 5-9 mild; 10-14 moderate; 15-21 severe): 0 Source: Developed by Drs. Bong Bird, Tammie Mijares, Yonathan Copeland and colleagues, with an educational fish from [email or web address]. Physical exam (Primary Care) Tobacco/Smoking Status: Tobacco use Status Tobacco use date assessed 08/13/24 01/06/25 08:49 Patient Tobacco Use Status Never used Tobacco 01/06/25 08:49 Tobacco use type Cigarette 01/06/25 08:49 e-Cigarette/Vaping Use Never Used 01/06/25 08:49 PHQ-9: PHQ-9 Score PHQ-9: Total score 0 01/06/25 08:49 Depression Screening Interpretation: Negative Thrive Assessment: Date of Thrive Assessment Date Thrive assessed 08/13/24 01/06/25 08:49 Currently or been in a relationship where the following occur: No concerns reported Telehealth Telehealth Telehealth Platform: Telephone Location of provider rendering services: practice address Location of patient: address on file Patient Identification confirmed using: Name, : Yes Telehealth method: voice only Patient verbally consented to treatment: Yes Patient verbally consented to billing insurance company: Yes Patient informed of any privacy concerns related to visit: Yes Minutes spent on Phone/Video with Pt.: 15 Coding Level of Care Code Tele Est Pt Level 3 (95307) Diagnoses Closed trochanteric fracture of hip S72.102A Encounter type: initial encounter Laterality: left Gastroesophageal reflux disease without esophagitis K21.9 Esophagitis presence: without esophagitis Fatigue R53.83 Assessment & Plan Assessment & Plan (1) Closed trochanteric fracture of hip: Code(s): S72.109A - Unspecified trochanteric fracture of unspecified femur, initial encounter for closed fracture Category: Medical Qualifiers: Encounter type: initial encounter Laterality: left Qualified Code(s): S72.102A - Unspecified trochanteric fracture of left femur, initial encounter for closed fracture Plan: Patient has been in physical therapy (2) GERD (gastroesophageal reflux disease): Code(s): K21.9 - Gastro-esophageal reflux disease without esophagitis Category: Medical Qualifiers: Esophagitis presence: without esophagitis Qualified Code(s): K21.9 - Gastro-esophageal reflux disease without esophagitis Plan: Avoid the foods that causes that usually spicy foods, tomato products, juices, coffee, soda and foods that your sensitive to. After eating do not lie down, allow 3-4 hours before in lie down. And keep the head of bed above 30 degrees to avoid the acid from going up. (3) Fatigue: Code(s): R53.83 - Other fatigue Category: Medical Plan: Advised to get workup done as she does not have any other symptoms. Orders: Orders Complete Blood Count Auto Diff Today R53.83 - Other fatigue UA CC w/rflx Micro + Cult Today R30.0 - Dysuria, R53.83 - Other fatigue Free T4 (Free Thyroxine) Today R53.83 - Other fatigue Magnesium Today R53.83 - Other fatigue Comprehensive Met. Panel Today R53.83 - Other fatigue Thyroid Stimulating Hormone Today R53.83 - Other fatigue Vitamin B12 and Folate Today R53.83 - Other fatigue Vitamin D 25-OH Total Today R53.83 - Other fatigue Erythrocyte Sedimentation Rate Today R53.83 - Other fatigue
--- OUTSIDE RECORDS SUMMARY | 2025-01-06 08:57 | XMS_ITS | Encounter Summary ---
Author Organization [facility] Address [address] [place] [address] Care Team Providers Care Emergency Response Officer Name Role Phone Physician, No Pcp Primary Care Provider Unavaila ble Encounter Details Date Type Department Care Team (Late st Contact Info) Description 07/20/2024 Lab Requisition [facility] - Main Lab [address] [facility] [place] [address] Alisha Davison MD [address] [place] [phone] Encounter for other general examination Social History [...] for LAB HEMETOLOGY METHOD 07/20/2024 11:53 AM [facility] LAB Platelet Morphology - WAM See Note(A) Normal LAB HEMETOLOGY METHOD 07/20/2024 11:53 AM [facility] LAB Comment:PLT: Normal Blood Venous blood specimen / Unknown Venipuncture / Unknown 07/20/2024 5:24 AM EST 07/20/2024 9:35 AM EST us Alisha Davison MD LAB BLOOD ORDERABLES Final Res ult [facility] [address] [place] [address], [place] [phone] * (ABNORMAL) CBC auto differential (07/20/2024 5:24 AM EST) WBC 8.4 4.8 - 10.8 K/mcL LAB HEMETOLOGY METHOD 07/20/2024 11:53 AM [facility] LAB RBC 3.90 3.80 - 4.80 M/mcL LAB HEMETOLOGY METHOD 07/20/2024 11:53 AM [facility] LAB HEMETOLOGY METHOD 07/20/2024 11:53 AM EST [facility] LAB RDW 12.3 11.0 - 15.0 % LAB HEMETOLOGY METHOD 07/20/2024 11:53 AM [facility] LAB Platelets 150 130 - 400 K/mcL LAB HEMETOLOGY METHOD 07/20/2024 11:53 AM EST [facility] LAB MPV 10.0 7.0 - 11.0 FL LAB HEMETOLOGY METHOD 07/20/2024 11:53 AM EST [facility] LAB NRBC 0.0 <1.0 % LAB HEMETOLOGY METHOD 07/20/2024 11:53 AM [facility] LAB NRBC Absolute 0.00 <0.10 K/mcL LAB HEMETOLOGY METHOD 07/20/2024 11:53 AM EST [facility] Blood Venous blood specimen / Unknown Venipuncture / Unknown 07/20/2024 5:24 AM EST 07/20/2024 9:35 AM EST us Alisha Davison MD LAB BLOOD ORDERABLES Final Res ult [facility] [address] [place] [address], * (ABNORMAL) Magnesium (07/20/2024 5:24 AM EST) Magnesium 1.8(L) 1.9 - 2.6 mg/dL LAB CHEMISTRY METHOD 07/20/2024 11:00 AM EST [facility] Blood Venous blood specimen / Unknown Venipuncture / Unknown 07/20/2024 5:24 AM EST 07/20/2024 9:35 AM EST us Alisha Davison MD LAB BLOOD ORDERABLES Final Res ult [facility] [address] [place] [address], [place] [phone] * (ABNORMAL) Comprehensive metabolic panel (07/20/2024 5:24 [...] [facility] Comment:Calculation based on the Chronic Kidney Disease Epidemiology Collaboration (CKD-EPI) equation refit without adjustment for race. BUN/Creatinine Ratio 29.2 LAB [...] 07/20/2024 11:00 AM [facility] Alkaline Phosphatase 72 42 - 121 unit/L LAB CHEMISTRY METHOD 07/20/2024 11:00 AM [facility] Total Protein 5.9(L) 6.0 - 8.0 g/dL LAB CHEMISTRY METHOD 07/20/2024 11:00 AM [facility] Albumin 3.3 3.2 - [...] Res ult [facility] [address] [place] [address], documented in this encounter Visit Diagnoses Diagnosis Encounter for other general examination documented in this encounter Care Teams Emergency Response Officer Relationship Specialty Start Date End Date Physician, No Pcp PCP - General 07/19/24 documented as of this encounter
== END 2025-01-06 12:47 | disposition home or self-care (01) ==
LOC: HO.HMCH 08:47
PROVIDERS: PCP Internal Medicine; Visit Provider Internal Medicine
DX: S72.102A Unspecified trochanteric fracture of left femur, initial encounter for closed fracture (principal); K21.9 Gastro-esophageal reflux disease without esophagitis; R53.83 Other fatigue

== ENCOUNTER 2025-01-11 08:57 | Outpatient (REF) | payer MEDICARE, SELFPAY ==
--- OUTSIDE RECORDS SUMMARY | 2025-01-11 11:29 | XMS_ITS | Encounter Summary ---
Author Organization [facility] Address [address] [place] [address] Care Team Providers Care Supervisor Pipeline Name Role Phone Physician, No Pcp Primary Care Provider Unavaila ble Encounter Details Date Type Department Care Team (Late st Contact Info) Description 07/20/2024 Lab Requisition [facility] - Main Lab [address] [facility] [place] [address] Alisha Davison MD [address] [place] [id number] Encounter for other general examination Social History [...] % LAB HEMETOLOGY METHOD 07/20/2024 11:53 AM [facility] Lymphocytes % 40.0 % LAB HEMETOLOGY METHOD 07/20/2024 11:53 AM [facility] Reactive Lymphocyte 10.00 % LAB HEMETOLOGY METHOD 07/20/2024 11:53 AM [facility] Monocytes % 7.0 % LAB HEMETOLOGY METHOD 07/20/2024 11:53 AM [facility] Eosinophils % 0.0 % LAB HEMETOLOGY METHOD 07/20/2024 11:53 AM [facility] Basophils % 1.0 % LAB HEMETOLOGY METHOD 07/20/2024 11:53 AM [facility] Neutrophils Absolute Manual 3.61 1.50 - 7.00 K/mcL LAB HEMETOLOGY METHOD 07/20/2024 11:53 AM [facility] Lymphocytes Absolute 3.36 1.00 - 5.00 K/mcL LAB HEMETOLOGY METHOD 07/20/2024 11:53 AM [facility] Reactive Lymph Abs Manual 0.84(H) 0.00 - 0.00 lym LAB HEMETOLOGY METHOD 07/20/2024 11:53 AM [facility] Monocytes Absolute Manual 0.59 0.20 - 1.00 K/mcL LAB HEMETOLOGY METHOD 07/20/2024 11:53 AM [facility] Eosinophils Absolute Manual 0.00 0.00 - 0.50 K/mcL LAB HEMETOLOGY METHOD 07/20/2024 11:53 AM [facility] Basophils Absolute Manual 0.08 0.00 - 0.20 K/mcL LAB HEMETOLOGY METHOD 07/20/2024 11:53 AM [facility] Rbc Morphology Consistent with indices Consistent with indices, Normal for LAB HEMETOLOGY METHOD 07/20/2024 11:53 AM [facility] Platelet Morphology - WAM See Note(A) Normal LAB HEMETOLOGY METHOD 07/20/2024 11:53 AM [facility] Comment:PLT: Normal Blood Venous blood specimen / Unknown Venipuncture / Unknown 07/20/2024 5:24 AM EST 07/20/2024 9:35 AM EST us Alisha Davison MD LAB BLOOD ORDERABLES Final Res ult [facility] [address] [place] [address], [place] [phone] * (ABNORMAL) CBC auto differential (07/20/2024 5:24 AM EST) WBC 8.4 4.8 - 10.8 K/mcL LAB HEMETOLOGY METHOD 07/20/2024 11:53 AM [facility] RBC 3.90 3.80 - 4.80 M/mcL LAB HEMETOLOGY METHOD 07/20/2024 11:53 AM [facility] Hemoglobin 12.9 11.5 - 16.0 g/dL LAB HEMETOLOGY METHOD 07/20/2024 11:53 AM [facility] Hematocrit 37.0 35.0 - 47.0 % LAB HEMETOLOGY METHOD 07/20/2024 11:53 AM [facility] MCV 95.1 79.0 - 98.0 FL LAB HEMETOLOGY METHOD 07/20/2024 11:53 AM [facility] MCH 33.2(H) 27.0 - 32.0 pcg LAB HEMETOLOGY METHOD 07/20/2024 11:53 AM [facility] MCHC 34.9 32.0 - 37.0 g/dL LAB HEMETOLOGY METHOD 07/20/2024 11:53 AM EST [facility] RDW 12.3 11.0 - 15.0 % LAB HEMETOLOGY METHOD 07/20/2024 11:53 AM [facility] Platelets 150 130 - 400 K/mcL LAB HEMETOLOGY METHOD 07/20/2024 11:53 AM EST [facility] MPV 10.0 7.0 - 11.0 FL LAB HEMETOLOGY METHOD 07/20/2024 11:53 AM EST [facility] NRBC 0.0 <1.0 % LAB HEMETOLOGY METHOD 07/20/2024 11:53 AM [facility] NRBC Absolute 0.00 <0.10 K/mcL LAB HEMETOLOGY METHOD 07/20/2024 11:53 AM EST [facility] Blood Venous blood specimen / Unknown Venipuncture / Unknown 07/20/2024 5:24 AM EST 07/20/2024 9:35 AM EST us Alisha Davison MD LAB BLOOD ORDERABLES Final Res ult [facility] [address] [place] [address], * (ABNORMAL) Magnesium (07/20/2024 5:24 AM EST) Magnesium 1.8(L) 1.9 - 2.6 mg/dL LAB CHEMISTRY METHOD 07/20/2024 11:00 AM EST [facility] Blood Venous blood specimen / Unknown Venipuncture / Unknown 07/20/2024 5:24 AM EST 07/20/2024 9:35 AM EST us Alisha Davison MD LAB BLOOD ORDERABLES Final Res ult [facility] [address] [place] [address], [place] [phone] * (ABNORMAL) Comprehensive metabolic panel (07/20/2024 5:24 AM EST) Sodium 132(L) 133 - 145 mmol/L LAB CHEMISTRY METHOD 07/20/2024 11:00 AM [facility] Potassium 3.6 3.5 - 5.5 mmol/L LAB CHEMISTRY METHOD 07/20/2024 11:00 AM [facility] Chloride 98 96 - 110 mmol/L LAB CHEMISTRY METHOD 07/20/2024 11:00 AM [facility] CO2 27 21 - 32 mmol/L LAB CHEMISTRY METHOD 07/20/2024 11:00 AM [facility] Anion Gap 7 3 - 11 LAB CHEMISTRY METHOD 07/20/2024 11:00 AM [facility] Glucose 96 70 - 100 mg/dL LAB CHEMISTRY METHOD 07/20/2024 11:00 AM [facility] BUN 14 5 - 25 mg/dL LAB CHEMISTRY METHOD 07/20/2024 11:00 AM [facility] Creatinine 0.48(L) 0.50 - 1.10 mg/dL LAB CHEMISTRY METHOD 07/20/2024 11:00 AM [facility] eGFR 94 >=60 mL/min/1. 73m2 LAB CHEMISTRY METHOD 07/20/2024 11:00 AM [facility] Comment:Calculation based on the Chronic Kidney Disease Epidemiology Collaboration (CKD-EPI) equation refit without adjustment for race. BUN/Creatinine Ratio 29.2 LAB CHEMISTRY METHOD 07/20/2024 11:00 AM [facility] Calcium 8.8 8.5 - 10.5 mg/dL LAB CHEMISTRY METHOD 07/20/2024 11:00 AM [facility] AST (SGOT) 15 10 - 42 unit/L LAB CHEMISTRY METHOD 07/20/2024 11:00 AM [facility] ALT (SGPT) 13 10 - 60 unit/L LAB CHEMISTRY METHOD 07/20/2024 11:00 AM [facility] Alkaline Phosphatase 72 42 - 121 unit/L LAB CHEMISTRY METHOD 07/20/2024 11:00 AM [facility] Total Protein 5.9(L) 6.0 - 8.0 g/dL LAB CHEMISTRY METHOD 07/20/2024 11:00 AM [facility] Albumin 3.3 3.2 - 5.0 g/dL LAB CHEMISTRY METHOD 07/20/2024 11:00 AM [facility] Total Bilirubin 0.9 0.0 - 1.4 mg/dL LAB CHEMISTRY METHOD 07/20/2024 11:00 AM [facility] Blood Venous blood specimen / Unknown Venipuncture / Unknown 07/20/2024 5:24 AM EST 07/20/2024 9:35 AM EST us Alisha Davison MD LAB BLOOD ORDERABLES Final Res ult [facility] [address] [place] [address], documented in this encounter Visit Diagnoses Diagnosis Encounter for other general examination documented in this encounter Care Teams Supervisor Pipeline Relationship Specialty Start Date End Date Physician, No Pcp PCP - General 07/19/24 documented as of this encounter
[2025-01-11 13:31] LABS: Appearance Urine Clear; Glucose Urine UA Negative (Negative); PH 7.5 (5.0-9.0); Specific Gravity - Urine 1.010 (1.005-1.025)
== END 2025-01-11 08:58 | disposition home or self-care (01) ==
LOC: HO.HMGCLNP 08:57
PROVIDERS: PCP Internal Medicine; Visit Provider Internal Medicine
DX: R30.0 Dysuria (principal); R53.83 Other fatigue
CPT/HCPCS: 81003

== ENCOUNTER 2025-03-07 12:39 | Outpatient (AMB) | payer MEDICARE, SELFPAY ==
--- NOTE | 2025-03-07 12:39 | MHC.PC.OV ---
Intake Visit Reasons: Rehab Follow Up Allergies No Known Allergies Allergy (Verified 03/07/25 12:40) Tobacco use date assessed: 08/13/24 Fall risk assessment: No Falls in past year Last assessed Fall Risk: 03/07/25 Dental Screening Dental Screen Date: 08/13/24 HPI Rehab Follow Up HPI Details at home, , with assitance, walker use, on aspirin and mitazapine. apetitte is stable. weight stable . asking for services at home as daughter works [facility] Medical History Vertebral artery stenosis GERD (gastroesophageal reflux disease) Hypercholesterolemia CVA (cerebral vascular accident) Thrombocytopenia Peripheral vascular disease History of esophageal ulcer Spinal stenosis Reflux esophagitis Thoracic compression fracture Osteoporosis Depression Surgical History History of tubal ligation History of tonsillectomy History of appendectomy Family History Father No problems noted. Mother No problems noted. Sister Leukemia Social History Housing: House Alcohol intake: never Patient Tobacco Use Status: Never used Tobacco Tobacco use type: Cigarette e-Cigarette/Vaping Use: Never Used Second Hand Smoke Exposure: No Advance Directives Date on File: 04/02/22 service: No Current occupational status: retired Cognitive needs: Yes (wheelchair) Hearing needs: No Vision needs: No Questionnaire Thrive Questionnaire Date Thrive assessed: 08/13/24 ASHLEY-7 AMB Questionnaire ASHLEY-7 Date ASHLEY - 7 assessed: 08/13/24 Source: Developed by Drs. Bong Bird, Tammie Mijares, Yonathan Copeland and colleagues, with an educational fish from [employer]. Physical exam (Primary Care) Tobacco/Smoking Status: Tobacco use Status Tobacco use date assessed 08/13/24 03/07/25 12:40 Patient Tobacco Use Status Never used Tobacco 03/07/25 12:40 Tobacco use type Cigarette 03/07/25 12:40 e-Cigarette/Vaping Use Never Used 03/07/25 12:40 Thrive Assessment: Date of Thrive Assessment Date Thrive assessed 08/13/24 03/07/25 12:40 Telehealth Telehealth Telehealth Platform: Telephone Location of provider rendering services: practice address Location of patient: address on file Patient Identification confirmed using: Name, : Yes Telehealth method: video (Iphone) Patient verbally consented to treatment: Yes Patient verbally consented to billing insurance company: Yes Patient informed of any privacy concerns related to visit: Yes Minutes spent on Phone/Video with Pt.: 25 Coding Level of Care Code Tele Est Pt Level 4 (05355) Diagnoses Closed trochanteric fracture of hip S72.102A Encounter type: initial encounter Laterality: left Gastroesophageal reflux disease without esophagitis K21.9 Esophagitis presence: without esophagitis Hypercholesterolemia E78.00 Major depressive disorder F32.9 Colonoscopy refused Z53.20 Mammogram declined Z53.20 Bone density scan declined Z53.20 Assessment & Plan Assessment & Plan (1) Closed trochanteric fracture of hip: Code(s): S72.109A - Unspecified trochanteric fracture of unspecified femur, initial encounter for closed fracture Category: Medical Qualifiers: Encounter type: initial encounter Laterality: left Qualified Code(s): S72.102A - Unspecified trochanteric fracture of left femur, initial encounter for closed fracture Plan: declined vaccine , bone density, , decline mammogram (2) GERD (gastroesophageal reflux disease): Code(s): K21.9 - Gastro-esophageal reflux disease without esophagitis Category: Medical Qualifiers: Esophagitis presence: without esophagitis Qualified Code(s): K21.9 - Gastro-esophageal reflux disease without esophagitis (3) Hypercholesterolemia: Code(s): E78.00 - Pure hypercholesterolemia, unspecified Category: Medical (4) Major depressive disorder: Code(s): F32.9 - Major depressive disorder, single episode, unspecified Category: Medical (5) Colonoscopy refused: Code(s): Z53.20 - Procedure and treatment not carried out because of patient's decision for unspecified reasons Category: Medical (6) Mammogram declined: Code(s): Z53.20 - Procedure and treatment not carried out because of patient's decision for unspecified reasons Category: Medical (7) Bone density scan declined: Code(s): Z53.20 - Procedure and treatment not carried out because of patient's decision for unspecified reasons Category: Medical Plan History of Present Illness The patient is an 84-year-old female presenting with a follow-up after a recent hospitalization and rehabilitation. The patient has a history of Gastroesophageal Reflux Disease (GERD), which has been managed with lifestyle modifications and medications as needed. She also has Major Depressive Disorder, which has been a long-standing condition managed with Mirtazapine. Hypercholesterolemia is another chronic condition, though specific management details were not discussed in this visit. The patient experienced a closed thoracic fracture of the hip, which has impacted her mobility and required rehabilitation. She was recently diagnosed with metabolic encephalopathy and an E. coli urinary tract infection, which led to her hospitalization. Idiopathic normal pressure hydrocephalus and vascular dementia are part of her neurological history, contributing to her cognitive and functional decline. The patient has a history of falls and a cerebrovascular accident, which have further complicated her physical deconditioning. She is legally blind, which affects her daily activities and requires assistance. Recent imaging revealed T11, T12, L1, and L2 compression fractures, contributing to her mobility issues. Laboratory tests showed anemia and thrombocytopenia, with normal electrolytes, renal function, and blood sugar levels. Health Maintenance - Blood work in February showed anemia and thrombocytopenia, with normal electrolytes, renal function, and blood sugar levels. - Urine test in December was normal. Social History - The patient resides with her family, who assist with her daily activities due to her visual impairment and mobility issues. - She requires assistance with meals and personal care due to her vision issues and functional limitations. Review of Systems - Neurological: Reports difficulty with mobility and balance, denies recent cerebrovascular accident. - Gastrointestinal: Reports vomiting episode in January, denies ongoing gastrointestinal symptoms. - Hematological: Reports history of anemia and thrombocytopenia. - Musculoskeletal: Reports difficulty ambulating due to hip fracture and compression fractures. Physical Exam General: Cooperative, healthy appearing, comfortable, no acute distress and well developed Orientation: Patient oriented x3 Limitations: Uses a walker with a lot of assistance for mobility Head: Normal to inspection Ears: Hearing grossly normal bilaterally Nose: Normal external nose present Face and sinus: Normal facial exam Eyes: Legally blind Neck: Normal visual inspection and Yes full ROM Respiratory: Normal respiratory effort and able to speak in complete sentences. Clear to auscultation bilaterally Cardiovascular: Regular rate and rhythm. Normal S1 and S2 GI: Normal to inspection. Soft to palpation and nontender Skin: No rashes or lesions noted Neuro: Patient oriented x3 Extremities: Normal to inspection, uses a walker with assistance Results - Labs: Anemia with hemoglobin 11.8 g/dL, hematocrit 32%, mild thrombocytopenia. - Imaging: No cerebrovascular accident on MRI, T11, T12, L1, L2 compression fractures noted. - Urine: Normal results in December. Plan Patient was informed and verbally consented to the use of an ambient scribe for clinic note documentation during this visit. 1. Gastroesophageal Reflux Disease (Gerd) Management of GERD includes lifestyle modifications and medications as needed. 2. Major Depressive Disorder The patient is currently managed with Mirtazapine for her depressive symptoms. 3. Hypercholesterolemia Hypercholesterolemia management was not specifically discussed during this visit. 4. Closed Thoracic Fracture Of The Hip The patient has undergone rehabilitation for her hip fracture to improve mobility. 5. Metabolic Encephalopathy The patient was hospitalized for metabolic encephalopathy, which has since been managed. 6. E. Coli Urinary Tract Infection The E. coli urinary tract infection was treated during her recent hospitalization. 7. Idiopathic Normal Pressure Hydrocephalus Idiopathic normal pressure hydrocephalus is part of her ongoing neurological management. 8. Vascular Dementia Vascular dementia is being managed as part of her neurological care. 9. Anemia Anemia was noted in recent lab work, with hemoglobin at 11.8 g/dL and hematocrit at 32%. 10. Thrombocytopenia Mild thrombocytopenia was observed in recent lab results. Discussion Notes During the visit, we discussed the patient's recent hospitalization for metabolic encephalopathy and E. coli urinary tract infection, which have been managed. We also reviewed her ongoing management for conditions such as GERD, major depressive disorder, and vascular dementia. The importance of maintaining hydration and proper nutrition was emphasized, along with the need for assistance due to her visual impairment and mobility issues. Patient Instructions - Continue with prescribed medications, including Mirtazapine. - Maintain hydration and a balanced diet. - Use assistance for mobility and daily activities as needed. - Monitor for any new or worsening symptoms and report them promptly.
--- OUTSIDE RECORDS SUMMARY | 2025-03-07 17:22 | XMS_ITS | Encounter Summary ---
Author Organization [facility] Address [address] [place] [address] Care Team Providers Care Roller Coaster Designer Name Role Phone Physician, No Pcp Primary Care Provider Unavaila ble Encounter Details Date Type Department Care Team (Late st Contact Info) Description 08/03/2024 Lab Requisition [facility] - Main Lab [address] [facility] [place] [address] Alisha Davison MD [address] [place] [id number] Encounter for other general examination Social History [...] AM EST) WBC 7.4 4.8 - 10.8 K/[facility] LAB HEMETOLOGY METHOD 08/03/2024 9:[address] [facility] RBC 3.20(L) 3.80 - 4.80 M/mcL LAB HEMETOLOGY METHOD 08/03/2024 9:[address] [facility] Hemoglobin 10.7(L) 11.5 - 16.0 g/dL LAB HEMETOLOGY METHOD 08/03/2024 9:[address] [facility] LAB Hematocrit 31.7(L) 35.0 - 47.0 % LAB HEMETOLOGY METHOD 08/03/2024 9:[address] [facility] LAB MCV 98.1(H) 79.0 - 98.0 FL LAB HEMETOLOGY METHOD 08/03/2024 9:[address] [facility] LAB MCH 33.1(H) 27.0 - 32.0 pcg LAB HEMETOLOGY METHOD 08/03/2024 9:[address] [facility] LAB MCHC 33.8 32.0 - 37.0 g/dL LAB HEMETOLOGY METHOD 08/03/2024 9:[address] [facility] RDW 12.6 11.0 - 15.0 % LAB HEMETOLOGY METHOD 08/03/2024 9:[address] [facility] Platelets 211 130 - 400 K/mcL LAB HEMETOLOGY METHOD 08/03/2024 9:[address] [facility] MPV 9.5 7.0 - 11.0 FL LAB HEMETOLOGY METHOD 08/03/2024 9:[address] [facility] NRBC 0.0 <1.0 % LAB HEMETOLOGY METHOD 08/03/2024 9:[address] [facility] NRBC Absolute 0.00 <0.10 K/mcL LAB HEMETOLOGY METHOD 08/03/2024 9:[address] [facility] Blood Venous blood specimen / Unknown Venipuncture / Unknown 08/03/2024 6:30 AM EST 08/03/2024 8:31 AM EST us Alisha Davison MD LAB BLOOD ORDERABLES Final Res ult [facility] [address] [place] [address], [place] [phone] * Basic metabolic panel (08/03/2024 6:30 AM EST) Sodium 138 133 - 145 mmol/L LAB CHEMISTRY METHOD 08/03/2024 9:[address] [facility] Potassium 3.8 3.5 - 5.5 mmol/L LAB CHEMISTRY METHOD 08/03/2024 9:[address] [facility] Chloride 102 96 - 110 mmol/L LAB CHEMISTRY METHOD 08/03/2024 9:[address] [facility] CO2 30 21 - 32 mmol/L LAB CHEMISTRY METHOD 08/03/2024 9:[address] [facility] Anion Gap 6 3 - 11 LAB CHEMISTRY METHOD 08/03/2024 9:[address] [facility] Glucose 92 70 - 100 mg/dL LAB CHEMISTRY METHOD 08/03/2024 9:[address] [facility] BUN 19 5 - 25 mg/dL LAB CHEMISTRY METHOD 08/03/2024 9:[address] [facility] Creatinine 0.52 0.50 - 1.10 mg/dL LAB CHEMISTRY METHOD 08/03/2024 9:[address] [facility] LAB eGFR 92 >=60 mL/min/1. 73m2 LAB CHEMISTRY METHOD 08/03/2024 9:[address] [facility] LAB Comment:Calculation based on the Chronic Kidney Disease Epidemiology Collaboration (CKD-EPI) equation refit without adjustment for race. BUN/Creatinine Ratio 36.5 LAB CHEMISTRY METHOD 08/03/2024 9:[address] [facility] Calcium 8.8 8.5 - 10.5 mg/dL LAB CHEMISTRY METHOD 08/03/2024 9:57 AM EST [facility] Blood Venous blood specimen / Unknown Venipuncture / Unknown 08/03/2024 6:30 AM EST 08/03/2024 8:31 AM EST us Alisha Davison MD LAB BLOOD ORDERABLES Final Res ult [facility] [address] [place] [address], documented in this encounter Visit Diagnoses Diagnosis Encounter for other general examination documented in this encounter Care Teams Roller Coaster Designer Relationship Specialty Start Date End Date Physician, No Pcp PCP - General 07/19/24 documented as of this encounter
--- OUTSIDE RECORDS SUMMARY | 2025-03-07 17:22 | XMS_ITS | Encounter Summary ---
Author Organization [facility] Address [address] [place] [address] Care Team Providers Care Pan Washer Hand Name Role Phone Physician, No Pcp Primary Care Provider Unavaila ble Encounter Details Date Type Department Care Team (Late st Contact Info) Description 07/30/2024 Lab Requisition [facility] - Main Lab 299 [facility] [place] [address] Alisha Davison MD [address] [place] [phone] Encounter for other general examination Social History [...] AM EST) WBC 6.7 4.8 - 10.8 K/[facility] LAB HEMETOLOGY METHOD 07/30/2024 11:28 AM EST [facility] LAB RBC 3.70(L) 3.80 - 4.80 M/[facility] LAB HEMETOLOGY METHOD 07/30/2024 11:28 AM [facility] LAB Hemoglobin 12.2 11.5 - 16.0 g/dL LAB HEMETOLOGY METHOD 07/30/2024 11:28 AM [facility] LAB Hematocrit 35.5 35.0 - 47.0 % LAB HEMETOLOGY METHOD 07/30/2024 11:28 AM [facility] LAB MCV 94.9 79.0 - 98.0 FL LAB HEMETOLOGY METHOD 07/30/2024 11:28 AM [facility] LAB MCH 32.6(H) 27.0 - 32.0 pcg LAB HEMETOLOGY METHOD 07/30/2024 11:28 AM [facility] LAB MCHC 34.4 32.0 - 37.0 g/dL LAB HEMETOLOGY METHOD 07/30/2024 11:28 AM [facility] LAB RDW 12.6 11.0 - 15.0 % LAB HEMETOLOGY METHOD 07/30/2024 11:28 AM [facility] LAB Platelets 218 130 - 400 K/mcL LAB HEMETOLOGY METHOD 07/30/2024 11:28 AM [facility] LAB MPV 9.5 7.0 - 11.0 FL LAB HEMETOLOGY METHOD 07/30/2024 11:28 AM [facility] LAB NRBC 0.0 <1.0 % LAB HEMETOLOGY METHOD 07/30/2024 11:28 AM [facility] LAB NRBC Absolute 0.00 <0.10 K/mcL LAB HEMETOLOGY METHOD 07/30/2024 11:28 AM [facility] LAB Blood Venous blood specimen / Unknown Venipuncture / Unknown 07/30/2024 5:06 AM EST 07/30/2024 10:42 AM EST us Alisha Davison MD LAB BLOOD ORDERABLES Final Res ult [facility] LAB [address] [place] [address], * (ABNORMAL) Comprehensive metabolic panel (07/30/2024 5:06 AM EST) Sodium 134 133 - 145 mmol/L LAB CHEMISTRY METHOD 07/30/2024 11:55 AM [facility] LAB Potassium 3.6 3.5 - 5.5 mmol/L LAB CHEMISTRY METHOD 07/30/2024 11:55 AM [facility] LAB Chloride 97 96 - 110 mmol/L LAB CHEMISTRY METHOD 07/30/2024 11:55 AM [facility] LAB CO2 30 21 - 32 mmol/L LAB CHEMISTRY METHOD 07/30/2024 11:55 AM [facility] LAB Anion Gap 7 3 - 11 LAB CHEMISTRY METHOD 07/30/2024 11:55 AM [facility] LAB Glucose 89 70 - 100 mg/dL LAB CHEMISTRY METHOD 07/30/2024 11:55 AM [facility] LAB BUN 12 5 - 25 mg/dL LAB CHEMISTRY METHOD 07/30/2024 11:55 AM [facility] LAB Creatinine 0.50 0.50 - 1.10 mg/dL LAB CHEMISTRY METHOD 07/30/2024 11:55 AM [facility] LAB eGFR 93 >=60 mL/min/1. 73m2 LAB CHEMISTRY METHOD 07/30/2024 11:55 AM [facility] LAB Comment:Calculation based on the Chronic Kidney Disease Epidemiology Collaboration (CKD-EPI) equation refit without adjustment for race. BUN/Creatinine Ratio 24.0 LAB CHEMISTRY METHOD 07/30/2024 11:55 AM [facility] LAB Calcium 9.0 8.5 - 10.5 mg/dL LAB CHEMISTRY METHOD 07/30/2024 11:55 AM [facility] LAB AST (SGOT) 46(H) 10 - 42 unit/L LAB CHEMISTRY METHOD 07/30/2024 11:55 AM [facility] LAB ALT (SGPT) 39 10 - 60 unit/L LAB CHEMISTRY METHOD 07/30/2024 11:55 AM [facility] LAB Alkaline Phosphatase 114 42 - 121 unit/L LAB CHEMISTRY METHOD 07/30/2024 11:55 AM [facility] LAB Total Protein 6.0 6.0 - 8.0 g/dL LAB CHEMISTRY METHOD 07/30/2024 11:55 AM [facility] LAB Albumin 3.3 3.2 - 5.0 g/dL LAB CHEMISTRY METHOD 07/30/2024 11:55 AM [facility] LAB Total Bilirubin 0.5 0.0 - 1.4 mg/dL LAB CHEMISTRY METHOD 07/30/2024 11:55 AM [facility] LAB Blood Venous blood specimen / Unknown Venipuncture / Unknown 07/30/2024 5:06 AM EST 07/30/2024 10:42 AM EST us Alisha Davison MD LAB BLOOD ORDERABLES Final Res ult [facility] [address] [place] [address], [place] [phone] documented in this encounter Visit Diagnoses Diagnosis Encounter for other general examination documented in this encounter Care Teams Pan Washer Hand Relationship Specialty Start Date End Date Physician, No Pcp PCP - General 07/19/24 documented as of this encounter
--- OUTSIDE RECORDS SUMMARY | 2025-03-07 17:22 | XMS_ITS | Encounter Summary ---
Author Organization [facility] Address [address] [place] [address] Care Team Providers Care Air Grinder Name Role Phone Physician, No Pcp Primary Care Provider Unavaila ble Encounter Details Date Type Department Care Team (Late st Contact Info) Description 08/03/2024 Lab Requisition [facility] - Main Lab 299 [facility] [place] [address] Alisha Davison MD [address] [place] [phone] Encounter for other general examination Social History [...] Escherichia coli(A) MIRELLA 08/07/2024 11:16 AM EST [facility] LAB Comment: This is an edited result. Previous organism was Gram negative bacilli on 08/04/2024 at 0853 EST. Culture, Urine <10,000 CFU/mL Proteus mirabilis(A) MIRELLA 08/07/2024 11:16 AM EST [facility] LAB Comment: Edited result: Previously reported as Proteus species on 08/06/2024 at 1407 EST. Culture, Urine 10,000-49,000 CFU/mL Pseudomonas aeruginosa(A) MIRELLA 08/07/2024 11:16 AM EST [facility] LAB Comment: The organism value for [...] MICROBIOLOGY - GENERAL ORD ERABLES Final Result [facility] LAB [address] [place] [address], * (ABNORMAL) Urinalysis with reflex microscopic and culture (08/03/2024 4:30 AM EST) Specific Todd Urine 1.023 1.003 - 1.030 LAB URINALYSIS - AUTOMATED METHOD 08/03/2024 9:42 AM EST [facility] LAB pH, Urine 5.5 5.0 - 8.0 pH LAB URINALYSIS - AUTOMATED METHOD 08/03/2024 9:42 AM [facility] LAB Leukocytes, Urine Moderate(A) Negative LAB URINALYSIS - AUTOMATED METHOD 08/03/2024 9:42 AM [facility] LAB Nitrite, Urine Negative Negative LAB URINALYSIS - AUTOMATED METHOD 08/03/2024 9:42 AM [facility] LAB Protein, Urine Trace <=Trace mg/dL LAB URINALYSIS - AUTOMATED METHOD 08/03/2024 9:42 AM [facility] LAB Glucose, Urine Negative Negative mg/dL LAB URINALYSIS - AUTOMATED METHOD 08/03/2024 9:42 AM [facility] Ketones, Urine Negative Negative mg/dL LAB URINALYSIS - AUTOMATED METHOD 08/03/2024 9:42 AM [facility] LAB Urobilinogen , Urine 0.2 0.2 - 1.0 mg/dL LAB URINALYSIS - AUTOMATED METHOD 08/03/2024 9:42 AM [facility] LAB Bilirubin, Urine Negative Negative LAB URINALYSIS - AUTOMATED METHOD 08/03/2024 9:42 AM [facility] LAB Blood, Urine Trace(A) Negative LAB URINALYSIS - AUTOMATED METHOD 08/03/2024 9:42 AM [facility] LAB RBC, Urine 2.5 0 - 4 /HPF LAB URINALYSIS - AUTOMATED METHOD 08/03/2024 9:42 AM [facility] LAB WBC, Urine 147.7(H) 0 - 4 /HPF LAB URINALYSIS - AUTOMATED METHOD 08/03/2024 9:42 AM [facility] LAB Squamous Epithelial, Urine 9 0 - 60 /LPF LAB URINALYSIS - AUTOMATED METHOD 08/03/2024 9:42 AM [facility] LAB Bacteria, Urine Many(A) Negative /HPF LAB URINALYSIS - AUTOMATED METHOD 08/03/2024 9:42 AM EST [facility] Hyaline Casts, Urine 13.9(H) 0 - 3 /LPF LAB URINALYSIS - AUTOMATED METHOD 08/03/2024 9:42 AM EST [facility] LAB Urine Urinary bladder structure / Unknown 08/03/2024 4:30 AM EST 08/03/2024 9:04 AM EST us Alisha Davison MD LAB URINE ORDERABLES Final Res ult Performing Organization Address City/[facility]/ZIP Co de Phone Number [facility] LAB [address] [place] [address], [place] [phone] * Rao urine culture tube (08/03/2024 4:30 AM EST) Extra Tube Hold for add-ons. 08/03/2024 11:01 AM [facility] LAB Comment:Auto resulted. Urine Urinary bladder structure / Unknown 08/03/2024 4:30 AM EST 08/03/2024 9:04 AM EST us Alisha Davison MD LAB URINE ORDERABLES Final Res ult [facility] LAB [address] [place] [address], [place] [phone] documented in this encounter Visit Diagnoses Diagnosis Encounter for other general examination documented in this encounter Care Teams Air Grinder Relationship Specialty Start Date End Date Physician, No Pcp PCP - General 07/19/24 documented as of this encounter
--- OUTSIDE RECORDS SUMMARY | 2025-03-07 17:22 | XMS_ITS | Encounter Summary ---
Author Organization [facility] Address [address] [place] [address] Care Team Providers Care Silverer Name Role Phone Physician, No Pcp Primary Care Provider Unavaila ble Encounter Details Date Type Department Care Team (Late st Contact Info) Description 07/26/2024 Lab Requisition [facility] - Main Lab 299 [facility] [place] [address] Alisha Davison MD [address] [place] [phone] Encounter for other general examination Social History [...] LAB CHEMISTRY METHOD 07/26/2024 10:44 AM EST [facility] Blood Venous blood specimen / Unknown Venipuncture / Unknown 07/26/2024 5:24 AM EST 07/26/2024 8:31 AM EST us Alisha Davison MD LAB BLOOD ORDERABLES Final Res ult [facility] [address] [place] [address], * (ABNORMAL) Complete blood count (07/26/2024 5:24 [...] LAB HEMETOLOGY METHOD 07/26/2024 10:23 AM EST [facility] LAB MPV 9.8 7.0 - 11.0 FL LAB HEMETOLOGY METHOD 07/26/2024 10:23 AM EST [facility] LAB NRBC 0.0 <1.0 % LAB HEMETOLOGY METHOD 07/26/2024 10:23 AM EST [facility] LAB NRBC Absolute 0.00 <0.10 K/mcL LAB HEMETOLOGY METHOD 07/26/2024 10:23 AM EST [facility] LAB Blood Venous blood specimen / Unknown Venipuncture / Unknown 07/26/2024 5:24 AM EST 07/26/2024 8:31 AM EST us Alisha Davison MD LAB BLOOD ORDERABLES Final Res ult [facility] [address] [place] [address], * (ABNORMAL) Comprehensive metabolic panel (07/26/2024 5:24 [...] refit without adjustment for race. BUN/Creatinine Ratio 39.6 LAB [...] MD LAB BLOOD ORDERABLES Final Res ult [facility] ([facility]) [facility] [address] [place] [address], documented in this encounter Visit Diagnoses Diagnosis Encounter for other general examination documented in this encounter Care Teams Silverer Relationship Specialty Start Date End Date Physician, No Pcp PCP - General 07/19/24 documented as of this encounter
--- OUTSIDE RECORDS SUMMARY | 2025-03-07 17:22 | XMS_ITS | Clinical Summary ---
Author Organization [facility] Address [address] [place] [address] Phone Care Team Providers Care Starcher And Tenter Range Feeder Name Role Phone Physician, No Pcp Primary Care Provider Unavaila ble Social History Tobacco Use Types Packs/Day Years [...] Vaccines (1 of 2) 11/25/1989 RSV Immunization Adult Patie nts (1 - 1-dose 75+ series) 11/25/2014 Depression Screening 06/23/2024 Falls Risk Assessment 07/19/2024 Medicare Annual Wellness Visit 07/19/2024 Osteoporosis Screening (Bone Density Screening) 07/19/2024 Social Influencers of Health Screening 07/19/2024 COVID-19 Vaccine (1 - 2023-2 5 season) 2025 Influenza Vaccine (#1) 2025 HIB Vaccines Aged Out No longer eligi [...] age to complete this topic Meningococcal B Vaccine Aged Out No l onger eligible based on patient's age to complete this topic RSV Immunization Patients Un fabricio 20 months Aged Out No longer eligible b ased on patient's age to complete this topic Varicella Vaccines Aged Out No longer eligible based on patient's age to complete this topic Insurance MEDICARE [facility] Advance Directives Documents on File Type Date Recorded Patient Dining Room Hostess Expl anation Health Care Decision (hx) 03/15/2020 AD ALYSSA DIRECTIVE Care Teams Starcher And Tenter Range Feeder Relationship Specialty Start Date End Date Physician, No Pcp PCP - General 07/19/24
--- OUTSIDE RECORDS SUMMARY | 2025-03-07 17:22 | XMS_ITS | Encounter Summary ---
Author Organization [facility] Address [address] [place] [address] Care Team Providers Care Pole Peeling Machine Operator Helper Name Role Phone Physician, No Pcp Primary Care Provider Unavaila ble Encounter Details Date Type Department Care Team (Late st Contact Info) Description 07/23/2024 Lab Requisition [facility] - Main Lab 299 [facility] [place] [address] Alisha Davison MD [address] [place] [address] Encounter for other general examination Social History [...] LAB CHEMISTRY METHOD 07/23/2024 12:57 PM EST [facility] ([facility] Urine Urine specimen obtained by clean catch procedure / Unknown Non-blood Collection / Unknown 07/23/2024 11:30 AM EST 07/23/2024 12:29 PM EST us Alisha Davison MD LAB URINE ORDERABLES Final Res ult Performing Organization Address [facility] Co de Phone Number [facility] [address] [place] [address], [place] [phone] * Osmolality, urine (07/23/2024 11:30 AM EST) Osmolality, Urine 579 300 - 1,300 mOsm/kg LAB CHEMISTRY METHOD 07/23/2024 1:45 PM EST [facility] Urine Urine specimen obtained by clean catch procedure / Unknown Non-blood Collection / Unknown 07/23/2024 11:30 AM EST 07/23/2024 12:29 PM EST Alisha Davison MD LAB URINE ORDERABLES Final Res ult Performing Organization Address [facility] Co de Phone Number [facility] [address] [place] [address], [place] [phone] documented in this encounter Visit Diagnoses Diagnosis Encounter for other general examination documented in this encounter Care Teams Pole Peeling Machine Operator Helper Relationship Specialty Start Date End Date Physician, No Pcp PCP - General 07/19/24 documented as of this encounter
--- OUTSIDE RECORDS SUMMARY | 2025-03-07 17:22 | XMS_ITS | Encounter Summary ---
Author Organization [facility] Address [address] [place] [address] Care Team Providers Care Photo Machine Operator Name Role Phone Physician, No Pcp Primary Care Provider Unavaila ble Encounter Details Date Type Department Care Team (Late st Contact Info) Description 07/20/2024 Lab Requisition [facility] - Main Lab 299 [facility] [place] [address] Alisha Davison MD [address] [place] [address] Encounter for other general examination Social History [...] AM [facility] Reactive Lymph Abs Manual 0.84(H) 0.00 - 0.00 lym LAB HEMETOLOGY METHOD 07/20/2024 11:53 AM [facility] Monocytes Absolute Manual [...] with indices Consistent with indices, Normal for [place] LAB HEMETOLOGY METHOD 07/20/2024 11:53 AM [facility] LAB Platelet Morphology - WAM See Note(A) Normal LAB HEMETOLOGY METHOD 07/20/2024 11:53 AM [facility] LAB Comment:PLT: Normal Blood Venous blood specimen / Unknown Venipuncture / Unknown 07/20/2024 5:24 AM EST 07/20/2024 9:35 AM EST us Alisha Davison MD LAB BLOOD ORDERABLES Final Res ult [facility] [address] [place] [address], [place] [phone] * (ABNORMAL) CBC auto differential (07/20/2024 5:24 AM EST) WBC 8.4 4.8 - 10.8 K/mcL LAB HEMETOLOGY METHOD 07/20/2024 11:53 AM [facility] RBC 3.90 3.80 - 4.80 M/mcL LAB HEMETOLOGY METHOD 07/20/2024 11:53 AM [facility] Hemoglobin 12.9 11.5 [...] LAB HEMETOLOGY METHOD 07/20/2024 11:53 AM EST [facility] RDW 12.3 11.0 - 15.0 % LAB HEMETOLOGY METHOD 07/20/2024 11:53 AM [facility] LAB Platelets 150 130 - 400 K/mcL LAB HEMETOLOGY METHOD 07/20/2024 11:53 AM EST [facility] MPV 10.0 7.0 - 11.0 FL LAB HEMETOLOGY METHOD 07/20/2024 11:53 AM EST [facility] NRBC 0.0 <1.0 % LAB HEMETOLOGY METHOD 07/20/2024 11:53 AM [facility] NRBC Absolute 0.00 <0.10 K/mcL LAB HEMETOLOGY METHOD 07/20/2024 11:53 AM EST [facility] Blood Venous blood specimen / Unknown Venipuncture / Unknown 07/20/2024 5:24 AM EST 07/20/2024 9:35 AM EST us Alisha Davison MD LAB BLOOD ORDERABLES Final Res ult [facility] [address] [place] [address], * (ABNORMAL) Magnesium (07/20/2024 5:24 AM EST) Magnesium 1.8(L) 1.9 - 2.6 mg/dL LAB CHEMISTRY METHOD 07/20/2024 11:00 AM EST [facility] Blood Venous blood specimen / Unknown Venipuncture / Unknown 07/20/2024 5:24 AM EST 07/20/2024 9:35 AM EST us Alisha Davison MD LAB BLOOD ORDERABLES Final Res ult [facility] [address] [place] [address], [place] [phone] * (ABNORMAL) Comprehensive metabolic panel (07/20/2024 5:24 AM EST) Sodium 132(L) 133 - 145 mmol/L LAB CHEMISTRY METHOD 07/20/2024 11:00 AM [facility] Potassium 3.6 3.5 - 5.5 mmol/L LAB CHEMISTRY METHOD 07/20/2024 11:00 AM [facility] Chloride 98 96 - 110 mmol/L LAB CHEMISTRY METHOD 07/20/2024 11:00 AM [facility] CO2 27 21 - 32 mmol/L LAB CHEMISTRY METHOD 07/20/2024 11:00 AM [facility] Anion Gap 7 3 - 11 LAB CHEMISTRY METHOD 07/20/2024 11:00 AM [facility] Glucose 96 70 - 100 mg/dL LAB CHEMISTRY METHOD 07/20/2024 11:00 AM [facility] BUN 14 5 - 25 mg/dL LAB CHEMISTRY METHOD 07/20/2024 11:00 AM [facility] Creatinine 0.48(L) 0.50 - 1.10 mg/dL LAB CHEMISTRY METHOD 07/20/2024 11:00 AM [facility] LAB eGFR 94 >=60 mL/min/1. 73m2 LAB CHEMISTRY METHOD 07/20/2024 11:00 AM [facility] LAB Comment:Calculation based on the Chronic Kidney Disease Epidemiology Collaboration (CKD-EPI) equation refit without adjustment for race. BUN/Creatinine Ratio 29.2 LAB CHEMISTRY METHOD 07/20/2024 11:00 AM [facility] Calcium 8.8 8.5 - 10.5 mg/dL LAB CHEMISTRY METHOD 07/20/2024 11:00 AM [facility] AST (SGOT) 15 10 - 42 unit/L LAB CHEMISTRY METHOD 07/20/2024 11:00 AM [facility] ALT (SGPT) 13 10 - 60 unit/L LAB CHEMISTRY METHOD 07/20/2024 11:00 AM [facility] Alkaline Phosphatase 72 42 - 121 unit/L LAB CHEMISTRY METHOD 07/20/2024 11:00 AM [facility] Total Protein 5.9(L) 6.0 - 8.0 g/dL LAB CHEMISTRY METHOD 07/20/2024 11:00 AM [facility] Albumin 3.3 3.2 - 5.0 g/dL LAB CHEMISTRY METHOD 07/20/2024 11:00 AM [facility] Total Bilirubin 0.9 0.0 - 1.4 mg/dL LAB CHEMISTRY METHOD 07/20/2024 11:00 AM [facility] Blood Venous blood specimen / Unknown Venipuncture / Unknown 07/20/2024 5:24 AM EST 07/20/2024 9:35 AM EST us Alisha Davison MD LAB BLOOD ORDERABLES Final Res ult [facility] [address] [place] [address], documented in this encounter Visit Diagnoses Diagnosis Encounter for other general examination documented in this encounter Care Teams Photo Machine Operator Relationship Specialty Start Date End Date Physician, No Pcp PCP - General 07/19/24 documented as of this encounter
--- OUTSIDE RECORDS SUMMARY | 2025-03-07 17:22 | XMS_ITS | Encounter Summary ---
[facility] Organization [facility] Address [address] [place] [address] Care Team Providers Care Inserting Operator Name Role Phone Physician, No Pcp Primary Care Provider Unavaila ble Encounter Details Date Type Department Care Team (Late st Contact Info) Description 07/22/2024 Lab Requisition [facility] - Main Lab [address] [facility] [place] [address] Alisha Davison MD [address] [place] [phone] Encounter for other general examination Social History [...] PM EST) WBC 9.0 4.8 - 10.8 K/[facility] LAB HEMETOLOGY METHOD 07/22/2024 4:48 PM EST [facility] RBC 3.80 3.80 - 4.80 M/[facility] LAB HEMETOLOGY METHOD 07/22/2024 4:[address] [facility] Hemoglobin 12.4 11.5 - 16.0 g/dL LAB HEMETOLOGY METHOD 07/22/2024 4:[address] [facility] Hematocrit 34.2(L) 35.0 - 47.0 % LAB HEMETOLOGY METHOD 07/22/2024 4:[address] [facility] MCV 91.0 79.0 - 98.0 FL LAB HEMETOLOGY METHOD 07/22/2024 4:[address] [facility] MCH 33.0(H) 27.0 - 32.0 pcg LAB HEMETOLOGY METHOD 07/22/2024 4:[address] [facility] MCHC 36.3 32.0 - 37.0 g/dL LAB HEMETOLOGY METHOD 07/22/2024 4:[address] [facility] RDW 12.1 11.0 - 15.0 % LAB HEMETOLOGY METHOD 07/22/2024 4:[address] [facility] Platelets 163 130 - 400 K/mcL LAB HEMETOLOGY METHOD 07/22/2024 4:[address] [facility] MPV 9.9 7.0 - 11.0 FL LAB HEMETOLOGY METHOD 07/22/2024 4:[address] [facility] NRBC 0.0 <1.0 % LAB HEMETOLOGY METHOD 07/22/2024 4:[address] [facility] NRBC Absolute 0.00 <0.10 K/mcL LAB HEMETOLOGY METHOD 07/22/2024 4:[address] [facility] Blood Venous blood specimen / Unknown Venipuncture / Unknown 07/22/2024 2:25 PM EST 07/22/2024 2:51 PM EST us Alisha Davison MD LAB BLOOD ORDERABLES Final Res ult [facility] [address] [place] [address], [place] [phone] * (ABNORMAL) Comprehensive metabolic panel (07/22/2024 2:25 PM EST) Sodium 130(L) 133 - 145 mmol/L LAB CHEMISTRY METHOD 07/22/2024 4:[address] [facility] Potassium 4.0 3.5 - 5.5 mmol/L LAB CHEMISTRY METHOD 07/22/2024 4:[address] [facility] Chloride 96 96 - 110 mmol/L LAB CHEMISTRY METHOD 07/22/2024 4:[address] [facility] CO2 27 21 - 32 mmol/L LAB CHEMISTRY METHOD 07/22/2024 4:[address] [facility] Anion Gap 7 3 - 11 LAB CHEMISTRY METHOD 07/22/2024 4:[address] [facility] Glucose 108(H) 70 - 100 mg/dL LAB CHEMISTRY METHOD 07/22/2024 4:[address] [facility] BUN 21 5 - 25 mg/dL LAB CHEMISTRY METHOD 07/22/2024 4:[address] [facility] Creatinine 0.51 0.50 - 1.10 mg/dL LAB CHEMISTRY METHOD 07/22/2024 4:[address] [facility] eGFR 92 >=60 mL/min/1. 73m2 LAB CHEMISTRY METHOD 07/22/2024 4:[address] [facility] Comment:Calculation based on the Chronic Kidney Disease Epidemiology Collaboration (CKD-EPI) equation refit without adjustment for race. BUN/Creatinine Ratio 41.2 LAB CHEMISTRY METHOD 07/22/2024 4:[address] [facility] Calcium 8.8 8.5 - 10.5 mg/dL LAB CHEMISTRY METHOD 07/22/2024 4:[address] [facility] AST (SGOT) 19 10 - 42 unit/L LAB CHEMISTRY METHOD 07/22/2024 4:[address] [facility] ALT (SGPT) 13 10 - 60 unit/L LAB CHEMISTRY METHOD 07/22/2024 4:[address] [facility] Alkaline Phosphatase 67 42 - 121 unit/L LAB CHEMISTRY METHOD 07/22/2024 4:[address] [facility] Total Protein 6.0 6.0 - 8.0 g/dL LAB CHEMISTRY METHOD 07/22/2024 4:[address] [facility] Albumin 3.3 3.2 - 5.0 g/dL LAB CHEMISTRY METHOD 07/22/2024 4:[address] [facility] Total Bilirubin 0.5 0.0 - 1.4 mg/dL LAB CHEMISTRY METHOD 07/22/2024 4:[address] [facility] Blood Venous blood specimen / Unknown Venipuncture / Unknown 07/22/2024 2:25 PM EST 07/22/2024 2:51 PM EST us Alisha Davison MD LAB BLOOD ORDERABLES Final Res ult [facility] [address] [place] [address], documented in this encounter Visit Diagnoses Diagnosis Encounter for other general examination documented in this encounter Care Teams Inserting Operator Relationship Specialty Start Date End Date Physician, No Pcp PCP - General 07/19/24 documented as of this encounter
== END 2025-03-07 13:59 | disposition home or self-care (01) ==
LOC: HO.HMCH 12:39
PROVIDERS: PCP Internal Medicine; Visit Provider Internal Medicine
DX: S72.102A Unspecified trochanteric fracture of left femur, initial encounter for closed fracture (principal); K21.9 Gastro-esophageal reflux disease without esophagitis; E78.00 Pure hypercholesterolemia, unspecified; F32.9 Major depressive disorder, single episode, unspecified; Z53.20 Procedure and treatment not carried out because of patient's decision for unspecified reasons

== ENCOUNTER 2025-06-17 13:02 | Outpatient (AMB) | payer MEDICARE, SELFPAY ==
--- NOTE | 2025-06-17 13:02 | MHC.PC.OV ---
Intake Visit Reasons: depressive disorder Allergies No Known Allergies Allergy (Verified 06/17/25 13:02) Medication List - Last Reconciled 06/17/25 by Trish Blanco MD [Alternating pressure mattress pad As directed] aspirin (Adult Aspirin Regimen) 81 mg PO DAILY [hospital bed As directed] lorazepam 0.5 mg PO Q4H PRN mirtazapine 15 mg PO BEDTIME ondansetron HCl 4 mg PO Q8H PRN quetiapine 12.5 mg PO BEDTIME Tobacco use date assessed: 06/17/25 Fall risk assessment: 1 Fall in past year Last assessed Fall Risk: 06/17/25 Dental Screening Dental Screen Date: 06/17/25 Did you have a dental visit in the last 12 months?: No Did you have a dental problem in the last 6 months where you did not have access to dental care?: No Was dental information given to patient?: No HPI depressive disorder HPI Details patient is with the STRAIGHT PIN MAKING MACHINE OPERATOR HPI Comments History of Present Illness Details History of Present Illness The patient is an 84-year-old female presenting for a telehealth follow-up for management of chronic conditions and to address caregiver concerns. Her medical history is significant for gastroesophageal reflux disease, major depressive disorder, hypercholesterolemia, and a past closed trochanteric fracture of the hip. According to her daughter, the patient has become largely uncooperative, refusing to stand or walk with her walker, use the toilet, or use a commode, despite being physically capable. This has resulted in her being essentially bed-bound. Her daughter notes this uncooperative behavior is consistent with the patient's long-standing personality. Her medications include Ecotrin, mirtazapine, and a half tablet of quetiapine at night. She also takes lorazepam and ondansetron as needed. Due to her immobility, she requires a stool softener, Colace, every day or every other day to manage constipation. Blood work from February 28 showed chronic anemia with a hemoglobin of 11.8 g/dL and hematocrit of 32%, along with mild thrombocytopenia. Her electrolytes, renal function, and blood sugar were normal at that time. The patient has refused recommended vaccinations. [facility] Medical History Vertebral artery stenosis GERD (gastroesophageal reflux disease) Hypercholesterolemia CVA (cerebral vascular accident) Thrombocytopenia Peripheral vascular disease History of esophageal ulcer Spinal stenosis Reflux esophagitis Thoracic compression fracture Osteoporosis Depression Surgical History History of tubal ligation History of tonsillectomy History of appendectomy Family History Father No problems noted. Mother No problems noted. Sister Leukemia Social History Housing: House Alcohol intake: never Patient Tobacco Use Status: Never used Tobacco Tobacco use type: Cigarette e-Cigarette/Vaping Use: Never Used Second Hand Smoke Exposure: No Advance Directives Date on File: 04/02/22 service: No Current occupational status: retired Cognitive needs: Yes (wheelchair) Hearing needs: No Vision needs: No Questionnaire PHQ-9 Over the last 2 weeks, how often have you been bothered by any of the following problems? 1. Little interest or pleasure in doing things: not at all 2. Feeling down, depressed, or hopeless: not at all 3. Trouble falling or staying asleep, or sleeping too much: not at all 4. Feeling tired or having little energy: not at all 5. Poor appetite or overeating: not at all 6. Feeling bad about yourself - or that you are a failure or have let yourself or your family down: not at all 7. Trouble concentrating on things, such as reading the newspaper or watching television: not at all 8. Moving or speaking so slowly that other people could have noticed. Or the opposite - being so fidgety or restless that you have been moving around a lot more than usual: not at all 9. Thoughts that you would be better off or of hurting yourself in some way: not at all Total score: 0 Depression Screening Interpretation: Negative Depression Screening Done: Yes Source: Developed by Drs. Bong Bird, Tammie Mijares, Yonathan Copeland and colleagues, with an educational fish from [employer]. Thrive Questionnaire Date Thrive assessed: 08/13/24 I am a: Patient What is your living situation today?: I have a steady place to live Within the past 12 months, did the food you bought not last and you didn't have the money to get more?: Never true Within the past 12 months, did you worry whether your food would run out before you got money to buy more?: Never true Do you have trouble paying for medicines?: No Do you have trouble getting transportation to medical appointments?: No Do you have trouble paying your heating and electricity bill?: No Do you have trouble taking care of your child, family member or friend?: No Do you have trouble with day-to-day activities such as bathing, preparing meals, shopping, managing finances, etc.?: No Are you currently unemployed and looking for a job?: No Are you interested in more education?: No Please select the resources that you would like help with: None Currently or been in a relationship where the following occur: No concerns reported THRIVE Score: 0 AUDIT C Alcohol Use Questionnaire (AUDIT-C) 1. How often do you have a drink containing alcohol?: Never 3. How often do you have six or more drinks on one occasion?: Never Total Score: 0 ASHLEY-7 AMB Questionnaire ASHLEY-7 Date ASHLEY - 7 assessed: 08/13/24 Feeling nervous, anxious, or on edge: 0 = Not at all Not being able to stop or control worryin = Not at all Worrying too much about different things: 0 = Not at all Trouble relaxin = Not at all Being so restless that it is hard to sit still: 0 = Not at all Becoming easily annoyed or irritable: 0 = Not at all Feeling afraid as if something awful might happen: 0 = Not at all Total ASHLEY-7 score (0-4 normal; 5-9 mild; 10-14 moderate; 15-21 severe): 0 Source: Developed by Drs. Bong Bird, Tammie Mijares, Yonathan Copeland and colleagues, with an educational fish from [employer]. Review of Systems Narrative Review of Systems - General: Patient's daughter reports she is doing not great. - Psychiatric: Reports being uncooperative with care and having an antagonistic personality toward her daughter. - Musculoskeletal: Reports ability to stand and walk with a walker but refuses to ambulate. - Gastrointestinal: Reports constipation requiring stool softeners. Takes medication as needed for nausea. - All other systems were not discussed and are negative by default. Physical exam (Primary Care) Tobacco/Smoking Status: Tobacco use Status Tobacco use date assessed 06/17/25 06/17/25 13:05 Patient Tobacco Use Status Never used Tobacco 06/17/25 13:05 Tobacco use type Cigarette 06/17/25 13:05 e-Cigarette/Vaping Use Never Used 06/17/25 13:05 PHQ-9: PHQ-9 Score PHQ-9: Total score 0 06/17/25 14:05 Depression Screening Interpretation: Negative Thrive Assessment: Date of Thrive Assessment Date Thrive assessed 08/13/24 06/17/25 13:05 Currently or been in a relationship where the following occur: No concerns reported Telehealth Telehealth Telehealth Platform: Summize Location of provider rendering services: practice address Location of patient: address on file Patient Identification confirmed using: Name, : Yes Telehealth method: video Patient verbally consented to treatment: Yes Patient verbally consented to billing insurance company: Yes Patient informed of any privacy concerns related to visit: Yes Minutes spent on Phone/Video with Pt.: 25 Coding Level of Care Code Tele Est Pt Level 4 (30693) Diagnoses Major depressive disorder F32.9 Gastroesophageal reflux disease without esophagitis K21.9 Esophagitis presence: without esophagitis Closed trochanteric fracture of hip S72.102A Encounter type: initial encounter Laterality: left Assessment & Plan Assessment & Plan (1) Major depressive disorder: Code(s): F32.9 - Major depressive disorder, single episode, unspecified Category: Medical Plan: Patient on multiple medications lorazepam, mirtazapine and quetiapine (2) GERD (gastroesophageal reflux disease): Code(s): K21.9 - Gastro-esophageal reflux disease without esophagitis Category: Medical Qualifiers: Esophagitis presence: without esophagitis Qualified Code(s): K21.9 - Gastro-esophageal reflux disease without esophagitis Plan: Avoid the foods that causes that usually spicy foods, tomato products, juices, coffee, soda and foods that your sensitive to. After eating do not lie down, allow 3-4 hours before in lie down. And keep the head of bed above 30 degrees to avoid the acid from going up. (3) Closed trochanteric fracture of hip: Code(s): S72.109A - Unspecified trochanteric fracture of unspecified femur, initial encounter for closed fracture Category: Medical Qualifiers: Encounter type: initial encounter Laterality: left Qualified Code(s): S72.102A - Unspecified trochanteric fracture of left femur, initial encounter for closed fracture Plan: Patient has the STRAIGHT PIN MAKING MACHINE OPERATOR helping at home. Plan Plan Patient was informed and verbally consented to the use of an ambient scribe for clinic note documentation during this visit. 1. Major Depressive Disorder The patient's behavior includes non-cooperation with activities of daily living, such as ambulating and toileting, despite having the physical ability, leading her to be bed-bound. This is causing significant caregiver strain for her daughter, who is now considering long-term care. The plan is to continue her current psychiatric medications, including mirtazapine and quetiapine. Will continue to provide support to the family and caregiver. 2. Anemia, Chronic The patient has a long-standing history of anemia, with recent labs showing a hemoglobin of 11.8 g/dL. No changes to management will be made at this time. 3. Constipation The patient requires stool softeners frequently due to immobility from refusing to get out of bed. The plan is to continue Colace every other day or daily as needed for management. 4. Health Maintenance The patient has refused recommended vaccinations. Acknowledged the patient's refusal and will maintain focus on keeping her safe. Discussion Notes I conducted a telehealth visit with the patient's daughter to discuss the patient's ongoing care. We reviewed the patient's current condition; her daughter reports she is generally stable but has become increasingly uncooperative, refusing to ambulate or use the toilet, which has resulted in her being bed-bound. I acknowledged the significant caregiver strain the daughter is experiencing and we discussed the possibility of long-term care as a future option. We confirmed the patient's current medications, which she is taking, and reviewed her recent labs, noting the stable chronic anemia and normal renal function. I also noted her refusal of recommended vaccinations. I offered my continued support to the daughter, emphasizing the importance of keeping the patient safe, and encouraged her to reach out if any new issues arise so we can find a solution together. Patient Instructions - Continue to give your mother her medications as prescribed, including aspirin (Ecotrin), mirtazapine, and quetiapine. - You may give her lorazepam for anxiety and ondansetron for nausea, but only as needed. - Continue giving a stool softener (Colace) every day or every other day to help with bowel movements. - The most important goal right now is to keep your mother safe and comfortable. - Please call our office if any new problems come up or if you need further support. We will work together to find a solution. Medications: New docusate sodium (Colace) 100 mg PO DAILY 30 caps 0RF
--- OUTSIDE RECORDS SUMMARY | 2025-06-17 13:05 | XMS_ITS | Encounter Summary ---
[facility] Address [address] [place] [address] Care Team Providers Care Polish Compounder Name Role Phone Physician, No Pcp Primary Care Provider Unavaila ble Encounter Details Date Type Department Care Team (Late st Contact Info) Description 08/03/2024 Lab Requisition [facility] - Main Lab [address] [facility] [place] [address] Alisha Davison MD [address] [place] [id number] Encounter for other general examination Social History [...] Escherichia coli(A) MIRELLA 08/07/2024 11:16 AM EST [facility] Comment: This is an edited result. Previous organism was Gram negative bacilli on 08/04/2024 at 0853 EST. Culture, Urine <10,000 CFU/mL Proteus mirabilis(A) MIRELLA 08/07/2024 11:16 AM EST [facility] Comment: Edited result: Previously reported as Proteus species on 08/06/2024 at 1407 EST. Culture, Urine 10,000-49,000 CFU/mL Pseudomonas aeruginosa(A) MIRELLA 08/07/2024 11:16 AM EST [facility] Comment: The organism value [...] MICROBIOLOGY - GENERAL ORD ERABLES Final Result [facility] [address] [place] [address], * (ABNORMAL) Urinalysis with reflex microscopic and culture (08/03/2024 4:30 AM EST) Specific [place] Urine 1.023 1.003 - 1.030 LAB URINALYSIS - AUTOMATED METHOD 08/03/2024 9:42 AM EST [facility] pH, Urine 5.5 5.0 - 8.0 pH LAB URINALYSIS - AUTOMATED METHOD 08/03/2024 9:42 AM [facility] Leukocytes, Urine Moderate(A) Negative LAB URINALYSIS - AUTOMATED METHOD 08/03/2024 9:42 AM [facility] Nitrite, Urine Negative Negative LAB URINALYSIS - AUTOMATED METHOD 08/03/2024 9:42 AM [facility] Protein, Urine Trace <=Trace mg/dL LAB URINALYSIS - AUTOMATED METHOD 08/03/2024 9:42 AM [facility] Glucose, Urine Negative Negative mg/dL LAB URINALYSIS - AUTOMATED METHOD 08/03/2024 9:42 AM [facility] Ketones, Urine Negative Negative mg/dL LAB URINALYSIS - AUTOMATED METHOD 08/03/2024 9:42 AM [facility] Urobilinogen , Urine 0.2 0.2 - 1.0 mg/dL LAB URINALYSIS - AUTOMATED METHOD 08/03/2024 9:42 AM [facility] Bilirubin, Urine Negative Negative LAB URINALYSIS - AUTOMATED METHOD 08/03/2024 9:42 AM [facility] Blood, Urine Trace(A) Negative LAB URINALYSIS - AUTOMATED METHOD 08/03/2024 9:42 AM [facility] RBC, Urine 2.5 0 - 4 /HPF LAB URINALYSIS - AUTOMATED METHOD 08/03/2024 9:42 AM [facility] WBC, Urine 147.7(H) 0 - 4 /HPF LAB URINALYSIS - AUTOMATED METHOD 08/03/2024 9:42 AM [facility] Squamous Epithelial, Urine 9 0 - 60 /LPF LAB URINALYSIS - AUTOMATED METHOD 08/03/2024 9:42 AM [facility] Bacteria, Urine Many(A) Negative /HPF LAB URINALYSIS - AUTOMATED METHOD 08/03/2024 9:42 AM EST [facility] Hyaline Casts, Urine 13.9(H) 0 - 3 /LPF LAB URINALYSIS - AUTOMATED METHOD 08/03/2024 9:42 AM EST [facility] Urine Urinary bladder structure / Unknown 08/03/2024 4:30 AM EST 08/03/2024 9:04 AM EST us Alisha Davison MD LAB URINE ORDERABLES Final Res ult Performing Organization Address City/[facility]/ZIP Co de Phone Number [facility] [address] [place] [address], [place] [phone] * Rao urine culture tube (08/03/2024 4:30 AM EST) Extra Tube Hold for add-ons. 08/03/2024 11:01 AM [facility] Comment:Auto resulted. Urine Urinary bladder structure / Unknown 08/03/2024 4:30 AM EST 08/03/2024 9:04 AM EST us Alisha Davison MD LAB URINE ORDERABLES Final Res ult [facility] [address] [place] [address], [place] [phone] documented in this encounter Visit Diagnoses Diagnosis Encounter for other general examination documented in this encounter Care Teams Polish Compounder Relationship Specialty Start Date End Date Physician, No Pcp PCP - General 07/19/24 documented as of this encounter
--- OUTSIDE RECORDS SUMMARY | 2025-06-17 13:05 | XMS_ITS | Encounter Summary ---
Author Organization [facility] Address [address] [place] [address] Care Team Providers Care Social Worker Health Services Name Role Phone Physician, No Pcp Primary Care Provider Unavaila ble Encounter Details Date Type Department Care Team (Late st Contact Info) Description 07/30/2024 Lab Requisition [facility] - Main Lab [address] [facility] [place] [address] Alisha Davison MD [address] [place] [id number] Encounter for other general examination Social History [...] AM EST) WBC 6.7 4.8 - 10.8 K/[facility] LAB HEMETOLOGY METHOD 07/30/2024 11:28 AM EST [facility] RBC 3.70(L) 3.80 - 4.80 M/[facility] LAB HEMETOLOGY METHOD 07/30/2024 11:28 AM [facility] Hemoglobin 12.2 11.5 - 16.0 g/dL LAB HEMETOLOGY METHOD 07/30/2024 11:28 AM [facility] Hematocrit 35.5 35.0 - 47.0 % LAB HEMETOLOGY METHOD 07/30/2024 11:28 AM [facility] MCV 94.9 79.0 - 98.0 FL LAB HEMETOLOGY METHOD 07/30/2024 11:28 AM [facility] MCH 32.6(H) 27.0 - 32.0 pcg LAB HEMETOLOGY METHOD 07/30/2024 11:28 AM [facility] MCHC 34.4 32.0 - 37.0 g/dL LAB HEMETOLOGY METHOD 07/30/2024 11:28 AM [facility] RDW 12.6 11.0 - 15.0 % LAB HEMETOLOGY METHOD 07/30/2024 11:28 AM [facility] Platelets 218 130 - 400 K/mcL LAB HEMETOLOGY METHOD 07/30/2024 11:28 AM [facility] MPV 9.5 7.0 - 11.0 FL LAB HEMETOLOGY METHOD 07/30/2024 11:28 AM [facility] NRBC 0.0 <1.0 % LAB HEMETOLOGY METHOD 07/30/2024 11:28 AM [facility] NRBC Absolute 0.00 <0.10 K/mcL LAB HEMETOLOGY METHOD 07/30/2024 11:28 AM [facility] Blood Venous blood specimen / Unknown Venipuncture / Unknown 07/30/2024 5:06 AM EST 07/30/2024 10:42 AM EST us Alisha Davison MD LAB BLOOD ORDERABLES Final Res ult [facility] [address] [place] [address], * (ABNORMAL) Comprehensive metabolic panel (07/30/2024 5:06 AM EST) Sodium 134 133 - 145 mmol/L LAB CHEMISTRY METHOD 07/30/2024 11:55 AM [facility] Potassium 3.6 3.5 - 5.5 [...] AM [facility] Comment:Calculation based on the Chronic [...] g/dL LAB CHEMISTRY METHOD 07/30/2024 11:55 AM [facility] Albumin 3.3 3.2 - 5.0 g/dL LAB CHEMISTRY METHOD 07/30/2024 11:55 AM [facility] Total Bilirubin 0.5 0.0 - 1.4 mg/dL LAB CHEMISTRY METHOD 07/30/2024 11:55 AM [facility] Blood Venous blood specimen / Unknown Venipuncture / Unknown 07/30/2024 5:06 AM EST 07/30/2024 10:42 AM EST us Alisha Davison MD LAB BLOOD ORDERABLES Final Res ult [facility] [address] [place] [address], [place] [phone] documented in this encounter Visit Diagnoses Diagnosis Encounter for other general examination documented in this encounter Care Teams Social Worker Health Services Relationship Specialty Start Date End Date Physician, No Pcp PCP - General 07/19/24 documented as of this encounter
--- OUTSIDE RECORDS SUMMARY | 2025-06-17 13:05 | XMS_ITS | Clinical Summary ---
Author Organization [facility] Address [address] [place] [address] Phone Care Team Providers Care Superintendent Automotive Name Role Phone Physician, No Pcp Primary [...] Health Screening 07/19/2024 COVID-19 Vaccine (1 - 2024-2 6 season) 2025 Influenza Vaccine (#1) 2025 HIB [...] age to complete this topic Insurance MEDICARE [facility] Advance Directives Documents on File Type Date Recorded Patient Internal Medicine Hospitalist Expl anation Health Care Decision (hx) 03/15/2020 AD ALYSSA DIRECTIVE Care Teams Superintendent Automotive Relationship Specialty Start Date End Date Physician, No Pcp PCP - General 07/19/24
--- OUTSIDE RECORDS SUMMARY | 2025-06-17 13:05 | XMS_ITS | Encounter Summary ---
Author Organization [facility] Address [address] [place] [address] Care Team Providers Care Smeller Name Role Phone Physician, No Pcp Primary Care Provider Unavaila ble Encounter Details Date Type Department Care Team (Late st Contact Info) Description 08/03/2024 Lab Requisition [facility] - Main Lab [address] [place] [address] Alisha Davison MD [address] [place] [address] Encounter for other general examination Social History [...] AM EST) WBC 7.4 4.8 - 10.8 K/[facility] LAB HEMETOLOGY METHOD 08/03/2024 9:24 AM [facility] LAB RBC 3.20(L) 3.80 - 4.80 M/mcL LAB HEMETOLOGY METHOD 08/03/2024 9:24 AM [facility] LAB Hemoglobin 10.7(L) 11.5 - 16.0 g/dL LAB HEMETOLOGY METHOD 08/03/2024 9:24 AM [facility] LAB Hematocrit 31.7(L) 35.0 - 47.0 % LAB HEMETOLOGY METHOD 08/03/2024 9:24 AM [facility] LAB MCV 98.1(H) 79.0 - 98.0 FL LAB HEMETOLOGY METHOD 08/03/2024 9:24 AM [facility] LAB MCH 33.1(H) 27.0 - 32.0 pcg LAB HEMETOLOGY METHOD 08/03/2024 9:24 AM [facility] LAB MCHC 33.8 32.0 - 37.0 g/dL LAB HEMETOLOGY METHOD 08/03/2024 9:24 AM [facility] LAB RDW 12.6 11.0 - 15.0 % LAB HEMETOLOGY METHOD 08/03/2024 9:24 AM [facility] LAB Platelets 211 130 - 400 K/mcL LAB HEMETOLOGY METHOD 08/03/2024 9:24 AM [facility] LAB MPV 9.5 7.0 - 11.0 FL LAB HEMETOLOGY METHOD 08/03/2024 9:24 AM [facility] LAB NRBC 0.0 <1.0 % LAB HEMETOLOGY METHOD 08/03/2024 9:24 AM [facility] LAB NRBC Absolute 0.00 <0.10 K/mcL LAB HEMETOLOGY METHOD 08/03/2024 9:24 AM [facility] LAB Blood Venous blood specimen / Unknown Venipuncture / Unknown 08/03/2024 6:30 AM EST 08/03/2024 8:31 AM EST us Alisha Davison MD LAB BLOOD ORDERABLES Final Res ult [facility] [address] [place] [address], [place] [phone] * Basic metabolic panel (08/03/2024 6:30 AM EST) Sodium 138 133 - 145 mmol/L LAB CHEMISTRY METHOD 08/03/2024 9:57 AM [facility] LAB Potassium 3.8 3.5 - 5.5 mmol/L LAB CHEMISTRY METHOD 08/03/2024 9:57 AM [facility] LAB Chloride 102 96 - 110 mmol/L LAB CHEMISTRY METHOD 08/03/2024 9:57 AM [facility] LAB CO2 30 21 - 32 mmol/L LAB CHEMISTRY METHOD 08/03/2024 9:57 AM [facility] LAB Anion Gap 6 3 - 11 LAB CHEMISTRY METHOD 08/03/2024 9:57 AM [facility] Glucose 92 70 - 100 mg/dL LAB CHEMISTRY METHOD 08/03/2024 9:57 AM [facility] BUN 19 5 - 25 mg/dL LAB CHEMISTRY METHOD 08/03/2024 9:57 AM [facility] Creatinine 0.52 0.50 - 1.10 mg/dL LAB CHEMISTRY METHOD 08/03/2024 9:57 AM [facility] LAB eGFR 92 >=60 mL/min/1. 73m2 LAB CHEMISTRY METHOD 08/03/2024 9:57 AM [facility] LAB Comment:Calculation based on the Chronic Kidney Disease Epidemiology Collaboration (CKD-EPI) equation refit without adjustment for race. BUN/Creatinine Ratio 36.5 LAB CHEMISTRY METHOD 08/03/2024 9:57 AM [facility] Calcium 8.8 8.5 - 10.5 mg/dL LAB CHEMISTRY METHOD 08/03/2024 9:57 AM EST [facility] Blood Venous blood specimen / Unknown Venipuncture / Unknown 08/03/2024 6:30 AM EST 08/03/2024 8:31 AM EST us Alisha Davison MD LAB BLOOD ORDERABLES Final Res ult [facility] [address] [place] [address], documented in this encounter Visit Diagnoses Diagnosis Encounter for other general examination documented in this encounter Care Teams Smeller Relationship Specialty Start Date End Date Physician, No Pcp PCP - General 07/19/24 documented as of this encounter
--- OUTSIDE RECORDS SUMMARY | 2025-06-17 13:05 | XMS_ITS | Encounter Summary ---
Author Organization [facility] Address [address] [place] [address] Care Team Providers Care Shank Stitcher Name Role Phone Physician, No Pcp Primary Care Provider Unavaila ble Encounter Details Date Type Department Care Team (Late st Contact Info) Description 07/26/[address] [facility] - Main Lab [address] [facility] [place] [address] Alisha Davison MD [address] [place] [address] Encounter for other general examination Social History [...] LAB CHEMISTRY METHOD 07/26/2024 10:44 AM EST [facility] Blood Venous blood specimen / Unknown Venipuncture / Unknown 07/26/2024 5:24 AM EST 07/26/2024 8:31 AM EST us Alisha Davison MD LAB BLOOD ORDERABLES Final Res ult [facility] [address] [place] [address], * (ABNORMAL) Complete blood count (07/26/2024 5:24 AM EST) WBC 9.4 4.8 - 10.8 K/mcL LAB HEMETOLOGY METHOD 07/26/2024 10:23 AM [facility] RBC 3.70(L) 3.80 - 4.80 M/mcL LAB HEMETOLOGY METHOD 07/26/2024 10:23 AM [facility] Hemoglobin 11.9 11.5 - 16.0 g/dL LAB HEMETOLOGY METHOD 07/26/2024 10:23 AM [facility] Hematocrit 34.1(L) 35.0 - 47.0 % LAB HEMETOLOGY METHOD 07/26/2024 10:23 AM [facility] MCV 93.2 79.0 - 98.0 FL LAB HEMETOLOGY METHOD 07/26/2024 10:23 AM [facility] LAB MCH 32.5(H) 27.0 - 32.0 pcg LAB HEMETOLOGY METHOD 07/26/2024 10:23 AM [facility] LAB MCHC 34.9 32.0 - 37.0 g/dL LAB HEMETOLOGY METHOD 07/26/2024 10:23 AM [facility] LAB RDW 12.5 11.0 - 15.0 % LAB HEMETOLOGY METHOD 07/26/2024 10:23 AM [facility] LAB Platelets 194 130 - 400 K/mcL LAB HEMETOLOGY METHOD 07/26/2024 10:23 AM EST [facility] LAB MPV 9.8 7.0 - 11.0 FL LAB HEMETOLOGY METHOD 07/26/2024 10:23 AM EST [facility] LAB NRBC 0.0 <1.0 % LAB HEMETOLOGY METHOD 07/26/2024 10:23 AM EST [facility] LAB NRBC Absolute 0.00 <0.10 K/mcL LAB HEMETOLOGY METHOD 07/26/2024 10:23 AM EST [facility] LAB Blood Venous blood specimen / Unknown Venipuncture / Unknown 07/26/2024 5:24 AM EST 07/26/2024 8:31 AM EST us Alisha Davison MD LAB BLOOD ORDERABLES Final Res ult [facility] [address] [place] [address], * (ABNORMAL) Comprehensive metabolic panel (07/26/2024 5:24 AM EST) Sodium 131(L) 133 - 145 mmol/L LAB CHEMISTRY METHOD 07/26/2024 11:22 AM [facility] Potassium 3.9 3.5 - 5.5 mmol/L LAB CHEMISTRY METHOD 07/26/2024 11:22 AM [facility] Chloride 97 96 - 110 mmol/L LAB CHEMISTRY METHOD 07/26/2024 11:22 AM [facility] CO2 30 21 - 32 mmol/L LAB CHEMISTRY METHOD 07/26/2024 11:22 AM [facility] Anion Gap 4 3 - 11 LAB CHEMISTRY METHOD 07/26/2024 11:22 AM [facility] Glucose 96 70 - 100 mg/dL LAB CHEMISTRY METHOD 07/26/2024 11:22 AM [facility] BUN 19 5 - 25 mg/dL LAB CHEMISTRY METHOD 07/26/2024 11:22 AM [facility] Creatinine 0.48(L) 0.50 - 1.10 mg/dL LAB CHEMISTRY METHOD 07/26/2024 11:22 AM [facility] eGFR 94 >=60 mL/min/1. 73m2 LAB CHEMISTRY METHOD 07/26/2024 11:22 AM [facility] Comment:Calculation based on the Chronic Kidney Disease Epidemiology Collaboration (CKD-EPI) equation refit without adjustment for race. BUN/Creatinine Ratio 39.6 LAB CHEMISTRY METHOD 07/26/2024 11:22 AM [facility] Calcium 9.1 8.5 - 10.5 mg/dL LAB CHEMISTRY METHOD 07/26/2024 11:22 AM [facility] AST (SGOT) 34 10 - 42 unit/L LAB CHEMISTRY METHOD 07/26/2024 11:22 AM [facility] LAB Comment:Results verified by repeat testing ALT (SGPT) 32 10 - 60 unit/L LAB CHEMISTRY METHOD 07/26/2024 11:22 AM [facility] LAB Comment:Results verified by repeat testing Alkaline Phosphatase 75 42 - 121 unit/L LAB CHEMISTRY METHOD 07/26/2024 11:22 AM [facility] Total Protein 5.8(L) 6.0 - 8.0 g/dL LAB CHEMISTRY METHOD 07/26/2024 11:22 AM [facility] Albumin 3.2 3.2 - 5.0 g/dL LAB CHEMISTRY METHOD 07/26/2024 11:22 AM [facility] Total Bilirubin 0.5 0.0 - 1.4 mg/dL LAB CHEMISTRY METHOD 07/26/2024 11:22 AM [facility] Blood Venous blood specimen / Unknown Venipuncture / Unknown 07/26/2024 5:24 AM EST 07/26/2024 8:31 AM EST us Alisha Davison MD LAB BLOOD ORDERABLES Final Res ult [facility] [address] [place] [address], documented in this encounter Visit Diagnoses Diagnosis Encounter for other general examination documented in this encounter Care Teams Shank Stitcher Relationship Specialty Start Date End Date Physician, No Pcp PCP - General 07/19/24 documented as of this encounter
--- OUTSIDE RECORDS SUMMARY | 2025-06-17 13:05 | XMS_ITS | Encounter Summary ---
Author Organization [facility] Address [address] [place] [address] Care Team Providers Care Blaster Helper Name Role Phone Physician, No Pcp Primary Care Provider Unavaila ble Encounter Details Date Type Department Care Team (Late st Contact Info) Description 07/22/2024 Lab Requisition [facility] - Main Lab [address] [facility] [place] [address] Alisha Davison MD [address] [place] [address] Encounter for other general examination Social History [...] PM EST) WBC 9.0 4.8 - 10.8 K/[facility] LAB HEMETOLOGY METHOD 07/22/2024 4:48 PM EST [facility] RBC 3.80 3.80 - 4.80 M/[facility] LAB HEMETOLOGY METHOD 07/22/2024 4:48 PM [facility] [...] MD LAB BLOOD ORDERABLES Final Res ult [facility] [address] [place] [address], [place] [phone] * (ABNORMAL) Comprehensive metabolic panel (07/22/2024 2:25 [...] PM [facility] Comment:Calculation based on the [...] MD LAB BLOOD ORDERABLES Final Res ult [facility] [address] [place] [address], documented in this encounter Visit Diagnoses Diagnosis Encounter for other general examination documented in this encounter Care Teams Blaster Helper Relationship Specialty Start Date End Date Physician, No Pcp PCP - General 07/19/24 documented as of this encounter
--- OUTSIDE RECORDS SUMMARY | 2025-06-17 13:05 | XMS_ITS | Encounter Summary ---
Author Organization [facility] Address [address] [place] [address] Care Team Providers Care Drainage Inspector Name Role Phone Physician, No Pcp Primary Care Provider Unavaila ble Encounter Details Date Type Department Care Team (Late st Contact Info) Description 07/20/2024 Lab Requisition [facility] - Main Lab [address] [facility] [place] [address] Alisha Davison MD [address] [place] [address] Encounter for other general examination Social History [...] Normal LAB HEMETOLOGY METHOD 07/20/2024 11:53 AM [facility] LAB Comment:PLT: Normal Blood Venous blood specimen / Unknown Venipuncture / Unknown 07/20/2024 5:24 AM EST 07/20/2024 9:35 AM EST us Alisha Davison MD LAB BLOOD ORDERABLES Final Res ult [facility] [address] [place] [address], [place] [phone] * (ABNORMAL) CBC auto differential (07/20/2024 5:24 AM EST) WBC 8.4 4.8 - 10.8 K/mcL LAB HEMETOLOGY METHOD 07/20/2024 11:53 AM [facility] RBC 3.90 3.80 - 4.80 M/mcL LAB HEMETOLOGY METHOD 07/20/2024 11:53 AM [facility] LAB Hemoglobin 12.9 11.5 - 16.0 g/dL LAB HEMETOLOGY METHOD 07/20/2024 11:53 AM [facility] LAB Hematocrit 37.0 35.0 - 47.0 % LAB HEMETOLOGY METHOD 07/20/2024 11:53 AM [facility] LAB MCV 95.1 79.0 - 98.0 FL LAB HEMETOLOGY METHOD 07/20/2024 11:53 AM [facility] LAB MCH 33.2(H) 27.0 - 32.0 pcg LAB HEMETOLOGY METHOD 07/20/2024 11:53 AM [facility] LAB MCHC 34.9 32.0 - 37.0 g/dL LAB HEMETOLOGY METHOD 07/20/2024 11:53 AM EST [facility] RDW 12.3 11.0 - 15.0 % LAB HEMETOLOGY METHOD 07/20/2024 11:53 AM [facility] LAB Platelets 150 130 - 400 K/mcL LAB HEMETOLOGY METHOD 07/20/2024 11:53 AM EST [facility] MPV 10.0 7.0 - 11.0 FL LAB HEMETOLOGY METHOD 07/20/2024 11:53 AM EST [facility] NRBC 0.0 <1.0 % LAB HEMETOLOGY METHOD 07/20/2024 11:53 AM [facility] NRBC Absolute 0.00 <0.10 K/mcL LAB HEMETOLOGY METHOD 07/20/2024 11:53 AM EST [facility] Blood Venous blood specimen / Unknown Venipuncture / Unknown 07/20/2024 5:24 AM EST 07/20/2024 9:35 AM EST us Alisha Davison MD LAB BLOOD ORDERABLES Final Res ult [facility] [address] [place] [address], * (ABNORMAL) Magnesium (07/20/2024 5:24 AM EST) Magnesium 1.8(L) 1.9 - 2.6 mg/dL LAB CHEMISTRY METHOD 07/20/2024 11:00 AM EST [facility] Blood Venous blood specimen / Unknown Venipuncture / Unknown 07/20/2024 5:24 AM EST 07/20/2024 9:35 AM EST us Alisha Davison MD LAB BLOOD ORDERABLES Final Res ult [facility] [address] [place] [address], [place] [phone] * (ABNORMAL) Comprehensive metabolic panel (07/20/2024 5:24 AM EST) Sodium 132(L) 133 - 145 mmol/L LAB CHEMISTRY METHOD 07/20/2024 11:00 AM [facility] Potassium 3.6 3.5 - 5.5 mmol/L LAB CHEMISTRY METHOD 07/20/2024 11:00 AM [facility] Chloride 98 96 - 110 mmol/L LAB CHEMISTRY METHOD 07/20/2024 11:00 AM [facility] CO2 27 21 - 32 mmol/L LAB CHEMISTRY METHOD 07/20/2024 11:00 AM [facility] Anion Gap 7 3 - 11 LAB CHEMISTRY METHOD 07/20/2024 11:00 AM [facility] Glucose 96 70 - 100 mg/dL LAB CHEMISTRY METHOD 07/20/2024 11:00 AM [facility] BUN 14 5 - 25 mg/dL LAB CHEMISTRY METHOD 07/20/2024 11:00 AM [facility] Creatinine 0.48(L) 0.50 - 1.10 mg/dL LAB CHEMISTRY METHOD 07/20/2024 11:00 AM [facility] eGFR 94 >=60 mL/min/1. 73m2 LAB CHEMISTRY METHOD 07/20/2024 11:00 AM [facility] Comment:Calculation based on the Chronic Kidney Disease Epidemiology Collaboration (CKD-EPI) equation refit without adjustment for race. BUN/Creatinine Ratio 29.2 LAB CHEMISTRY METHOD 07/20/2024 11:00 AM [facility] Calcium 8.8 8.5 - 10.5 mg/dL LAB CHEMISTRY METHOD 07/20/2024 11:00 AM [facility] AST (SGOT) 15 10 - 42 unit/L LAB CHEMISTRY METHOD 07/20/2024 11:00 AM [facility] ALT (SGPT) 13 10 - 60 unit/L LAB CHEMISTRY METHOD 07/20/2024 11:00 AM [facility] Alkaline Phosphatase 72 42 - 121 unit/L LAB CHEMISTRY METHOD 07/20/2024 11:00 AM [facility] Total Protein 5.9(L) 6.0 - 8.0 g/dL LAB CHEMISTRY METHOD 07/20/2024 11:00 AM [facility] Albumin 3.3 3.2 - 5.0 g/dL LAB CHEMISTRY METHOD 07/20/2024 11:00 AM [facility] Total Bilirubin 0.9 0.0 - 1.4 mg/dL LAB CHEMISTRY METHOD 07/20/2024 11:00 AM [facility] Blood Venous blood specimen / Unknown Venipuncture / Unknown 07/20/2024 5:24 AM EST 07/20/2024 9:35 AM EST us Alisha Davison MD LAB BLOOD ORDERABLES Final Res ult [facility] [address] [place] [address], documented in this encounter Visit Diagnoses Diagnosis Encounter for other general examination documented in this encounter Care Teams Drainage Inspector Relationship Specialty Start Date End Date Physician, No Pcp PCP - General 07/19/24 documented as of this encounter
--- OUTSIDE RECORDS SUMMARY | 2025-06-17 13:05 | XMS_ITS | Encounter Summary ---
Author Organization [facility] Address [address] [place] [address] Care Team Providers Care Plateman Name Role Phone Physician, No Pcp Primary Care Provider Unavaila ble Encounter Details Date Type Department Care Team (Late st Contact Info) Description 07/23/2024 Lab Requisition [facility] - Main Lab [address] [facility] [place] [address] Alisha Davison MD [address] [place] [phone] Encounter for other general examination Social History [...] LAB CHEMISTRY METHOD 07/23/2024 12:57 PM EST [facility] Urine Urine specimen obtained by clean catch procedure / Unknown Non-blood Collection / Unknown 07/23/2024 11:30 AM EST 07/23/2024 12:29 PM EST us Alisha Davison MD LAB URINE ORDERABLES Final Res ult Performing Organization Address [facility] Co de Phone Number [facility] [address] [place] [address], [place] [phone] * Osmolality, urine (07/23/2024 11:30 AM EST) Osmolality, Urine 579 300 - 1,300 mOsm/kg LAB CHEMISTRY METHOD 07/23/2024 1:45 PM EST [facility] Urine Urine specimen obtained by clean catch procedure / Unknown Non-blood Collection / Unknown 07/23/2024 11:30 AM EST 07/23/2024 12:29 PM EST Alisha Davison MD LAB URINE ORDERABLES Final Res ult Performing Organization Address [facility] Co de Phone Number [facility] [address] [place] [address], [place] [phone] documented in this encounter Visit Diagnoses Diagnosis Encounter for other general examination documented in this encounter Care Teams Plateman Relationship Specialty Start Date End Date Physician, No Pcp PCP - General 07/19/24 documented as of this encounter
== END 2025-06-17 14:19 | disposition home or self-care (01) ==
LOC: HO.HMCH 13:02
PROVIDERS: PCP Internal Medicine; Visit Provider Internal Medicine
DX: F32.9 Major depressive disorder, single episode, unspecified (principal); K21.9 Gastro-esophageal reflux disease without esophagitis; F41.9 Anxiety disorder, unspecified; S72.102A Unspecified trochanteric fracture of left femur, initial encounter for closed fracture